=== PATIENT | female | born 1955 | race Caucasian/White ===

== ENCOUNTER 2020-11-18 15:53 | Observation (INO) | payer MEDICAID, SELFPAY ==
--- NOTE | ~2020-11-18 | NM_ITS ---
EXAMINATION: NM LUNG IMAGE PERFUSION CLINICAL INFORMATION: Chest pain. Rule out PE. History of lung cancer. D-dimer 227 COMPARISON: Chest x-ray 11/18/2020 TECHNIQUE: Following intravenous administration of 4 mCi of 90 9M technetium MAA, imaging of both lungs were obtained multiple projections. Ventilation study was not performed. FINDINGS: On perfusion exam there is normal flow seen to all segments of the lungs without any defect. NM/NM pul perfusion IMPRESSION: Normal perfusion exam. No defects seen.
--- NOTE | ~2020-11-18 | XR_ITS ---
EXAMINATION: XR CHEST CLINICAL INFORMATION: Chest heaviness COMPARISON: None TECHNIQUE: Frontal view of the chest was obtained. FINDINGS: No significant abnormality is noted involving the heart, lungs, mediastinum, bony thorax or soft tissues. XR/XR chest 1V IMPRESSION: Unremarkable chest examination.
[2020-11-18 16:17] VITALS: BP 136/64; PULSE 68; RESP 18; TEMP 36.9; O2SAT 99; BMI 34.7
[2020-11-18 17:05] LABS: MANUAL DIFF FLAG NO
[2020-11-18 17:16] LABS: Basophils Percent Auto 0.4 % (0-2); Eosinophils Absolute Auto 0.1 X10*3/uL (0.0-0.4); Eosinophils Percent Auto 1.2 % (0-4); Hematocrit 38.1 % (37-47); Hemoglobin 12.7 g/dl (12.0-16.0); Imm Gran Abs Auto 0.02 X10*3/uL (0.00-0.03); Imm Gran Pct Auto 0.3 % (0.0-0.4); Lymphocytes Absolute Auto 3.3 X10*3/uL (1.2-4.9); Lymphocytes Percent Auto 48.2 % (20-40); Mean Corpuscular HGB Conc 33.3 g/dl (31.0-35.0); Mean Corpuscular Hemoglobin 31.1 pg (27.0-33.0); Mean Corpuscular Volume 93.2 fL (80-98); Mean Platelet Volume 10.9 fL (9.4-12.3); Monocytes Absolute Auto 0.5 X10*3/uL (0.1-1.2); Monocytes Percent Auto 7.8 % (2-11); Neutrophils Absolute Auto 2.9 X10*3/uL (2.0-8.3); Neutrophils Percent Auto 42.1 % (45-73); Platelet Count 217 X10*3/uL (160-400); Red Blood Count 4.09 X10*6/uL (4.20-5.50); Red Cell Distribution Width 12.1 % (11.0-16.0); White Blood Count 6.9 X10*3/uL (4.8-10.8)
[2020-11-18 17:31] LABS: Anion Gap 14 (12-20); Blood Urea Nitrogen 14 mg/dL (9-16); Calcium 9.4 mg/dL (8.4-10.2); Carbon Dioxide 29 mmol/L (22-29); Chloride 105 mmol/L (96-108); Creatinine Clr Calc Pharmacy 55.6; Estimated Glomerular Filt Rate 53; Glucose Random 79 mg/dL (60-115); Potassium 4.6 mmol/L (3.3-5.1); Sodium 143 mmol/L (135-145)
[2020-11-18 17:40] LABS: Troponin-I High Sensitivity < 3.5 ng/L (<3.5-17.0)
--- NOTE | 2020-11-18 17:47 | ECG_ITS ---
Test Reason : CHEST TIGHTNESS Blood Pressure : / mmHG Vent. Rate : 089 BPM Atrial Rate : 089 BPM P-R Int : 146 ms QRS Dur : 070 ms QT Int : 380 ms P-R-T Axes : 053 -11 024 degrees QTc Int : 462 ms Normal sinus rhythm Low voltage QRS Cannot rule out Anterior infarct , age undetermined Abnormal ECG When compared with ECG of 25-FEB-2020 23:32, No significant change was found Referred By: Lico Gold Electronically Signed By:Beau Barajas
--- NOTE | 2020-11-18 17:49 | ED_ITS ---
HPI - Chest Pain General Chief Complaint: Chest Pain Stated Complaint: chest heaviness Time Seen by Provider: 11/18/20 17:46 Source: patient Mode of arrival: ambulatory Limitations: no limitations History of Present Illness HPI narrative: Patient presents to ED for atypical chest pain. Patient states burning acid sensation in chest for the past 3 days and now developing to pressure on her chest. Patient denies any shortness of breath swelling of lower extremities, calf pain, coughing up blood, fever, or chills. Patient denies any fever, chills, recent trauma to the chest, control use, recent surgery, any recent long travel. Patient admits to history of acid reflux MD complaint: chest pain Related Data Home Medications Medication Instructions Recorded Confirmed famotidine 1 tab PO BEDTIME 11/18/20 11/18/20 lorazepam 1 tab PO QID PRN 11/18/20 11/18/20 omeprazole 1 cap PO DAILY 11/18/20 11/18/20 polyethylene glycol 3350 17 g PO DAILY 11/18/20 11/18/20 Allergies Allergy/AdvReac Type Severity Reaction Status Date / Time Penicillins [PENICILLINS] Allergy Severe ANAPHYLAXIS Verified 11/18/20 16:16 Iodinated Contrast Media Allergy Intermediate HIVES Verified 11/18/20 16:16 [Iodinated Contrast Media - IV Dye] ciprofloxacin [From CIPRO] Allergy Unknown UNKNOWN Verified 11/18/20 16:16 Sulfa (Sulfonamide AdvReac Unknown NAUSEA & Verified 11/18/20 16:16 Antibiotics) VOMITING [SULFA (SULFONAMIDE ANTIBIOTICS)] cipro? Allergy Unknown hives Uncoded 12/27/18 00:00 PCN Allergy Unknown hives/SOB Uncoded 12/27/18 00:00 sulfa Allergy Unknown n/v Uncoded 12/27/18 00:00 Review of Systems Review of Systems: Yes all other systems are reviewed and are negative Constitutional: Constitutional: Reports as per HPI and Reports no additional constitutional complaints Eyes: Eyes: Reports as per HPI and Reports no additional eye complaints ENT: Reports system reviewed and no additional complaints, except as documented and Reports as per HPI Cardiovascular: Cardiovascular: Reports as per HPI, Reports no additional cardiovascular complaints, Reports chest pain and Denies dyspnea Respiratory: Respiratory: Reports as per HPI, Reports no additional respiratory complaints and Denies dyspnea Gastrointestinal: Gastrointestinal: Reports as per HPI, Reports no additional gastrointestinal complaints, Reports dyspepsia and Reports heartburn Genitourinary: Genitourinary: Reports no additional female genitourinary complaints and Reports as per HPI Musculoskeletal: Musculoskeletal: Reports no additional musculoskeletal complaints and Reports as per HPI Neurologic: Reports system reviewed and no additional complaints, except as documented and Reports as per HPI Psychiatric: Psychiatric: Reports no additional psychiatric complaints and Reports as per HPI [facility] Social History Social History Household Members: None Housing: Apartment Do you presently have visiting nurse or other home services: No Patient Tobacco Use Status: Never used Tobacco Use of substances other than those prescribed or required for medical reasons: No Have you been hit, kicked, punched, or otherwise hurt by someone within the past year? If so, by whom?: No Do you feel safe in your current relationship?: Yes Is there a partner from a previous relationship who is making you feel unsafe now?: No Are you made to feel afraid or neglected: No Advance Directives: No Advance Directives Information Provided: No Do you have thoughts of harming others: None Do you have a plan to hurt others: No Plan Recently lost weight without trying: No Eating poorly because of decreased appetite: No Nutrition Risks: No Nutritional Risk Patient : No : No Poor oral hygiene: No Physical Exam Vital Signs: Vital Signs: Last Vital Signs Temp 97.6 F 11/19/20 00:35 Pulse 68 11/19/20 00:35 Resp 16 11/19/20 00:35 BP 116/65 11/19/20 00:35 Pulse Ox 98 11/19/20 00:35 Body Mass Index 34.7 Const: General: cooperative, healthy appearing, comfortable, no acute distress, well developed, alert and awake Orientation/consciousness: patient oriented x3 HENMT: Head: Yes normal to inspection, Yes No palpable skull fracture present, Yes normocephalic and Yes atraumatic Eyes: General: appearance normal, both eyes and all related structures Neck: Neck: Yes normal visual inspection, Yes full ROM, Yes no lymphadenopathy, Yes no meningeal signs, Yes trachea midline, Yes supple and No tender Chest: Chest palpation & inspection: normal inspection of the chest and normal palpation of entire chest wall Resp: Effort & Inspection: normal respiratory effort and able to speak in complete sentences Auscultation: clear to auscultation bilaterally Cardio: Jugular venous distension: no JVD Heart sounds: S1 normal heart sound present and S2 normal heart sound present GI: Inspection: Yes normal to inspection and No abdominal wall ecchymosis Palpation (GI): Soft to palpation, not firm, nontender, no guarding and not rigid : General: No CVA tenderness and Yes no CVA tenderness Back/Spine/Pelvis: Back: no CVA tenderness, No CVA tenderness and No back tenderness Skin: General skin exam: no rashes or lesions noted and elasticity normal Neuro: General: patient oriented x3, gait normal, no meningeal signs and CN's II-XI intact bilaterally Cranial nerves: Yes CN's II-XII intact bilaterally Extrem: Other: Lower extremities negative for swelling, pitting edema, redness, calf tenderness General: Yes normal to inspection and Yes full ROM Psych: Appearance: grossly normal, well kempt and not disheveled Course Course Course Narrative: Patient will have labs and a cardiac evaluation. Patient given GI cocktail Reevaluation(s) Reevaluation #1: Chest x-ray came back negative for pneumonia. Patient's 1st troponin negative. Liver enzymes are normal. Negative elevated white blood cell count. States GI cocktail patient still stating chest burning/chest pressure sensation will order aspirin and nitrates. Will order D-dimer due to atypical chest pain presentation Reevaluation #2: Nurse informed me that patient refused nitro and aspirin because her chest burning sensation and chest pressure resolved. Patient's D- dimer elevated. Patient not able to get chest CTA due to anaphylactic reaction to IV contrast. Case presented to Dr. Davalos for admission for V/Q scan in the morning and she agreed to plan. Patient presently asymptomatic MDM - Chest Pain MDM Narrative Medical decision making narrative: Chest pain. Elevated D-dimer Lab Data Result diagrams: 11/18/20 16:54 11/18/20 16:54 Labs: Lab Results 11/18/20 11/18/20 11/18/20 Range/Units 16:54 16:54 16:54 WBC 6.9 (4.8-10.8) X10*3/uL RBC 4.09 L (4.20-5.50) X10*6/uL Hgb 12.7 (12.0-16.0) g/dl Hct 38.1 (37-47) % MCV 93.2 (80-98) fL MCH 31.1 (27.0-33.0) pg MCHC 33.3 (31.0-35.0) g/dl RDW 12.1 (11.0-16.0) % Plt Count 217 (160-400) X10*3/uL MPV 10.9 (9.4-12.3) fL Immature Gran % (Auto) 0.3 (0.0-0.4) % Neut % (Auto) 42.1 L (45-73) % Lymph % (Auto) 48.2 H (20-40) % [place] % (Auto) 7.8 (2-11) % Eos % (Auto) 1.2 (0-4) % Baso % (Auto) 0.4 (0-2) % Lymph # (Auto) 3.3 (1.2-4.9) X10*3/uL [place] # (Auto) 0.5 (0.1-1.2) X10*3/uL Eos # (Auto) 0.1 (0.0-0.4) X10*3/uL Baso # (Auto) 0.0 (0.0-0.2) X10*3/uL Abs Immat Gran (auto) 0.02 (0.00-0.03) X10*3/uL Absolute Neuts (auto) 2.9 (2.0-8.3) X10*3/uL Absolute Nucleated RBC 0.000 (0.0-0.012) X10*3/uL Nucleated RBC % (auto) 0.0 (0.0-0.2) /100WBC PT (10.8-13.0) SEC INR (0.9-1.1) APTT (24.1-38.0) SEC D-Dimer NG/ML Sodium 143 (135-145) mmol/L Potassium 4.6 (3.3-5.1) mmol/L Chloride 105 (96-108) mmol/L Carbon Dioxide 29 (22-29) mmol/L Anion Gap 14 (12-20) BUN 14 (9-16) mg/dL Creatinine 1.04 (0.5-1.4) mg/dL Estim Creat Clear Calc 55.6 Estimated GFR 53 Random Glucose 79 (60-115) mg/dL Calcium 9.4 (8.4-10.2) mg/dL Total Bilirubin 0.4 (0.0-1.0) mg/dL Direct Bilirubin 0.2 (0.0-0.5) mg/dL AST 20 (5-31) U/L ALT 24 (0-31) U/L Alkaline Phosphatase 53 (39-117) U/L Troponin I High Sens < 3.5 (<3.5-17.0) ng/L B-Natriuretic Peptide 26 (<100) pg/mL Total Protein 6.6 (6.5-8.0) g/dL Albumin 4.2 (3.5-5.0) g/dL Lipase 35 (8-78) U/L COVID-19 (LICO) (Negative) COVID-19 Clin Com 11/18/20 11/18/20 11/18/20 Range/Units 18:31 19:41 19:41 WBC (4.8-10.8) X10*3/uL RBC (4.20-5.50) X10*6/uL Hgb (12.0-16.0) g/dl Hct (37-47) % MCV (80-98) fL MCH (27.0-33.0) pg MCHC (31.0-35.0) g/dl RDW (11.0-16.0) % Plt Count (160-400) X10*3/uL MPV (9.4-12.3) fL Immature Gran % (Auto) (0.0-0.4) % Neut % (Auto) (45-73) % Lymph % (Auto) (20-40) % [place] % (Auto) (2-11) % Eos % (Auto) (0-4) % Baso % (Auto) (0-2) % Lymph # (Auto) (1.2-4.9) X10*3/uL [place] # (Auto) (0.1-1.2) X10*3/uL Eos # (Auto) (0.0-0.4) X10*3/uL Baso # (Auto) (0.0-0.2) X10*3/uL Abs Immat Gran (auto) (0.00-0.03) X10*3/uL Absolute Neuts (auto) (2.0-8.3) X10*3/uL Absolute Nucleated RBC (0.0-0.012) X10*3/uL Nucleated RBC % (auto) (0.0-0.2) /100WBC PT 12.0 (10.8-13.0) SEC INR 1.0 (0.9-1.1) APTT 35.1 (24.1-38.0) SEC D-Dimer 327 NG/ML Sodium (135-145) mmol/L Potassium (3.3-5.1) mmol/L Chloride (96-108) mmol/L Carbon Dioxide (22-29) mmol/L Anion Gap (12-20) BUN (9-16) mg/dL Creatinine (0.5-1.4) mg/dL Estim Creat Clear Calc Estimated GFR Random Glucose (60-115) mg/dL Calcium (8.4-10.2) mg/dL Total Bilirubin (0.0-1.0) mg/dL Direct Bilirubin (0.0-0.5) mg/dL AST (5-31) U/L ALT (0-31) U/L Alkaline Phosphatase (39-117) U/L Troponin I High Sens < 3.5 (<3.5-17.0) ng/L B-Natriuretic Peptide (<100) pg/mL Total Protein (6.5-8.0) g/dL Albumin (3.5-5.0) g/dL Lipase (8-78) U/L COVID-19 (LICO) Negative (Negative) COVID-19 Clin Com See Note ECG Data ECG #1: Interpretation: Normal sinus rhythm. Ventricular rate 89. KS interval 146. QRS 70. QTC 462. Negative STEMI Discharge Plan Discharge Clinical Impression: Atypical chest pain, D-dimer, elevated Patient Disposition: Admitted As Inpatient Interventions: Admission Worksheet (ED) Last Done: 11/19/20 01:22
[2020-11-18 18:06] LABS: Alanine Aminotransferase 24 U/L (0-31); Albumin Level 4.2 g/dL (3.5-5.0); Alkaline Phosphatase 53 U/L (39-117); Aspartate Amino Transferase 20 U/L (5-31); Bilirubin Direct 0.2 mg/dL (0.0-0.5); Bilirubin Total 0.4 mg/dL (0.0-1.0); Lipase 35 U/L (8-78); Total Protein 6.6 g/dL (6.5-8.0)
[2020-11-18] MEDS: Magnesium Hydrox/Alum Hydrox 30 ML ORAL.SUSP PO (18:14)
[2020-11-18] MEDS: Famotidine 20 MG TABLET PO (18:14)
[2020-11-18] MEDS: Lidocaine HCl Viscous 2 % 15 ML SOLUTION MUCOUS MEM (18:14)
[2020-11-18] MEDS: PHENobarb/Hyoscy/Atropine/Scop 10 ML ELIXIR PO (18:17)
[2020-11-18 18:26] VITALS: BP 146/79; PULSE 79; RESP 16; TEMP 36.6; O2SAT 98
[2020-11-18 18:56] LABS: COVID-19 Test Negative (Negative)
[2020-11-18 19:53] LABS: B Type Natriuretic Peptide 26 pg/mL (<100)
[2020-11-18 19:57] VITALS: BP 124/67; PULSE 57; RESP 13; O2SAT 99
[2020-11-18] MEDS: Aspirin 81 MG TAB.CHEW 324 MG PO (19:57)
[2020-11-18 19:58] LABS: D Dimer 327 NG/ML; Partial Thromboplastin Time 35.1 SEC (24.1-38.0)
[2020-11-18 20:00] VITALS: BP 115/63; PULSE 66; RESP 16; TEMP 36.6; O2SAT 98
[2020-11-18 20:01] VITALS: BP 124/67; PULSE 74
--- NOTE | 2020-11-18 20:02 | PC.NURSE ---
pt reports she is pain free. nitro no adminisered.
[2020-11-18 20:21] LABS: Troponin-I High Sensitivity < 3.5 ng/L (<3.5-17.0)
--- NOTE | 2020-11-18 21:54 | HE.PHANOTE ---
Pharmacy Consult ? Medication Reconciliation Pharmacy has completed the medication reconciliation and there were no significant medication issues requiring provider attention. Patient is not compliant with medication regiments. Zara Anderson, PharmD [phone]
[2020-11-19 00:35] VITALS: BP 116/65; PULSE 68; RESP 16; TEMP 36.4; O2SAT 98
[2020-11-19] MEDS: LORazepam 0.5 MG TABLET PO (01:56)
[2020-11-19] MEDS: 0.9 % Sodium Chloride Flush 3 ML SYRINGE IVFLUSH (01:56)
[2020-11-19 04:00] VITALS: BP 97/50; PULSE 76; RESP 16; TEMP 36.3; O2SAT 96
[2020-11-19 05:51] LABS: MANUAL DIFF FLAG NO
[2020-11-19 05:58] LABS: Basophils Percent Auto 0.4 % (0-2); Eosinophils Absolute Auto 0.1 X10*3/uL (0.0-0.4); Eosinophils Percent Auto 1.6 % (0-4); Hematocrit 35.5 % (37-47); Hemoglobin 11.7 g/dl (12.0-16.0); Imm Gran Abs Auto 0.02 X10*3/uL (0.00-0.03); Imm Gran Pct Auto 0.3 % (0.0-0.4); Lymphocytes Absolute Auto 3.6 X10*3/uL (1.2-4.9); Mean Corpuscular Hemoglobin 30.5 pg (27.0-33.0); Mean Corpuscular Volume 92.7 fL (80-98); Mean Platelet Volume 10.9 fL (9.4-12.3); Monocytes Absolute Auto 0.6 X10*3/uL (0.1-1.2); Monocytes Percent Auto 8.6 % (2-11); Neutrophils Absolute Auto 2.6 X10*3/uL (2.0-8.3); Neutrophils Percent Auto 37.1 % (45-73); Platelet Count 196 X10*3/uL (160-400); Red Blood Count 3.83 X10*6/uL (4.20-5.50); Red Cell Distribution Width 12.1 % (11.0-16.0)
--- NOTE | 2020-11-19 06:15 | PM.IMHP ---
History of Present Illness Date of Service: 11/19/20 Chief Complaint: chest pain 64-year-old female with past medical history of AFib not on anticoagulation, type 2 diabetes, history of lung cancer status post lobectomy currently in remission presents to the hospital with complaints chest pain. Patient reports pressure-like substernal chest pain that started about 2 days ago, nonradiating, does not change with any movement or inhalation, intermittent, lasting about few minutes, resolving spontaneously and reoccurring after 15 minutes. Occur spontaneously with no exacerbating or alleviating factors. Patient reports that her occurs at random times and wakes her up from sleep sometimes. She reports that when she has this chest pain she feels that her breath is heavy although not really short of breath. No similar previous episode. Patient reports that about 2 nights ago had severe heartburn that woke her up and felt very distressful although that resolved. She reports that due to her back pain she has been putting a lot of pressure on her arms whenever she gets up from a seated or sitting position and uses her upper body to help her with moving. She otherwise denies any fever chills, no palpitations, no headache or change in vision, no dizziness, no abdominal pain nausea or vomiting, no diarrhea constipation, no urinary symptoms and no lower extremity edema. Denies any recent surgery, denies any recent immobility and or long travels. No swelling in any of her extremities On arrival to the ED hemodynamically stable with no significant abnormal vitals Labs are significant for WBC count of 6.9, hemoglobin of 12.7, D-dimer of 327, labs otherwise unremarkable. Troponin negative x2, EKG negative for any acute changes Chest x-ray shows unremarkable exam Patient was given nitroprusside in the ED which helped her symptoms of chest pain Given her elevated D-dimer patient was recommended to get a CT angiogram of the chest but she is allergic to dye and therefore will be admitted for V/Q scan Review of Systems Review of Systems: Yes all other systems are reviewed and are negative [facility] Medical History Atrial fibrillation Diabetes History of lung cancer Surgical History History of lobectomy of lung Social History Household Members: None Housing: Apartment Do you presently have visiting nurse or other home services: No Patient Tobacco Use Status: Never used Tobacco Use of substances other than those prescribed or required for medical reasons: No Have you been hit, kicked, punched, or otherwise hurt by someone within the past year? If so, by whom?: No Do you feel safe in your current relationship?: Yes Is there a partner from a previous relationship who is making you feel unsafe now?: No Are you made to feel afraid or neglected: No Advance Directives: No Advance Directives Information Provided: No Do you have thoughts of harming others: None Do you have a plan to hurt others: No Plan Recently lost weight without trying: No Eating poorly because of decreased appetite: No Nutrition Risks: No Nutritional Risk Patient : No : No Poor oral hygiene: No Meds Allergies Allergy/AdvReac Type Severity Reaction Status Date / Time Penicillins [PENICILLINS] Allergy Severe ANAPHYLAXIS Verified 11/18/20 16:16 Iodinated Contrast Media Allergy Intermediate HIVES Verified 11/18/20 16:16 [Iodinated Contrast Media - IV Dye] ciprofloxacin [From CIPRO] Allergy Unknown UNKNOWN Verified 11/18/20 16:16 Sulfa (Sulfonamide AdvReac Unknown NAUSEA & Verified 11/18/20 16:16 Antibiotics) VOMITING [SULFA (SULFONAMIDE ANTIBIOTICS)] cipro? Allergy Unknown hives Uncoded 12/27/18 00:00 PCN Allergy Unknown hives/SOB Uncoded 12/27/18 00:00 sulfa Allergy Unknown n/v Uncoded 12/27/18 00:00 Active Medications: Current Medications Generic Name Dose Route Start Last Admin Trade Name Freq PRN Reason Stop Dose Admin Acetaminophen 650 mg 11/19/20 00:29 Acetaminophen 325 Mg Tablet PO Q6H PRN Pain, Mild (Pain Scale 1-3) Al Hydroxide/Mg Hydroxide 15 ml 11/19/20 00:29 Magnesium Hydrox/Alum Hydrox 30 Ml Oral.Susp PO Q6H PRN Heartburn Docusate Sodium 100 mg 11/19/20 00:29 Docusate Sodium 100 Mg Capsule PO DAILY PRN Constipation Famotidine 20 mg 11/19/20 21:00 Famotidine 20 Mg Tablet PO BEDTIME LEANDRO Heparin Sodium (Porcine) 5,000 unit 11/19/20 02:00 11/19/20 03:04 Heparin Sodium,Porcine 5,000 Unit/Ml Vial SUBCUT Not Given Q12H LEANDRO Lorazepam 0.5 mg 11/19/20 00:29 11/19/20 01:56 Lorazepam 0.5 Mg Tablet PO 0.5 mg QID PRN Administration Anxiety Omeprazole 20 mg 11/19/20 09:00 Omeprazole 20 Mg Capsule.Dr PO DAILY LEANDRO Ondansetron HCl 4 mg 11/19/20 00:29 Ondansetron Hcl 4 Mg/2 Ml Vial IVPUSH Q8H PRN Nausea and Vomiting Pharmacy Consult 1 each 11/18/20 21:42 Consult Rx Perform Med Rec MISCELLANE ONCE PRN Consult order Polyethylene Glycol 17 gm 11/19/20 09:00 Polyethylene Glycol 3350 17 Gm Powd.Pack PO DAILY [facility] Sodium Chloride 3 ml 11/19/20 00:29 11/19/20 01:56 0.9 % Sodium Chloride Flush 3 Ml Syringe IVFLUSH 3 ml QSHIFT [facility] Administration Home Medications Medication Instructions Recorded Confirmed Last Taken Type famotidine 1 tab PO BEDTIME 11/18/20 11/18/20 Unknown History lorazepam 1 tab PO QID PRN 11/18/20 11/18/20 Unknown History omeprazole 1 cap PO DAILY 11/18/20 11/18/20 Unknown History polyethylene glycol 3350 17 g PO DAILY 11/18/20 11/18/20 Unknown History Physical Exam Vital Signs and Narrative: Vital Signs: Last Vital Signs Temp 97.4 F 11/19/20 04:00 Pulse 76 11/19/20 04:00 Resp 16 11/19/20 04:00 BP 97/50 L 11/19/20 04:00 Pulse Ox 96 11/19/20 04:00 Body Mass Index 34.7 Const: General: cooperative and no acute distress Orientation/consciousness: patient oriented x3 Eyes: General: appearance normal, both eyes and all related structures Chest: Other: Reproducible substernal chest pain with palpation Resp: Effort & Inspection: normal respiratory effort and able to speak in complete sentences Auscultation: clear to auscultation bilaterally Cardio: Rate: regular rate Rhythm: regular rhythm GI: Palpation (GI): Soft to palpation Auscultation: normal bowel sounds Skin: General skin exam: no rashes or lesions noted Neuro: General: patient oriented x3 Cognition (Neuro): normal cognition Extrem: General: Yes normal to inspection and Yes no pedal edema Results Labs CBC and Chem 7: 11/19/20 05:38 11/18/20 16:54 Labs: Laboratory Results - last 24 hr 11/18/20 11/18/20 11/18/20 16:54 16:54 16:54 MCV 93.2 MCH 31.1 MCHC 33.3 RDW 12.1 Plt Count 217 MPV 10.9 Immature Gran % (Auto) 0.3 Neut % (Auto) 42.1 L Lymph % (Auto) 48.2 H [place] % (Auto) 7.8 Eos % (Auto) 1.2 Baso % (Auto) 0.4 Lymph # (Auto) 3.3 [place] # (Auto) 0.5 Eos # (Auto) 0.1 Baso # (Auto) 0.0 Abs Immat Gran (auto) 0.02 Absolute Neuts (auto) 2.9 Absolute Nucleated RBC 0.000 Nucleated RBC % (auto) 0.0 PT INR APTT D-Dimer Anion Gap 14 Estim Creat Clear Calc 55.6 Estimated GFR 53 Random Glucose 79 Calcium 9.4 Total Bilirubin 0.4 Direct Bilirubin 0.2 AST 20 ALT 24 Alkaline Phosphatase 53 Troponin I High Sens < 3.5 B-Natriuretic Peptide 26 Total Protein 6.6 Albumin 4.2 Lipase 35 COVID-19 (LICO) COVID-E-Generator 11/18/20 11/18/20 11/18/20 18:31 19:41 19:41 MCV MCH MCHC RDW Plt Count MPV Immature Gran % (Auto) Neut % (Auto) Lymph % (Auto) [place] % (Auto) Eos % (Auto) Baso % (Auto) Lymph # (Auto) [place] # (Auto) Eos # (Auto) Baso # (Auto) Abs Immat Gran (auto) Absolute Neuts (auto) Absolute Nucleated RBC Nucleated RBC % (auto) PT 12.0 INR 1.0 APTT 35.1 D-Dimer 327 Anion Gap Estim Creat Clear Calc Estimated GFR Random Glucose Calcium Total Bilirubin Direct Bilirubin AST ALT Alkaline Phosphatase Troponin I High Sens < 3.5 B-Natriuretic Peptide Total Protein Albumin Lipase COVID-19 (LICO) Negative COVID-19 Clin Com See Note 11/19/20 05:38 MCV 92.7 MCH 30.5 MCHC 33.0 RDW 12.1 Plt Count 196 MPV 10.9 Immature Gran % (Auto) 0.3 Neut % (Auto) 37.1 L Lymph % (Auto) 52.0 H [place] % (Auto) 8.6 Eos % (Auto) 1.6 Baso % (Auto) 0.4 Lymph # (Auto) 3.6 [place] # (Auto) 0.6 Eos # (Auto) 0.1 Baso # (Auto) 0.0 Abs Immat Gran (auto) 0.02 Absolute Neuts (auto) 2.6 Absolute Nucleated RBC 0.000 Nucleated RBC % (auto) 0.0 PT INR APTT D-Dimer Anion Gap Estim Creat Clear Calc Estimated GFR Random Glucose Calcium Total Bilirubin Direct Bilirubin AST ALT Alkaline Phosphatase Troponin I High Sens B-Natriuretic Peptide Total Protein Albumin Lipase COVID-19 (LICO) COVID-19 Clin Com Imaging Radiologist's Impressions: Impressions Chest X-Ray 11/18/20 16:45 IMPRESSION: Unremarkable chest examination. Assessment and Plan (1) Atypical chest pain: Status: Acute (2) D-dimer, elevated: Status: Acute This is a 64-year-old female with past medical history of AFib who presents to the hospital with complaints of substernal chest pain found to have an elevated D-dimer # chest pain - noncardiac, most likely secondary to musculoskeletal as it is reproducible, PE less likely - troponin negative x2, EKG shows no acute changes - given her atypical chest pain as well as elevated D-dimer will order V/Q to rule out PE as a result of her chest pain # elevated D-dimer - no risk factors for PE/DVT - patient allergic to CT angiogram - will order V/Q scan # AFib - CHADS-VASc of 1 - when I asked her about why she is not on anticoagulation 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 - pt reports hx of dm although currently not on any medications for dm - no documented Hemoglobin A1c - determining her Diabetes status is improtant as it impacts her CHADSvasc score, making it 2, placing at high risk for strokes - will obtain hemoglobin A1c dvt ppx: heparin subq
[2020-11-19 06:21] LABS: Anion Gap 10 (12-20); Blood Urea Nitrogen 15 mg/dL (9-16); Calcium 8.6 mg/dL (8.4-10.2); Carbon Dioxide 29 mmol/L (22-29); Chloride 106 mmol/L (96-108); Creatinine Clr Calc Pharmacy 53.6; Estimated Glomerular Filt Rate 51; Glucose Random 102 mg/dL (60-115); Potassium 4.2 mmol/L (3.3-5.1); Sodium 141 mmol/L (135-145)
[2020-11-19 07:45] VITALS: BP 126/67; PULSE 59; RESP 17; TEMP 36.4; O2SAT 99
[2020-11-19 08:17] LABS: Estimated Average Glucose 120 mg/dL; Hemoglobin A1c % 5.8 %
[2020-11-19 08:36] LABS: Glucose, Whole Blood 108 mg/dL (60-115)
[2020-11-19] MEDS: Omeprazole 20 MG CAPSULE.DR PO (08:38)
--- NOTE | 2020-11-19 10:05 | MHC.CM.PN ---
Addendum entered by Jeanie Ricks 11/19/20 11:39: D/C- HOME NO SERVICES (NO VNA ORDERED) NO NEW MEDICATIONS LISTED AT THIS TIME TRANSPORTATION FAMILY SELF RESUMPTION OF PATIENT OUTPATIENT PT FOR VERTIGO AND SELF RESUMPTION OF HER MENTAL HEALTH COUNSELING Original Note: NURSE APPLIANCE INSTALLER NOTE, ELECTRONIC MEDICAL RECORD REVIEWED CASE DISCUSSED WITH STAFF NURSE. MET WITH PATIENT , SHE REPORTED THAT SHE LIVES ALONE IN IN A APARTMENT. SHE HAS NO VNA/NO DME SERVICES . SHE GOES TO THE [facility] FOR VRRTIGO. SHE ALSO IS FOLLOWED BY A PSYCHIATRIST /THERAPIST FOR MENTAL HEALTH COUNSELING (ANXIETY/DEPRESSION, PANIC ATTACKS) SHE CONFIRMED PCP DR CIRO GOLDBERG. DISCHARGE PLAN HOME WITH ANTICIPATED NO SERVICES OBSERVATION NOTICE EXPLAINED AND GIVEN TO PATIENT TRANSPORTATION FAMILY SELF RESUMPTION OF HER OUTPATIENT PT FOR VERTIGO AND MENTAL HEALTH COUNSELING EDUCATED ABOUT THE IMPORTANCE OF HAVING A HEALTH CARE PROXY
--- NOTE | 2020-11-19 11:28 | P.DS_ITS ---
DS: Providers Provider Date of Service: 11/19/20 Date of admission: 11/18/20 22:22 Primary care physician: Samuel Love MD DS: Diagnosis Discharge Diagnosis (1) Atypical chest pain: Status: Acute (2) D-dimer, elevated: Status: Acute DS: Medications Discharge Medications Home Medications: Home Medications Medication Instructions Recorded Confirmed famotidine 1 tab PO BEDTIME 11/18/20 11/18/20 lorazepam 1 tab PO QID PRN 11/18/20 11/18/20 omeprazole 1 cap PO DAILY 11/18/20 11/18/20 polyethylene glycol 3350 17 g PO DAILY 11/18/20 11/18/20 DS: Summary Hospital Course Hospital Course: 64-year-old female with past medical history of AFib not on anticoagulation, type 2 diabetes, history of lung cancer status post lobectomy currently in remission presents to the hospital with complaints chest pain. Patient reports pressure-like substernal chest pain that started about 2 days ago, nonradiating, does not change with any movement or inhalation, intermittent, lasting about few minutes, resolving spontaneously and reoccurring after 15 minutes. Occur spontaneously with no exacerbating or alleviating factors. Patient reports that her occurs at random times and wakes her up from sleep sometimes. She reports that when she has this chest pain she feels that her breath is heavy although no t really short of breath. No similar previous episode. Patient reports that about 2 nights ago had severe heartburn that woke her up and felt very distressful although that resolved. She reports that due to her back pain she has been putting a lot of pressure on her arms whenever she gets up from a seated or sitting position and uses her upper body to help her with moving. She otherwise denies any fever chills, no palpitations, no headache or change in vision, no dizziness, no abdominal pain nausea or vomiting, no diarrhea constipation, no urinary symptoms and no lower extremity edema. Denies any recent surgery, denies any recent immobility and or long travels. No swelling in any of her extremities On arrival to the ED hemodynamically stable with no significant abnormal vitals Labs are significant for WBC count of 6.9, hemoglobin of 12.7, D-dimer of 327, labs otherwise unremarkable. Troponin negative x2, EKG negative for any acute changes Chest x-ray shows unremarkable exam Patient was given nitroprusside in the ED which helped her symptoms of chest pain Given her elevated D-dimer patient was recommended to get a CT angiogram of the chest but she is allergic to dye and therefore will be admitted for V/Q scan Hospital course: Chest pain is likely related to GI ie GERD, her cardiac enzymes were normal twice and there was no ECG changes from previous ECG and her pain is not of anginal pattern, she had VQ scan done for elevated DDimer and this was normal her pain has resolved and seem to respond to tums--I suggest she continue PPI and H2 yancy and to see GI and cardiology on outpatient basis, certainly to return to ED if chest pain return. Time Spent with Patient Time attestation: Total time spent providing and/or coordinating discharge services: Discharge coordination time: Greater than 30 minutes Quality: Stroke Does the patient have a stroke diagnosis?: No Physical Exam Vital Signs: Vital Signs: Last Vital Signs Temp 97.6 F 11/19/20 07:45 Pulse 59 11/19/20 07:45 Resp 17 11/19/20 07:45 BP 126/67 11/19/20 07:45 Pulse Ox 99 11/19/20 07:45 Body Mass Index 34.7 Constitutional Awake and Alert, No apparent distress Neck Supple, No lymphadenopathy Cardiovascular RRR, No M/R/G, S1 S2, No S3 S4, No pedal edema Respiratory Lungs clear, No respiratory distress Gastrointestinal Non tender, Non-distended Skin No rash Neurological Alert & oriented x3 Psychological Appropriate affect DS: Data Data Completed and Pending Labs on day of discharge: Laboratory Results - last 24 hr 11/18/20 11/18/20 11/18/20 16:54 16:54 16:54 WBC 6.9 RBC 4.09 L Hgb 12.7 Hct 38.1 MCV 93.2 MCH 31.1 MCHC 33.3 RDW 12.1 Plt Count 217 MPV 10.9 Immature Gran % (Auto) 0.3 Neut % (Auto) 42.1 L Lymph % (Auto) 48.2 H [place] % (Auto) 7.8 Eos % (Auto) 1.2 Baso % (Auto) 0.4 Lymph # (Auto) 3.3 [place] # (Auto) 0.5 Eos # (Auto) 0.1 Baso # (Auto) 0.0 Abs Immat Gran (auto) 0.02 Absolute Neuts (auto) 2.9 Absolute Nucleated RBC 0.000 Nucleated RBC % (auto) 0.0 PT INR APTT D-Dimer Sodium 143 Potassium 4.6 Chloride 105 Carbon Dioxide 29 Anion Gap 14 BUN 14 Creatinine 1.04 Estim Creat Clear Calc 55.6 Estimated GFR 53 POC Glucose Random Glucose 79 Estimat Average Glucose Hemoglobin A1c % Calcium 9.4 Total Bilirubin 0.4 Direct Bilirubin 0.2 AST 20 ALT 24 Alkaline Phosphatase 53 Troponin I High Sens < 3.5 B-Natriuretic Peptide 26 Total Protein 6.6 Albumin 4.2 Lipase 35 COVID-19 ([facility]) COVID-19 Clin Com 11/18/20 11/18/20 11/18/20 18:31 19:41 19:41 WBC RBC Hgb Hct MCV MCH MCHC RDW Plt Count MPV Immature Gran % (Auto) Neut % (Auto) Lymph % (Auto) [place] % (Auto) Eos % (Auto) Baso % (Auto) Lymph # (Auto) [place] # (Auto) Eos # (Auto) Baso # (Auto) Abs Immat Gran (auto) Absolute Neuts (auto) Absolute Nucleated RBC Nucleated RBC % (auto) PT 12.0 INR 1.0 APTT 35.1 D-Dimer 327 Sodium Potassium Chloride Carbon Dioxide Anion Gap BUN Creatinine Estim Creat Clear Calc Estimated GFR POC Glucose Random Glucose Estimat Average Glucose Hemoglobin A1c % Calcium Total Bilirubin Direct Bilirubin AST ALT Alkaline Phosphatase Troponin I High Sens < 3.5 B-Natriuretic Peptide Total Protein Albumin Lipase COVID-19 ([facility]) Negative COVID-19 Clin Com See Note 11/19/20 11/19/20 11/19/20 05:38 05:38 06:05 WBC 7.0 RBC 3.83 L Hgb 11.7 L Hct 35.5 L MCV 92.7 MCH 30.5 MCHC 33.0 RDW 12.1 Plt Count 196 MPV 10.9 Immature Gran % (Auto) 0.3 Neut % (Auto) 37.1 L Lymph % (Auto) 52.0 H [place] % (Auto) 8.6 Eos % (Auto) 1.6 Baso % (Auto) 0.4 Lymph # (Auto) 3.6 [place] # (Auto) 0.6 Eos # (Auto) 0.1 Baso # (Auto) 0.0 Abs Immat Gran (auto) 0.02 Absolute Neuts (auto) 2.6 Absolute Nucleated RBC 0.000 Nucleated RBC % (auto) 0.0 PT INR APTT D-Dimer Sodium 141 Potassium 4.2 Chloride 106 Carbon Dioxide 29 Anion Gap 10 L BUN 15 Creatinine 1.08 Estim Creat Clear Calc 53.6 Estimated GFR 51 POC Glucose Random Glucose 102 Estimat Average Glucose 120 Hemoglobin A1c % 5.8 Calcium 8.6 D Total Bilirubin Direct Bilirubin AST ALT Alkaline Phosphatase Troponin I High Sens B-Natriuretic Peptide Total Protein Albumin Lipase COVID-19 ([facility]) COVID-19 [facility] 11/19/20 07:43 WBC RBC Hgb Hct MCV MCH MCHC RDW Plt Count MPV Immature Gran % (Auto) Neut % (Auto) Lymph % (Auto) [place] % (Auto) Eos % (Auto) Baso % (Auto) Lymph # (Auto) [place] # (Auto) Eos # (Auto) Baso # (Auto) Abs Immat Gran (auto) Absolute Neuts (auto) Absolute Nucleated RBC Nucleated RBC % (auto) PT INR APTT D-Dimer Sodium Potassium Chloride Carbon Dioxide Anion Gap BUN Creatinine Estim Creat Clear Calc Estimated GFR POC Glucose 108 Random Glucose Estimat Average Glucose Hemoglobin A1c % Calcium Total Bilirubin Direct Bilirubin AST ALT Alkaline Phosphatase Troponin I High Sens B-Natriuretic Peptide Total Protein Albumin Lipase COVID-19 ([facility]) COVID-19 [facility] Com Discharge Plan Discharge Anticipated Discharge Date/Time: 11/19/20 11:23 Patient Disposition: Home, Self-Care Discharge Diagnosis: Chest pain Referrals: Sonia Carrizales MD [Physician] - 1 Week (GERD/chest pain) Samuel Love MD [Primary Care Provider] - 1 Week Beau Barajas MD [Physician] - 1 Week (chest pain) Discharge Medications: Continued famotidine 20 mg tablet 1 tab PO BEDTIME RF: 0 lorazepam 0.5 mg tablet 1 tab PO QID PRN (Reason: Anxiety) RF: 0 polyethylene glycol 3350 17 gram/dose powder 17 g PO DAILY RF: 0 omeprazole 20 mg capsule,delayed release(DR/EC) 1 cap PO DAILY RF: 0 Discharge Orders: Discharge Order (Routine); Ordered 11/19/20 Ordered By: Enoch Chambers Diet: advance to usual diet Activity on Discharge: As tolerated Stand Alone Forms: Patient Portal Discharge page Care Plan Goals: further work up for chest pain Health Concerns: chest pain Plan of Treatment: Outpatient and cardiology referal for further work up Assessment: See above
[2020-11-19 11:52] LABS: Glucose, Whole Blood 94 mg/dL (60-115)
[2020-11-19 12:00] VITALS: RESP 18
== END 2020-11-19 16:04 | disposition home or self-care (01) ==
LOC: HO.ED 17:32 → HO.S3 22:42
PROVIDERS: Physician Assistant; Admitting Provider Internal Medicine; Emergency Provider Emergency Medicine Emergency Medical Services; PCP Internal Medicine; Visit Provider Internal Medicine
DX: R07.89 Other chest pain (principal); R79.1 Abnormal coagulation profile; I48.91 Unspecified atrial fibrillation; E11.9 Type 2 diabetes mellitus without complications; R12 Heartburn; R94.31 Abnormal electrocardiogram [ECG] [EKG]; Z88.0 Allergy status to penicillin; Z88.2 Allergy status to sulfonamides; Z88.1 Allergy status to other antibiotic agents; Z91.041 Radiographic dye allergy status; Z20.822 Contact with and (suspected) exposure to COVID-19; Z85.118 Personal history of other malignant neoplasm of bronchus and lung; Z90.2 Acquired absence of lung [part of]; Z79.899 Other long term (current) drug therapy
CPT/HCPCS: 36415; 71045; 78580; 80048; 80076; 82947; 83036; 83690; 83880; 84484; 85025; 85379; 85610; 85730; 87635; 93005; 99218; 99285; A9540

== ENCOUNTER 2021-02-11 15:35 | Emergency (ER) | payer MEDICARE, MEDICAID, SELFPAY ==
--- NOTE | ~2021-02-11 | CT_ITS ---
Indication: Shortness of breath with right-sided pain, history of lung CVA, right upper lobectomy EXAMINATION: Noncontrast CT of the chest abdomen pelvis. Comparison previous chest CT dated 10/31/2018 Axial imaging with coronal and sagittal reformatted images. DLP is [address] chest; The thoracic inlet is felt to be comparable to previous. The axillary regions are unremarkable. There are some small mediastinal nodes. These are not pathologically enlarged but appears slightly more prominent than previous. Attention to follow-up. There is also mild increased fullness in the subcarinal region. This is a noncontrast study. Right hilar region appears altered by postsurgical change.. It would be difficult to rule out underlying right hilar adenopathy or mass Imaging the lung [place]. Right lung; Previously seen right upper lobe lesion is no longer present. Likely postsurgical changes No infiltrate or effusion. Left lung; Stable 3 mm nodule left upper lung. Image 14 There is no significant infiltrate or effusion. Upper abdomen; Liver is unremarkable. The spleen is unremarkable. Region the pancreas is unremarkable. Area the adrenal glands within normal limits. The kidneys appear nonhydronephrotic. The bladder is felt to be within normal limits. The bowel pattern is demonstrating evidence for diverticulosis. No evidence for diverticulitis. Scattered atherosclerotic change in the aorta. No aneurysmal change. There is no bulky adenopathy here. Some shotty nodes are noted. Diverticulosis but no evidence for diverticulitis. Review of the bone windows demonstrate some degenerative changes. No convincing evidence for a lesion. Impression; there is no acute finding here. There is no pneumothorax or effusion or significant infiltrate. The right upper lung lesion seen previously is no longer visualized and the patient is status post surgery on the right. Noncontrast study significantly limits this exam. In the mediastinum there are no pathologically enlarged nodes but the nodes present are felt to be mildly increased from previous and I cannot adequately evaluate the right hilum due to lack of intravenous contrast. Underlying mass or central metastatic focus cannot be excluded on this study. Recommendation is post contrast CT of the chest for full evaluation. This may be done on an outpatient basis. Small lung nodules. Attention to follow-up There is no acute finding in the abdomen pelvis. No evidence for metastatic disease although again this is a noncontrast study therefore evaluation is limited. The bowel pattern is nonobstructing. There is diverticulosis in the colon but no evidence for diverticulitis.
--- NOTE | 2021-02-11 15:37 | ECG_ITS ---
Test Reason : CHEST PAIN Blood Pressure : / mmHG Vent. Rate : 090 BPM Atrial Rate : 090 BPM P-R Int : 138 ms QRS Dur : 070 ms QT Int : 370 ms P-R-T Axes : 056 029 013 degrees QTc Int : 452 ms Normal sinus rhythm Low voltage QRS Borderline ECG When compared with ECG of 18-NOV-2020 16:05, No significant change was found Referred By: Generic ED Physician Electronically Signed By:MARK TORIBIO
[2021-02-11 16:08] VITALS: BP 127/71; PULSE 81; RESP 18; TEMP 36.8; O2SAT 99; BMI 34.7
[2021-02-11 16:36] VITALS: BP 135/79; PULSE 78; RESP 22; TEMP 36.9; O2SAT 98
--- NOTE | 2021-02-11 17:17 | ED.GENADULT ---
HPI - General Adult General Chief complaint: General Medical Stated complaint: headache, chest pain, blurred vision Time Seen by Provider: 02/11/21 16:52 Source: patient Mode of arrival: ambulatory Limitations: no limitations History of Present Illness HPI narrative: 65-year-old female past medical history of AFib not on anticoagulation, type 2 diabetes, history of lung ca s/p right upper lobe lobectomy complaining of 3 weeks of lightheaded dizziness and 4 days of worsening intermittent chest pain. Patient states the lightheaded and dizziness is just a feeling of being off balance and not feeling like the room is spinning. She states she has chronic intermittent blurry vision in her right eye but now her blurry vision is chronic. She has seen several eye doctors for this over the years and someone yesterday who ruled out any eye issues with told her she should have her carotids ultrasounded by her PCP. Patient states she called her PCP and they sent her here to the emergency department. Patient states she also has had chest pain for the last 4 days, she states the location of the pain is on the right anterior bra line and is worse when she pushes on it. She states her last mammogram was just few months ago and it was normal. She denies any changes in her breast or lumps that she has noticed or abnormal discharge. She also has associated shortness of breath which is worse with exertion denies any leg swelling. She states she does have asthma but that is not what this feels like. She also states she has had chronic burning in her chest which is central, substernal. She was hospitalized for this at this institution in November 2020. She is scheduled to have a upper endoscopy in March. She was placed on PPI, H2 yancy and scheduled to see GI and cardiology outpatient. Patient denies any fevers, nausea vomiting or diarrhea. Related Data Home Medications Medication Instructions Recorded Confirmed famotidine 20 mg tablet 1 tab PO BEDTIME 11/18/20 11/18/20 lorazepam 0.5 mg tablet 1 tab PO QID PRN 11/18/20 11/18/20 omeprazole 20 mg capsule,delayed 1 cap PO DAILY 11/18/20 11/18/20 release polyethylene glycol 3350 17 17 g PO DAILY 11/18/20 11/18/20 gram/dose oral powder Allergies Allergy/AdvReac Type Severity Reaction Status Date / Time Penicillins [PENICILLINS] Allergy Severe ANAPHYLAXIS Verified 02/11/21 16:08 Iodinated Contrast Media Allergy Intermediate HIVES Verified 02/11/21 16:08 [Iodinated Contrast Media - IV Dye] ciprofloxacin [From CIPRO] Allergy Unknown UNKNOWN Verified 02/11/21 16:08 Sulfa (Sulfonamide AdvReac Unknown NAUSEA & Verified 02/11/21 16:08 Antibiotics) VOMITING [SULFA (SULFONAMIDE ANTIBIOTICS)] cipro? Allergy Unknown hives Uncoded 12/27/18 00:00 PCN Allergy Unknown hives/SOB Uncoded 12/27/18 00:00 sulfa Allergy Unknown n/v Uncoded 12/27/18 00:00 Review of Systems Review of Systems: Yes all other systems are reviewed and are negative [facility] Past Medical History Medical History Atrial fibrillation Diabetes History of lung cancer Surgical History History of lobectomy of lung Social History Social History Household Members: None Housing: Apartment Do you presently have visiting nurse or other home services: No Alcohol intake: never Patient Tobacco Use Status: Former Tobacco user Smoked in Last 30 Days: No Use of substances other than those prescribed or required for medical reasons: No Advance Directives: No Advance Directives Information Provided: Yes service: No Current occupational status: disabled Physical Exam Vital Signs: Vital Signs: Last Vital Signs Temp 98.1 F 02/11/21 20:21 Pulse 73 02/11/21 20:21 Resp 14 02/11/21 20:21 BP 140/73 H 02/11/21 20:21 Pulse Ox 98 02/11/21 20:21 Body Mass Index 34.7 Chest: Chest palpation & inspection: normal inspection of the chest, normal palpation of entire chest wall, no masses and tenderness (Right anterior bra line) Breast/axilla inspection: normal inspection of the breasts and inspection of the breasts normal Breast/axilla palpation: normal palpation of the breasts and No abnormal palpation of the breast Course Course Course Narrative: 65-year-old female past medical history of AFib not on anticoagulation, type 2 diabetes, history of lung ca s/p right upper lobe lobectomy complaining of 3 weeks of lightheaded dizziness and 4 days of worsening intermittent chest pain. Chest pain is on the right anterior bra line. VSS pain is reproducible on the right anterior bra line, otherwise exam is unremarkable, neuro intact. Will get labs, EKG as well as CT scan of the thoracic cavity and abdominal cavity based on her history of cancer. Did recommend patient follow-up with her PCP to get her carotid ultrasound. Medical Decision Making Lab Data Lab results reviewed: Yes I reviewed the patient's lab results. Result diagrams: 02/11/21 17:28 02/11/21 17:28 Labs: Lab Results 02/11/21 02/11/21 02/11/21 Range/Units 17:28 17:28 17:28 WBC 8.0 (4.8-10.8) X10*3/uL RBC 4.19 L (4.20-5.50) X10*6/uL Hgb 13.0 (12.0-16.0) g/dl Hct 38.9 (37-47) % MCV 92.8 (80-98) fL MCH 31.0 (27.0-33.0) pg MCHC 33.4 (31.0-35.0) g/dl RDW 12.1 (11.0-16.0) % Plt Count 236 (160-400) X10*3/uL MPV 10.4 (9.4-12.3) fL Immature Gran % (Auto) 0.7 H (0.0-0.4) % Neut % (Auto) 49.7 (45-73) % Lymph % (Auto) 40.0 (20-40) % [place] % (Auto) 7.5 (2-11) % Eos % (Auto) 1.6 (0-4) % Baso % (Auto) 0.5 (0-2) % Lymph # (Auto) 3.2 (1.2-4.9) X10*3/uL [place] # (Auto) 0.6 (0.1-1.2) X10*3/uL Eos # (Auto) 0.1 (0.0-0.4) X10*3/uL Baso # (Auto) 0.0 (0.0-0.2) X10*3/uL Abs Immat Gran (auto) 0.06 H (0.00-0.03) X10*3/uL Absolute Neuts (auto) 4.0 (2.0-8.3) X10*3/uL Absolute Nucleated RBC 0.000 (0.0-0.012) X10*3/uL Nucleated RBC % (auto) 0.0 (0.0-0.2) /100WBC PT (9.9-13.0) SEC INR (0.9-1.1) APTT (24.1-38.0) SEC Sodium 144 (135-145) mmol/L Potassium 4.5 (3.3-5.1) mmol/L Chloride 107 (96-108) mmol/L Carbon Dioxide 29 (22-29) mmol/L Anion Gap 13 (12-20) BUN 14 (9-16) mg/dL Creatinine 0.99 (0.5-1.4) mg/dL Estim Creat Clear Calc 57.7 Estimated GFR 56 Random Glucose 91 (60-115) mg/dL Calcium 9.2 D (8.4-10.2) mg/dL Magnesium 2.3 (1.6-2.6) mg/dL Total Bilirubin (0.0-1.0) mg/dL Direct Bilirubin (0.0-0.5) mg/dL AST (5-31) U/L ALT (0-31) U/L Alkaline Phosphatase (39-117) U/L Troponin I High Sens (<3.5-17.0) ng/L B-Natriuretic Peptide 28 (<100) pg/mL Total Protein (6.5-8.0) g/dL Albumin (3.5-5.0) g/dL Urine Color Urine Appearance Urine pH (5.0-8.0) Ur Specific [place] (1.005-1.025) Urine Protein (NEG-TRACE) MG/DL Urine Glucose (UA) (NEG) MG/DL Urine Ketones (NEG) MG/DL Urine Blood (NEG) Urine Nitrite (NEG) Ur Leukocyte Esterase (NEG) 02/11/21 02/11/21 02/11/21 Range/Units 17:28 17:28 17:28 WBC (4.8-10.8) X10*3/uL RBC (4.20-5.50) X10*6/uL Hgb (12.0-16.0) g/dl Hct (37-47) % MCV (80-98) fL MCH (27.0-33.0) pg MCHC (31.0-35.0) g/dl RDW (11.0-16.0) % Plt Count (160-400) X10*3/uL MPV (9.4-12.3) fL Immature Gran % (Auto) (0.0-0.4) % Neut % (Auto) (45-73) % Lymph % (Auto) (20-40) % [place] % (Auto) (2-11) % Eos % (Auto) (0-4) % Baso % (Auto) (0-2) % Lymph # (Auto) (1.2-4.9) X10*3/uL [place] # (Auto) (0.1-1.2) X10*3/uL Eos # (Auto) (0.0-0.4) X10*3/uL Baso # (Auto) (0.0-0.2) X10*3/uL Abs Immat Gran (auto) (0.00-0.03) X10*3/uL Absolute Neuts (auto) (2.0-8.3) X10*3/uL Absolute Nucleated RBC (0.0-0.012) X10*3/uL Nucleated RBC % (auto) (0.0-0.2) /100WBC PT 10.9 (9.9-13.0) SEC INR 1.0 (0.9-1.1) APTT 36.3 (24.1-38.0) SEC Sodium (135-145) mmol/L Potassium (3.3-5.1) mmol/L Chloride (96-108) mmol/L Carbon Dioxide (22-29) mmol/L Anion Gap (12-20) BUN (9-16) mg/dL Creatinine (0.5-1.4) mg/dL Estim Creat Clear Calc Estimated GFR Random Glucose (60-115) mg/dL Calcium (8.4-10.2) mg/dL Magnesium (1.6-2.6) mg/dL Total Bilirubin 0.5 (0.0-1.0) mg/dL Direct Bilirubin < 0.2 (0.0-0.5) mg/dL AST 20 (5-31) U/L ALT 24 (0-31) U/L Alkaline Phosphatase 56 (39-117) U/L Troponin I High Sens < 3.5 (<3.5-17.0) ng/L B-Natriuretic Peptide (<100) pg/mL Total Protein 7.0 (6.5-8.0) g/dL Albumin 4.3 (3.5-5.0) g/dL Urine Color Urine Appearance Urine pH (5.0-8.0) Ur Specific [place] (1.005-1.025) Urine Protein (NEG-TRACE) MG/DL Urine Glucose (UA) (NEG) MG/DL Urine Ketones (NEG) MG/DL Urine Blood (NEG) Urine Nitrite (NEG) Ur Leukocyte Esterase (NEG) 02/11/21 Range/Units 18:05 WBC (4.8-10.8) X10*3/uL RBC (4.20-5.50) X10*6/uL Hgb (12.0-16.0) g/dl Hct (37-47) % MCV (80-98) fL MCH (27.0-33.0) pg MCHC (31.0-35.0) g/dl RDW (11.0-16.0) % Plt Count (160-400) X10*3/uL MPV (9.4-12.3) fL Immature Gran % (Auto) (0.0-0.4) % Neut % (Auto) (45-73) % Lymph % (Auto) (20-40) % [place] % (Auto) (2-11) % Eos % (Auto) (0-4) % Baso % (Auto) (0-2) % Lymph # (Auto) (1.2-4.9) X10*3/uL [place] # (Auto) (0.1-1.2) X10*3/uL Eos # (Auto) (0.0-0.4) X10*3/uL Baso # (Auto) (0.0-0.2) X10*3/uL Abs Immat Gran (auto) (0.00-0.03) X10*3/uL Absolute Neuts (auto) (2.0-8.3) X10*3/uL Absolute Nucleated RBC (0.0-0.012) X10*3/uL Nucleated RBC % (auto) (0.0-0.2) /100WBC PT (9.9-13.0) SEC INR (0.9-1.1) APTT (24.1-38.0) SEC Sodium (135-145) mmol/L Potassium (3.3-5.1) mmol/L Chloride (96-108) mmol/L Carbon Dioxide (22-29) mmol/L Anion Gap (12-20) BUN (9-16) mg/dL Creatinine (0.5-1.4) mg/dL Estim Creat Clear Calc Estimated GFR Random Glucose (60-115) mg/dL Calcium (8.4-10.2) mg/dL Magnesium (1.6-2.6) mg/dL Total Bilirubin (0.0-1.0) mg/dL Direct Bilirubin (0.0-0.5) mg/dL AST (5-31) U/L ALT (0-31) U/L Alkaline Phosphatase (39-117) U/L Troponin I High Sens (<3.5-17.0) ng/L B-Natriuretic Peptide (<100) pg/mL Total Protein (6.5-8.0) g/dL Albumin (3.5-5.0) g/dL Urine Color YELLOW Urine Appearance CLEAR Urine pH 6.5 (5.0-8.0) Ur Specific [place] 1.010 (1.005-1.025) Urine Protein NEG (NEG-TRACE) MG/DL Urine Glucose (UA) NEG (NEG) MG/DL Urine Ketones NEG (NEG) MG/DL Urine Blood NEG (NEG) Urine Nitrite NEG (NEG) Ur Leukocyte Esterase NEG (NEG) ECG Data Attestation: I personally reviewed and interpreted this ECG as follows: Interpretation: [address] [address] Electrocardiograph Report Draft Patient: Moriah Cloud MR#: [id number] : 1955 Acct:[id number] Age/Sex: 65 / F ADM Date: 02/11/21 Loc: HO.ED Attending Dr: Ordering Physician: Generic ED Physician Date of Service: 02/11/21 Procedure(s): ECG 12 lead EKG Accession Number(s): [id number] cc: ~ Test Reason : CHEST PAIN Blood Pressure : / mmHG Vent. Rate : 090 BPM ? ? Atrial Rate : 090 BPM ?? P-R Int : 138 ms? QRS Dur : 070 ms ? ? QT Int : 370 ms ? ? ? P-R-T Axes : 056 029 013 degrees ?? QTc Int : 452 ms ? Normal sinus rhythm Low voltage QRS Borderline ECG When compared with ECG of 18-NOV-2020 16:05, No significant change was found ? Referred By: Generic ED Physician ? 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 The noncontrast chest an abdominal CT scans showed nothing significant however a recommendation was made by the radiologist to have a contrast CT of the chest done on an outpatient basis by your primary care doctor. It did show some small nodules that you will need to make sure you in your PCP follow over the coming months and years, just to make sure there are no changes. As we discussed, I would be sure to get the carotid ultrasounds as well as an updated cholesterol level done on an outpatient basis as well with your PCP. Due to the location of the pain, I would also get an updated mammogram, I know you had one already earlier this year but I think it is calvin to be thorough. If you develop any worsening chest pain or shortness of breath, please call 911 or return to the emergency room. Prescriptions: No Action famotidine 20 mg tablet 1 tab PO BEDTIME RF: 0 lorazepam 0.5 mg tablet 1 tab PO QID PRN (Reason: Anxiety) RF: 0 polyethylene glycol 3350 17 gram/dose powder 17 g PO DAILY RF: 0 omeprazole 20 mg capsule,delayed release(DR/EC) 1 cap PO DAILY RF: 0 Interventions: ED Discharge Assessment Last Done: 02/11/21 21:48 Discharge Date/Time: 02/11/21 21:50
[2021-02-11 17:33] LABS: MANUAL DIFF FLAG NO
[2021-02-11 17:34] LABS: Basophils Percent Auto 0.5 % (0-2); Eosinophils Absolute Auto 0.1 X10*3/uL (0.0-0.4); Eosinophils Percent Auto 1.6 % (0-4); Hematocrit 38.9 % (37-47); Imm Gran Abs Auto 0.06 X10*3/uL (0.00-0.03); Imm Gran Pct Auto 0.7 % (0.0-0.4); Lymphocytes Absolute Auto 3.2 X10*3/uL (1.2-4.9); Mean Corpuscular HGB Conc 33.4 g/dl (31.0-35.0); Mean Corpuscular Volume 92.8 fL (80-98); Mean Platelet Volume 10.4 fL (9.4-12.3); Monocytes Absolute Auto 0.6 X10*3/uL (0.1-1.2); Monocytes Percent Auto 7.5 % (2-11); Neutrophils Percent Auto 49.7 % (45-73); Platelet Count 236 X10*3/uL (160-400); Red Blood Count 4.19 X10*6/uL (4.20-5.50); Red Cell Distribution Width 12.1 % (11.0-16.0)
[2021-02-11 17:46] LABS: Prothrombin Time 10.9 SEC (9.9-13.0)
[2021-02-11 17:48] LABS: Partial Thromboplastin Time 36.3 SEC (24.1-38.0)
[2021-02-11 18:06] VITALS: BP 121/68; PULSE 71; RESP 16; TEMP 36.9; O2SAT 99
[2021-02-11 18:06] LABS: Alanine Aminotransferase 24 U/L (0-31); Albumin Level 4.3 g/dL (3.5-5.0); Alkaline Phosphatase 56 U/L (39-117); Aspartate Amino Transferase 20 U/L (5-31); Bilirubin Direct < 0.2 mg/dL (0.0-0.5); Bilirubin Total 0.5 mg/dL (0.0-1.0)
[2021-02-11 18:07] LABS: Anion Gap 13 (12-20); Blood Urea Nitrogen 14 mg/dL (9-16); Calcium 9.2 mg/dL (8.4-10.2); Carbon Dioxide 29 mmol/L (22-29); Chloride 107 mmol/L (96-108); Creatinine Clr Calc Pharmacy 57.7; Estimated Glomerular Filt Rate 56; Glucose Random 91 mg/dL (60-115); Magnesium 2.3 mg/dL (1.6-2.6); Potassium 4.5 mmol/L (3.3-5.1); Sodium 144 mmol/L (135-145)
[2021-02-11 18:09] LABS: B Type Natriuretic Peptide 28 pg/mL (<100); Troponin-I High Sensitivity < 3.5 ng/L (<3.5-17.0)
[2021-02-11 18:18] LABS: Glucose Urine UA NEG (NEG); Leukocyte Esterase Urine NEG (NEG); Nitrite Urine NEG (NEG); PH 6.5 (5.0-8.0); Urine Blood NEG (NEG); Urine Ketones NEG (NEG); Urine Protein NEG (NEG-TRACE)
[2021-02-11 18:19] LABS: Appearance Urine CLEAR; Color Urine YELLOW
--- NOTE | 2021-02-11 19:02 | PC.NURSE ---
pt chest pain on touch. pain startes from under the right breast and rad to left upper abd. pt states its a achy feeling but increases with palpation.
[2021-02-11 20:21] VITALS: BP 140/73; PULSE 73; RESP 14; TEMP 36.7; O2SAT 98
== END 2021-02-11 21:50 | disposition home or self-care (01) ==
PROVIDERS: Physician Assistant; Emergency Provider Internal Medicine; PCP Internal Medicine
DX: R51.9 Headache, unspecified (principal); R07.9 Chest pain, unspecified; R06.02 Shortness of breath; I48.91 Unspecified atrial fibrillation; Z79.899 Other long term (current) drug therapy; Z79.01 Long term (current) use of anticoagulants; Z87.891 Personal history of nicotine dependence
CPT/HCPCS: 36415; 71250; 74176; 80048; 80076; 81003; 83735; 83880; 84484; 85025; 85610; 85730; 93005; 99284

== ENCOUNTER 2021-04-05 23:33 | Emergency (ER) | payer MEDICARE, MEDICAID, SELFPAY ==
--- NOTE | 2021-04-05 | ECG_ITS ---
Test Reason : CHEST PAIN Blood Pressure : / mmHG Vent. Rate : 081 BPM Atrial Rate : 081 BPM P-R Int : 154 ms QRS Dur : 074 ms QT Int : 392 ms P-R-T Axes : 050 012 031 degrees QTc Int : 455 ms RSR' or QR pattern in V1 suggests right ventricular conduction delay Sinus rhythm with Premature atrial complexes Low voltage QRS Abnormal ECG No significant changes seen Referred By: Margie Hogan Electronically Signed By:FLO KEN MD
--- NOTE | ~2021-04-05 | CT_ITS ---
EXAMINATION: CT ABDOMEN AND PELVIS WITHOUT CONTRAST CLINICAL INFORMATION: Right upper quadrant/epigastric pain COMPARISON: 02/11/2021 TECHNIQUE: Multidetector volumetric imaging was performed from the superior aspect of the liver through the pubic symphysis. Sagittal and coronal reformatted images were obtained on the technologist's workstation. This CT examination was performed using dose optimization techniques as appropriate, variously including the following: *Automated exposure control *Adjustment of mA and/or kV according to patient size (this includes techniques or standardized protocols for targeted exams where dose is matched to indication/reason for exam; i.e. extremities or head) *Use of iterative reconstruction technique DLP: 746 mGy-cm FINDINGS: LUNG BASES: The visualized lung bases are unremarkable. LIVER, GALLBLADDER, AND BILIARY TREE: The liver is normal in size, shape, and attenuation. No focal hepatic lesion or biliary ductal dilatation is present. Cholelithiasis. PANCREAS: Unremarkable. SPLEEN: Unremarkable. ADRENAL GLANDS: Unremarkable. KIDNEYS AND URETERS: The kidneys are normal in size, shape, and attenuation. No hydronephrosis, hydroureter, or calculi seen. No perinephric stranding. BLADDER: Unremarkable. GASTROINTESTINAL TRACT: Scattered colonic diverticula. No evidence of diverticulitis. Normal appendix. Stomach and small bowel unremarkable apart from a tiny sliding-type hiatal hernia. ABDOMINAL WALL: No significant hernia is appreciated. LYMPH NODES: Normal. VASCULAR: Aorta mildly atherosclerotic but normal caliber. PELVIC VISCERA: Hysterectomy. Ovaries unremarkable. OSSEOUS STRUCTURES: No acute or suspicious osseous abnormalities. CT/CT abdomen pelvis wo con IMPRESSION: * No etiology for the patient's symptomatology. * Cholelithiasis redemonstrated within the contracted gallbladder. No CT imaging evidence of cholecystitis. * Diverticulosis coli. No evidence of diverticulitis.
--- NOTE | ~2021-04-05 | XR_ITS ---
EXAMINATION: XR CHEST CLINICAL INFORMATION: Chest pain COMPARISON: Chest x-ray November 18, 2020 TECHNIQUE: Frontal view of the chest was obtained. 2357 hours FINDINGS: Lungs are clear. No pulmonary vascular congestion. There is no pleural effusion. The heart size is normal. The cardiac and mediastinal contours are normal. There are multilevel degenerative changes of dorsal spine. XR/XR chest 1V IMPRESSION: Unremarkable examination.
[2021-04-05 23:41] VITALS: BP 156/74; PULSE 85; RESP 18; TEMP 36.6; O2SAT 100; BMI 34.7
[2021-04-06 00:24] LABS: Basophils Percent Auto 0.4 % (0-2); Eosinophils Absolute Auto 0.1 X10*3/uL (0.0-0.4); Eosinophils Percent Auto 1.8 % (0-4); Hematocrit 37.3 % (37-47); Hemoglobin 12.6 g/dl (12.0-16.0); Imm Gran Abs Auto 0.03 X10*3/uL (0.00-0.03); Imm Gran Pct Auto 0.4 % (0.0-0.4); Lymphocytes Absolute Auto 3.9 X10*3/uL (1.2-4.9); Lymphocytes Percent Auto 48.8 % (20-40); MANUAL DIFF FLAG NO; Mean Corpuscular HGB Conc 33.8 g/dl (31.0-35.0); Mean Corpuscular Hemoglobin 31.3 pg (27.0-33.0); Mean Corpuscular Volume 92.6 fL (80-98); Mean Platelet Volume 10.5 fL (9.4-12.3); Monocytes Absolute Auto 0.7 X10*3/uL (0.1-1.2); Monocytes Percent Auto 8.7 % (2-11); Neutrophils Absolute Auto 3.2 X10*3/uL (2.0-8.3); Neutrophils Percent Auto 39.9 % (45-73); Platelet Count 219 X10*3/uL (160-400); Red Blood Count 4.03 X10*6/uL (4.20-5.50); Red Cell Distribution Width 12.1 % (11.0-16.0); White Blood Count 7.9 X10*3/uL (4.8-10.8)
[2021-04-06 00:42] LABS: Anion Gap 11 (12-20); Blood Urea Nitrogen 17 mg/dL (9-16); Calcium 9.3 mg/dL (8.4-10.2); Carbon Dioxide 31 mmol/L (22-29); Chloride 106 mmol/L (96-108); Creatinine Clr Calc Pharmacy 51.4; Estimated Glomerular Filt Rate 49; Glucose Random 103 mg/dL (60-115); Potassium 4.4 mmol/L (3.3-5.1); Sodium 144 mmol/L (135-145)
[2021-04-06 00:48] LABS: Troponin-I High Sensitivity < 3.5 ng/L (<3.5-17.0)
--- NOTE | 2021-04-06 02:08 | ED.CHESTPAIN ---
HPI - Chest Pain General Chief Complaint: Chest Pain Stated Complaint: Neck pain Time Seen by Provider: 04/06/21 02:08 Source: patient Mode of arrival: ambulatory History of Present Illness HPI narrative: 65-year-old female with presentation for persistent ?spasms?/?cramps? to right upper quadrant that radiates into her epigastric/mid chest and has not been associated with fever, chills, diarrhea, urinary pain/burning/frequency, shortness of breath but has been associated with nausea without vomiting. Patient states that she has had cholelithiasis identified before, but at that time was told that she did not need surgery. She states that the pain will come on suddenly and seems to be initiated by position changes which she states that she avoids. She denies any radiation of the pain into the back. Related Data Home Medications Medication Instructions Recorded Confirmed famotidine 20 mg tablet 1 tab PO BEDTIME 11/18/20 11/18/20 lorazepam 0.5 mg tablet 1 tab PO QID PRN 11/18/20 11/18/20 omeprazole 20 mg capsule,delayed 1 cap PO DAILY 11/18/20 11/18/20 release polyethylene glycol 3350 17 17 g PO DAILY 11/18/20 11/18/20 gram/dose oral powder Allergies Allergy/AdvReac Type Severity Reaction Status Date / Time Penicillins [PENICILLINS] Allergy Severe ANAPHYLAXIS Verified 04/05/21 23:41 Iodinated Contrast Media Allergy Intermediate HIVES Verified 04/05/21 23:41 [Iodinated Contrast Media - IV Dye] ciprofloxacin [From CIPRO] Allergy Unknown UNKNOWN Verified 04/05/21 23:41 Sulfa (Sulfonamide AdvReac Unknown NAUSEA & Verified 04/05/21 23:41 Antibiotics) VOMITING [SULFA (SULFONAMIDE ANTIBIOTICS)] cipro? Allergy Unknown hives Uncoded 12/27/18 00:00 PCN Allergy Unknown hives/SOB Uncoded 12/27/18 00:00 sulfa Allergy Unknown n/v Uncoded 12/27/18 00:00 Review of Systems Review of Systems: Pertinent positives and negatives as stated in HPI 10 point review of systems is otherwise negative. PMFSH Past Medical History Source: nursing notes reviewed Medical History Atrial fibrillation Diabetes History of lung cancer Surgical History History of lobectomy of lung Social History Social History Household Members: None Housing: Apartment Do you presently have visiting nurse or other home services: No Alcohol intake: never Patient Tobacco Use Status: Former Tobacco user Advance Directives: No service: No Current occupational status: disabled Physical Exam Vital Signs: Vital Signs: Last Vital Signs Temp 97.8 F 04/05/21 23:41 Pulse 64 04/06/21 02:14 Resp 12 04/06/21 02:14 BP 134/70 04/06/21 02:14 Pulse Ox 99 04/06/21 02:14 Body Mass Index 34.7 VITAL SIGNS: Reviewed. GENERAL: Well developed, well nourished, in no acute distress. HEAD: Normocephalic/atraumatic, EYES: PERRLA, EOMI OROPHARYNX: no oral lesions noted, posterior pharynx clear NECK: Supple, no adenopathy LUNGS: Normal breath sounds. No adventitious sounds or accessory muscle use. SpO2<100> CARDIOVASCULAR: Regular rate and rhythm without noted murmurs ABDOMEN: Soft, non-tender, non-distended with bowel sounds. SKIN: Inspection of the skin reveals no rashes NEUROLOGIC: Alert and oriented x 4. Course Course Course Narrative: 65-year-old female with history and clinical presentation suggestive of possible biliary colic, pancreatitis but doubt pneumonia. Review of all investigations otherwise negative for acute findings and patient was discharged home in stable condition with instructions to follow-up with her primary care provider as well as being provided with a referral to see Surgical Services. MDM - Chest Pain Lab Data Result diagrams: 04/06/21 00:17 04/06/21 00:17 Labs: Lab Results 04/06/21 04/06/21 04/06/21 Range/Units 00:17 00:17 00:17 WBC 7.9 (4.8-10.8) X10*3/uL RBC 4.03 L (4.20-5.50) X10*6/uL Hgb 12.6 (12.0-16.0) g/dl Hct 37.3 (37-47) % MCV 92.6 (80-98) fL MCH 31.3 (27.0-33.0) pg MCHC 33.8 (31.0-35.0) g/dl RDW 12.1 (11.0-16.0) % Plt Count 219 (160-400) X10*3/uL MPV 10.5 (9.4-12.3) fL Immature Gran % (Auto) 0.4 (0.0-0.4) % Neut % (Auto) 39.9 L (45-73) % Lymph % (Auto) 48.8 H (20-40) % Sheridan % (Auto) 8.7 (2-11) % Eos % (Auto) 1.8 (0-4) % Baso % (Auto) 0.4 (0-2) % Lymph # (Auto) 3.9 (1.2-4.9) X10*3/uL Sheridan # (Auto) 0.7 (0.1-1.2) X10*3/uL Eos # (Auto) 0.1 (0.0-0.4) X10*3/uL Baso # (Auto) 0.0 (0.0-0.2) X10*3/uL Abs Immat Gran (auto) 0.03 (0.00-0.03) X10*3/uL Absolute Neuts (auto) 3.2 (2.0-8.3) X10*3/uL Absolute Nucleated RBC 0.000 (0.0-0.012) X10*3/uL Nucleated RBC % (auto) 0.0 (0.0-0.2) /100WBC Sodium 144 (135-145) mmol/L Potassium 4.4 (3.3-5.1) mmol/L Chloride 106 (96-108) mmol/L Carbon Dioxide 31 H (22-29) mmol/L Anion Gap 11 L (12-20) BUN 17 H (9-16) mg/dL Creatinine 1.11 (0.5-1.4) mg/dL Estim Creat Clear Calc 51.4 Estimated GFR 49 Random Glucose 103 (60-115) mg/dL Calcium 9.3 (8.4-10.2) mg/dL Total Bilirubin 0.2 (0.0-1.0) mg/dL Direct Bilirubin < 0.2 (0.0-0.5) mg/dL AST 22 (5-31) U/L ALT 23 (0-31) U/L Alkaline Phosphatase 55 (39-117) U/L Troponin I High Sens < 3.5 (<3.5-17.0) ng/L Total Protein 6.9 (6.5-8.0) g/dL Albumin 4.3 (3.5-5.0) g/dL Lipase 41 (8-78) U/L ECG Data ECG #1: Attestation: I personally reviewed and interpreted this ECG as follows: Prior ECG tracings: available for review (02/11/2021 no acute changes on comparison) Interpretation: Sinus rhythm with PACs, HR-81, no STEMI, AK/QRS/QTC are within normal limits. Discharge Plan Discharge Clinical Impression: Atypical chest pain, Cholelithiasis Patient Disposition: Home, Self-Care Instructions: Biliary Colic (ED), Gallstones (ED) Additional Instructions: 1. Resume all home medications as prescribed. 2. Follow-up with your primary care provider in the next 1-2 days for re-evaluation and further outpatient management. 3. Your being provided with the Surgical Services referral for further evaluation of your gallbladder. 4. Recommend [id number] Tylenol/ibuprofen as needed for pain control. Return to the ER for acute worsening of symptoms. Prescriptions: No Action famotidine 20 mg tablet 1 tab PO BEDTIME RF: 0 lorazepam 0.5 mg tablet 1 tab PO QID PRN (Reason: Anxiety) RF: 0 polyethylene glycol 3350 17 gram/dose powder 17 g PO DAILY RF: 0 omeprazole 20 mg capsule,delayed release(DR/EC) 1 cap PO DAILY RF: 0 Referrals: Ivy Gutierrez MD [Physician] - 2 days (RUQ pain, cholelithiasis, recurrent episodes of pain with nausea.)
[2021-04-06 02:14] VITALS: BP 134/70; PULSE 64; RESP 12; O2SAT 99
--- NOTE | 2021-04-06 02:59 | PC.NURSE ---
Pt off to CT on hospital bed. Plan to medicate upon return.
[2021-04-06] MEDS: Lidocaine HCl Viscous 2 % 15 ML SOLUTION 10 ML MUCOUS MEM (03:15)
[2021-04-06] MEDS: Magnesium Hydrox/Alum Hydrox 30 ML ORAL.SUSP PO (03:16)
[2021-04-06 04:34] LABS: Alanine Aminotransferase 23 U/L (0-31); Albumin Level 4.3 g/dL (3.5-5.0); Alkaline Phosphatase 55 U/L (39-117); Aspartate Amino Transferase 22 U/L (5-31); Bilirubin Direct < 0.2 mg/dL (0.0-0.5); Bilirubin Total 0.2 mg/dL (0.0-1.0); Lipase 41 U/L (8-78); Total Protein 6.9 g/dL (6.5-8.0)
[2021-04-06 04:59] VITALS: BP 141/75; PULSE 76; RESP 16; O2SAT 98
== END 2021-04-06 05:05 | disposition home or self-care (01) ==
PROVIDERS: Emergency Provider Student in an Organized Health Care Education/Training Program
DX: R07.89 Other chest pain (principal); K80.20 Calculus of gallbladder without cholecystitis without obstruction; E11.9 Type 2 diabetes mellitus without complications
CPT/HCPCS: 36415; 71045; 74176; 80048; 80076; 83690; 84484; 85025; 93005; 99284

== ENCOUNTER 2021-11-04 13:26 | Emergency (ER) | payer MEDICARE, MEDICAID, SELFPAY ==
--- NOTE | 2021-11-04 | ECG_ITS ---
Test Reason : CHEST TIGHTNESS Blood Pressure : / mmHG Vent. Rate : 066 BPM Atrial Rate : 066 BPM P-R Int : 132 ms QRS Dur : 068 ms QT Int : 396 ms P-R-T Axes : 054 024 031 degrees QTc Int : 415 ms Normal sinus rhythm Low voltage QRS Cannot rule out Anterior infarct (cited on or before 04-NOV-2021) Abnormal ECG When compared with ECG of 06-APR-2021 00:12, Premature atrial complexes are no longer Present Referred By: Generic ED Physician Electronically Signed By:SUYAPA RAMIREZ
--- NOTE | ~2021-11-04 | XR_ITS ---
EXAMINATION: XR CHEST CLINICAL INFORMATION: Cough, chest pain COMPARISON: 04/06/2021 TECHNIQUE: Frontal view of the chest was obtained. FINDINGS: No acute finding. Exam is comparable to previous. No obvious failure or infiltrate. There is no effusion. Density obscuring the right cardiophrenic border once again seen. Not significantly changed. Small density in the lingula not significantly changed XR/XR chest 1V IMPRESSION: No acute finding
[2021-11-04 13:41] VITALS: BP 149/56; PULSE 73; RESP 18; TEMP 36.8; O2SAT 97; BMI 31.1
[2021-11-04 14:17] LABS: COVID-19 Test Positive (Negative)
[2021-11-04 14:21] LABS: IDNOW Serial# 16C4AD1C; Influenza A Negative (Negative); Influenza B2 Negative (Negative)
--- NOTE | 2021-11-04 21:25 | ED.CHESTPAIN ---
HPI - Chest Pain General Chief Complaint: Chest Pain <Ed Urbina MD - Last Filed: 11/04/21 21:36> Stated Complaint: chest tight, congested covid + <Ed Urbina MD - Last Filed: 11/04/21 21:36> Time Seen by Provider: 11/04/21 21:13 <MD Muna Us Last Filed: 11/04/21 21:36> Source: patient <Ed Urbina MD - Last Filed: 11/04/21 21:36> Mode of arrival: ambulatory <MD Muna Us Last Filed: 11/04/21 21:36> Limitations: no limitations <MD Muna Us Last Filed: 11/04/21 21:36> History of Present Illness HPI narrative: 65-year-old female came in for evaluation of cough, chest pain with coughing, nasal congestion. This is a 65-year-old female been having nasal congestion and sinus congestion that is causing difficulty breathing and dry coughing causing chest tightness, patient declined sick contacts, no recent travel, no lower extremity swelling or tenderness, no constant chest pain or shortness of breath at rest only when she coughs feels chest tightness. patient's symptoms started 5 days ago. Patient tested positive for 5 days. Patient stated that her oxygenation with her home pulse oximetry is above 98%. <Ed Urbina MD - Last Filed: 11/04/21 21:36> Related Data Home Medications: Home Medications Medication Instructions Recorded Confirmed famotidine 20 mg tablet 1 tab PO BEDTIME 11/18/20 11/18/20 lorazepam 0.5 mg tablet 1 tab PO QID PRN 11/18/20 11/18/20 omeprazole 20 mg capsule,delayed 1 cap PO DAILY 11/18/20 11/18/20 release polyethylene glycol 3350 17 17 g PO DAILY 11/18/20 11/18/20 gram/dose oral powder <MD Muna Us Last Filed: 11/04/21 21:36> Allergies/Adverse Reactions: Allergies Allergy/AdvReac Type Severity Reaction Status Date / Time Penicillins [PENICILLINS] Allergy Severe ANAPHYLAXIS Verified 04/05/21 23:41 Iodinated Contrast Media Allergy Intermediate HIVES Verified 04/05/21 23:41 [Iodinated Contrast Media - IV Dye] ciprofloxacin [From CIPRO] Allergy Unknown UNKNOWN Verified 04/05/21 23:41 Sulfa (Sulfonamide AdvReac Unknown NAUSEA & Verified 04/05/21 23:41 Antibiotics) VOMITING [SULFA (SULFONAMIDE ANTIBIOTICS)] cipro? Allergy Unknown hives Uncoded 12/27/18 00:00 PCN Allergy Unknown hives/SOB Uncoded 12/27/18 00:00 sulfa Allergy Unknown n/v Uncoded 12/27/18 00:00 <Ed Urbina MD - Last Filed: 11/04/21 21:36> Review of Systems Review of Systems: All other systems are reviewed and are negative Constitutional: Reports as per HPI and Reports no additional constitutional complaints Eyes: Reports as per HPI and Reports no additional eye complaints Reports system reviewed and no additional complaints, except as documented Cardiovascular: Reports as per HPI and Reports no additional cardiovascular complaints Respiratory: Reports as per HPI and Reports no additional respiratory complaints Gastrointestinal: Reports as per HPI and Reports no additional gastrointestinal complaints Genitourinary: Reports no additional female genitourinary complaints Musculoskeletal: Reports no additional musculoskeletal complaints Skin/Breast: Reports system reviewed and no additional complaints, except as docu Psychiatric: Reports no additional psychiatric complaints Endocrine: Reports no additional endocrine complaints Hematologic/Lymphatic: Reports no additional hematologic/lymphatic complaints Allergic/Immunologic: Reports no additional allergic/immunologic complaints Reports system reviewed and no additional complaints, except as documented and Reports Abnormal speech present <Ed Urbina MD - Last Filed: 11/04/21 21:36> [facility] Past Medical History Medical History: Medical History Atrial fibrillation Diabetes History of lung cancer <Ed Urbina MD - Last Filed: 11/04/21 21:36> Surgical History: Surgical History History of lobectomy of lung <Ed Urbina MD - Last Filed: 11/04/21 21:36> Social History Social History: Social History Household Members: None Housing: Apartment Do you presently have visiting nurse or other home services: No Alcohol intake: never Patient Tobacco Use Status: Former Tobacco user Advance Directives: No Advance Directives Information Provided: No service: No Current occupational status: disabled <Ed Urbina MD - Last Filed: 11/04/21 21:36> Physical Exam Vital Signs: Vital Signs: Last Vital Signs Temp 98.3 F 11/04/21 13:41 Pulse 73 11/04/21 13:41 Resp 18 11/04/21 13:41 BP 149/56 H 11/04/21 13:41 Pulse Ox 97 11/04/21 13:41 BMI result Body Mass Index 31.1 Vital signs have been reviewed as appeared to be correct. Blood pressure normal. Heart rate normal. Respiration rate normal. Temperature normal. Oxygen saturation normal. <Ed Urbina MD - Last Filed: 11/04/21 21:36> Appearance: Alert. Oriented X3. No acute distress. Head: Normal external exam. Normocephalic. Atraumatic. No Velazquez signs noted. No raccoon eyes noted Eyes: PERRLA. EOMI. Conjunctiva and sclera normal. Eyelids normal. ENT: TM's Normal. Pharynx normal. Uvula midline. Moist mucous membranes. No trismus noted. No drooling noted. No muffled voice noted. Neck: Normal inspection. Neck supple. FROM. No adenopathy. Thyroid Normal. No meningeal signs. No neck mass noted. CVS: Normal heart rate and rhythm. Heart sound normal. No murmurs noted. Pulses normal throughout. Respiratory: No respiratory distress. Painless inspiration. Breath sounds normal. No wheezes/rales/rhonchi noted. Chest nontender. No accessory muscle usage noted or decreased air movement noted. Abdomen: Soft and nontender. Bowel sounds normal in all 4 quadrants. No distention noted. No organomegaly noted. No visible injury noted. Back: No CVA tenderness. Full range of motion noted. Skin: Skin warm and dry. Normal skin color. Normal skin turgor. No rashes/lesions/lacerations noted. Extremities: No lower extremity edema. Extremities exhibit normal range of motion. Extremities nontender. Neuro: Oriented X 3. Cranial nerve exam: II-XII are grossly intact No motor deficit. No sensory deficit. Reflexes normal. <Ed Urbina MD - Last Filed: 11/04/21 21:36> Course Course Course Narrative: Assessment and plan. 65-year-old female with COVID-19 infection came in with upper respiratory symptoms including chest tightness, negative troponin, unremarkable EKG, patient at no risk for PE at this point. Will discharge the patient with recommendation of wearing face mask, frequent hand washing, social distancing, self-quarantine. <Ed Urbina MD - Last Filed: 11/04/21 21:36> MDM - Chest Pain Medical Records Data Attestation: I reviewed the patient's medical records. <Ed Urbina MD - Last Filed: 11/04/21 21:36> Lab Data Labs: Lab Results 11/04/21 11/04/21 Range/Units 13:48 13:48 COVID-19 ([facility]) Positive A (Negative) COVID-19 Clin Com See Note Influenza Type A ([facility]) Negative (Negative) Influenza Type B ([facility]EL) Negative (Negative) Influenza A & B Note See Note <Ed Urbina MD - Last Filed: 11/04/21 21:36> Imaging Data Chest x-ray: Attestation: I personally reviewed and interpreted this imaging study as follows: <Ed Urbina MD - Last Filed: 11/04/21 21:36> Radiologist's impression: No acute finding. <Ed Urbina MD - Last Filed: 11/04/21 21:36> ECG Data ECG #1: Attestation: I personally reviewed and interpreted this ECG as follows: <Ed Urbina MD - Last Filed: 11/04/21 21:36> Interpretation: Normal sinus rhythm at 66 beats per minute, normal axis deviation, normal intervals, nonspecific ST-T changes. <Ed Urbina MD - Last Filed: 11/04/21 21:36> Discharge Plan Discharge Clinical Impression: COVID-19 virus infection <Ed Urbina MD - Last Filed: 11/04/21 21:36> Patient Disposition: Home, Self-Care <Ed Urbina MD - Last Filed: 11/04/21 21:36> Instructions: Covid-19 Viral Syndrome and Novel Coronavirus (ED) Hey/Ath <Ed Urbina MD - Last Filed: 11/04/21 21:36> Prescriptions: No Action famotidine 20 mg tablet 1 tab PO BEDTIME 0RF lorazepam 0.5 mg tablet 1 tab PO QID PRN (Reason: Anxiety) 0RF polyethylene glycol 3350 17 gram/dose powder 17 g PO DAILY 0RF omeprazole 20 mg capsule,delayed release(DR/EC) 1 cap PO DAILY 0RF <Ed Urbina MD - Last Filed: 11/04/21 21:36> Referrals: Norbert Acosta MD [Primary Care Provider] - <Ed Urbina MD - Last Filed: 11/04/21 21:36>
--- NOTE | 2021-11-04 21:47 | ED_ITS ---
HPI - Chest Pain General Chief Complaint: Chest Pain Stated Complaint: chest tight, congested covid + Time Seen by Provider: 11/04/21 21:13 Source: patient Mode of arrival: ambulatory Limitations: no limitations History of Present Illness HPI narrative: 65 years old female came in for evaluation of coughing and chest tightness with cough. Patient's symptoms started 5 days ago patient tested positive for COVID i nfection, patient received 2 COVID vaccination with no booster doses. Patient been having nasal congestion and sinus congestion causing difficulty breathing and dry cough which is triggering patient anxiety, patient feels chest tightness intermittently with coughing, no wrist chest pain with radiation. Patient declined any recent travel, no recent prolonged immobilization, no lower extremity swelling, no lower extremity tenderness, no risk chest pain, no shortness of breath. Related Data Home Medications Medication Instructions Recorded Confirmed famotidine 20 mg tablet 1 tab PO BEDTIME 11/18/20 11/18/20 lorazepam 0.5 mg tablet 1 tab PO QID PRN 11/18/20 11/18/20 omeprazole 20 mg capsule,delayed 1 cap PO DAILY 11/18/20 11/18/20 release polyethylene glycol 3350 17 17 g PO DAILY 11/18/20 11/18/20 gram/dose oral powder Allergies Allergy/AdvReac Type Severity Reaction Status Date / Time Penicillins [PENICILLINS] Allergy Severe ANAPHYLAXIS Verified 04/05/21 23:41 Iodinated Contrast Media Allergy Intermediate HIVES Verified 04/05/21 23:41 [Iodinated Contrast Media - IV Dye] ciprofloxacin [From CIPRO] Allergy Unknown UNKNOWN Verified 04/05/21 23:41 Sulfa (Sulfonamide AdvReac Unknown NAUSEA & Verified 04/05/21 23:41 Antibiotics) VOMITING [SULFA (SULFONAMIDE ANTIBIOTICS)] cipro? Allergy Unknown hives Uncoded 12/27/18 00:00 PCN Allergy Unknown hives/SOB Uncoded 12/27/18 00:00 sulfa Allergy Unknown n/v Uncoded 12/27/18 00:00 Review of Systems Review of Systems: All other systems are reviewed and are negative Constitutional: Reports as per HPI and Reports no additional constitutional complaints Eyes: Reports as per HPI and Reports no additional eye complaints Reports system reviewed and no additional complaints, except as documented Cardiovascular: Reports as per HPI and Reports no additional cardiovascular complaints Respiratory: Reports as per HPI and Reports no additional respiratory complaints Gastrointestinal: Reports as per HPI and Reports no additional gastrointestinal complaints Genitourinary: Reports no additional female genitourinary complaints Musculoskeletal: Reports no additional musculoskeletal complaints Skin/Breast: Reports system reviewed and no additional complaints, except as docu Psychiatric: Reports no additional psychiatric complaints Endocrine: Reports no additional endocrine complaints Hematologic/Lymphatic: Reports no additional hematologic/lymphatic complaints Allergic/Immunologic: Reports no additional allergic/immunologic complaints Reports system reviewed and no additional complaints, except as documented and Reports Abnormal speech present [facility] Past Medical History Medical History Atrial fibrillation Diabetes History of lung cancer Surgical History History of lobectomy of lung Social History Social History Household Members: None Housing: Apartment Do you presently have visiting nurse or other home services: No Alcohol intake: never Patient Tobacco Use Status: Former Tobacco user Advance Directives: No Advance Directives Information Provided: No service: No Current occupational status: disabled Physical Exam Vital Signs: Vital Signs: Last Vital Signs Temp 97.9 F 11/04/21 22:20 Pulse 63 11/04/21 22:20 Resp 14 11/04/21 22:20 BP 126/71 11/04/21 22:20 Pulse Ox 98 11/04/21 22:20 BMI result Body Mass Index 31.1 Vital signs have been reviewed as appeared to be correct. Blood pressure normal. Heart rate normal. Respiration rate normal. Temperature normal. Oxygen saturation normal. Appearance: Alert. Oriented X3. No acute distress. Head: Normal external exam. Normocephalic. Atraumatic. No Velazquez signs noted. No raccoon eyes noted Eyes: PERRLA. EOMI. Conjunctiva and sclera normal. Eyelids normal. ENT: TM's Normal. Pharynx normal. Uvula midline. Moist mucous membranes. No trismus noted. No drooling noted. No muffled voice noted. Neck: Normal inspection. Neck supple. FROM. No adenopathy. Thyroid Normal. No meningeal signs. No neck mass noted. CVS: Normal heart rate and rhythm. Heart sound normal. No murmurs noted. Pulses normal throughout. Respiratory: No respiratory distress. Painless inspiration. Breath sounds normal. No wheezes/rales/rhonchi noted. Chest nontender. No accessory muscle usage noted or decreased air movement noted. Abdomen: Soft and nontender. Bowel sounds normal in all 4 quadrants. No d istention noted. No organomegaly noted. No visible injury noted. Back: No CVA tenderness. Full range of motion noted. Skin: Skin warm and dry. Normal skin color. Normal skin turgor. No rashes/l esions/lacerations noted. Extremities: No lower extremity edema. Extremities exhibit normal range of motion. Extremities nontender. Neuro: Oriented X 3. Cranial nerve exam: II-XII are grossly intact No motor deficit. No sensory deficit. Reflexes normal. Course Course Course Narrative: Assessment and plan. 65-year-old female test positive for COVID infection with nasal congestion and sinus pressure, patient has been having dry cough that is causing chest tightness for 5 days, physical exam/history/labs are consistent with noncardiac chest tightness likely due to COVID infection, patient had no risk for PE at this point. Will reassure, instructed patient to use face mask and frequent hand washing with self quarantine at home with using social distancing. MDM - Chest Pain Lab Data Attestation: I reviewed the patient's lab results. Result diagrams: 11/04/21 21:51 11/04/21 21:51 Labs: Lab Results 11/04/21 11/04/21 11/04/21 Range/Units 13:48 13:48 21:51 WBC 5.1 (4.8-10.8) X10*3/uL RBC 4.16 L (4.20-5.50) X10*6/uL Hgb 12.7 (12.0-16.0) g/dl Hct 38.3 (37.0-47.0) % MCV 92.1 (80.0-98.0) fL MCH 30.5 (27.0-33.0) pg MCHC 33.2 (31.0-35.0) g/dl RDW 12.1 (11.0-16.0) % Plt Count 193 (160-400) X10*3/uL MPV 10.5 (9.4-12.3) fL Immature Gran % (Auto) 0.4 (0.0-0.4) % Neut % (Auto) 31.4 L (45-73) % Lymph % (Auto) 58.5 H (20-40) % [place] % (Auto) 7.5 (2-11) % Eos % (Auto) 2.0 (0-4) % Baso % (Auto) 0.2 (0-2) % Lymph # (Auto) 3.0 (1.2-4.9) X10*3/uL [place] # (Auto) 0.4 (0.1-1.2) X10*3/uL Eos # (Auto) 0.1 (0.0-0.4) X10*3/uL Baso # (Auto) 0.0 (0.0-0.2) X10*3/uL Abs Immat Gran (auto) 0.02 (0.00-0.03) X10*3/uL Absolute Neuts (auto) 1.6 L (2.0-8.3) x10*3/uL Absolute Nucleated RBC 0.000 (0.0-0.012) X10*3/uL Nucleated RBC % (auto) 0.0 (0.0-0.2) /100WBC Sodium (135-145) mmol/L Potassium (3.3-5.1) mmol/L Chloride (96-108) mmol/L Carbon Dioxide (22-29) mmol/L Anion Gap (12-20) BUN (9-16) mg/dL Creatinine (0.5-1.4) mg/dL Estim Creat Clear Calc Estimated GFR Random Glucose (60-115) mg/dL Calcium (8.4-10.2) mg/dL Total Bilirubin (0.0-1.0) mg/dL Direct Bilirubin (0.0-0.5) mg/dL AST (5-31) U/L ALT (0-31) U/L Alkaline Phosphatase (39-117) U/L Troponin I High Sens (<3.5-17.0) ng/L Total Protein (6.5-8.0) g/dL Albumin (3.5-5.0) g/dL Lipase (8-78) U/L Urine Color Urine Appearance Urine pH (5.0-8.0) Ur Specific Dexter (1.005-1.025) Urine Protein (NEG-TRACE) MG/DL Urine Glucose (UA) (NEG) MG/DL Urine Ketones (NEG) MG/DL Urine Blood (NEG) Urine Nitrite (NEG) Ur Leukocyte Esterase (NEG) COVID-19 (LICO) Positive A (Negative) COVID-19 Clin Com See Note Influenza Type A (ANGEL) Negative (Negative) Influenza Type B (ANGEL) Negative (Negative) Influenza A & B Note See Note 11/04/21 11/04/21 11/04/21 Range/Units 21:51 21:51 22:04 WBC (4.8-10.8) X10*3/uL RBC (4.20-5.50) X10*6/uL Hgb (12.0-16.0) g/dl Hct (37.0-47.0) % MCV (80.0-98.0) fL MCH (27.0-33.0) pg MCHC (31.0-35.0) g/dl RDW (11.0-16.0) % Plt Count (160-400) X10*3/uL MPV (9.4-12.3) fL Immature Gran % (Auto) (0.0-0.4) % Neut % (Auto) (45-73) % Lymph % (Auto) (20-40) % [place] % (Auto) (2-11) % Eos % (Auto) (0-4) % Baso % (Auto) (0-2) % Lymph # (Auto) (1.2-4.9) X10*3/uL [place] # (Auto) (0.1-1.2) X10*3/uL Eos # (Auto) (0.0-0.4) X10*3/uL Baso # (Auto) (0.0-0.2) X10*3/uL Abs Immat Gran (auto) (0.00-0.03) X10*3/uL Absolute Neuts (auto) (2.0-8.3) x10*3/uL Absolute Nucleated RBC (0.0-0.012) X10*3/uL Nucleated RBC % (auto) (0.0-0.2) /100WBC Sodium 142 (135-145) mmol/L Potassium 4.0 (3.3-5.1) mmol/L Chloride 106 (96-108) mmol/L Carbon Dioxide 26 (22-29) mmol/L Anion Gap 14 (12-20) BUN 11 (9-16) mg/dL Creatinine 0.83 (0.5-1.4) mg/dL Estim Creat Clear Calc 67.6 Estimated GFR > 60 Random Glucose 85 (60-115) mg/dL Calcium 9.3 (8.4-10.2) mg/dL Total Bilirubin 0.4 (0.0-1.0) mg/dL Direct Bilirubin 0.2 (0.0-0.5) mg/dL AST 19 (5-31) U/L ALT 17 (0-31) U/L Alkaline Phosphatase 58 (39-117) U/L Troponin I High Sens < 3.5 (<3.5-17.0) ng/L Total Protein 7.3 (6.5-8.0) g/dL Albumin 4.3 (3.5-5.0) g/dL Lipase 73 (8-78) U/L Urine Color YELLOW Urine Appearance CLEAR Urine pH 6.0 (5.0-8.0) Ur Specific Dexter 1.015 (1.005-1.025) Urine Protein NEG (NEG-TRACE) MG/DL Urine Glucose (UA) NEG (NEG) MG/DL Urine Ketones NEG (NEG) MG/DL Urine Blood NEG (NEG) Urine Nitrite NEG (NEG) Ur Leukocyte Esterase NEG (NEG) COVID-19 (LICO) (Negative) COVID-19 Clin Com Influenza Type A (ANGEL) (Negative) Influenza Type B (ANGEL) (Negative) Influenza A & B Note Imaging Data Chest x-ray: Attestation: I personally reviewed and interpreted this imaging study as follows: Radiologist's impression: No acute finding ECG Data ECG #1: Attestation: I personally reviewed and interpreted this ECG as follows: Interpretation: Normal sinus rhythm at 66 beats per minute, normal axis deviation, normal intervals, no ST-T changes. Discharge Plan Discharge Clinical Impression: COVID-19 virus infection Patient Disposition: Home, Self-Care Instructions: Covid-19 Viral Syndrome and Novel Coronavirus (ED) Hey/Ath Prescriptions: No Action famotidine 20 mg tablet 1 tab PO BEDTIME 0RF lorazepam 0.5 mg tablet 1 tab PO QID PRN (Reason: Anxiety) 0RF polyethylene glycol 3350 17 gram/dose powder 17 g PO DAILY 0RF omeprazole 20 mg capsule,delayed release(DR/EC) 1 cap PO DAILY 0RF Referrals: Norbert Acosta MD [Primary Care Provider] -
[2021-11-04 21:58] LABS: MANUAL DIFF FLAG NO
[2021-11-04 22:18] LABS: Alanine Aminotransferase 17 U/L (0-31); Albumin Level 4.3 g/dL (3.5-5.0); Alkaline Phosphatase 58 U/L (39-117); Anion Gap 14 (12-20); Aspartate Amino Transferase 19 U/L (5-31); Bilirubin Direct 0.2 mg/dL (0.0-0.5); Bilirubin Total 0.4 mg/dL (0.0-1.0); Blood Urea Nitrogen 11 mg/dL (9-16); Calcium 9.3 mg/dL (8.4-10.2); Carbon Dioxide 26 mmol/L (22-29); Chloride 106 mmol/L (96-108); Creatinine Clr Calc Pharmacy 67.6; Estimated Glomerular Filt Rate > 60; Glucose Random 85 mg/dL (60-115); Lipase 73 U/L (8-78); Sodium 142 mmol/L (135-145); Total Protein 7.3 g/dL (6.5-8.0)
[2021-11-04 22:18] LABS: Appearance Urine CLEAR; Color Urine YELLOW; Glucose Urine UA NEG (NEG); Leukocyte Esterase Urine NEG (NEG); Nitrite Urine NEG (NEG); Specific Gravity - Urine 1.015 (1.005-1.025); Urine Blood NEG (NEG); Urine Ketones NEG (NEG); Urine Protein NEG (NEG-TRACE)
[2021-11-04 22:19] LABS: Basophils Percent Auto 0.2 % (0-2); Eosinophils Absolute Auto 0.1 X10*3/uL (0.0-0.4); Hematocrit 38.3 % (37.0-47.0); Hemoglobin 12.7 g/dl (12.0-16.0); Imm Gran Abs Auto 0.02 X10*3/uL (0.00-0.03); Imm Gran Pct Auto 0.4 % (0.0-0.4); Lymphocytes Percent Auto 58.5 % (20-40); Mean Corpuscular HGB Conc 33.2 g/dl (31.0-35.0); Mean Corpuscular Hemoglobin 30.5 pg (27.0-33.0); Mean Corpuscular Volume 92.1 fL (80.0-98.0); Mean Platelet Volume 10.5 fL (9.4-12.3); Monocytes Absolute Auto 0.4 X10*3/uL (0.1-1.2); Monocytes Percent Auto 7.5 % (2-11); Neutrophils Absolute Auto 1.6 x10*3/uL (2.0-8.3); Neutrophils Percent Auto 31.4 % (45-73); Platelet Count 193 X10*3/uL (160-400); Red Blood Count 4.16 X10*6/uL (4.20-5.50); Red Cell Distribution Width 12.1 % (11.0-16.0); White Blood Count 5.1 X10*3/uL (4.8-10.8)
[2021-11-04 22:20] VITALS: BP 126/71; PULSE 63; RESP 14; TEMP 36.6; O2SAT 98
[2021-11-04 22:24] LABS: Troponin-I High Sensitivity < 3.5 ng/L (<3.5-17.0)
== END 2021-11-04 23:23 | disposition home or self-care (01) ==
PROVIDERS: Internal Medicine; Emergency Provider Emergency Medicine; PCP Family Medicine
DX: U07.1 COVID-19 (principal); F41.9 Anxiety disorder, unspecified
CPT/HCPCS: 36415; 71045; 80048; 80076; 81003; 83690; 84484; 85025; 87502; 87635; 93005; 99283

== ENCOUNTER 2021-11-09 01:48 | Emergency (ER) | payer MEDICARE, MEDICAID, SELFPAY ==
[2021-11-09 02:01] VITALS: BP 164/84; PULSE 68; RESP 16; O2SAT 99; BMI 32.0
--- NOTE | 2021-11-09 02:25 | ED.GENADULT ---
HPI - General Adult General Chief complaint: Headache Stated complaint: head inj/fall, migraine, sinus pain? Time Seen by Provider: 11/09/21 02:14 Source: patient Mode of arrival: ambulatory Limitations: no limitations History of Present Illness HPI narrative: Patient comes emergency room complaining head pressure, no headache, a lump on her scalp, and anxiety. Patient states that she is recovering from COVID-19. Patient denies chest pain, no shortness of breath, no nausea vomiting diarrhea, no URI or UTI symptoms. Patient states that a few days ago she bumped her head, not on blood thinners and a loose consciousness. Related Data Home Medications Medication Instructions Recorded Confirmed famotidine 20 mg tablet 1 tab PO BEDTIME 11/18/20 11/18/20 lorazepam 0.5 mg tablet 1 tab PO QID PRN 11/18/20 11/18/20 omeprazole 20 mg capsule,delayed 1 cap PO DAILY 11/18/20 11/18/20 release polyethylene glycol 3350 17 17 g PO DAILY 11/18/20 11/18/20 gram/dose oral powder Allergies Allergy/AdvReac Type Severity Reaction Status Date / Time Penicillins [PENICILLINS] Allergy Severe ANAPHYLAXIS Verified 04/05/21 23:41 Iodinated Contrast Media Allergy Intermediate HIVES Verified 04/05/21 23:41 [Iodinated Contrast Media - IV Dye] ciprofloxacin [From CIPRO] Allergy Unknown UNKNOWN Verified 04/05/21 23:41 Sulfa (Sulfonamide AdvReac Unknown NAUSEA & Verified 04/05/21 23:41 Antibiotics) VOMITING [SULFA (SULFONAMIDE ANTIBIOTICS)] cipro? Allergy Unknown hives Uncoded 12/27/18 00:00 PCN Allergy Unknown hives/SOB Uncoded 12/27/18 00:00 sulfa Allergy Unknown n/v Uncoded 12/27/18 00:00 Review of Systems Review of Systems: Constitutional : No Weight loss, No Fever, No Chills, No Night Sweats, No Fatigue, No Malaise ENT/Mouth : No Hearing loss, No Ear Pain, No Nasal Congestion, No Sinus Pain, No Hoarseness, No sore throat, No Rhinorrhea, No Swallowing Difficulty Eyes: No Eye Pain, No Swelling, No Redness, No Foreign Body, No Discharge, No Vision Changes Cardiovascular : No Chest Pain, No SOB, No Dyspnea on Exertion, No Orthopnea, No Edema, No Palpitations Respiratory : No Cough, No Sputum, No Wheezing, No Smoke Exposure, No Dyspnea Gastrointestinal : No Nausea, No Vomiting, No Diarrhea, No Constipation, No abdominal Pain, No Hematochezia, No Melena Genitourinary : no irregular bleeding, No Dysuria, No Urinary Frequency, No Hematuria, No Urinary Incontinence, No Urgency, No Flank Pain, No Urinary Flow Changes, No Hesitancy Musculoskeletal : No joint pain, No Myalgias, No Joint Swelling Skin : No Skin Lesions, No rash, complaining of a lump her scalp Neuro : No Weakness, No Numbness, No Paresthesias, No Loss of Consciousness, No Dizziness, No Headache, complaining of head pressure Psych : No Anxiety/Panic, No Depression, No SI/HI/AH/VH, No Social Issues, Heme/Lymph: No Bruising, No Bleeding,No Lymphadenopathy Endocrine : No Polyuria, No Polydipsia, No Temperature Intolerance PMFSH Past Medical History Medical History Atrial fibrillation Diabetes History of lung cancer Surgical History History of lobectomy of lung Social History Social History Household Members: None Housing: Apartment Do you presently have visiting nurse or other home services: No Alcohol intake: never Patient Tobacco Use Status: Former Tobacco user Advance Directives: No Advance Directives Information Provided: Yes service: No Current occupational status: disabled Physical Exam ED Vital Signs: Vital Signs - 24 hr 11/09/21 02:01 Pulse Rate 68 Respiratory Rate 16 Blood Pressure 164/84 H Pulse Oximetry 99 BMI result Body Mass Index 32.0 Const Other: Appearance: Alert. Oriented X3. No acute distress. Eyes: Pupils equal, round and reactive to light. ENT: Pharynx normal. No ethmoid/sinus pressure Neck: Normal inspection. Neck supple. No lymph nodes noted. No crepitus CVS: Normal heart rate and rhythm. Pulses normal. Normal S1 and S2 Respiratory: No respiratory distress. Breath sounds normal. No Wheezing. No rales Abdomen: Soft and nontender. No rigidity. No distention. Skin: Skin warm and dry. Normal skin color. Normal skin turgor. 0.5 cm 0.5 cm induration in the scalp. Extremities: No lower extremity edema. No Lacerations. No Rash Neuro: Oriented X 3. No motor deficit. No sensory deficit. Moving all extremities. No slurred speech. CN 2 through 12 grossly intact Psych: calm, cooperative, normal affect Course Course Course Narrative: Patient does not have any signs of sinusitis. Only complaining of head pressure anxiety. Patient given acetaminophen and lorazepam. Patient's physical exam is relatively normal other than the small bump her scalp, nonspecific, unrelated to the side where she bumped her head a few days ago. No lacerations, no abrasions Discharge Plan Discharge Clinical Impression: Pressure in head, Anxiety Patient Disposition: Home, Self-Care Instructions: Anxiety (ED) Additional Instructions: Please follow-up with your primary care physician tomorrow. If you have any worsening or new symptoms, please return to the emergency room or call 911 Prescriptions: No Action famotidine 20 mg tablet 1 tab PO BEDTIME 0RF lorazepam 0.5 mg tablet 1 tab PO QID PRN (Reason: Anxiety) 0RF polyethylene glycol 3350 17 gram/dose powder 17 g PO DAILY 0RF omeprazole 20 mg capsule,delayed release(DR/EC) 1 cap PO DAILY 0RF
[2021-11-09] MEDS: Acetaminophen 325 MG TABLET 975 MG PO (02:39)
[2021-11-09] MEDS: LORazepam 0.5 MG TABLET PO (02:39)
[2021-11-09 02:41] VITALS: BP 128/64; PULSE 56; RESP 16; TEMP 37; O2SAT 97
== END 2021-11-09 02:47 | disposition home or self-care (01) ==
PROVIDERS: Emergency Provider Emergency Medicine
DX: R51.9 Headache, unspecified (principal); F41.9 Anxiety disorder, unspecified; E11.9 Type 2 diabetes mellitus without complications; I48.91 Unspecified atrial fibrillation
CPT/HCPCS: 99283; 99284

== ENCOUNTER 2021-11-30 01:50 | Emergency (ER) | payer MEDICARE, MEDICAID, SELFPAY ==
--- NOTE | ~2021-11-30 | XR_ITS ---
EXAMINATION: XR CHEST CLINICAL INFORMATION: Epigastric/chest pain COMPARISON: 11/04/2021 TECHNIQUE: Frontal view of the chest was obtained. FINDINGS: No significant abnormality is noted involving the heart, lungs, mediastinum, bony thorax or soft tissues. XR/XR chest 1V IMPRESSION: Unremarkable examination.
--- NOTE | ~2021-11-30 | CT_ITS ---
EXAMINATION: CT ABDOMEN AND PELVIS WITHOUT CONTRAST CLINICAL INFORMATION: Left upper quadrant pain COMPARISON: 04/06/2021 TECHNIQUE: Multidetector volumetric imaging was performed from the superior aspect of the liver through the pubic symphysis. Sagittal and coronal reformatted images were obtained on the technologist's workstation. This CT examination was performed using dose optimization techniques as appropriate, variously including the following: *Automated exposure control *Adjustment of mA and/or kV according to patient size (this includes techniques or standardized protocols for targeted exams where dose is matched to indication/reason for exam; i.e. extremities or head) *Use of iterative reconstruction technique DLP: 681 mGy-cm FINDINGS: LUNG BASES: The visualized lung bases are unremarkable. LIVER, GALLBLADDER, AND BILIARY TREE: The liver is normal in size, shape, and attenuation. No focal hepatic lesion or biliary ductal dilatation is present. Cholelithiasis. PANCREAS: Unremarkable. SPLEEN: Unremarkable. ADRENAL GLANDS: Unremarkable. KIDNEYS AND URETERS: The kidneys are normal in size, shape, and attenuation. No hydronephrosis, hydroureter, or calculi seen. No perinephric stranding. BLADDER: Unremarkable. GASTROINTESTINAL TRACT: Scattered colonic diverticula. No evidence of diverticulitis. Normal appendix. Stomach and small bowel unremarkable apart from a small sliding-type hiatal hernia. ABDOMINAL WALL: No significant hernia is appreciated. LYMPH NODES: Normal. VASCULAR: Aorta atherosclerotic. No aneurysm. PELVIC VISCERA: Hysterectomy. Ovaries unremarkable. OSSEOUS STRUCTURES: No acute or suspicious osseous abnormalities. CT/CT abdomen pelvis wo con IMPRESSION: * No etiology for the patient's symptomatology. * Cholelithiasis. No CT imaging evidence of cholecystitis. * Diverticulosis coli. No evidence of diverticulitis. * Hysterectomy.
--- NOTE | 2021-11-30 02:00 | ECG_ITS ---
Test Reason : EPIGASTRIC PAIN Blood Pressure : / mmHG Vent. Rate : 081 BPM Atrial Rate : 081 BPM P-R Int : 142 ms QRS Dur : 072 ms QT Int : 392 ms P-R-T Axes : 055 011 034 degrees QTc Int : 455 ms Normal sinus rhythm Low voltage QRS Cannot rule out Anterior infarct (cited on or before 04-NOV-2021) Abnormal ECG When compared with ECG of 04-NOV-2021 13:39, No significant change was found Referred By: Generic ED Physician Electronically Signed By:Beau Barajas
[2021-11-30 02:01] VITALS: BP 155/76; PULSE 77; RESP 20; TEMP 36.6; O2SAT 97; BMI 31.8
[2021-11-30 02:09] LABS: Basophils Percent Auto 0.4 % (0-2); Eosinophils Absolute Auto 0.2 X10*3/uL (0.0-0.4); Eosinophils Percent Auto 2.1 % (0-4); Hematocrit 37.5 % (37.0-47.0); Hemoglobin 12.7 g/dl (12.0-16.0); Imm Gran Abs Auto 0.05 X10*3/uL (0.00-0.03); Imm Gran Pct Auto 0.5 % (0.0-0.4); Lymphocytes Absolute Auto 4.5 X10*3/uL (1.2-4.9); Lymphocytes Percent Auto 48.8 % (20-40); MANUAL DIFF FLAG NO; Mean Corpuscular HGB Conc 33.9 g/dl (31.0-35.0); Mean Corpuscular Hemoglobin 31.4 pg (27.0-33.0); Mean Corpuscular Volume 92.6 fL (80.0-98.0); Mean Platelet Volume 10.4 fL (9.4-12.3); Monocytes Absolute Auto 0.8 X10*3/uL (0.1-1.2); Monocytes Percent Auto 8.9 % (2-11); Neutrophils Absolute Auto 3.6 x10*3/uL (2.0-8.3); Neutrophils Percent Auto 39.3 % (45-73); Platelet Count 211 X10*3/uL (160-400); Red Blood Count 4.05 X10*6/uL (4.20-5.50); Red Cell Distribution Width 12.3 % (11.0-16.0); White Blood Count 9.2 X10*3/uL (4.8-10.8)
[2021-11-30 02:28] LABS: Anion Gap 13 (12-20); Blood Urea Nitrogen 15 mg/dL (9-16); Calcium 9.2 mg/dL (8.4-10.2); Carbon Dioxide 28 mmol/L (22-29); Chloride 104 mmol/L (96-108); Creatinine Clr Calc Pharmacy 56.8; Estimated Glomerular Filt Rate 58; Glucose Random 110 mg/dL (60-115); Potassium 3.9 mmol/L (3.3-5.1); Sodium 141 mmol/L (135-145); Troponin-I High Sensitivity < 3.5 ng/L (<3.5-17.0)
--- NOTE | 2021-11-30 02:40 | ED.ABDPAIN ---
HPI - Abdominal Pain General Chief Complaint: Abdominal Pain Stated Complaint: severe pain Time Seen by Provider: 11/30/21 02:34 Source: patient Limitations: no limitations History of Present Illness HPI narrative: This is a 65-year-old female who for about a day and a half has had intermittent pain behind her left Breast patient denies any shortness of breath. She denies any nausea vomiting. She states the pain does go through to her back somewhat. The pain has been waxing and waning but became more severe this morning. Patient denies any constipation or diarrhea. Denies any urinary symptoms. She denies any fever cough. She denies any alcohol use. She does note a history of atrial fibrillation. Related Data Home Medications Medication Instructions Recorded Confirmed famotidine 20 mg tablet 1 tab PO BEDTIME 11/18/20 11/18/20 lorazepam 0.5 mg tablet 1 tab PO QID PRN Anxiety 11/18/20 11/18/20 omeprazole 20 mg capsule,delayed 1 cap PO DAILY 11/18/20 11/18/20 release polyethylene glycol 3350 17 17 g PO DAILY 11/18/20 11/18/20 gram/dose oral powder Previous Rx's Medication Instructions Recorded diazepam 5 mg tablet (Valium) 5 mg PO BID PRN muscle spasm #10 11/30/21 tabs tramadol 50 mg tablet 50 - 100 mg PO Q6H PRN pain #20 11/30/21 tabs Allergies Allergy/AdvReac Type Severity Reaction Status Date / Time Penicillins [PENICILLINS] Allergy Severe ANAPHYLAXIS Verified 11/30/21 02:01 Iodinated Contrast Media Allergy Intermediate HIVES Verified 11/30/21 02:01 [Iodinated Contrast Media - IV Dye] ciprofloxacin [From CIPRO] Allergy Unknown UNKNOWN Verified 11/30/21 02:01 Sulfa (Sulfonamide AdvReac Unknown NAUSEA & Verified 11/30/21 02:01 Antibiotics) VOMITING [SULFA (SULFONAMIDE ANTIBIOTICS)] cipro? Allergy Unknown hives Uncoded 11/30/21 02:01 PCN Allergy Unknown hives/SOB Uncoded 11/30/21 02:01 sulfa Allergy Unknown n/v Uncoded 11/30/21 02:01 Review of Systems Review of Systems Yes all other systems are reviewed and are negative Constitutional: Reports as per HPI and Denies fever(s) Eyes: Reports as per HPI and Reports no additional eye complaints Reports system reviewed and no additional complaints, except as documented, Reports as per HPI, Denies nasal congestion, Denies nasal discharge and Denies sore throat Cardiovascular: Reports as per HPI, Denies chest pain and Denies dyspnea Respiratory: Reports as per HPI, Denies cough and Denies dyspnea Gastrointestinal: Reports as per HPI, Reports abdominal pain (Left upper quadrant/left lower chest under left breast), Denies diarrhea and Denies vomiting Genitourinary: Reports as per HPI, Denies hematuria, Denies urinary frequency and Denies dysuria Musculoskeletal: Reports no additional musculoskeletal complaints and Denies numbness Skin/Breast: Reports as per HPI and Denies rash Reports as per HPI, Denies focal weakness and Denies numbness Psychiatric: Reports no additional psychiatric complaints and Reports as per HPI Endocrine: Reports no additional endocrine complaints and Reports as per HPI Hematologic/Lymphatic: Reports no additional hematologic/lymphatic complaints, Reports as per HPI and Reports other (No peripheral edema) [facility] Past Medical History Medical History Atrial fibrillation Diabetes History of lung cancer Surgical History History of lobectomy of lung Social History Social History Household Members: None Housing: Apartment Do you presently have visiting nurse or other home services: No Alcohol intake: never Patient Tobacco Use Status: Former Tobacco user Advance Directives: No service: No Current occupational status: disabled Physical Exam ED Vital Signs: Vital Signs - 24 hr 11/30/21 02:01 Temperature 97.8 F Pulse Rate 77 Respiratory Rate 20 Blood Pressure 155/76 H Pulse Oximetry 97 Oxygen Delivery Method Room Air BMI result Body Mass Index 31.8 Const Other: Despite the complaint is severe comfort, the patient appears comfortable General: no acute distress Orientation/consciousness: patient oriented x3 HENMT Head: Yes normal to inspection General nose exam: Normal external nose present Mouth: moist mucous membranes Throat: Yes posterior oropharynx normal, Yes tonsils normal and Yes uvula midline Eyes Eyelids: Yes eyelids normal Conjunctivae: conjunctivae normal Pupils: Equal, round and reactive pupils present Neck Neck: Yes supple Resp Effort & Inspection: normal respiratory effort Auscultation: clear to auscultation bilaterally Cardio Rate: regular rate Rhythm: regular rhythm Heart sounds: S1 normal heart sound present, S2 normal heart sound present, no gallops, no murmurs and no rubs GI Inspection: No distended Palpation (GI): Soft to palpation and nontender Auscultation: normal bowel sounds Skin General skin exam: other (Warm and dry) Neuro General: patient oriented x3 and CN's II-XI intact bilaterally Cranial nerves: Yes Equal, round and reactive pupils present Extrem General: Yes no pedal edema Psych Affect: normal affect Attitude: cooperative MDM - Abdominal Pain MDM Narrative Medical decision making narrative: Patient states she has severe pain in her left upper quadrant slashed left inferior chest rare below her left breast. No tenderness on exam. Patient denies shortness of breath. Patient notes pain is worse going over the bumps in the car. Patient has had similar pain in the past but it seemed worse tonight. CT of the abdomen pelvis done without IV contrast due to the patient's contrast allergy was without any concerning findings, although vasculature could not be properly examine due to the lack of contrast. Patient did not appear uncomfortable, seemed to have pain out of proportion to her appearance and physical examination. Labs including troponin were negative. Chest x-ray unremarkable. EKG without changes. Medical Records Attestation: I reviewed the patient's medical records. Lab Data Attestation: I reviewed the patient's lab results. Result diagrams: 11/30/21 02:04 11/30/21 02:04 Labs: Lab Results 11/30/21 11/30/21 11/30/21 Range/Units 02:04 02:04 02:04 WBC 9.2 (4.8-10.8) X10*3/uL RBC 4.05 L (4.20-5.50) X10*6/uL Hgb 12.7 (12.0-16.0) g/dl Hct 37.5 (37.0-47.0) % MCV 92.6 (80.0-98.0) fL MCH 31.4 (27.0-33.0) pg MCHC 33.9 (31.0-35.0) g/dl RDW 12.3 (11.0-16.0) % Plt Count 211 (160-400) X10*3/uL MPV 10.4 (9.4-12.3) fL Immature Gran % (Auto) 0.5 H (0.0-0.4) % Neut % (Auto) 39.3 L (45-73) % Lymph % (Auto) 48.8 H (20-40) % [place] % (Auto) 8.9 (2-11) % Eos % (Auto) 2.1 (0-4) % Baso % (Auto) 0.4 (0-2) % Lymph # (Auto) 4.5 (1.2-4.9) X10*3/uL [place] # (Auto) 0.8 (0.1-1.2) X10*3/uL Eos # (Auto) 0.2 (0.0-0.4) X10*3/uL Baso # (Auto) 0.0 (0.0-0.2) X10*3/uL Abs Immat Gran (auto) 0.05 H (0.00-0.03) X10*3/uL Absolute Neuts (auto) 3.6 (2.0-8.3) x10*3/uL Absolute Nucleated RBC 0.000 (0.0-0.012) X10*3/uL Nucleated RBC % (auto) 0.0 (0.0-0.2) /100WBC Sodium 141 (135-145) mmol/L Potassium 3.9 (3.3-5.1) mmol/L Chloride 104 (96-108) mmol/L Carbon Dioxide 28 (22-29) mmol/L Anion Gap 13 (12-20) BUN 15 (9-16) mg/dL Creatinine 0.96 (0.5-1.4) mg/dL Estim Creat Clear Calc 56.8 Estimated GFR 58 Random Glucose 110 (60-115) mg/dL Calcium 9.2 (8.4-10.2) mg/dL Troponin I High Sens < 3.5 (<3.5-17.0) ng/L Lipase 41 (8-78) U/L Imaging Data CT abdomen pelvis without IV contrast: Radiologist's impression: IMPRESSION: *? No etiology for the patient's symptomatology. *? Cholelithiasis. No CT imaging evidence of cholecystitis. *? Diverticulosis coli. No evidence of diverticulitis. *? Hysterectomy. Chest x-ray: Radiologist's impression: IMPRESSION: Unremarkable examination. ECG Data ECG interpretation date: 11/30/21 ECG interpretation time: 02:02 Prior ECG tracings: available for review Interpretation: Sinus rhythm with a rate of 81. Low voltage QRS. Somewhat flattened T-waves in leads V2 and V3. EKG appears similar to 1 dated 11/04/2021 Discharge Plan Discharge Clinical Impression: Atypical chest pain Patient Disposition: Home, Self-Care Instructions: Chest Pain (ED), Abdominal Pain (ED) Additional Instructions: Take the tramadol and diazepam as prescribed to see if that helps with the pain. Return for any new or worsened symptoms. Follow up with your primary care physician for further evaluation. Prescriptions: New tramadol 50 mg tablet 50 - 100 mg PO Q6H PRN (Reason: pain) Qty: 20 0RF diazepam [Valium] 5 mg tablet 5 mg PO BID PRN (Reason: muscle spasm) Qty: 10 0RF No Action famotidine 20 mg tablet 1 tab PO BEDTIME lorazepam 0.5 mg tablet 1 tab PO QID PRN (Reason: Anxiety) polyethylene glycol 3350 17 gram/dose powder 17 g PO DAILY omeprazole 20 mg capsule,delayed release(DR/EC) 1 cap PO DAILY
[2021-11-30 02:59] LABS: Lipase 41 U/L (8-78)
[2021-11-30] MEDS: LORazepam 2 MG/ML VIAL 0.25 MG IVPUSH (04:10)
[2021-11-30] MEDS: Ketorolac Tromethamine 15 MG/ML VIAL IVPUSH (04:10)
== END 2021-11-30 05:10 | disposition home or self-care (01) ==
PROVIDERS: Emergency Provider Emergency Medicine; PCP Family Medicine
DX: R07.89 Other chest pain (principal); R10.32 Left lower quadrant pain; E11.9 Type 2 diabetes mellitus without complications; I48.91 Unspecified atrial fibrillation
CPT/HCPCS: 36415; 71045; 74176; 80048; 83690; 84484; 85025; 93005; 96374; 96375; 99284; J1885; J2060

== ENCOUNTER 2022-01-22 11:55 | Emergency (ER) | payer MEDICARE, MEDICAID, SELFPAY ==
--- NOTE | ~2022-01-22 | XR_ITS ---
EXAMINATION: CHEST ONE VIEW. ABDOMEN ONE VIEW. CLINICAL INFORMATION: Chest pain. Abdominal pain. COMPARISON: 11/30/2021 TECHNIQUE: Single view of the chest. Single view of the abdomen. FINDINGS: Chest: Lungs clear. Heart and pulmonary vessels are normal. ABDOMEN: Bowel gas pattern normal. No obstruction. XR/XR KUB IMPRESSION: Unremarkable studies.
--- NOTE | ~2022-01-22 | XR_ITS ---
EXAMINATION: CHEST ONE VIEW. ABDOMEN ONE VIEW. CLINICAL INFORMATION: Chest pain. Abdominal pain. COMPARISON: 11/30/2021 TECHNIQUE: Single view of the chest. Single view of the abdomen. FINDINGS: Chest: Lungs clear. Heart and pulmonary vessels are normal. ABDOMEN: Bowel gas pattern normal. No obstruction. XR/XR chest 1V IMPRESSION: Unremarkable studies.
[2022-01-22 12:01] VITALS: BP 138/70; PULSE 86; O2SAT 96
[2022-01-22 12:03] VITALS: BP 124/67; PULSE 63; RESP 18; TEMP 36.7; O2SAT 97; BMI 32.1
--- NOTE | 2022-01-22 12:04 | ED.CHESTPAIN ---
HPI - Chest Pain General Chief Complaint: Chest Pain Stated Complaint: CHEST PRESSURE Time Seen by Provider: 01/22/22 12:04 Source: patient and old records reviewed Mode of arrival: EMS Limitations: no limitations History of Present Illness HPI narrative: 66 yo female with hx of afib not on anticoagulation, DM, lung cancer s/p lobectomy in remission, prior visits for chest pain back in November admitted with negative enzymes and negative VQ scan, presents today with c/o constipation x 2 days and now associated chest pressure x 1 day. Taking miralax without relief has been on it for 1 year - hx of IBS. complaint: chest pain Onset (ago): day(s) (1) Timing of current episode: constant Prior episodes: Yes Onset: during rest Pain location: substernal Pain radiation: none Severity: moderate Quality: other (pressure) Relieving factors: nothing Exacerbating factors: nothing Context: other (unsure if it is related to her being constipated) Treatment prior to arrival: none Related Data Home Medications Medication Instructions Recorded Confirmed famotidine 20 mg tablet 1 tab PO BEDTIME 11/18/20 11/18/20 lorazepam 0.5 mg tablet 1 tab PO QID PRN Anxiety 11/18/20 11/18/20 omeprazole 20 mg capsule,delayed 1 cap PO DAILY 11/18/20 11/18/20 release polyethylene glycol 3350 17 17 g PO DAILY 11/18/20 11/18/20 gram/dose oral powder Previous Rx's Medication Instructions Recorded diazepam 5 mg tablet (Valium) 5 mg PO BID PRN muscle spasm #10 11/30/21 tabs tramadol 50 mg tablet 50 - 100 mg PO Q6H PRN pain #20 11/30/21 tabs Allergies Allergy/AdvReac Type Severity Reaction Status Date / Time Penicillins [PENICILLINS] Allergy Severe ANAPHYLAXIS Verified 11/30/21 02:01 Iodinated Contrast Media Allergy Intermediate HIVES Verified 11/30/21 02:01 [Iodinated Contrast Media - IV Dye] ciprofloxacin [From CIPRO] Allergy Unknown UNKNOWN Verified 11/30/21 02:01 Sulfa (Sulfonamide AdvReac Unknown NAUSEA & Verified 11/30/21 02:01 Antibiotics) VOMITING [SULFA (SULFONAMIDE ANTIBIOTICS)] cipro? Allergy Unknown hives Uncoded 11/30/21 02:01 PCN Allergy Unknown hives/SOB Uncoded 11/30/21 02:01 sulfa Allergy Unknown n/v Uncoded 11/30/21 02:01 Review of Systems Review of Systems: Constitutional : No Weight loss, No Fever, No Chills ENT/Mouth : No sore throat, No Rhinorrhea Eyes: No Eye Pain, No Swelling Cardiovascular : pos Chest Pain, no SOB, no Dyspnea on Exertion, No Orthopnea, No Edema, No Palpitations Respiratory : No Cough, No Sputum Gastrointestinal : no Nausea, No Vomiting, No Diarrhea, pos abdominal Pain, No Hematochezia, No Melena, pos constipation Genitourinary : No Dysuria, No Urinary Frequency Musculoskeletal : No joint pain, No Myalgias, No Joint Swelling Skin : No Skin Lesions, No rash Neuro : No Weakness, No Numbness, No Dizziness, No Headache Psych : No Anxiety/Panic, No Depression Heme/Lymph: No Bruising, No Lymphadenopathy Endocrine : No Polyuria, No Polydipsia All other systems reviewed and are negative [facility] Past Medical History Attestation statement: The following information was validated with the patient. Medical History Atrial fibrillation Diabetes History of lung cancer Surgical History History of lobectomy of lung Social History Social History Household Members: None Housing: Apartment Do you presently have visiting nurse or other home services: No Alcohol intake: never Patient Tobacco Use Status: Former Tobacco user Use of substances other than those prescribed or required for medical reasons: No Advance Directives: Yes Advance Directives Information Provided: Yes Advance Directives on File: No service: No Current occupational status: disabled Physical Exam Vital Signs: Vital Signs: Last Vital Signs Temp 98.1 F 01/22/22 12:03 Pulse 63 01/22/22 12:03 Resp 18 01/22/22 12:03 BP 124/67 01/22/22 12:03 Pulse Ox 97 01/22/22 12:03 BMI result Body Mass Index 32.1 Appearance: Alert. Oriented X3. No acute distress. Eyes: Pupils equal, round and reactive to light. ENT: Pharynx normal. Neck: Normal inspection. Neck supple. CVS: Normal heart rate and rhythm. Pulses normal. Respiratory: No respiratory distress. Breath sounds normal. Abdomen: Soft and nontender. Rectal: no fecal impaction felt Skin: Skin warm and dry. Normal skin color. Normal skin turgor. Extremities: No lower extremity edema. No calf ttp Neuro: Oriented X 3. No motor deficit. No sensory deficit. Course Course Course Narrative: patient with marked improvement and successful BM post enema and lactulose she notes she feels much better plan is for DC with colace and senna MDM - Chest Pain MDM Narrative Medical decision making narrative: 66 yo female with hx of afib not on anticoagulation, DM, lung cancer s/p lobectomy in remission, prior visits for chest pain today presents with constipation and unable to have BM despite taking miralax (has been on it for a year) thinks she has IBS. The patient also notes that she has a feeling of fullness and that it makes her feel like she has chest pressure since yesterday. At this time labs, EKG, troponin x 1. KUB. Will provide enema and lactulose in ED to see if this helps with constipation - her abdomen is soft and nontender on exam no n/v so SBO seems unlikely as well as given benign exam I doubt mesenteric ischemia. She has no hypoxia/tachycardia or signs of DVT to suggest PE. Lab Data Result diagrams: 01/22/22 12:20 01/22/22 12:20 Labs: Lab Results 01/22/22 01/22/22 01/22/22 Range/Units 12:20 12:20 12:20 WBC 6.3 (4.8-10.8) X10*3/uL RBC 4.27 (4.20-5.50) X10*6/uL Hgb 13.3 (12.0-16.0) g/dl Hct 39.6 (37.0-47.0) % MCV 92.7 (80.0-98.0) fL MCH 31.1 (27.0-33.0) pg MCHC 33.6 (31.0-35.0) g/dl RDW 12.4 (11.0-16.0) % Plt Count 228 (160-400) X10*3/uL MPV 10.4 (9.4-12.3) fL Immature Gran % (Auto) 0.8 H (0.0-0.4) % Neut % (Auto) 55.4 (45-73) % Lymph % (Auto) 33.6 (20-40) % [place] % (Auto) 8.0 (2-11) % Eos % (Auto) 1.6 (0-4) % Baso % (Auto) 0.6 (0-2) % Lymph # (Auto) 2.1 (1.2-4.9) X10*3/uL [place] # (Auto) 0.5 (0.1-1.2) X10*3/uL Eos # (Auto) 0.1 (0.0-0.4) X10*3/uL Baso # (Auto) 0.0 (0.0-0.2) X10*3/uL Abs Immat Gran (auto) 0.05 H (0.00-0.03) X10*3/uL Absolute Neuts (auto) 3.5 (2.0-8.3) x10*3/uL Absolute Nucleated RBC 0.000 (0.0-0.012) X10*3/uL Nucleated RBC % (auto) 0.0 (0.0-0.2) /100WBC Sodium 142 (135-145) mmol/L Potassium 4.2 (3.3-5.1) mmol/L Chloride 106 (96-108) mmol/L Carbon Dioxide 26 (22-29) mmol/L Anion Gap 14 (12-20) BUN 11 (9-16) mg/dL Creatinine 0.84 (0.5-1.4) mg/dL Estim Creat Clear Calc 64.4 Estimated GFR > 60 Random Glucose 107 (60-115) mg/dL Calcium 8.9 (8.4-10.2) mg/dL Magnesium 2.0 (1.6-2.6) mg/dL Total Bilirubin 0.6 (0.0-1.0) mg/dL Direct Bilirubin 0.2 (0.0-0.5) mg/dL AST 17 (5-31) U/L ALT 19 (0-31) U/L Alkaline Phosphatase 57 (39-117) U/L Troponin I High Sens < 3.5 (<3.5-17.0) ng/L Total Protein 7.0 (6.5-8.0) g/dL Albumin 4.2 (3.5-5.0) g/dL Lipase 34 (8-78) U/L ECG Data ECG #1: Attestation: I personally reviewed and interpreted this ECG as follows: ECG interpretation date: 01/22/22 ECG interpretation time: 12:09 Interpretation: Rate: 62 Rhythm: NSR [place]: left Normal P waves. Normal YOSELYN. decreased QRS complex. poor R wave progression ST T wave : no SPENCER, normal qTC: normal prior studies: no changed November 2021 The study has been interpreted contemporaneously by me. . Discharge Plan Discharge Clinical Impression: Atypical chest pain Constipation Qualifiers: Constipation type: unspecified constipation type Qualified Code(s): K59.00 - Constipation, unspecified Patient Disposition: Home, Self-Care Instructions: Chest Pain (ED), Constipation (ED) Additional Instructions: return to ED for any worsening symptoms or concerns you can take stool softeners - colace 100mg BID senna is a stimulant 8.6mg every night these are both over the counter remember to drink plenty of water follow up with your primary care doctor Prescriptions: No Action famotidine 20 mg tablet 1 tab PO BEDTIME lorazepam 0.5 mg tablet 1 tab PO QID PRN (Reason: Anxiety) polyethylene glycol 3350 17 gram/dose powder 17 g PO DAILY omeprazole 20 mg capsule,delayed release(DR/EC) 1 cap PO DAILY tramadol 50 mg tablet 50 - 100 mg PO Q6H PRN (Reason: pain) Qty: 20 0RF diazepam [Valium] 5 mg tablet 5 mg PO BID PRN (Reason: muscle spasm) Qty: 10 0RF
--- NOTE | 2022-01-22 12:06 | ECG_ITS ---
Test Reason : CHEST PAIN Blood Pressure : / mmHG Vent. Rate : 062 BPM Atrial Rate : 062 BPM P-R Int : 130 ms QRS Dur : 070 ms QT Int : 402 ms P-R-T Axes : 044 010 027 degrees QTc Int : 408 ms Normal sinus rhythm Low voltage QRS Cannot rule out Anterior infarct (cited on or before 04-NOV-2021) Abnormal ECG When compared with ECG of 30-NOV-2021 01:51, No significant change was found Referred By: Liudmila Washington Electronically Signed By:SIMRAN CRUZ MD
[2022-01-22 12:27] LABS: MANUAL DIFF FLAG NO
[2022-01-22 12:28] LABS: Basophils Percent Auto 0.6 % (0-2); Eosinophils Absolute Auto 0.1 X10*3/uL (0.0-0.4); Eosinophils Percent Auto 1.6 % (0-4); Hematocrit 39.6 % (37.0-47.0); Hemoglobin 13.3 g/dl (12.0-16.0); Imm Gran Abs Auto 0.05 X10*3/uL (0.00-0.03); Imm Gran Pct Auto 0.8 % (0.0-0.4); Lymphocytes Absolute Auto 2.1 X10*3/uL (1.2-4.9); Lymphocytes Percent Auto 33.6 % (20-40); Mean Corpuscular HGB Conc 33.6 g/dl (31.0-35.0); Mean Corpuscular Hemoglobin 31.1 pg (27.0-33.0); Mean Corpuscular Volume 92.7 fL (80.0-98.0); Mean Platelet Volume 10.4 fL (9.4-12.3); Monocytes Absolute Auto 0.5 X10*3/uL (0.1-1.2); Neutrophils Absolute Auto 3.5 x10*3/uL (2.0-8.3); Neutrophils Percent Auto 55.4 % (45-73); Platelet Count 228 X10*3/uL (160-400); Red Blood Count 4.27 X10*6/uL (4.20-5.50); Red Cell Distribution Width 12.4 % (11.0-16.0); White Blood Count 6.3 X10*3/uL (4.8-10.8)
[2022-01-22] MEDS: Sodium Phosphate,Mono-Dibasic 133 ML ENEMA PR (12:38)
--- NOTE | 2022-01-22 12:40 | PC.NURSE ---
pt alert and oriented, skin pwd, respirations even and unlabored, pt denies chest pressure at this time, states that is comes and goes since yesterday, also states feeling constipated for the last two days, denies nausea
[2022-01-22] MEDS: Lactulose 20 GM/30 ML SOLUTION PO (12:45)
[2022-01-22 12:55] LABS: Alanine Aminotransferase 19 U/L (0-31); Albumin Level 4.2 g/dL (3.5-5.0); Alkaline Phosphatase 57 U/L (39-117); Anion Gap 14 (12-20); Aspartate Amino Transferase 17 U/L (5-31); Bilirubin Direct 0.2 mg/dL (0.0-0.5); Bilirubin Total 0.6 mg/dL (0.0-1.0); Blood Urea Nitrogen 11 mg/dL (9-16); Calcium 8.9 mg/dL (8.4-10.2); Carbon Dioxide 26 mmol/L (22-29); Chloride 106 mmol/L (96-108); Creatinine Clr Calc Pharmacy 64.4; Estimated Glomerular Filt Rate > 60; Glucose Random 107 mg/dL (60-115); Lipase 34 U/L (8-78); Potassium 4.2 mmol/L (3.3-5.1); Sodium 142 mmol/L (135-145)
[2022-01-22 13:01] LABS: Troponin-I High Sensitivity < 3.5 ng/L (<3.5-17.0)
--- NOTE | 2022-01-22 14:30 | PC.NURSE ---
pt reports having a large bowel movement
== END 2022-01-22 14:53 | disposition home or self-care (01) ==
PROVIDERS: Emergency Provider Emergency Medicine; PCP Family Medicine
DX: R07.89 Other chest pain (principal); K59.00 Constipation, unspecified; Z79.899 Other long term (current) drug therapy
CPT/HCPCS: 36415; 71045; 74018; 80048; 80076; 83690; 83735; 84484; 85025; 93005; 99284

== ENCOUNTER 2022-11-20 15:07 | Emergency (ER) | payer MEDICARE, MEDICAID, SELFPAY ==
--- NOTE | ~2022-11-20 | CT_ITS ---
EXAMINATION: CT ABDOMEN AND PELVIS WITHOUT CONTRAST CLINICAL INFORMATION: Epigastric and right upper quadrant abdominal pain COMPARISON: CT from 11/30/2021 TECHNIQUE: Multidetector volumetric imaging was performed from the superior aspect of the liver through the pubic symphysis. Sagittal and coronal reformatted images were obtained on the technologist's workstation. This CT examination was performed using dose optimization techniques as appropriate, variously including the following: *Automated exposure control *Adjustment of mA and/or kV according to patient size (this includes techniques or standardized protocols for targeted exams where dose is matched to indication/reason for exam; i.e. extremities or head) *Use of iterative reconstruction technique DLP: 648 mGy-cm FINDINGS: LUNG BASES: The visualized lung bases are unremarkable. LIVER, GALLBLADDER, AND BILIARY TREE: The liver is normal in size, shape, and attenuation. No focal hepatic lesion or biliary ductal dilatation is present. The gallbladder is decompressed with no evidence of radiopaque gallstones, gallbladder wall thickening, or obvious pericholecystic inflammatory changes. PANCREAS: Unremarkable. SPLEEN: Unremarkable. ADRENAL GLANDS: Unremarkable. KIDNEYS AND URETERS: The kidneys are normal in size, shape, and attenuation. No hydronephrosis, hydroureter, or calculi seen. No perinephric stranding. BLADDER: Unremarkable. GASTROINTESTINAL TRACT: Small hiatal hernia. The small bowel are unremarkable. Diverticula seen within the sigmoid colon without evidence of acute diverticulitis The appendix is not visualized. ABDOMINAL WALL: No significant hernia is appreciated. LYMPH NODES: Normal. VASCULAR: Mild atherosclerotic wall calcifications PELVIC VISCERA: Status post hysterectomy. No adnexal mass lesions OSSEOUS STRUCTURES: Unremarkable. CT/CT abdomen pelvis wo IV con IMPRESSION: No acute process Small hiatal hernia Diverticulosis
[2022-11-20 15:10] VITALS: BP 149/73; PULSE 80; RESP 18; TEMP 36.7; O2SAT 98; BMI 33.6
--- NOTE | 2022-11-20 15:10 | ED.GENADULT ---
HPI - General Adult General Chief complaint: Abdominal Pain Stated complaint: personal does not want to discuss Time Seen by Provider: 11/20/22 16:36 Source: patient Mode of arrival: ambulatory Limitations: no limitations History of Present Illness HPI narrative: Patient comes to the emergency room complaining of epigastric pain and right upper quadrant pain that has been present for about 3 weeks. Patient states that she feels like she has spasms that radiate towards the middle of the abdomen. Patient denies nausea vomiting diarrhea, patient complaining of constipation. Patient denies fever chills, no URI or UTI symptoms Related Data Home Medications Medication Instructions Recorded Confirmed famotidine 20 mg tablet 1 tab PO BEDTIME 11/18/20 11/18/20 lorazepam 0.5 mg tablet 1 tab PO QID PRN Anxiety 11/18/20 11/18/20 omeprazole 20 mg capsule,delayed 1 cap PO DAILY 11/18/20 11/18/20 release polyethylene glycol 3350 17 17 g PO DAILY 11/18/20 11/18/20 gram/dose oral powder Previous Rx's Medication Instructions Recorded diazepam 5 mg tablet (Valium) 5 mg PO BID PRN muscle spasm #10 11/30/21 tabs tramadol 50 mg tablet 50 - 100 mg PO Q6H PRN pain #20 11/30/21 tabs hyoscyamine sulfate 0.125 mg tablet 0.125 mg PO QID #10 tabs 11/20/22 polyethylene glycol 3350 17 gram 17 g PO BID #30 ea 11/20/22 oral powder packet (Miralax) Allergies Allergy/AdvReac Type Severity Reaction Status Date / Time Penicillins [PENICILLINS] Allergy Severe ANAPHYLAXIS Verified 11/20/22 15:09 Iodinated Contrast Media Allergy Intermediate HIVES Verified 11/20/22 15:09 [Iodinated Contrast Media - IV Dye] ciprofloxacin [From CIPRO] Allergy Unknown UNKNOWN Verified 11/20/22 15:09 Sulfa (Sulfonamide AdvReac Unknown NAUSEA & Verified 11/20/22 15:09 Antibiotics) VOMITING [SULFA (SULFONAMIDE ANTIBIOTICS)] Review of Systems Review of Systems: Constitutional : No Weight loss, No Fever, No Chills, No Night Sweats, No Fatigue, No Malaise ENT/Mouth : No Hearing loss, No Ear Pain, No Nasal Congestion, No Sinus Pain, No Hoarseness, No sore throat, No Rhinorrhea, No Swallowing Difficulty Eyes: No Eye Pain, No Swelling, No Redness, No Foreign Body, No Discharge, No Vision Changes Cardiovascular : No Chest Pain, No SOB, No Dyspnea on Exertion, No Orthopnea, No Edema, No Palpitations Respiratory : No Cough, No Sputum, No Wheezing, No Smoke Exposure, No Dyspnea Gastrointestinal : Patient complaining of epigastric intermittent spasming, no nausea vomiting diarrhea, no blood in the stool Genitourinary : no irregular bleeding, No Dysuria, No Urinary Frequency, No Hematuria, No Urinary Incontinence, No Urgency, No Flank Pain, No Urinary Flow Changes, No Hesitancy Musculoskeletal : No joint pain, No Myalgias, No Joint Swelling Skin : No Skin Lesions, No rash Neuro : No Weakness, No Numbness, No Paresthesias, No Loss of Consciousness, No Dizziness, No Headache Psych : No Anxiety/Panic, No Depression, No SI/HI/AH/VH, No Social Issues, Heme/Lymph: No Bruising, No Bleeding,No Lymphadenopathy Endocrine : No Polyuria, No Polydipsia, No Temperature Intolerance [facility] Past Medical History Medical History Atrial fibrillation Diabetes History of lung cancer Surgical History History of lobectomy of lung Social History Social History Household Members: None Housing: Apartment Do you presently have visiting nurse or other home services: No Alcohol intake: never Patient Tobacco Use Status: Former Tobacco user Advance Directives: No Advance Directives Information Provided: No service: No Current occupational status: disabled Physical Exam ED Vital Signs: Vital Signs - 24 hr 11/20/22 15:10 11/20/22 16:32 Temperature 98.0 F 98.7 F Pulse Rate 80 58 Respiratory Rate 18 18 Blood Pressure 149/73 H 125/68 Pulse Oximetry 98 99 Oxygen Delivery Method Room Air Room Air BMI result Body Mass Index 33.6 Const Other: Appearance: Alert. Oriented X3. No acute distress. Eyes: Pupils equal, round and reactive to light. ENT: Pharynx normal. Neck: Normal inspection. Neck supple. No lymph nodes noted. No crepitus CVS: Normal heart rate and rhythm. Pulses normal. Normal S1 and S2 Respiratory: No respiratory distress. Breath sounds normal. No Wheezing. No rales Abdomen: Soft and nontender. Complaining of abdominal distension Skin: Skin warm and dry. Normal skin color. Normal skin turgor. Extremities: No lower extremity edema. No Lacerations. No Rash Neuro: Oriented X 3. No motor deficit. No sensory deficit. Moving all extremities. No slurred speech. CN 2 through 12 grossly intact Psych: calm, cooperative, submitted anxious. Course Course Course Narrative: RME performed by Soraida Hernandez PA-C. Patient is a 66 year old assigned female at presenting to the emergency department with multiple complaints. Increased anxiety / depression and intestinal pain? Labs ordered. Patient placed back in the waiting room pending room availability and results. Medical Decision Making Medical Decision Making [facility] Narrative: White blood cell count within normal limits, chemistry within normal limits -my interpretation of EKG: Sinus rhythm, heart rate 60, no ST segment depression the patient, no T-wave inversion, QTC 428 -lipase negative -my interpretation of CT scan, no acute findings, no free air, no overwhelming amount of stool in the colon -I discussed the labs and CT scan report with the patient, patient ready for discharge. Patient likely having musculoskeletal pain Lab Data [facility] Lab Attestation statement: I reviewed the patient's lab results. 11/20/22 15:26 11/20/22 15:26 Labs: Lab Results 11/20/22 11/20/22 11/20/22 Range/Units 15:26 15:26 15:26 WBC 6.7 (4.8-10.8) X10*3/uL RBC 4.27 (4.20-5.50) X10*6/uL Hgb 13.2 (12.0-16.0) g/dl Hct 39.8 (37.0-47.0) % MCV 93.2 (80.0-98.0) fL MCH 30.9 (27.0-33.0) pg MCHC 33.2 (31.0-35.0) g/dl RDW 12.1 (11.0-16.0) % Plt Count 252 (160-400) X10*3/uL MPV 10.5 (9.4-12.3) fL Immature Gran % (Auto) 0.4 (0.0-0.4) % Neut % (Auto) 53.8 (45-73) % Lymph % (Auto) 35.8 (20-40) % [place] % (Auto) 8.5 (2-11) % Eos % (Auto) 0.9 (0-4) % Baso % (Auto) 0.6 (0-2) % Lymph # (Auto) 2.4 (1.2-4.9) X10*3/uL [place] # (Auto) 0.6 (0.1-1.2) X10*3/uL Eos # (Auto) 0.1 (0.0-0.4) X10*3/uL Baso # (Auto) 0.0 (0.0-0.2) X10*3/uL Abs Immat Gran (auto) 0.03 (0.00-0.03) X10*3/uL Absolute Neuts (auto) 3.6 (2.0-8.3) x10*3/uL Absolute Nucleated RBC 0.000 (0.0-0.012) X10*3/uL Nucleated RBC % (auto) 0.0 (0.0-0.2) /100WBC Sodium 144 (135-145) mmol/L Potassium 4.5 (3.3-5.1) mmol/L Chloride 109 H (96-108) mmol/L Carbon Dioxide 26 (22-29) mmol/L Anion Gap 14 (12-20) BUN 14 (9-16) mg/dL Creatinine 0.92 (0.5-1.4) mg/dL Estim Creat Clear Calc 60.2 Estimated GFR > 60 Random Glucose 113 (60-115) mg/dL Calcium 9.6 D (8.4-10.2) mg/dL Magnesium 2.0 (1.6-2.6) mg/dL Total Bilirubin 0.8 (0.0-1.0) mg/dL AST 20 (5-31) U/L ALT 19 (0-31) U/L Alkaline Phosphatase 56 (39-117) U/L Total Protein 7.0 (6.5-8.0) g/dL Albumin 4.2 (3.5-5.0) g/dL Lipase 32 (8-78) U/L Urine Color Urine Appearance Urine pH (5.0-9.0) Ur Specific [place] (1.005-1.025) Urine Protein (Neg-Trace) mg/dL Urine Glucose (UA) (Negative) mg/dL Urine Ketones (Negative) mg/dL Urine Blood (Negative) Urine Nitrite (Negative) Ur Leukocyte Esterase (Negative) Urine RBC (0-2) /HPF Urine WBC (0-5) /HPF Ur Squamous Epith Cells (0-2) /HPF Urine Bacteria (None Seen) Hyaline Casts (0-2) /LPF COVID-19 (LICO) Negative (Negative) COVID-19 Clin Com See Note 11/20/22 Range/Units 17:36 WBC (4.8-10.8) X10*3/uL RBC (4.20-5.50) X10*6/uL Hgb (12.0-16.0) g/dl Hct (37.0-47.0) % MCV (80.0-98.0) fL MCH (27.0-33.0) pg MCHC (31.0-35.0) g/dl RDW (11.0-16.0) % Plt Count (160-400) X10*3/uL MPV (9.4-12.3) fL Immature Gran % (Auto) (0.0-0.4) % Neut % (Auto) (45-73) % Lymph % (Auto) (20-40) % [place] % (Auto) (2-11) % Eos % (Auto) (0-4) % Baso % (Auto) (0-2) % Lymph # (Auto) (1.2-4.9) X10*3/uL [place] # (Auto) (0.1-1.2) X10*3/uL Eos # (Auto) (0.0-0.4) X10*3/uL Baso # (Auto) (0.0-0.2) X10*3/uL Abs Immat Gran (auto) (0.00-0.03) X10*3/uL Absolute Neuts (auto) (2.0-8.3) x10*3/uL Absolute Nucleated RBC (0.0-0.012) X10*3/uL Nucleated RBC % (auto) (0.0-0.2) /100WBC Sodium (135-145) mmol/L Potassium (3.3-5.1) mmol/L Chloride (96-108) mmol/L Carbon Dioxide (22-29) mmol/L Anion Gap (12-20) BUN (9-16) mg/dL Creatinine (0.5-1.4) mg/dL Estim Creat Clear Calc Estimated GFR Random Glucose (60-115) mg/dL Calcium (8.4-10.2) mg/dL Magnesium (1.6-2.6) mg/dL Total Bilirubin (0.0-1.0) mg/dL AST (5-31) U/L ALT (0-31) U/L Alkaline Phosphatase (39-117) U/L Total Protein (6.5-8.0) g/dL Albumin (3.5-5.0) g/dL Lipase (8-78) U/L Urine Color Yellow Urine Appearance Clear Urine pH 7.0 (5.0-9.0) Ur Specific [place] 1.010 (1.005-1.025) Urine Protein Negative (Neg-Trace) mg/dL Urine Glucose (UA) Negative (Negative) mg/dL Urine Ketones Negative (Negative) mg/dL Urine Blood Negative (Negative) Urine Nitrite Negative (Negative) Ur Leukocyte Esterase Trace H (Negative) Urine RBC 0-2 (0-2) /HPF Urine WBC 0-5 (0-5) /HPF Ur Squamous Epith Cells 0-2 (0-2) /HPF Urine Bacteria None Seen (None Seen) Hyaline Casts 0-2 (0-2) /LPF COVID-19 (LICO) (Negative) COVID-19 Clin Com Discharge Plan Discharge Clinical Impression: Abdominal pain Patient Disposition: Home, Self-Care Instructions: Abdominal Pain (ED) Additional Instructions: Please follow-up with your primary care physician tomorrow. If you have any worsening or new symptoms, please return to the emergency room or call 911 Prescriptions: New polyethylene glycol 3350 [Miralax] 17 gram powder in packet 17 g PO BID Qty: 30 0RF hyoscyamine sulfate 0.125 mg tablet 0.125 mg PO QID Qty: 10 0RF No Action famotidine 20 mg tablet 1 tab PO BEDTIME lorazepam 0.5 mg tablet 1 tab PO QID PRN (Reason: Anxiety) polyethylene glycol 3350 17 gram/dose powder 17 g PO DAILY omeprazole 20 mg capsule,delayed release(DR/EC) 1 cap PO DAILY tramadol 50 mg tablet 50 - 100 mg PO Q6H PRN (Reason: pain) Qty: 20 0RF diazepam [Valium] 5 mg tablet 5 mg PO BID PRN (Reason: muscle spasm) Qty: 10 0RF
[2022-11-20 15:30] LABS: MANUAL DIFF FLAG NO
[2022-11-20 15:37] LABS: Basophils Percent Auto 0.6 % (0-2); Eosinophils Absolute Auto 0.1 X10*3/uL (0.0-0.4); Eosinophils Percent Auto 0.9 % (0-4); Hematocrit 39.8 % (37.0-47.0); Hemoglobin 13.2 g/dl (12.0-16.0); Imm Gran Abs Auto 0.03 X10*3/uL (0.00-0.03); Imm Gran Pct Auto 0.4 % (0.0-0.4); Lymphocytes Absolute Auto 2.4 X10*3/uL (1.2-4.9); Lymphocytes Percent Auto 35.8 % (20-40); Mean Corpuscular HGB Conc 33.2 g/dl (31.0-35.0); Mean Corpuscular Hemoglobin 30.9 pg (27.0-33.0); Mean Corpuscular Volume 93.2 fL (80.0-98.0); Mean Platelet Volume 10.5 fL (9.4-12.3); Monocytes Absolute Auto 0.6 X10*3/uL (0.1-1.2); Monocytes Percent Auto 8.5 % (2-11); Neutrophils Absolute Auto 3.6 x10*3/uL (2.0-8.3); Neutrophils Percent Auto 53.8 % (45-73); Platelet Count 252 X10*3/uL (160-400); Red Blood Count 4.27 X10*6/uL (4.20-5.50); Red Cell Distribution Width 12.1 % (11.0-16.0); White Blood Count 6.7 X10*3/uL (4.8-10.8)
[2022-11-20 15:59] LABS: IDNOW Serial# 08D9AD1C
[2022-11-20 16:00] LABS: COVID-19 Test Negative (Negative)
[2022-11-20 16:11] LABS: Alanine Aminotransferase 19 U/L (0-31); Albumin Level 4.2 g/dL (3.5-5.0); Alkaline Phosphatase 56 U/L (39-117); Anion Gap 14 (12-20); Aspartate Amino Transferase 20 U/L (5-31); Bilirubin Total 0.8 mg/dL (0.0-1.0); Blood Urea Nitrogen 14 mg/dL (9-16); Calcium 9.6 mg/dL (8.4-10.2); Carbon Dioxide 26 mmol/L (22-29); Chloride 109 mmol/L (96-108); Creatinine Clr Calc Pharmacy 60.2; Estimated Glomerular Filt Rate > 60; Glucose Random 113 mg/dL (60-115); Potassium 4.5 mmol/L (3.3-5.1); Sodium 144 mmol/L (135-145)
[2022-11-20 16:32] VITALS: BP 125/68; PULSE 58; RESP 18; TEMP 37.1; O2SAT 99
--- NOTE | 2022-11-20 16:39 | ECG_ITS ---
Test Reason : epigastric pain Blood Pressure : / mmHG Vent. Rate : 060 BPM Atrial Rate : 060 BPM P-R Int : 136 ms QRS Dur : 072 ms QT Int : 428 ms P-R-T Axes : 053 026 029 degrees QTc Int : 428 ms Normal sinus rhythm Normal ECG When compared with ECG of 22-JAN-2022 11:56, No significant change was found Referred By: Ena Polanco Electronically Signed By:SIMRAN CRUZ MD
[2022-11-20 17:00] LABS: Lipase 32 U/L (8-78)
[2022-11-20 17:47] LABS: Appearance Urine Clear; Color Urine Yellow; Glucose Urine UA Negative (Negative); Leukocyte Esterase Urine Trace (Negative); Nitrite Urine Negative (Negative); UMIC TRIGGER UACC YES; Urine Blood Negative (Negative); Urine Ketones Negative (Negative); Urine Protein Negative (Neg-Trace)
[2022-11-20 17:53] LABS: Bacteria Urine None Seen (None Seen); Hyaline Casts Urine 0-2 /LPF (0-2); RBC Urine 0-2 /HPF (0-2); Squamous Epithelial Cell Urine 0-2 /HPF (0-2); WBC Urine 0-5 /HPF (0-5)
== END 2022-11-20 18:38 | disposition home or self-care (01) ==
PROVIDERS: Physician Assistant Medical; Emergency Provider Emergency Medicine; PCP Family Medicine
DX: R10.9 Unspecified abdominal pain (principal); Z20.822 Contact with and (suspected) exposure to COVID-19; E11.9 Type 2 diabetes mellitus without complications; I48.91 Unspecified atrial fibrillation; Z87.891 Personal history of nicotine dependence; Z79.899 Other long term (current) drug therapy
CPT/HCPCS: 36415; 74176; 80053; 81001; 83690; 83735; 85025; 87635; 93005; 99284

== ENCOUNTER → 2022-12-17 11:06 | Outpatient (BNVA) | payer MEDICARE, MEDICAID, SELFPAY | PROVIDERS: PCP Family Medicine; Visit Provider Nurse Practitioner Family | DX: M47.816 Spondylosis without myelopathy or radiculopathy, lumbar region (principal); M47.817 Spondylosis without myelopathy or radiculopathy, lumbosacral region; M54.16 Radiculopathy, lumbar region | CPT/HCPCS: 99202 ==

== ENCOUNTER 2023-06-03 12:39 | Emergency (ER) | payer MEDICARE, MEDICAID, SELFPAY ==
--- NOTE | ~2023-06-03 | MR_ITS ---
MRI OF THE BRAIN WITHOUT IV CONTRAST INDICATION: Dizziness COMPARISON: CT head on 05/20/2018. TECHNIQUE: Multiplanar multisequence MR imaging of the brain was obtained without IV contrast. FINDINGS: No acute intracranial hemorrhage or infarct. Few scattered and confluent periventricular white matter T2/FLAIR hyperintensities, nonspecific however commonly seen with small vessel ischemic disease. No midline shift or hydrocephalus. No acute extra-axial fluid collections. The osseous structures are unremarkable. The cerebellar tonsils extend into the foramen magnum, measuring approximately 4 mm compatible with low-lying cerebellar tonsils. Partially empty sella. The pineal gland and remaining midline structures are unremarkable. No orbital pathology. Mild mucosal thickening of the paranasal sinuses. The mastoid air cells are clear. MR/MR head/brain wo con IMPRESSION: No acute intracranial abnormality.
--- NOTE | ~2023-06-03 | XR_ITS ---
EXAMINATION: XR CHEST CLINICAL INFORMATION: Lightheadedness COMPARISON: 01/22/2022 TECHNIQUE: Frontal view of the chest was obtained. FINDINGS: EKG leads overlie the chest. Lungs are well-inflated and clear. Trachea is midline in position. No interstitial disease, consolidation or mass. No pleural effusion or pneumothorax. Cardiac silhouette and pulmonary vessels are normal in size. The mediastinum and carolyn have normal contour. Incidentally noted are acromioclavicular joint osteophytes and multilevel osteophyte formation of the thoracic spine. No suspicious bone lesions. XR/XR chest 1V IMPRESSION: No acute cardiopulmonary abnormality.
--- NOTE | 2023-06-03 12:44 | ECG_ITS ---
Test Reason : WEAKNESS Blood Pressure : / mmHG Vent. Rate : 066 BPM Atrial Rate : 066 BPM P-R Int : 144 ms QRS Dur : 068 ms QT Int : 398 ms P-R-T Axes : 050 002 023 degrees QTc Int : 417 ms Normal sinus rhythm Low voltage QRS Cannot rule out Anterior infarct , age undetermined Abnormal ECG When compared with ECG of 20-NOV-2022 16:42, No significant change was found Referred By: Soraida Hernandez Electronically Signed By:Beau Barajas
[2023-06-03 12:45] VITALS: BP 156/84; PULSE 83; O2SAT 100; BMI 32.2
[2023-06-03 12:51] VITALS: BP 142/62; PULSE 66; RESP 14; TEMP 36.6; O2SAT 98
[2023-06-03 13:04] LABS: MANUAL DIFF FLAG NO
--- NOTE | 2023-06-03 13:06 | ED_ITS ---
HPI - Dizziness General Chief Complaint: Weakness Stated Complaint: LIGHTHEADED DIZZINESS Time Seen by Provider: 06/03/23 13:01 Source: patient and old records reviewed Mode of arrival: EMS Limitations: no limitations History of Present Illness HPI Narrative: 67 yo female with PMH of chronic back pain, COVID-19, atypical chest pain, afib but not on anticoagulation, lung cancer s/p RUL lobectomy here with 2 months of on and off dizziness worse with movements bending forward - no CP/SOB, no GI bleed symptoms. She does have a resting head chava and fam hx of Parkinsons but no dx or workup by her doctor over the last two months. No change in medications, no weight loss. No other neurological issues or complaints. MD elicited complaint: lightheadedness Onset (ago): month(s) (2) Timing: gradual onset and intermittent Severity: moderate Description: lightheadedness Context: change in body position History of similar symptoms: Yes Exacerbating factors: movement/ambulation and change in body position Relieving factors: nothing Associated symptoms: denies other symptoms Related Data Home Medications Medication Instructions Recorded Confirmed famotidine 20 mg tablet 1 tab PO BEDTIME 11/18/20 11/18/20 lorazepam 0.5 mg tablet 1 tab PO QID PRN Anxiety 11/18/20 11/18/20 omeprazole 20 mg capsule,delayed 1 cap PO DAILY 11/18/20 11/18/20 release polyethylene glycol 3350 17 17 g PO DAILY 11/18/20 11/18/20 gram/dose oral powder Previous Rx's Medication Instructions Recorded diazepam 5 mg tablet (Valium) 5 mg PO BID PRN muscle spasm #10 11/30/21 tabs tramadol 50 mg tablet 50 - 100 mg (1 - 2 x 50 mg) PO Q6H 11/30/21 PRN pain #20 tabs hyoscyamine sulfate 0.125 mg tablet 0.125 mg PO QID #10 tabs 11/20/22 polyethylene glycol 3350 17 gram 17 g PO BID #30 ea 11/20/22 oral powder packet (Miralax) Allergies Allergy/AdvReac Type Severity Reaction Status Date / Time Penicillins [PENICILLINS] Allergy Severe ANAPHYLAXIS Verified 06/03/23 12:45 Iodinated Contrast Media Allergy Intermediate HIVES Verified 06/03/23 12:45 [Iodinated Contrast Media - IV Dye] ciprofloxacin [From CIPRO] Allergy Unknown UNKNOWN Verified 06/03/23 12:45 Sulfa (Sulfonamide AdvReac Unknown NAUSEA & Verified 06/03/23 12:45 Antibiotics) VOMITING [SULFA (SULFONAMIDE ANTIBIOTICS)] Review of Systems 2 Review of Systems: Constitutional : No Fever, No Chills, No Fatigue ENT/Mouth : No sore throat, No Rhinorrhea Eyes: No Eye Pain, No Swelling, No Redness Cardiovascular : No Chest Pain, No SOB, No Dyspnea on Exertion Respiratory : No Cough, No Sputum Gastrointestinal : No Nausea, No Vomiting, No Diarrhea, No abdominal Pain Genitourinary : No Dysuria, No Urinary Frequency, No Hematuria, Musculoskeletal : No joint pain, No Myalgias, No Joint Swelling Skin : No Skin Lesions, No rash Neuro : No Weakness, No Numbness, pos Dizziness, no Headache Psych : No Anxiety/Panic, No Depression Heme/Lymph: No Bruising, No Bleeding,No Lymphadenopathy Endocrine : No Polyuria, No Polydipsia All other systems reviewed and are negative [facility] Past Medical History Attestation statement: The following information was validated with the patient. Source: old records reviewed Medical History Diabetes History of lung cancer Atrial fibrillation Surgical History History of lobectomy of lung Social History Social History Household Members: None Housing: Apartment Do you presently have visiting nurse or other home services: No Alcohol intake: never Patient Tobacco Use Status: Former Tobacco user Smoked in Last 30 Days: No Use of substances other than those prescribed or required for medical reasons: No Advance Directives: No Advance Directives Information Provided: No service: No Current occupational status: disabled Physical Exam 2 Vital Signs: Vital Signs: Last Vital Signs Temp 97.8 F 06/03/23 12:51 Pulse 64 06/03/23 15:57 Resp 16 06/03/23 15:57 BP 113/58 L 06/03/23 15:57 Pulse Ox 97 06/03/23 15:57 O2 Del Method Room Air 06/03/23 15:57 BMI result Body Mass Index 32.2 Appearance: Alert. Oriented X3. No acute distress. Eyes: Pupils equal, round and reactive to light. ENT: Pharynx normal. has resting tremor of the head - head bobs . TMs normal bilaterally Neck: Normal inspection. Neck supple. CVS: Normal heart rate and rhythm. Pulses normal. Respiratory: No respiratory distress. Breath sounds normal. Abdomen: Soft and nontender. Skin: Skin warm and dry. Normal skin color. Normal skin turgor. Extremities: No lower extremity edema. No calf ttp Neuro: Oriented X 3. No motor deficit. No sensory deficit. Course Course Course Narrative: negative orthostatic VS Medications Administered Discontinued Medications Generic Name Dose Route Start Last Admin Trade Name Ivan PRN Reason Stop Dose Admin Lorazepam 1 mg 06/03/23 13:12 06/03/23 14:56 Lorazepam 2 Mg/Ml Vial IVPUSH 06/03/23 13:13 1 mg ONCE ONE Administration Medical Decision Making Medical Decision Making [facility] Narrative: 67 yo female with PMH of chronic back pain, COVID-19, atypical chest pain, afib but not on anticoagulation, lung cancer s/p RUL lobectomy here with c/o 2 months of on and off dizziness. She is going to see Neurology next week but notes she cannot even wash her feet in the shower. I do not an intermittent head chava but no other tremors - her aunt has parkinsons. At this time will obtain EKG, ortho VS, MRI of brain to rule out mass/stroke. If negative will continue outpatient workup. She has not fallen or syncopized not on thinners. Differential Diagnosis Differential Diagnoses: The differential diagnosis associated with the presentation includes parkinsons, orthostatic hypotension, dehydration, dizziness, posterior stroke Admission/Observation Consideration of admission/observation: Escalation of care including admission/observation considered no acute findings that she needs to stay and 2+ months of symptoms Lab Data [facility] Lab Attestation statement: I reviewed the patient's lab results. 06/03/23 12:58 06/03/23 12:58 Labs: Lab Results 06/03/23 06/03/23 Range/Units 12:58 13:04 WBC 6.9 (4.8-10.8) X10*3/uL RBC 4.31 (4.20-5.50) X10*6/uL Hgb 13.6 (12.0-16.0) g/dl Hct 40.5 (37.0-47.0) % MCV 94.0 (80.0-98.0) fL MCH 31.6 (27.0-33.0) pg MCHC 33.6 (31.0-35.0) g/dl RDW 11.8 (11.0-16.0) % Plt Count 238 (160-400) X10*3/uL MPV 10.7 (9.4-12.3) fL Immature Gran % (Auto) 0.4 (0.0-0.4) % Neut % (Auto) 49.4 (45-73) % Lymph % (Auto) 40.1 H (20-40) % [place] % (Auto) 8.4 (2-11) % Eos % (Auto) 1.3 (0-4) % Baso % (Auto) 0.4 (0-2) % Lymph # (Auto) 2.8 (1.2-4.9) X10*3/uL [place] # (Auto) 0.6 (0.1-1.2) X10*3/uL Eos # (Auto) 0.1 (0.0-0.4) X10*3/uL Baso # (Auto) 0.0 (0.0-0.2) X10*3/uL Abs Immat Gran (auto) 0.03 (0.00-0.03) X10*3/uL Absolute Neuts (auto) 3.4 (2.0-8.3) x10*3/uL Absolute Nucleated RBC 0.000 (0.0-0.012) X10*3/uL Nucleated RBC % (auto) 0.0 (0.0-0.2) /100WBC PT 11.0 L (11.1-13.3) SEC INR 0.9 (0.9-1.1) APTT 33.3 (26.0-36.4) SEC Sodium 144 (135-145) mmol/L Potassium 3.9 (3.3-5.1) mmol/L Chloride 106 (96-108) mmol/L Carbon Dioxide 27 (22-29) mmol/L Anion Gap 15 (12-20) BUN 16 (9-16) mg/dL Creatinine 0.84 (0.5-1.4) mg/dL Estim Creat Clear Calc 63.6 Estimated GFR > 60 POC Glucose 93 (60-115) mg/dL Random Glucose 93 (60-115) mg/dL Calcium 9.3 (8.4-10.2) mg/dL Magnesium 2.0 (1.6-2.6) mg/dL Total Bilirubin 0.5 (0.0-1.0) mg/dL AST 19 (5-31) U/L ALT 16 (0-31) U/L Alkaline Phosphatase 62 (39-117) U/L Troponin I High Sens < 2.7 (<3.5-17.0) ng/L B-Natriuretic Peptide 32 (<100) pg/mL Total Protein 7.4 (6.5-8.0) g/dL Albumin 4.3 (3.5-5.0) g/dL Urine Color Yellow Urine Appearance Clear Urine pH 6.5 (5.0-9.0) Ur Specific [place] <= 1.005 (1.005-1.025) Urine Protein Negative (Neg-Trace) mg/dL Urine Glucose (UA) Negative (Negative) mg/dL Urine Ketones Negative (Negative) mg/dL Urine Blood Negative (Negative) Urine Nitrite Negative (Negative) Ur Leukocyte Esterase Trace H (Negative) Urine RBC 0-2 (0-2) /HPF Urine WBC 0-5 (0-5) /HPF Ur Squamous Epith Cells 3-5 (0-2) /HPF Urine Bacteria None Seen (None Seen) Hyaline Casts 0-2 (0-2) /LPF Influenza Type A (PCR) NEGATIVE (Negative) Influenza Type B (PCR) NEGATIVE (Negative) RSV RNA Qual (PCR) NEGATIVE (Negative) SARS-CoV-2 RNA (RT-PCR) NEGATIVE (Negative) Independent Interpretation I performed an independent interpretation of an: EKG, Plain X-Ray (normal ) and CT Scan (MRI no acute stroke) Interpretation: Rate: 66 Rhythm: NSR [place]: normal Normal P waves. Normal YOSELYN. Normal QRS complex. Poor R wave progression ST T wave : normal no SPENCER qTC: normal prior studies: no acute ischemia The study has been interpreted contemporaneously by me. . Radiology Impression Discussion of test interpretation with radiology: I have reviewed the radiologist's reading. External Record Review External record reviewed: Office record Discharge Plan Discharge Clinical Impression: Dizziness Patient Disposition: Home, Self-Care Instructions: Dizziness (ED) Additional Instructions: negative orthostatic vital signs, MRI no acute stroke, nonspecific findings that the neurologist can follow up with but no emergent findings on work up today. Please get up slowly and wait 30 seconds before standing. Follow up with the neurologist as planned next week. Prescriptions: No Action famotidine 20 mg tablet 1 tab PO BEDTIME lorazepam 0.5 mg tablet 1 tab PO QID PRN (Reason: Anxiety) polyethylene glycol 3350 17 gram/dose powder 17 g PO DAILY omeprazole 20 mg capsule,delayed release(DR/EC) 1 cap PO DAILY tramadol 50 mg tablet 50 - 100 mg PO Q6H PRN (Reason: pain) Qty: 20 0RF diazepam [Valium] 5 mg tablet 5 mg PO BID PRN (Reason: muscle spasm) Qty: 10 0RF polyethylene glycol 3350 [Miralax] 17 gram powder in packet 17 g PO BID Qty: 30 0RF hyoscyamine sulfate 0.125 mg tablet 0.125 mg PO QID Qty: 10 0RF
[2023-06-03 13:07] LABS: Appearance Urine Clear; Color Urine Yellow; Glucose Urine UA Negative (Negative); Leukocyte Esterase Urine Trace (Negative); Nitrite Urine Negative (Negative); PH 6.5 (5.0-9.0); Specific Gravity - Urine <= 1.005 (1.005-1.025); UMIC TRIGGER UACC YES; Urine Blood Negative (Negative); Urine Ketones Negative (Negative); Urine Protein Negative (Neg-Trace)
[2023-06-03 13:09] LABS: Glucose, Whole Blood 93 mg/dL (60-115)
[2023-06-03 13:09] LABS: Bacteria Urine None Seen (None Seen); Hyaline Casts Urine 0-2 /LPF (0-2); RBC Urine 0-2 /HPF (0-2); WBC Urine 0-5 /HPF (0-5)
[2023-06-03 13:10] LABS: Basophils Percent Auto 0.4 % (0-2); Eosinophils Absolute Auto 0.1 X10*3/uL (0.0-0.4); Eosinophils Percent Auto 1.3 % (0-4); Hematocrit 40.5 % (37.0-47.0); Hemoglobin 13.6 g/dl (12.0-16.0); Imm Gran Abs Auto 0.03 X10*3/uL (0.00-0.03); Imm Gran Pct Auto 0.4 % (0.0-0.4); Lymphocytes Absolute Auto 2.8 X10*3/uL (1.2-4.9); Lymphocytes Percent Auto 40.1 % (20-40); Mean Corpuscular HGB Conc 33.6 g/dl (31.0-35.0); Mean Corpuscular Hemoglobin 31.6 pg (27.0-33.0); Mean Platelet Volume 10.7 fL (9.4-12.3); Monocytes Absolute Auto 0.6 X10*3/uL (0.1-1.2); Monocytes Percent Auto 8.4 % (2-11); Neutrophils Absolute Auto 3.4 x10*3/uL (2.0-8.3); Neutrophils Percent Auto 49.4 % (45-73); Platelet Count 238 X10*3/uL (160-400); Red Blood Count 4.31 X10*6/uL (4.20-5.50); Red Cell Distribution Width 11.8 % (11.0-16.0); White Blood Count 6.9 X10*3/uL (4.8-10.8)
[2023-06-03 13:14] LABS: INTERNATIONAL NORM RATIO 0.9 (0.9-1.1)
[2023-06-03 13:16] LABS: Partial Thromboplastin Time 33.3 SEC (26.0-36.4)
[2023-06-03 13:28] LABS: Alanine Aminotransferase 16 U/L (0-31); Albumin Level 4.3 g/dL (3.5-5.0); Alkaline Phosphatase 62 U/L (39-117); Anion Gap 15 (12-20); Aspartate Amino Transferase 19 U/L (5-31); Bilirubin Total 0.5 mg/dL (0.0-1.0); Blood Urea Nitrogen 16 mg/dL (9-16); Calcium 9.3 mg/dL (8.4-10.2); Carbon Dioxide 27 mmol/L (22-29); Chloride 106 mmol/L (96-108); Creatinine Clr Calc Pharmacy 63.6; Estimated Glomerular Filt Rate > 60; Glucose Random 93 mg/dL (60-115); Potassium 3.9 mmol/L (3.3-5.1); Sodium 144 mmol/L (135-145); Total Protein 7.4 g/dL (6.5-8.0)
[2023-06-03 13:32] LABS: B Type Natriuretic Peptide 32 pg/mL (<100)
[2023-06-03 13:35] LABS: Troponin-I High Sensitivity < 2.7 ng/L (<3.5-17.0)
[2023-06-03 13:46] LABS: Influenza A PCR NEGATIVE (Negative); Influenza B PCR NEGATIVE (Negative); Resp Syncy Virus RNA Qual PCR NEGATIVE (Negative); SARS COV2 PCR INHOUSE NEGATIVE (Negative)
--- NOTE | 2023-06-03 14:07 | PC.NURSE ---
MRI screening form complete. advised by Dr. Washington to hold on giving Ativan until 30 min prior to scan.
[2023-06-03 14:42] VITALS: BP 135/69; BP 147/80; BP 159/81; PULSE 66; PULSE 80; PULSE 83
[2023-06-03] MEDS: LORazepam 2 MG/ML VIAL 1 MG IVPUSH (14:56)
--- NOTE | 2023-06-03 15:02 | PC.NURSE ---
pt medicated per aug and transported to MRI.
--- NOTE | 2023-06-03 15:55 | PC.NURSE ---
pt back from MRI
[2023-06-03 15:57] VITALS: BP 113/58; PULSE 64; RESP 16; O2SAT 97
== END 2023-06-03 17:50 | disposition home or self-care (01) ==
PROVIDERS: Physician Assistant Medical; Emergency Provider Emergency Medicine; PCP Family Medicine
DX: R42 Dizziness and giddiness (principal); R94.31 Abnormal electrocardiogram [ECG] [EKG]; I48.91 Unspecified atrial fibrillation; Z20.822 Contact with and (suspected) exposure to COVID-19; Z20.828 Contact with and (suspected) exposure to other viral communicable diseases; Z87.891 Personal history of nicotine dependence; Z79.899 Other long term (current) drug therapy
CPT/HCPCS: 0241U; 70551; 71045; 80053; 81001; 82947; 83735; 83880; 84484; 85025; 85610; 85730; 93005; 96374; 99285; J2060

== ENCOUNTER → 2023-06-03 12:44 | Outpatient (BNV) | payer MEDICARE, MEDICAID, SELFPAY | PROVIDERS: Emergency Provider Emergency Medicine; PCP Family Medicine; Visit Provider Internal Medicine Cardiovascular Disease | DX: R94.31 Abnormal electrocardiogram [ECG] [EKG] (principal) | CPT/HCPCS: 93010 ==

== ENCOUNTER 2024-03-24 21:56 | Emergency (ER) | payer MEDICARE, MEDICAID, SELFPAY ==
--- NOTE | 2024-03-24 | ECG_ITS ---
Test Reason : epigastric/chest discomfort Blood Pressure : / mmHG Vent. Rate : 078 BPM Atrial Rate : 078 BPM P-R Int : 146 ms QRS Dur : 070 ms QT Int : 384 ms P-R-T Axes : 046 -09 029 degrees QTc Int : 437 ms Sinus rhythm with Premature supraventricular complexes Low voltage QRS Cannot rule out Anterior infarct (cited on or before 03-JUN-2023) Abnormal ECG When compared with ECG of 03-JUN-2023 13:21, Premature supraventricular complexes are now Present Referred By: Generic ED Physician Electronically Signed By:MARK TORIBIO
--- NOTE | ~2024-03-24 | CT_ITS ---
EXAMINATION: CT ABDOMEN AND PELVIS WITHOUT CONTRAST CLINICAL INFORMATION: Pain. Question small bowel obstruction. COMPARISON: CT abdomen and pelvis 11/20/2022. TECHNIQUE: Multidetector volumetric imaging was performed from the superior aspect of the liver through the pubic symphysis. Sagittal and coronal reformatted images were obtained on the technologist's workstation. This CT examination was performed using dose optimization techniques as appropriate, variously including the following: *Automated exposure control *Adjustment of mA and/or kV according to patient size (this includes techniques or standardized protocols for targeted exams where dose is matched to indication/reason for exam; i.e. extremities or head) *Use of iterative reconstruction technique DLP: 623 mGy-cm FINDINGS: LUNG BASES: The visualized lung bases are unremarkable. LIVER, GALLBLADDER, AND BILIARY TREE: The liver is normal in size, shape, and attenuation. No focal hepatic lesion or biliary ductal dilatation is present. Gallbladder is contracted. No biliary duct dilatation. PANCREAS: Unremarkable. SPLEEN: Unremarkable. ADRENAL GLANDS: Unremarkable. KIDNEYS AND URETERS: The kidneys are normal in size, shape, and attenuation. No hydronephrosis, hydroureter, or calculi seen. No perinephric stranding. BLADDER: Unremarkable. GASTROINTESTINAL TRACT: Moderate sigmoid diverticulosis. No intestinal dilatation or mural thickening. The appendix is not visualized. No pericecal inflammatory changes noted. Small hiatal hernia. Normal appearance of the duodenum. ABDOMINAL WALL: No significant hernia is appreciated. LYMPH NODES: Normal. VASCULAR: Moderate scattered calcific atherosclerosis PELVIC VISCERA: Uterus is not visualized. No adnexal lesions noted. OSSEOUS STRUCTURES: No suspicious skeletal lesions noted. Multilevel chronic spondylosis of the visualized thoracic and lumbar spine. CT/CT abdomen pelvis wo IV con IMPRESSION: 1. No acute abnormalities identified. 2. Moderate sigmoid diverticulosis. No evidence of acute diverticulitis. 3. Small hiatal hernia. Electronically signed by: Partha Oneal MD 03/25/2024 01:53 AM EDT
--- NOTE | ~2024-03-24 | XR_ITS ---
EXAMINATION: XR ABDOMEN KUB CLINICAL INDICATION: Constipation COMPARISON: None available. TECHNIQUE: AP view of the abdomen. FINDINGS: Visualized lung bases are clear. Scattered bowel gas noted in nondistended intestinal segments. Moderate quantity stool is noted in the descending colon which remains normal in caliber. Scattered pelvic phleboliths. Partial visualization of multilevel facet hypertrophic changes within the lumbar spine. XR/XR KUB IMPRESSION: *No intestinal dilatation to suggest obstruction. *Moderate quantity of stool within the descending colon. Electronically signed by: Partha Oneal MD 03/25/2024 12:23 AM EDT
[2024-03-24 22:00] VITALS: BP 158/65; PULSE 78; RESP 19; TEMP 37.1; O2SAT 99; BMI 29.8
[2024-03-24 22:22] LABS: MANUAL DIFF FLAG NO
[2024-03-24 22:23] LABS: Basophils Percent Auto 0.4 % (0-2); Eosinophils Absolute Auto 0.1 X10*3/uL (0.0-0.4); Eosinophils Percent Auto 1.4 % (0-4); Hematocrit 36.2 % (37.0-47.0); Hemoglobin 12.5 g/dl (12.0-16.0); Imm Gran Abs Auto 0.02 X10*3/uL (0.00-0.03); Imm Gran Pct Auto 0.3 % (0.0-0.4); Lymphocytes Absolute Auto 3.8 X10*3/uL (1.2-4.9); Lymphocytes Percent Auto 50.1 % (20-40); Mean Corpuscular HGB Conc 34.5 g/dl (31.0-35.0); Mean Corpuscular Hemoglobin 32.1 pg (27.0-33.0); Mean Corpuscular Volume 92.8 fL (80.0-98.0); Mean Platelet Volume 10.6 fL (9.4-12.3); Monocytes Absolute Auto 0.7 X10*3/uL (0.1-1.2); Monocytes Percent Auto 8.5 % (2-11); Neutrophils Percent Auto 39.3 % (45-73); Platelet Count 206 X10*3/uL (160-400); White Blood Count 7.6 X10*3/uL (4.8-10.8)
[2024-03-24 22:41] LABS: Alanine Aminotransferase 14 U/L (0-31); Albumin Level 4.3 g/dL (3.5-5.0); Alkaline Phosphatase 55 U/L (39-117); Anion Gap 12 (12-20); Aspartate Amino Transferase 19 U/L (5-31); Bilirubin Total 0.4 mg/dL (0.0-1.0); Blood Urea Nitrogen 17 mg/dL (9-16); Carbon Dioxide 28 mmol/L (22-29); Chloride 106 mmol/L (96-108); Creatinine Clr Calc Pharmacy 51.7; Estimated Glomerular Filt Rate 56; Glucose Random 88 mg/dL (60-115); Potassium 4.1 mmol/L (3.3-5.1); Sodium 142 mmol/L (135-145); Total Protein 7.1 g/dL (6.5-8.0)
[2024-03-24 22:48] LABS: Troponin-I High Sensitivity < 2.7 ng/L (<3.5-17.0)
[2024-03-25] MEDS: 0.9 % Sodium Chloride 1,000 ML 999 ML IV (01:09)
[2024-03-25] MEDS: Morphine Sulfate 4 MG/ML CARTRIDGE IVPUSH (01:21)
--- NOTE | 2024-03-25 01:41 | ED_ITS ---
HPI - General Adult General Chief complaint: General Medical Stated complaint: upper abdomen pressure Time Seen by Provider: 03/25/24 00:34 Source: patient Limitations: no limitations History of Present Illness ED Provider: Ilsa Jasso PA-C HPI narrative: 68-year-old female with a history of chronic constipation, GERD presents with abdominal pain. Patient states since January, she has been having considerable issues with her chronic constipation. Associated abdominal distention after meals, with nausea and vomiting at times. Patient states she recently followed up with her product scientist, she was given a bowel prep. Patient states her constipation was alleviated, however it returned. Over the past week, her distribution of discomfort has changed. Patient is having epigastric and right upper quadrant discomfort after eating. Last normal bowel movement was following the bowel prep. Denies fever. Related Data Home Medications ?Medication ?Instructions ?Recorded ?Confirmed famotidine 20 mg tablet 1 tab PO BEDTIME 11/18/20 11/18/20 lorazepam 0.5 mg tablet 1 tab PO QID PRN Anxiety 11/18/20 11/18/20 omeprazole 20 mg capsule,delayed 1 cap PO DAILY 11/18/20 11/18/20 release polyethylene glycol 3350 17 17 g PO DAILY 11/18/20 11/18/20 gram/dose oral powder Previous Rx's ?Medication ?Instructions ?Recorded diazepam 5 mg tablet (Valium) 5 mg PO BID PRN muscle spasm #10 11/30/21 tabs tramadol 50 mg tablet 50 - 100 mg (1 - 2 x 50 mg) PO Q6H 11/30/21 PRN pain #20 tabs hyoscyamine sulfate 0.125 mg tablet 0.125 mg PO QID #10 tabs 11/20/22 polyethylene glycol 3350 17 gram 17 g PO BID #30 ea 11/20/22 oral powder packet (Miralax) [id number]-jzvvutgii-cdmjgsdpf 3.5 4 drp otic (ears) TID 5 days #10 mL 06/03/23 mg/mL-10,000 unit/mL-1 % ear solution Allergies Allergy/AdvReac Type Severity Reaction Status Date / Time Penicillins [PENICILLINS] Allergy Severe ANAPHYLAXIS Verified 03/24/24 22:02 Iodinated Contrast Media Allergy Intermediate HIVES Verified 03/24/24 22:02 [Iodinated Contrast Media - IV Dye] ciprofloxacin [From CIPRO] Allergy Unknown UNKNOWN Verified 03/24/24 22:02 Sulfa (Sulfonamide AdvReac Unknown NAUSEA & Verified 03/24/24 22:02 Antibiotics) VOMITING [SULFA (SULFONAMIDE ANTIBIOTICS)] Review of Systems 2 Review of Systems: Yes all other systems are reviewed and are negative Constitutional: Constitutional: Denies fever(s) Cardiovascular: Cardiovascular: Denies chest pain and Denies dyspnea Respiratory: Respiratory: Denies dyspnea Gastrointestinal: Gastrointestinal: Reports abdominal pain, Reports constipation, Denies diarrhea, Reports nausea and Reports vomiting PMFSH Past Medical History Attestation statement: The following information was validated with the patient. Medical History Diabetes History of lung cancer Atrial fibrillation Surgical History History of lobectomy of lung Social History Social History Household Members: None Housing: Apartment Do you presently have visiting nurse or other home services: No Alcohol intake: never Patient Tobacco Use Status: Former Tobacco user Advance Directives: No Advance Directives Information Provided: No Do you have a plan to hurt others: No Plan service: No Current occupational status: disabled Physical Exam ED Vital Signs: Vital Signs - 24 hr 03/24/24 22:00 Temperature 98.8 F Pulse Rate 78 Respiratory Rate 19 Blood Pressure 158/65 H Pulse Oximetry 99 Oxygen Delivery Method Room Air BMI result Body Mass Index 29.8 Const Other: Alert, well in appearance Orientation/consciousness: patient oriented x3 Resp Effort & Inspection: normal respiratory effort Cardio Other: Normal peripheral perfusion GI Other: Abdomen is soft, nondistended, mild tenderness epigastric and right upper quadrant with deep palpation, without guarding, Skin Other: Warm dry no rash Neuro General: patient oriented x3, no focal motor deficits and CN's II-XI intact bilaterally Psych Other: Cooperative Medications Administered Discontinued Medications Generic Name Dose Route Start Last Admin Trade Name Freq PRN Reason Stop Dose Admin Sodium Chloride 1,000 mls @ 999 mls/hr 03/25/24 01:00 03/25/24 01:09 Ns IV 03/25/24 02:00 999 mls/hr .Q1H1M LEANDRO Administration Morphine Sulfate 4 mg 03/25/24 00:47 03/25/24 01:21 Morphine Sulfate 4 Mg/Ml Cartridge IVPUSH 03/25/24 00:48 4 mg ONCE ONE Administration Protocol Medical Decision Making Medical Decision Making MDM Narrative: 68-year-old female with a history of chronic constipation, GERD presents with abdominal pain. Patient states since January, she has been having considerable issues with her chronic constipation. Associated abdominal distention after meals, with nausea and vomiting at times. Patient states she recently followed up with her product scientist, she was given a bowel prep. Patient states her constipation was alleviated, however it returned. Over the past week, her distribution of discomfort has changed. Patient is having epigastric and right upper quadrant discomfort after eating. Last normal bowel movement was following the bowel prep. Denies fever. Problem: Constipation and GERD History: Per patient I have considered the following differential diagnoses: Constipation, bowel obstruction, biliary colic, cholecystitis, gastritis/GERD, Plan: Screening labs were obtained from triage. The patient is having some degree of obstructive symptoms, and her chronic constipation has been worse since January, perhaps she has a mass that is causing intermittent obstructive symptoms. We will obtain a CT scan. Giving IV fluid and morphine. Given new onset upper abdominal discomfort, I am considering gastric versus biliary etiology as cause for symptoms. I would like to obtain an ultrasound, however we do not have that capability at this time. This could be poorly controlled GERD in the setting of poorly controlled constipation. Doubtful to be cholecystitis, LFTs are normal, and there was no focal right upper quadrant pain with deep palpation. Again, this could be biliary colic. I have independently reviewed the following tests: Labs: No leukocytosis, not anemic, no electrolyte abnormality, LFTs are normal CT abdomen and pelvis: CT ABDOMEN AND PELVIS WITHOUT CONTRAST CLINICAL INFORMATION: Pain. Question small bowel obstruction. COMPARISON: CT abdomen and pelvis 11/20/2022. TECHNIQUE: Multidetector volumetric imaging was performed from the superior aspect of the liver through the pubic symphysis. Sagittal and coronal reformatted images were obtained on the technologist's workstation. This CT examination was performed using dose optimization techniques as appropriate, variously including the following: *Automated exposure control *Adjustment of mA and/or kV according to patient size (this includes techniques or standardized protocols for targeted exams where dose is matched to indication/reason for exam; i.e. extremities or head) *Use of iterative reconstruction technique DLP: 623 mGy-cm FINDINGS: LUNG BASES: The visualized lung bases are unremarkable. LIVER, GALLBLADDER, AND BILIARY TREE: The liver is normal in size, shape, and attenuation. No focal hepatic lesion or biliary ductal dilatation is present. Gallbladder is contracted. No biliary duct dilatation. PANCREAS: Unremarkable. SPLEEN: Unremarkable. ADRENAL GLANDS: Unremarkable. KIDNEYS AND URETERS: The kidneys are normal in size, shape, and attenuation. No hydronephrosis, hydroureter, or calculi seen. No perinephric stranding. BLADDER: Unremarkable. GASTROINTESTINAL TRACT: Moderate sigmoid diverticulosis. No intestinal dilatation or mural thickening. The appendix is not visualized. No pericecal inflammatory changes noted. Small hiatal hernia. Normal appearance of the duodenum. ABDOMINAL WALL: No significant hernia is appreciated. LYMPH NODES: Normal. VASCULAR: Moderate scattered calcific atherosclerosis PELVIC VISCERA: Uterus is not visualized. No adnexal lesions noted. OSSEOUS STRUCTURES: No suspicious skeletal lesions noted. Multilevel chronic spondylosis of the visualized thoracic and lumbar spine. CT/CT abdomen pelvis wo IV con IMPRESSION: 1. No acute abnormalities identified. 2. Moderate sigmoid diverticulosis. No evidence of acute diverticulitis. 3. Small hiatal hernia. Electronically signed by: Partha Oneal MD 03/25/2024 01:53 AM EDT Dictated By: Partha Oneal MD Signed By: <Electronically signed by Partha Oneal MD in OV> Lab Data 03/24/24 22:17 03/24/24 22:17 Labs: Lab Results 03/24/24 Range/Units 22:17 WBC 7.6 (4.8-10.8) X10*3/uL RBC 3.90 L (4.20-5.50) X10*6/uL Hgb 12.5 (12.0-16.0) g/dl Hct 36.2 L (37.0-47.0) % MCV 92.8 (80.0-98.0) fL MCH 32.1 (27.0-33.0) pg MCHC 34.5 (31.0-35.0) g/dl RDW 12.0 (11.0-16.0) % Plt Count 206 (160-400) X10*3/uL MPV 10.6 (9.4-12.3) fL Immature Gran % (Auto) 0.3 (0.0-0.4) % Neut % (Auto) 39.3 L (45-73) % Lymph % (Auto) 50.1 H (20-40) % [place] % (Auto) 8.5 (2-11) % Eos % (Auto) 1.4 (0-4) % Baso % (Auto) 0.4 (0-2) % Lymph # (Auto) 3.8 (1.2-4.9) X10*3/uL [place] # (Auto) 0.7 (0.1-1.2) X10*3/uL Eos # (Auto) 0.1 (0.0-0.4) X10*3/uL Baso # (Auto) 0.0 (0.0-0.2) X10*3/uL Abs Immat Gran (auto) 0.02 (0.00-0.03) X10*3/uL Absolute Neuts (auto) 3.0 (2.0-8.3) x10*3/uL Absolute Nucleated RBC 0.000 (0.0-0.012) X10*3/uL Nucleated RBC % (auto) 0.0 (0.0-0.2) /100WBC Sodium 142 (135-145) mmol/L Potassium 4.1 (3.3-5.1) mmol/L Chloride 106 (96-108) mmol/L Carbon Dioxide 28 (22-29) mmol/L Anion Gap 12 (12-20) BUN 17 H (9-16) mg/dL Creatinine 0.98 (0.5-1.4) mg/dL Estim Creat Clear Calc 51.7 Estimated GFR 56 Random Glucose 88 (60-115) mg/dL Calcium 9.0 (8.4-10.2) mg/dL Total Bilirubin 0.4 (0.0-1.0) mg/dL AST 19 (5-31) U/L ALT 14 (0-31) U/L Alkaline Phosphatase 55 (39-117) U/L Troponin I High Sens < 2.7 (<3.5-17.0) ng/L Total Protein 7.1 (6.5-8.0) g/dL Albumin 4.3 (3.5-5.0) g/dL Discharge Plan Discharge Clinical Impression: Abdominal pain, Constipation Patient Disposition: Home, Self-Care Instructions: Constipation (ED) Additional Instructions: All of your labs were normal, the CT scan was negative, there was no acute intra-abdominal process going on at this time. I would follow up with your product scientist for your ongoing GI related issues. I would also stay on your current bowel regimen to help prevent the onset of new constipation. Prescriptions: No Action famotidine 20 mg tablet 1 tab PO BEDTIME lorazepam 0.5 mg tablet 1 tab PO QID PRN (Reason: Anxiety) polyethylene glycol 3350 17 gram/dose powder 17 g PO DAILY omeprazole 20 mg capsule,delayed release(DR/EC) 1 cap PO DAILY tramadol 50 mg tablet 50 - 100 mg PO Q6H PRN (Reason: pain) Qty: 20 0RF diazepam [Valium] 5 mg tablet 5 mg PO BID PRN (Reason: muscle spasm) Qty: 10 0RF polyethylene glycol 3350 [Miralax] 17 gram powder in packet 17 g PO BID Qty: 30 0RF hyoscyamine sulfate 0.125 mg tablet 0.125 mg PO QID Qty: 10 0RF yehmednf-fmfeawctf-BW 3.5-10,000-1 mg/mL-unit/mL-% solution 4 drp otic (ears) TID 5 Days Qty: 10 0RF Print Language: Japanese
[2024-03-25 03:32] VITALS: BP 125/59; PULSE 68; RESP 12; TEMP 36.5; O2SAT 96
[2024-03-25 03:45] VITALS: BP 125/59; PULSE 68; RESP 12; TEMP 36.5; O2SAT 96
== END 2024-03-25 03:53 | disposition home or self-care (01) ==
PROVIDERS: Emergency Provider Emergency Medicine Emergency Medical Services; PCP Family Medicine
DX: K59.00 Constipation, unspecified (principal); R10.9 Unspecified abdominal pain; K21.9 Gastro-esophageal reflux disease without esophagitis; E11.9 Type 2 diabetes mellitus without complications; I48.91 Unspecified atrial fibrillation; Z87.891 Personal history of nicotine dependence; Z79.899 Other long term (current) drug therapy
CPT/HCPCS: 36415; 74018; 74176; 80053; 84484; 85025; 93005; 96374; 99284; J2270

== ENCOUNTER 2024-04-21 02:59 | Emergency (ER) | payer MEDICARE, MEDICAID, SELFPAY ==
[2024-04-21 03:09] VITALS: BP 128/61; PULSE 75; RESP 17; TEMP 36.6; O2SAT 96
[2024-04-21 03:10] VITALS: BP 154/75; PULSE 81; O2SAT 99
[2024-04-21 03:17] VITALS: BMI 30.4
[2024-04-21 03:43] LABS: MANUAL DIFF FLAG NO
[2024-04-21 03:44] LABS: Basophils Percent Auto 0.4 % (0-2); Eosinophils Absolute Auto 0.1 X10*3/uL (0.0-0.4); Eosinophils Percent Auto 1.2 % (0-4); Hematocrit 34.5 % (37.0-47.0); Hemoglobin 12.1 g/dl (12.0-16.0); Imm Gran Abs Auto 0.02 X10*3/uL (0.00-0.03); Imm Gran Pct Auto 0.3 % (0.0-0.4); Lymphocytes Absolute Auto 3.5 X10*3/uL (1.2-4.9); Lymphocytes Percent Auto 48.2 % (20-40); Mean Corpuscular HGB Conc 35.1 g/dl (31.0-35.0); Mean Corpuscular Hemoglobin 32.2 pg (27.0-33.0); Mean Corpuscular Volume 91.8 fL (80.0-98.0); Mean Platelet Volume 10.4 fL (9.4-12.3); Monocytes Absolute Auto 0.6 X10*3/uL (0.1-1.2); Monocytes Percent Auto 7.6 % (2-11); Neutrophils Absolute Auto 3.1 x10*3/uL (2.0-8.3); Neutrophils Percent Auto 42.3 % (45-73); Platelet Count 192 X10*3/uL (160-400); Red Blood Count 3.76 X10*6/uL (4.20-5.50); Red Cell Distribution Width 11.7 % (11.0-16.0); White Blood Count 7.3 X10*3/uL (4.8-10.8)
[2024-04-21 03:45] LABS: Appearance Urine Clear; Color Urine Yellow; Glucose Urine UA Negative (Negative); Leukocyte Esterase Urine Trace (Negative); Nitrite Urine Negative (Negative); Specific Gravity - Urine <= 1.005 (1.005-1.025); UMIC TRIGGER UACC YES; Urine Blood Negative (Negative); Urine Ketones Negative (Negative); Urine Protein Negative (Neg-Trace)
[2024-04-21 03:47] LABS: Bacteria Urine None Seen (None Seen); Hyaline Casts Urine 0-2 /LPF (0-2); RBC Urine 0-2 /HPF (0-2); Squamous Epithelial Cell Urine 0-2 /HPF (0-2); WBC Urine 0-5 /HPF (0-5)
--- NOTE | 2024-04-21 03:48 | ED.ABDPAIN ---
HPI - Abdominal Pain General Chief Complaint: Abdominal Pain Stated Complaint: RLQ pain 10/10 spasm radiating to back Time Seen by Provider: 04/21/24 03:47 Source: patient Mode of arrival: ambulatory Limitations: no limitations History of Present Illness ED Provider: nelly GORDILLO narrative: Patient's history of chronic constipation GERD was seen here on 03/25 for upper abdominal pain CT scan was negative no gallstones seen comes here for pain in epigastric area radiating to the back started since earlier today associated with nausea no vomiting no fever no chills no history of alcohol use no history of pancreatitis no history of gallstones patient also complaining of pain in the right upper back Related Data Home Medications ?Medication ?Instructions ?Recorded ?Confirmed famotidine 20 mg tablet 1 tab PO BEDTIME 11/18/20 11/18/20 lorazepam 0.5 mg tablet 1 tab PO QID PRN Anxiety 11/18/20 11/18/20 omeprazole 20 mg capsule,delayed 1 cap PO DAILY 11/18/20 11/18/20 release polyethylene glycol 3350 17 17 g PO DAILY 11/18/20 11/18/20 gram/dose oral powder Previous Rx's ?Medication ?Instructions ?Recorded diazepam 5 mg tablet (Valium) 5 mg PO BID PRN muscle spasm #10 11/30/21 tabs tramadol 50 mg tablet 50 - 100 mg (1 - 2 x 50 mg) PO Q6H 11/30/21 PRN pain #20 tabs hyoscyamine sulfate 0.125 mg tablet 0.125 mg PO QID #10 tabs 11/20/22 polyethylene glycol 3350 17 gram 17 g PO BID #30 ea 11/20/22 oral powder packet (Miralax) dlulnekf-gbexookig-pdgnoxuev 3.5 4 drp otic (ears) TID 5 days #10 mL 06/03/23 mg/mL-10,000 unit/mL-1 % ear solution tramadol 50 mg tablet 50 mg PO Q8-10H PRN pain #20 tabs 04/21/24 Allergies Allergy/AdvReac Type Severity Reaction Status Date / Time Penicillins [PENICILLINS] Allergy Severe ANAPHYLAXIS Verified 04/21/24 03:20 Iodinated Contrast Media Allergy Intermediate HIVES Verified 04/21/24 03:20 [Iodinated Contrast Media - IV Dye] ciprofloxacin [From CIPRO] Allergy Unknown UNKNOWN Verified 04/21/24 03:20 Sulfa (Sulfonamide AdvReac Unknown NAUSEA & Verified 04/21/24 03:20 Antibiotics) VOMITING [SULFA (SULFONAMIDE ANTIBIOTICS)] Review of Systems Review of Systems Yes all other systems are reviewed and are negative [facility] Past Medical History Medical History Diabetes History of lung cancer Atrial fibrillation Surgical History History of lobectomy of lung Social History Social History Household Members: None Housing: Apartment Do you presently have visiting nurse or other home services: No Alcohol intake: never Patient Tobacco Use Status: Former Tobacco user Smoked in Last 30 Days: No Use of substances other than those prescribed or required for medical reasons: No Advance Directives: No Advance Directives Information Provided: No Do you have a plan to hurt others: No Plan service: No Current occupational status: disabled Physical Exam ED Vital Signs: Vital Signs - 24 hr 04/21/24 03:09 04/21/24 05:17 Temperature 97.8 F 97.9 F Pulse Rate 75 63 Respiratory Rate 17 18 Blood Pressure 128/61 129/59 L Pulse Oximetry 96 98 Oxygen Delivery Method Room Air Room Air BMI result Body Mass Index 30.4 Appearance: Alert. Oriented X3. No acute distress. Eyes: No pallor or icterus ENT: Pharynx normal. Oral Mucosa moist Neck: Normal inspection. Neck supple. CVS: Normal heart rate and rhythm. Pulses normal. Respiratory: No respiratory distress. Equal air entry bilateral, no wheezing/rales/rhonchi Abdomen: Soft and tenderness in epigastric area Bowel sounds are present, no mass palpable, no CVA tenderness Skin: Skin warm and dry. Normal skin color. Normal skin turgor. Extremities: No lower extremity edema. No calf tenderness Neuro: Oriented X 3. No motor deficit. Medical Decision Making Medical Decision Making [facility] Narrative: Patient with chronic gastritis comes with epigastric lab workup negative for acute no signs of pancreatitis will discharge patient home advised to continue use her omeprazole Lab Data [facility] Lab Attestation statement: I reviewed the patient's lab results. 04/21/24 03:39 04/21/24 03:39 Labs: Lab Results 04/21/24 Range/Units 03:39 WBC 7.3 (4.8-10.8) X10*3/uL RBC 3.76 L (4.20-5.50) X10*6/uL Hgb 12.1 (12.0-16.0) g/dl Hct 34.5 L (37.0-47.0) % MCV 91.8 (80.0-98.0) fL MCH 32.2 (27.0-33.0) pg MCHC 35.1 H (31.0-35.0) g/dl RDW 11.7 (11.0-16.0) % Plt Count 192 (160-400) X10*3/uL MPV 10.4 (9.4-12.3) fL Immature Gran % (Auto) 0.3 (0.0-0.4) % Neut % (Auto) 42.3 L (45-73) % Lymph % (Auto) 48.2 H (20-40) % [place] % (Auto) 7.6 (2-11) % Eos % (Auto) 1.2 (0-4) % Baso % (Auto) 0.4 (0-2) % Lymph # (Auto) 3.5 (1.2-4.9) X10*3/uL [place] # (Auto) 0.6 (0.1-1.2) X10*3/uL Eos # (Auto) 0.1 (0.0-0.4) X10*3/uL Baso # (Auto) 0.0 (0.0-0.2) X10*3/uL Abs Immat Gran (auto) 0.02 (0.00-0.03) X10*3/uL Absolute Neuts (auto) 3.1 (2.0-8.3) x10*3/uL Absolute Nucleated RBC 0.000 (0.0-0.012) X10*3/uL Nucleated RBC % (auto) 0.0 (0.0-0.2) /100WBC Sodium 143 (135-145) mmol/L Potassium 4.0 (3.3-5.1) mmol/L Chloride 108 (96-108) mmol/L Carbon Dioxide 24 (22-29) mmol/L Anion Gap 15 (12-20) BUN 15 (9-16) mg/dL Creatinine 0.85 (0.5-1.4) mg/dL Estim Creat Clear Calc 60.2 Estimated GFR > 60 Random Glucose 111 (60-115) mg/dL Calcium 8.9 (8.4-10.2) mg/dL Total Bilirubin 0.3 (0.0-1.0) mg/dL AST 23 (5-31) U/L ALT 15 (0-31) U/L Alkaline Phosphatase 55 (39-117) U/L Total Protein 6.7 (6.5-8.0) g/dL Albumin 4.0 (3.5-5.0) g/dL Lipase 38 (8-78) U/L Urine Color Yellow Urine Appearance Clear Urine pH 7.0 (5.0-9.0) Ur Specific [place] <= 1.005 (1.005-1.025) Urine Protein Negative (Neg-Trace) mg/dL Urine Glucose (UA) Negative (Negative) mg/dL Urine Ketones Negative (Negative) mg/dL Urine Blood Negative (Negative) Urine Nitrite Negative (Negative) Ur Leukocyte Esterase Trace H (Negative) Urine RBC 0-2 (0-2) /HPF Urine WBC 0-5 (0-5) /HPF Ur Squamous Epith Cells 0-2 (0-2) /HPF Urine Bacteria None Seen (None Seen) Hyaline Casts 0-2 (0-2) /LPF Medications Administered Discontinued Medications Generic Name Dose Route Start Last Admin Trade Name Freq PRN Reason Stop Dose Admin Tramadol HCl 50 mg 04/21/24 05:03 04/21/24 05:10 Tramadol Hcl 50 Mg Tablet PO 04/21/24 05:04 Not Given ONCE ONE Discharge Plan Discharge Clinical Impression: Back pain, Abdominal pain Patient Disposition: Home, Self-Care Instructions: Abdominal Pain (ED), Back Pain (ED) Additional Instructions: Take pain medication as prescribed Continue other medications as 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 by aggregate conveyor operator and follow with PCP/GI Prescriptions: New tramadol 50 mg tablet 50 mg PO Q8-10H PRN (Reason: pain) Qty: 20 0RF No Action famotidine 20 mg tablet 1 tab PO BEDTIME lorazepam 0.5 mg tablet 1 tab PO QID PRN (Reason: Anxiety) polyethylene glycol 3350 17 gram/dose powder 17 g PO DAILY omeprazole 20 mg capsule,delayed release(DR/EC) 1 cap PO DAILY tramadol 50 mg tablet 50 - 100 mg PO Q6H PRN (Reason: pain) Qty: 20 0RF diazepam [Valium] 5 mg tablet 5 mg PO BID PRN (Reason: muscle spasm) Qty: 10 0RF polyethylene glycol 3350 [Miralax] 17 gram powder in packet 17 g PO BID Qty: 30 0RF hyoscyamine sulfate 0.125 mg tablet 0.125 mg PO QID Qty: 10 0RF pqcargxo-phrunjepy-XB 3.5-10,000-1 mg/mL-unit/mL-% solution 4 drp otic (ears) TID 5 Days Qty: 10 0RF Interventions: ED Discharge Assessment Last Done: 04/21/24 05:17 Discharge Date/Time: 04/21/24 05:19 Print Language: Romanian
[2024-04-21 03:56] LABS: Alanine Aminotransferase 15 U/L (0-31); Alkaline Phosphatase 55 U/L (39-117); Anion Gap 15 (12-20); Aspartate Amino Transferase 23 U/L (5-31); Bilirubin Total 0.3 mg/dL (0.0-1.0); Blood Urea Nitrogen 15 mg/dL (9-16); Calcium 8.9 mg/dL (8.4-10.2); Carbon Dioxide 24 mmol/L (22-29); Chloride 108 mmol/L (96-108); Creatinine Clr Calc Pharmacy 60.2; Estimated Glomerular Filt Rate > 60; Glucose Random 111 mg/dL (60-115); Sodium 143 mmol/L (135-145); Total Protein 6.7 g/dL (6.5-8.0)
[2024-04-21 04:08] LABS: Lipase 38 U/L (8-78)
[2024-04-21 05:17] VITALS: BP 129/59; PULSE 63; RESP 18; TEMP 36.6; O2SAT 98
== END 2024-04-21 05:19 | disposition home or self-care (01) ==
PROVIDERS: Emergency Provider Internal Medicine
DX: R10.31 Right lower quadrant pain (principal); M54.6 Pain in thoracic spine; E11.9 Type 2 diabetes mellitus without complications; I48.91 Unspecified atrial fibrillation
CPT/HCPCS: 36415; 80053; 81001; 83690; 85025; 99284

== ENCOUNTER 2025-01-27 13:56 | Emergency (ER) | payer MEDICARE, MEDICAID, SELFPAY ==
--- NOTE | ~2025-01-27 | XR_ITS ---
CLINICAL HISTORY: chest pain 2 view chest x-ray Comparison: CR/SR - XR CHEST 2 VIEWS - 06/03/23 13:06 EST Findings: The lungs are clear. Normal size heart. No acute fracture. IMPRESSION: 1. No acute findings. This document has been electronically signed by: Flavio Avalos MD on 01/27/2025 14:37:22
--- NOTE | ~2025-01-27 | US_ITS ---
CLINICAL HISTORY: RUQ Pain Tenderness; Bloating US abdomen limited, with color and pulsed Doppler of the portal vein: Comparison: CT 03/24/2024 Findings: Liver normal size, 13.7 cm in length. A posterior right lobe of the liver mass is present with cystic or necrotic center and echogenic wall measuring 14 mm in thickness. Main portal vein Doppler shows antegrade flow. The gallbladder is normal in size, with a small amount of sludge. A gallbladder wall 5 mm cyst suggested on ultrasound worksheet may be due to bile encrustation. The common bile duct diameter is 5 mm. The right kidney is normal, 8 cm in length. No ascites in the right upper quadrant. Impression: 1. The gallbladder is normal in size containing calculi and sludge. 2. Posterior right lobe liver indeterminate cystic/solid mass measuring axial 3.1 x oblique 2.2 x oblique 1.5 cm on the current exam measured 3 cm in coronal and axial plane CT from 03/25/2024. This lesion is indeterminate but not markedly changed from prior study, considering differences in modality. Recommend nonurgent multiphase CT or MRI for definitive diagnostic information if not already done.. This document has been electronically signed by: Abelardo Singh MD on 01/27/2025 20:38:51
[2025-01-27 14:04] VITALS: BP 148/70; PULSE 70; RESP 16; TEMP 36.7; O2SAT 98; BMI 30.5
--- NOTE | 2025-01-27 14:07 | ED_ITS ---
HPI - General Adult General Chief complaint: Abdominal Pain Stated complaint: abd pain Time Seen by Provider: 01/27/25 18:28 Source: patient Mode of arrival: ambulatory Limitations: no limitations History of Present Illness ED Provider: Tim DELVALLE HPI narrative: The patient is a 69-year-old female presenting to the ED for evaluation of epigastric and right upper quadrant abdominal pain. Patient reports over the past 4 days she has been experiencing postprandial bloating without associated nausea, vomiting, or pain, however today while eating cereal for breakfast she develop recurrent bloating but this time with severe epigastric and right upper quadrant pain, patient reports pain has persisted rather than relieved and she presents to the ED for evaluation. Patient denies associated fever/chills, vomiting, hematemesis, hematochezia, melena, diarrhea, constipation, hematuria, dysuria, chest pain, pleurisy, or shortness of breath. The patient reports remote history of appendectomy and hysterectomy, also reports right-sided lobectomy due to lung cancer in 2019, no associated chemotherapy or radiation. The patient denies any recent sick contacts or trauma. Patient denies history of cholelithiasis. Related Data Home Medications ?Medication ?Instructions ?Recorded ?Confirmed famotidine 20 mg tablet 1 tab PO BEDTIME 11/18/20 lorazepam 0.5 mg tablet 1 tab PO QID PRN Anxiety 07/1011/18/20 omeprazole 20 mg capsule,delayed 1 cap PO DAILY 11/18/20 release polyethylene glycol 3350 17 17 g PO DAILY 11/18/2007/10 gram/dose oral powder Previous Rx's ?Medication ?Instructions ?Recorded diazepam 5 mg tablet (Valium) 5 mg PO BID PRN muscle s pasm #10 11/30/21 tabs tramadol 50 mg tablet 50 - 100 mg (1 - 2 x 50 mg) PO Q6H 11/30/21 PRN pain #20 tabs hyoscyamine sulfate 0.125 mg tablet 0.125 mg PO QID #1 0 tabs 11/20/22 polyethylene glycol 3350 17 gram 17 g PO BID #30 ea oral powder packet (Miralax) [id number]-eqcstzend-dbmvwbtaz 3.5 4 drp otic (ears) TID 5 days #10 mL 12/15/23 mg/mL-10,000 unit/mL-1 % ear solution tramadol 50 mg tablet 50 mg PO Q8-10H PRN pain #20 tabs 04/21/24 acetaminophen 500 mg capsule 1,000 mg (2 x 500 mg) PO .q8 PRN 01/27/25 fever or pain #30 caps ibuprofen 600 mg tablet 600 mg PO Q8H PRN fever or p ain 01/27/25 #30 tabs ondansetron 4 mg disintegrating 4 mg PO Q8H PRN nausea and 01/27/25 tablet vomiting #14 tabs Allergies Allergy/AdvReac Type Severity Reaction Status Date / Time Penicillins (PENICILLINS) Allergy Severe ANAPHYLAXIS Verified 01/27/25 14:07 Iodinated Contrast Media Allergy Intermediate HIVES Verified 01/27/25 14:07 (Iodinated Contrast Media - IV Dye) ciprofloxacin (From CIPRO) Allergy Unknown UNKNOWN Verified 01/27/25 14:07 Sulfa (Sulfonamide AdvReac Unknown NAUSEA & Verified 01/27/25 14:07 Antibiotics) (SULFA VOMITING (SULFONAMIDE ANTIBIOTICS)) Review of Systems 2 Review of Systems: Yes all other systems are reviewed and are negative [facility] Past Medical History Medical History Diabetes History of lung cancer Atrial fibrillation Surgical History History of lobectomy of lung Social History Social History Household Members: None Housing: Apartment Do you presently have visiting nurse or other home services: No Alcohol intake: former Patient Tobacco Use Status: Former Tobacco user Smoked in Last 30 Days: No Use of substances other than those prescribed or required for medical reasons: No Advance Directives: No Advance Directives Information Provided: No Do you have a plan to hurt others: No Plan service: No Current occupational status: disabled Physical Exam ED Vital Signs: Vital Signs - 24 hr 01/27/25 14:04 01/27/25 19:50 Temperature 98.0 F 97.9 F Pulse Rate 70 60 Respiratory Rate 16 16 Blood Pressure 148/70 H 103/67 Pulse Oximetry 98 100 Oxygen Delivery Method Room Air Room Air BMI result Body Mass Index 30.5 CONSTITUTIONAL: The patient appears non-toxic, well nourished and in no acute distress. Vital signs as documented. HEAD: Atraumatic, normocephalic. EYES: EOMs grossly intact, pupils equal, conjunctiva clear, no exudate. ENT: Nares patent, no discharge. Airway patent, no audible stridor, visible mucosa is pink and moist without noted lesions. NECK: Trachea is midline, no obvious masses or gross abnormalities. CHEST: Symmetric movement, normal appearance. No tenderness to palpation or crepitus. LUNGS: LS present and CTAB, no w/r/r. Non-labored work of breathing. CARDIAC: Regular Rhythm, S1/S2 appreciated, no murmurs, rubs or gallops. ABDOMEN: Abdomen soft x4 quadrants, positive tenderness to palpation of the right upper quadrant, negative rebound, negative Mendez's, no palpable masses or organomegaly. : Deferred. EXTREMITIES: Normal tone, moves all extremities spontaneously without reported pain. No obvious acute injury or deformity noted. NEURO: Alert and oriented x3, CN II-XII appear grossly intact. Cerebellar Functioning grossly intact. No obvious sensory or motor deficits. Speech clear and appropriate. PSYCH: normal affect, appropriate eye contact, fluid speech, with appropriate response to questioning. No reported suicidality or homicidality. SKIN: Warm, dry, color appropriate, normal turgor. No rashes noted. Course Course Course Narrative: Rapid medical examination performed in triage by Soriada Hernandez PA-C. Patient is a 69 year old assigned female at presenting to the emergency department with chest and abdominal pain. Detailed physical exam and review of systems are deferred to the system support technician. EKG, labs, imaging, and swabs ordered. Patient placed back in the waiting room pending room availability and results. Medications Administered Discontinued Medications Generic Name Dose Route Start Last Admin Trade Name Freq PRN Reason Stop Dose Admin Sodium Chloride 1,000 mls @ 999 mls/hr 01/27/25 19:00 01/27/25 20:00 Ns IV 01/27/25 20:00 999 mls/hr .Q1H1M LEANDRO Administration Ketorolac Tromethamine 15 mg 01/27/25 18:51 01/27/25 20:01 Ketorolac Tromethamine 15 Mg/Ml Vial IVPUSH 01/27/25 18:52 15 mg ONCE ONE Administration Medical Decision Making Medical Decision Making [facility] Narrative: 6:54 PM 01/27/2025 (Estevan DELVALLE): The patient is a 69-year-old female presenting to the ED for evaluation of right upper quadrant epigastric abdominal bloating for the past 4 days now with associated pain without associated nausea, vomiting, or fever. The patient in the ED is comfortable appearing, however does have tenderness of the epigastrium and right upper quadrant on exam. Negative Mendez's. Laboratory evaluation reveals no evidence of leukocytosis or anemia, there is no electrolyte abnormality or EARLINE. Patient's LFTs are unremarkable. Viral swab negative, chest x-ray unremarkable, troponin negative, EKG is nonischemic. The patient will be sent for right upper quadrant ultrasound to evaluate for cholelithiasis versus less likely choledocholithiasis given no LFT abnormalities. Patient will be treated with Toradol for pain. The patient is unable to be ruled out for PE by PERC criteria due to age, due to history of previous lung cancer patient more appropriate for evaluation by CTA then D-dimer. Pending unremarkable right upper quadrant ultrasound we will consider CTA chest with CT abdomen and pelvis to further evaluate the patient's symptoms. 9:15 PM 01/27/2025 (Estevan DELVALLE): The patient's ultrasound shows gallbladder sludge and stones, patient likely suffering from symptomatic gallstones. At this time there is no pericholecystic fluid or other evidence of acute cholecystitis. Patient's ultrasound also shows a cystic/solid mass of the posterior right liver lobe which appears similar in size compared to CT on 03/25/2024. We will re-evaluate patient's pain following Toradol and consider surgical consultation versus discharge with outpatient surgical follow up. 10:16 PM 01/27/2025 (Estevan DELVALLE): The patient reports pain improved with IV fluids and Toradol. Patient will be discharged with anti-inflammatories, Zofran if needed, and outpatient surgical follow up for symptomatic gallstones. Of note, while reviewing workup for discharge, it was noted that a lipase was not included in the patient's initial labs, we will add on a lipase, however given the patient's otherwise reassuring LFTs we will not delay the patient's discharge. Admission/Observation Consideration of admission/observation: Escalation of care including admission/observation considered Lab Data [facility] Lab Attestation statement: I reviewed the patient's lab results. 01/27/25 14:29 01/27/25 14:29 Labs: Lab Results 01/27/25 Range/Units 14:29 WBC 6.4 (4.8-10.8) X10*3/uL RBC 4.08 L (4.20-5.50) X10*6/uL Hgb 12.9 (12.0-16.0) g/dl Hct 37.9 (37.0-47.0) % MCV 92.9 (80.0-98.0) fL MCH 31.6 (27.0-33.0) pg MCHC 34.0 (31.0-35.0) g/dl RDW 11.9 (11.0-16.0) % Plt Count 223 (160-400) X10*3/uL MPV 10.6 (9.4-12.3) fL Immature Gran % (Auto) 0.5 H (0.0-0.4) % Neut % (Auto) 48.0 (45-73) % Lymph % (Auto) 41.2 H (20-40) % [place] % (Auto) 8.9 (2-11) % Eos % (Auto) 1.1 (0-4) % Baso % (Auto) 0.3 (0-2) % Lymph # (Auto) 2.6 (1.2-4.9) X10*3/uL [place] # (Auto) 0.6 (0.1-1.2) X10*3/uL Eos # (Auto) 0.1 (0.0-0.4) X10*3/uL Baso # (Auto) 0.0 (0.0-0.2) X10*3/uL Abs Immat Gran (auto) 0.03 (0.00-0.03) X10*3/uL Absolute Neuts (auto) 3.1 (2.0-8.3) x10*3/uL Absolute Nucleated RBC 0.000 (0.0-0.012) X10*3/uL Nucleated RBC % (auto) 0.0 (0.0-0.2) /100WBC PT 10.6 L (10.9-12.4) SEC INR 0.9 (0.9-1.1) Sodium 142 (135-145) mmol/L Potassium 4.6 (3.3-5.1) mmol/L Chloride 107 (96-108) mmol/L Carbon Dioxide 25 (22-29) mmol/L Anion Gap 15 (12-20) BUN 15 (9-16) mg/dL Creatinine 0.94 (0.5-1.4) mg/dL Estim Creat Clear Calc 53.7 Estimated GFR 59 Random Glucose 83 (60-115) mg/dL Calcium 9.3 (8.4-10.2) mg/dL Magnesium 2.2 (1.6-2.6) mg/dL Total Bilirubin 0.5 (0.0-1.0) mg/dL AST 27 (5-31) U/L ALT 19 (0-31) U/L Alkaline Phosphatase 57 (39-117) U/L Troponin I High Sens < 2.7 (<3.5-17.0) ng/L Total Protein 7.3 (6.5-8.0) g/dL Albumin 4.6 (3.5-5.0) g/dL Influenza Type A (PCR) NEGATIVE (Negative) Influenza Type B (PCR) NEGATIVE (Negative) RSV RNA Qual (PCR) NEGATIVE (Negative) SARS-CoV-2 RNA (RT-PCR) NEGATIVE (Negative) Independent Interpretation I performed an independent interpretation of an: EKG (EKG shows sinus rhythm with a rate of 69, no evidence of acute ischemia, no ST elevation, no ectopy. QTC 407. Compared to previous on 03/24/2024 there is resolution of previously seen PACs. ) Radiology Impression Discussion of test interpretation with radiology: I have reviewed the radiologist's reading. Radiologist Impression: CLINICAL HISTORY: chest pain 2 view chest x-ray Comparison: CR/SR - XR CHEST 2 VIEWS - 06/03/23 13:06 EST Findings: The lungs are clear. Normal size heart. No acute fracture. IMPRESSION: 1. No acute findings. This document has been electronically signed by: Flavio Avalos MD on 01/27/2025 14:37:22 US abdomen limited, with color and pulsed Doppler of the portal vein: Comparison: CT 03/24/2024 Findings: Liver normal size, 13.7 cm in length. A posterior right lobe of the liver mass is present with cystic or necrotic center and echogenic wall measuring 14 mm in thickness. Main portal vein Doppler shows antegrade flow. The gallbladder is normal in size, with a small amount of sludge. A gallbladder wall 5 mm cyst suggested on ultrasound worksheet may be due to bile encrustation. The common bile duct diameter is 5 mm. The right kidney is normal, 8 cm in length. No ascites in the right upper quadrant. Impression: 1. The gallbladder is normal in size containing calculi and sludge. 2. Posterior right lobe liver indeterminate cystic/solid mass measuring axial 3.1 x oblique 2.2 x oblique 1.5 cm on the current exam measured 3 cm in coronal and axial plane CT from 03/25/2024. This lesion is indeterminate but not markedly changed from prior study, considering differences in modality. Recommend nonurgent multiphase CT or MRI for definitive diagnostic information if not already done.. This document has been electronically signed by: Abelardo Singh MD on 01/27/2025 20:38:51 External Record Review External record reviewed: Outpatient record Prescription Management I considered prescription management with: Pain Medication Discharge Plan Discharge Clinical Impression: Gall bladder stones Patient Disposition: Home, Self-Care Instructions: Gallstones (ED) Additional Instructions: Thank you for choosing [facility]'s Emergency Department for your care today. Thankfully your laboratory evaluation and ultrasound today shows no evidence of acute infection of your gallbladder. Your ultrasound did show some sludge and gallbladder stones which is likely the source of your pain. Thankfully your laboratory evaluation shows no evidence of obstruction, given the lack of evidence of obstruction or infection, there is currently no indication for admission to the hospital or continued ED observation, and it is safe to discharge you home. Please follow up with our surgical office by calling the number provided to discuss treatment options for your symptomatic gallstones. Please monitor your symptoms for any developing fever, uncontrollable vomiting, or intolerable pain. Please return to the emergency department if these develop. You should take alternating (staggered) doses of ibuprofen 600mg and Tylenol 1000mg every 4 hours as needed for any additional pain. Please take Zofran as needed as prescribed for any nausea or vomiting. Please stay well hydrated and get plenty of rest. Please continue taking your regularly prescribed medications. Please read the attached discharge instructions regarding diet changes which may help avoid recurrent symptoms. Please follow up with your primary care physician for re-evaluation, additional management of your symptoms, and continued preventative care. If you do not have a primary care physician, please call the [facility] at [phone] to establish a new primary care physician. While waiting to establish your new primary care physician, you can call our Walk[facility]in [facility] at [phone] for non-emergency needs. Please return to the emergency department if you develop a severe or sudden change in your symptoms, a fever over 100.4 that does not improve with Tylenol or Ibuprofen, recurrent vomiting, or any other new or worsening symptoms or concerns. Prescriptions: New ibuprofen 600 mg tablet 600 mg PO Q8H PRN (Reason: fever or pain) Qty: 30 0RF acetaminophen 500 mg capsule 1,000 mg PO .q8 PRN (Reason: fever or pain) Qty: 30 0RF ondansetron 4 mg tablet,disintegrating 4 mg PO Q8H PRN (Reason: nausea and vomiting) Qty: 14 0RF No Action famotidine 20 mg tablet 1 tab PO BEDTIME lorazepam 0.5 mg tablet 1 tab PO QID PRN (Reason: Anxiety) polyethylene glycol 3350 17 gram/dose powder 17 g PO DAILY omeprazole 20 mg capsule,delayed release(DR/EC) 1 cap PO DAILY tramadol 50 mg tablet 50 - 100 mg PO Q6H PRN (Reason: pain) Qty: 20 0RF diazepam [Valium] 5 mg tablet 5 mg PO BID PRN (Reason: muscle spasm) Qty: 10 0RF polyethylene glycol 3350 [Miralax] 17 gram powder in packet 17 g PO BID Qty: 30 0RF hyoscyamine sulfate 0.125 mg tablet 0.125 mg PO QID Qty: 10 0RF cvirnpae-xcadekqhb-WW 3.5-10,000-1 mg/mL-unit/mL-% solution 4 drp otic (ears) TID 5 Days Qty: 10 0RF tramadol 50 mg tablet 50 mg PO Q8-10H PRN (Reason: pain) Qty: 20 0RF Referrals: Norbert Acosta MD [Primary Care Provider, Family Practice] Clinical Impression: Gall bladder stones Vic Gil MD [Physician, General Surgery] Clinical Impression: Gall bladder stones Print Language: Hungarian
--- NOTE | 2025-01-27 14:07 | ECG_ITS ---
Test Reason : EPIGASTRIC PAIN Blood Pressure : */* mmHG Vent. Rate : 69 BPM Atrial Rate : 69 BPM P-R Int : 140 ms QRS Dur : 68 ms QT Int : 380 ms P-R-T Axes : 59 4 29 degrees QTcB Int : 407 ms Normal sinus rhythm Low voltage QRS Cannot rule out Anterior infarct (cited on or before 03-Jun-2023) Abnormal ECG When compared with ECG of 24-Mar-2024 22:05, Premature supraventricular complexes are no longer Present Referred By: Soraiad Hernandez Electronically Signed By: Beau Barajas
[2025-01-27 14:34] LABS: MANUAL DIFF FLAG NO
[2025-01-27 14:39] LABS: Hematocrit 37.9 % (37.0-47.0); Hemoglobin 12.9 g/dl (12.0-16.0); Imm Gran Abs Auto 0.03 X10*3/uL (0.00-0.03); Imm Gran Pct Auto 0.5 % (0.0-0.4); Lymphocytes Absolute Auto 2.6 X10*3/uL (1.2-4.9); Mean Corpuscular HGB Conc 34.0 g/dl (31.0-35.0); Mean Corpuscular Hemoglobin 31.6 pg (27.0-33.0); Mean Corpuscular Volume 92.9 fL (80.0-98.0); NRBC Abs Auto 0.000 X10*3/uL (0.0-0.012); NRBC Pct Auto 0.0 /100WBC (0.0-0.2); Platelet Count 223 X10*3/uL (160-400); Red Blood Count 4.08 X10*6/uL (4.20-5.50); White Blood Count 6.4 X10*3/uL (4.8-10.8)
[2025-01-27 14:47] LABS: INTERNATIONAL NORM RATIO 0.9 (0.9-1.1); Prothrombin Time 10.6 SEC (10.9-12.4)
[2025-01-27 14:59] LABS: Alanine Aminotransferase 19 U/L (0-31); Albumin Level 4.6 g/dL (3.5-5.0); Alkaline Phosphatase 57 U/L (39-117); Anion Gap 15 (12-20); Aspartate Amino Transferase 27 U/L (5-31); Blood Urea Nitrogen 15 mg/dL (9-16); Calcium 9.3 mg/dL (8.4-10.2); Carbon Dioxide 25 mmol/L (22-29); Chloride 107 mmol/L (96-108); Creatinine Clr Calc Pharmacy 53.7; Estimated Glomerular Filt Rate 59; Magnesium 2.2 mg/dL (1.6-2.6); Potassium 4.6 mmol/L (3.3-5.1); Sodium 142 mmol/L (135-145); Total Protein 7.3 g/dL (6.5-8.0)
[2025-01-27 15:14] LABS: Troponin-I High Sensitivity < 2.7 ng/L (<3.5-17.0)
[2025-01-27 15:17] LABS: Resp Syncy Virus RNA Qual PCR NEGATIVE (Negative); SARS COV2 PCR INHOUSE NEGATIVE (Negative)
[2025-01-27 19:50] VITALS: BP 103/67; PULSE 60; RESP 16; TEMP 36.6; O2SAT 100
[2025-01-27 22:46] VITALS: BP 132/69; PULSE 62; RESP 16; TEMP 36.6; O2SAT 99
[2025-01-27 22:47] VITALS: BP 132/69; PULSE 62; RESP 16; TEMP 36.6; O2SAT 99
[2025-01-27 22:52] LABS: Lipase 66 U/L (8-78)
== END 2025-01-27 22:48 | disposition home or self-care (01) ==
PROVIDERS: Physician Assistant; Physician Assistant Medical; Emergency Provider Emergency Medicine Emergency Medical Services; PCP Family Medicine
DX: N21.0 Calculus in bladder (principal); R10.13 Epigastric pain; R10.11 Right upper quadrant pain; R11.2 Nausea with vomiting, unspecified; R94.31 Abnormal electrocardiogram [ECG] [EKG]; Z03.818 Encounter for observation for suspected exposure to other biological agents ruled out; Z87.891 Personal history of nicotine dependence; Z79.899 Other long term (current) drug therapy
CPT/HCPCS: 36415; 71046; 76705; 80053; 83690; 83735; 84484; 85025; 85610; 87637; 93005; 96361; 96374; 99285; J1885

== ENCOUNTER → 2025-01-27 14:07 | Outpatient (BNV) | payer MEDICARE, MEDICAID, SELFPAY | PROVIDERS: Emergency Provider Emergency Medicine Emergency Medical Services; PCP Family Medicine; Visit Provider Internal Medicine Cardiovascular Disease | DX: R94.31 Abnormal electrocardiogram [ECG] [EKG] (principal); R10.13 Epigastric pain | CPT/HCPCS: 93010 ==

== ENCOUNTER → 2025-01-27 14:07 | Outpatient (BNV) | payer MEDICARE, MEDICAID, SELFPAY | PROVIDERS: PCP Family Medicine; Visit Provider Radiology Diagnostic Radiology | DX: R10.11 Right upper quadrant pain (principal); R07.9 Chest pain, unspecified | CPT/HCPCS: 76705 ==

== ENCOUNTER 2025-03-16 13:37 | Outpatient (REF) | payer MEDICARE, MEDICAID, SELFPAY ==
[2025-03-16 20:20] LABS: Resp Syncy Virus RNA Qual PCR NEGATIVE (Negative); SARS COV2 PCR INHOUSE NEGATIVE (Negative)
== END 2025-03-16 13:38 | disposition home or self-care (01) ==
LOC: HO.LAB 13:37
PROVIDERS: Physician Assistant; PCP Family Medicine
DX: J98.8 Other specified respiratory disorders (principal); B97.89 Other viral agents as the cause of diseases classified elsewhere
CPT/HCPCS: 87637; 99212

== ENCOUNTER 2025-03-16 13:37 | Outpatient (AMB) | payer MEDICARE, MEDICAID, SELFPAY ==
--- OUTSIDE RECORDS SUMMARY | 2025-03-11 14:30 | XMS_ITS | Encounter Summary ---
Author Organization [facility] Address [address] [place] [address] Care Team Providers Care Criminal Justice Program Director Name Role Phone Norbert Acosta MD Primary Care Provider [phone] Reason for Visit * Reason Comments 24 Hour Holter Monitor * Cardiac Stress Testing (Routine) - Closed Specialty Diagnoses / Procedures Referred By Contac t Referred To Contact Cardiology Diagnoses Bradycardia Procedures Cardiac holter monitor (<= 48 hours) OR ECG EXTERNAL UP TO 48 HOURS RECORDING OR ECG EXTERNAL < 48 HOURS CONTINUOUS RECORDING/STORAGE R&I BY A PHYS/QHP OR EXTERNAL ECG UP TO 48 HRS INCL RECORDING SCANNING ANLYS W REPORT Margie Vasquez, FLIGHT/TRANSPORT NURSE [address] [place] [address] Phone: tel: fax: [facility] Referral ID Status Reason Start Date Expiration Date Visits Re quested Visits Authorized [id number] Closed 03/06/2025 03/06/2026 1 1 Encounter Details Date Type Department Care Team (Late st Contact Info) Description 03/11/2025 2:30 PM EDT Ancillary Procedure [facility] - [address] [place] [address] Bradycardia Social History Tobacco Use Types Packs/Day Years Used Date Smoking Tobacco: Former Cigarettes Smokeless Tobacco: Former Alcohol Use Standard Drinks/Week Comments Never 0 (1 standard drink = 0.6 oz pur e alcohol) Comments Unknown Sex and Gender Information Value Date Recorded Sex Assigned at Female 06/18/2024 12:39 PM EST Legal Sex Female 2:15 PM EST Gender Identity Female 06/18/2024 12:39 PM EST Sexual Orientation Straight 06/18/2024 12 :39 PM EST documented as of this encounter Plan of Treatment Upcoming Encounters Date Type Department Care Team (Late st Contact Info) Description 03/26/2025 9:00 AM EDT Appointment [facility] Nuclear Medicine [address] [place] [id number] 04/02/2025 1:30 PM EDT Office Visit Orthopedic Surgery - [place] [address] [facility] [address] [place] [phone] Cb Lopez, DPM [address] [address] documented as of this encounter Procedures Procedure Name Priority Date/Time Associated Diagnosis Comments CARDIAC HOLTER MONITOR (REPORT GENERATED IN HOUSE) Routine 03/11/2025 2:13 PM EDT Bradycardia documented in this encounter Results * CARDIAC HOLTER MONITOR (REPORT GENERATED IN HOUSE) (03/11/2025 2:13 PM EDT) Anatomical Region Laterality Modality Cardiac Diagnost ic Narrative 03/14/2025 12:41 PM EDT [facility] DI[facility] DEPARTMENT [address] [place] [address], [place] [address] TEL: FAX: Type of Test: 24 Hour Holter Monitor Date of Test: 03/11/2025 Ordering Provider: Margie Vasquez NP Reason for Test: Bradycardia [employer] Findings: 1: Normal Sinus Rhythm. 2: Frequent PACs and rare atrial pairs. Rare PVCs. 3: No significant pauses noted, longest R-R was 1.5 seconds at 5:47 PM. 4: Diary returned with no symptoms noted. Impression: Normal sinus rhythm with frequent premature atrial complexes. Otherwise normal monitor. Margie Vasquez FLIGHT/TRANSPORT NURSE CV CARDIAC SERVICES PROCEDUR ES Final Result documented in this encounter Visit Diagnoses Diagnosis Bradycardia Other specified cardiac dysrhythmias documented in this encounter Care Teams Criminal Justice Program Director Relationship Specialty Start Date End Date Norbert Acosta MD [address] [address] PCP - General 12/29/21 documented as of this encounter
--- OUTSIDE RECORDS SUMMARY | 2025-03-16 13:40 | XMS_ITS | Encounter Summary ---
Author Organization [facility] Address [address] [place] [address] Care Team Providers Care Windows Server Architect Name Role Phone Praveen Mclean MD Unavailable [phone] Margie Vasquez NP Unavailable [phone] Norbert Acosta MD Primary Care Provider Unavail able Encounter Details Date Type Department Care Team Description 07/14/2022 SCAN Medical Records [address] [place] [id number] Norbert Acosta MD Social History Tobacco Use Types Packs/Day Years Used Date Smoking Tobacco: Never Smokeless Tobacco: Never Alcohol Use Standard Drinks/Week Comments Never 0 (1 standard drink = 0.6 oz pur e alcohol) Sex Assigned at Date Recorded Not on file Job Start Date Occupation Industry Not on file Not on file Not on file COVID-19 Exposure Response Date Recorded In the last 10 days, have yo u been in contact with someone who was confirmed or suspected to have Coronavirus/COVID-19? No / Unsure 06/22/2022 2:43 PM EST documented as of this encounter Plan of Treatment Not on file documented as of this encounter Procedures Procedure Name Priority Date/Time Associated Diagnosis Comments OUTSIDE EKG Routine 07/14/2022 documented in this encounter Results * OUTSIDE EKG (07/14/2022) Provider Abstract CARDIOLOGY documented in this encounter Visit Diagnoses Not on filedocumented in this encounter Care Teams Windows Server Architect Relationship Specialty Start Date End Date Norbert Acosta MD [address] [address] PCP - General Family Practice 12/29/21 Praveen Mclean MD Specialist Cardiology 02/28/21 Margie Vasquez NP [address] [address] Cardiology 06/10/21 documented as of this encounter
--- OUTSIDE RECORDS SUMMARY | 2025-03-16 13:40 | XMS_ITS | Encounter Summary ---
Author Organization [facility] Address [address] [place] [address] Care Team Providers Care Loss Prevention Associate Name Role Phone Praveen Mclean MD Unavailable [phone] Margie Vasquez NP Unavailable [phone] Norbert Acosta MD Primary Care Provider Unavail able Encounter Details Date Type Department Care Team Description 07/28/2022 SCAN Medical Records [address] [place] [id number] Abstract, Provider Social History Tobacco Use Types Packs/Day Years [...] suspected to have Coronavirus/COVID-19? No / Unsure 07/19/2022 2:10 PM EST documented as of this encounter Plan of Treatment Not on file documented as of this encounter Procedures Procedure Name Priority Date/Time Associated Diagnosis Comments OUTSIDE EKG Routine 07/28/2022 documented in this encounter Results * OUTSIDE EKG (07/28/2022) Provider Default CARDIOLOGY documented in this encounter Visit Diagnoses Not on filedocumented in this encounter Care Teams Loss Prevention Associate Relationship Specialty Start Date End Date Norbert Acosta MD [address] [address] PCP - General Family Practice 12/29/21 Praveen Mclean MD Specialist Cardiology 02/28/21 Margie Vasquez NP [address] [address] Cardiology 06/10/21 documented as of this encounter
--- OUTSIDE RECORDS SUMMARY | 2025-03-16 13:40 | XMS_ITS | Encounter Summary ---
Author Organization [facility] Address [address] [place] [address] Care Team Providers Care Geothermal Electrical Engineer Name Role Phone Praveen Mclean MD Unavailable [phone] Margie Vasquez NP Unavailable [phone] Norbert Acosta MD Primary Care Provider Unavail able Encounter Details Date Type Department Care Team Description 05/25/2022 Hvac Controls Technician Report Medical Records [address] [place] [address] Dustin Curry Social History Tobacco Use Types Packs/Day Years [...] suspected to have Coronavirus/COVID-19? No / Unsure 05/20/2022 1:21 PM EST documented as of this encounter Plan of Treatment Not on file documented as of this encounter Visit Diagnoses Not on filedocumented in this encounter Care Teams Geothermal Electrical Engineer Relationship Specialty Start Date End Date Norbert Acosta MD [address] [address] PCP - General Family Practice 12/29/21 Praveen Mclean MD Specialist Cardiology 02/28/21 Margie Vasquez NP [address] [address] Cardiology 06/10/21 documented as of this encounter
--- NOTE | 2025-03-16 13:41 | AM.OFFWIN_ITS ---
Intake Vital Signs 03/16/25 13:42 Height 5 ft 2 in BP 140/76 H Blood Pressure Location Lt brachial Position Sitting Pulse 86 Pulse Source Pulse Oximeter Temp 98.3 F Temp Source Oral Pulse Oximetry (%) 96 Intake Visit Reasons: EP Body aches, cough, headaches Patient Tobacco Use Status: Former Tobacco user Allergies Penicillins (PENICILLINS) Allergy (Severe, Verified 03/16/25 13:42) ANAPHYLAXIS Iodinated Contrast Media (Iodinated Contrast Media - IV Dye) Allergy (Intermediate, Verified 03/16/25 13:42) HIVES ciprofloxacin (From CIPRO) Allergy (Unknown, Verified 03/16/25 13:42) UNKNOWN Sulfa (Sulfonamide Antibiotics) (SULFA (SULFONAMIDE ANTIBIOTICS)) Adverse Reaction (Unknown, Verified 03/16/25 13:42) NAUSEA & VOMITING Do you need a note to return to daycare/school/sports/work: No HPI HPI Comments History of Present Illness Details 69-year-old female past medical history significant for GERD, lumbar radiculopathy presenting with fatigue, malaise, myalgias, dry cough ongoing since . No known sick contacts. She also reports intermittent diffuse headaches without vision changes, dizziness, weakness or head trauma. Denies fevers, chills, chest pain, shortness of breath, vomiting, abdominal pain. Physical exam benign History and physical exam concerning for bronchitis versus viral illness. Unlikely PE, acute respiratory distress, pneumonia. No signs of acute threat to airway. Unlikely ACS Plan viral testing. Will send her home on prednisone, albuterol, benzonatate. Educated patient on diagnosis and treatment plan, answered all question, patient verbalizes understanding. At this time patient will be discharged home, advised to return with new or worsening symptoms. Educated on worrisome signs and symptoms and when to return. At this time I feel comfortable discharge home. [facility] Medical History Diabetes History of lung cancer Atrial fibrillation Surgical History History of lobectomy of lung Social History Household Members: None Housing: Apartment Do you presently have visiting nurse or other home services: No Alcohol intake: former Patient Tobacco Use Status: Former Tobacco user service: No Current occupational status: disabled Review of Systems Const Details: Constitutional : No Weight loss, No Fever, No Chills, + Fatigue, + Malaise ENT/Mouth : No sore throat, No Rhinorrhea Eyes: No Eye Pain, No Swelling, No Redness Cardiovascular : No Chest Pain, No SOB, No Dyspnea on Exertion, No Orthopnea, No Edema, No Palpitations Respiratory : + Cough, No Sputum, No Wheezing Gastrointestinal : No Nausea, No Vomiting, No Diarrhea, No Constipation, No abdominal Pain, No Hematochezia, No Melena Genitourinary : No Dysuria, No Urinary Frequency, No Hematuria, Musculoskeletal : No joint pain, No Myalgias, No Joint Swelling Skin : No Skin Lesions, No rash Neuro : No Weakness, No Numbness, No Dizziness, No Headache Psych : No Anxiety/Panic, No Depression Heme/Lymph: No Bruising, No Bleeding,No Lymphadenopathy Endocrine : No Polyuria, No Polydipsia All other systems reviewed and are negative All systems reviewed & are unremarkable except as noted in HPI and below Physical Exam Exam Exam: Appearance: Alert.? Oriented X3.? No acute distress.? Head: Normocephalic, atraumatic, no step-offs or deformities Eyes: Pupils equal, round and reactive to light.? ENT: Pharynx normal.? Neck: Normal inspection.? Neck supple.? CVS: Normal heart rate and rhythm.? Pulses normal.? Respiratory: No respiratory distress.? Breath sounds normal.? Abdomen: Soft and nontender.? Skin: Skin warm and dry.? Normal skin color.? Normal skin turgor.? Extremities: No lower extremity edema.? No calf ttp. 5/5 strength to bilateral upper and lower extremities Back: No midline tenderness, no C-spine tenderness, full range of motion, no CVA tenderness bilaterally Neuro: Oriented X 3.? No motor deficit.? No sensory deficit. CN 2-12 intact Vital Signs: Last Vital Signs Temp 98.3 F 03/16/25 13:42 Pulse 86 03/16/25 13:42 BP 140/76 H 03/16/25 13:42 Pulse Ox 96 03/16/25 13:42 Vital signs stable Assessment & Plan Assessment & Plan (1) Viral respiratory illness: Code(s): J98.8 - Other specified respiratory disorders; B97.89 - Other viral agents as the cause of diseases classified elsewhere Plan Take your medications as prescribed. If you were prescribed antibiotics today, it is important that you take your medication to their entirety, do not skip any doses, do not finish them early. Follow-up with your primary care provider this week. Return to the emergency department with new or worsening symptoms. Such as fevers, chills, chest pain, shortness of breath, nausea, vomiting, dizziness, headache, vision changes, lethargy In case of emergency call 911 Orders: Orders SARS-CoV2/FLU/RSV Today B97.89 - Other viral agents as the cause of diseases classified elsewhere, J98.8 - Other specified respiratory disorders Medications: New benzonatate 100 mg PO BID PRN 14 caps 0RF cough prednisone 40 mg (2 x 20 mg) PO DAILY 10 tabs 0RF 5 days albuterol sulfate 90 mcg/actuation 2 puffs inhalation Q6H PRN 6.7 grams 0RF shortness of breath or wheezing Coding Level of Care Code Est Pt Level 3 (55058) Diagnoses Viral respiratory illness J98.8; B97.89
--- OUTSIDE RECORDS SUMMARY | 2025-03-16 13:41 | XMS_ITS | Encounter Summary ---
Author Organization [facility] Address [address] [place] [address] Care Team Providers Care Sales Representative Adding Machines Name Role Phone Samuel Love MD Primary Care Provider Praveen Casey MD Unavailable [phone] Margie Vasquez NP Unavailable [phone] Norbert Acosta MD Primary Care Provider Unavail able Encounter Details Date Type Department Care Team Description 06/17/2021 SCAN Medical Records [address] [place] [id number] Abstract, Provider Social History Tobacco Use Types Packs/Day Years Used Date Smoking Tobacco: Never Smokeless Tobacco: Never Alcohol Use Standard Drinks/Week Comments Never 0 (1 standard drink = 0.6 oz pur e alcohol) Sex Assigned at Date Recorded Not on file Job Start Date Occupation Industry Not on file Not on file Not on file COVID-19 Exposure Response Date Recorded In the last month, have you been in contact with someone who was confirmed or suspected to have Coronavirus / COVID-19? No / Unsure 05/19/2021 9:14 AM EST documented as of this encounter Plan of Treatment Not on file documented as of this encounter Procedures Procedure Name Priority Date/Time Associated Diagnosis Comments OUTSIDE LAB Routine 06/17/2021 documented in this encounter Results * OUTSIDE LAB (06/17/2021) Provider Abstract LAB documented in this encounter Visit Diagnoses Not on filedocumented in this encounter Care Teams Sales Representative Adding Machines Relationship Specialty Start Date End Date Samuel Love MD PCP - General 10/12/1997 12/28/21 Norbert Acosta MD [facility] [address] [place] [address] PCP - General Family Practice 12/29/21 Praveen Mclean MD Specialist Cardiology 02/28/21 Margie Vasquez NP [address] [address] Cardiology 06/10/21 documented as of this encounter
--- OUTSIDE RECORDS SUMMARY | 2025-03-16 13:41 | XMS_ITS | Encounter Summary ---
Author Organization [facility] Address [address] [place] [address] Care Team Providers Care Recreation Facilities Supervisor Name Role Phone Samuel Love MD Primary Care Provider Praveen Casey MD Unavailable [phone] Margie Vasquez NP Unavailable [phone] Norbert Acosta MD Primary Care Provider Unavail able Encounter Details Date Type Department Care Team Description 11/10/2021 SCAN Medical Records [address] [place] [address] Abstract, Provider Social History Tobacco Use Types Packs/Day Years Used Date Smoking Tobacco: Never Smokeless Tobacco: Never Alcohol Use Standard Drinks/Week Comments Never 0 (1 standard drink = 0.6 oz pur e alcohol) Sex Assigned at Date Recorded Not on file Job Start Date Occupation Industry Not on file Not on file Not on file documented as of this encounter Plan of Treatment Not on file documented as of this encounter Procedures Procedure Name Priority Date/Time Associated Diagnosis Comments OUTSIDE CT Routine 11/10/2021 documented in this encounter Results * OUTSIDE CT (11/10/2021) Provider Abstract RADIOLOGY documented in this encounter Visit Diagnoses Not on filedocumented in this encounter Care Teams Recreation Facilities Supervisor Relationship Specialty Start Date End Date Samuel Love MD PCP - General 10/12/1997 12/28/21 Norbert Acosta MD [address] [address] PCP - General Family Practice 12/29/21 Praveen Mclean MD Specialist Cardiology 02/28/21 Margie Vasquez NP [facility] [address] [place] [id number] Cardiology 06/10/21 documented as of this encounter
--- OUTSIDE RECORDS SUMMARY | 2025-03-16 13:41 | XMS_ITS | Encounter Summary ---
Author Organization [facility] Address [address] [place] [address] Care Team Providers Care Property Claims Adjuster Name Role Phone Samuel Love MD Primary Care Provider Praveen Casey MD Unavailable [phone] Margie Vasquez NP Unavailable [phone] Norbert Acosta MD Primary Care Provider Unavail able Reason for Visit * Reason Onset Date Comments Medication 04/10/2020 Encounter Details Date Type Department Care Team Description 04/10/2020 Telephone General Surgery - [place] [address] [facility] [address] [place] [address] Cb Lopez DPM 175 [facility] [address] [place] [address] Medication Social History Tobacco Use Types Packs/Day Years Used Date Smoking Tobacco: Never Smokeless Tobacco: Never Sex Assigned at Date Recorded Not on file Job Start Date Occupation Industry Not on file Not on file Not on file COVID-19 Exposure Response Date Recorded In the last month, have you been in contact with someone who was confirmed or suspected to have Coronavirus / COVID-19? No / Unsure 04/03/2020 12:50 PM EDT documented as of this encounter Miscellaneous Notes * Telephone Encounter - Cb Lopez DPM - 04/15/2020 2:43 PM EDT At next appointment we can review topical options. Unforntunately, She should follow up with her pcp for oral treatment modalities * Telephone Encounter - Cande Hu - 04/10/2020 3:17 PM EDT Pt called said she was RX some cream from [place] and its not covered -- can you RX something else for her?? thanks documented in this encounter Plan of Treatment Not on file documented as of this encounter Visit Diagnoses Not on filedocumented in this encounter Care Teams Property Claims Adjuster Relationship Specialty Start Date End Date Samuel Love MD PCP - General 10/12/1997 12/28/21 Norbert Acosta MD [address] [address] PCP - General Family Practice 12/29/21 Praveen Mclean MD Specialist Cardiology 02/28/21 Margie Vasquez NP [address] [facility] [address] [place] [address] Cardiology 06/10/21 documented as of this encounter
--- OUTSIDE RECORDS SUMMARY | 2025-03-16 13:41 | XMS_ITS | Encounter Summary ---
Author Organization [facility] Address [address] [place] [address] Care Team Providers Care Shoe Folder Name Role Phone Samuel Love MD Primary Care Provider Praveen Casey MD Unavailable [phone] Margie Vasquez NP Unavailable [phone] Norbert Acosta MD Primary Care Provider Unavail able Encounter Details Date Type Department Care Team Description 04/09/2020 Healthcare Sales Representative Report Medical Records [address] [place] [address] Abstract, Provider Social History Tobacco Use Types [...] PM EDT documented as of this encounter Plan of Treatment Not on file documented as of this encounter Visit Diagnoses Not on filedocumented in this encounter Care Teams Shoe Folder Relationship Specialty Start Date End Date Samuel Love MD PCP - General 10/12/1997 12/28/21 Norbert Acosta MD [address] [address] PCP - General Family Practice 12/29/21 Praveen Mclean MD Specialist Cardiology 02/28/21 Margie Vasquez NP [address] [address] Cardiology 06/10/21 documented as of this encounter
--- OUTSIDE RECORDS SUMMARY | 2025-03-16 13:41 | XMS_ITS | Encounter Summary ---
Author Organization [facility] Address [address] [place] [address] Care Team Providers Care Data Processing Supervisor Name Role Phone Samuel Love MD Primary Care Provider Praveen Casey MD Unavailable [phone] Margie Vasquez NP Unavailable [phone] Norbert cAosta MD Primary Care Provider Unavail able Encounter Details Date Type Department Care Team Description 10/05/2021 SCAN Medical Records [address] [place] [address] Abstract, Provider Social History Tobacco Use Types [...] suspected to have Coronavirus/COVID-19? No / Unsure 09/23/2021 1:41 PM EDT documented as of this encounter Plan of Treatment Not on file documented as of this encounter Procedures Procedure Name Priority Date/Time Associated Diagnosis Comments OUTSIDE CT Routine 10/05/2021 documented in this encounter Results * OUTSIDE CT (10/05/2021) Provider Abstract RADIOLOGY documented in this encounter Visit Diagnoses Not on filedocumented in this encounter Care Teams Data Processing Supervisor Relationship Specialty Start Date End Date Samuel Love MD PCP - General 10/12/1997 12/28/21 Norbert Acosta MD [address] [facility] [address] [place] [address] PCP - General Family Practice 12/29/21 Praveen Mclean MD Specialist Cardiology 02/28/21 Margie Vasquez NP [address] [facility] [address] [place] [address] Cardiology 06/10/21 documented as of this encounter
--- OUTSIDE RECORDS SUMMARY | 2025-03-16 13:41 | XMS_ITS ---
Routine labs today Immunizati on status reviewed. Will screen based on risk factors. Regular dental and ophtho care advised as well as seat belt and sunscreen use. Distracted driving discussed. Medication reconciled . Advance directives discussed. Hyperlipidemia 08096618 E78.5 Agreed to start statin, side affect discussed aware to repeat lipids and LFT in 3mo. Advance di rective discussed with patient [id number] Z71.89 MOLST and HCP discussed and stands Atrial fibrillation 4943 6004 I48.0 Denies palpitatio n, HR regular on auscultati on.She might likely need to start anticoag now as her JANET D S - VASc is now > 1. Advised to follow up with cards. Screening for malignant neoplasm of breast [id number] Z12.39 Administra tion of pneumococcal vaccine 58805910 Z23 Obesity 946985635 E66.9 Body mass index 30+ - obesity 912271263 Z68.30 E66.9 - Diet and exercise discussed- Patient made aware of risks of obesity- Encouraged to loose weight.- Avoid starchy and fatty food- Encouraged use of green vegetables and fruits Asthma 593058428 J45.90 9 Ex-smoker 0720581 Z87.89 1 Administra tion of viral vaccine 80001737 Z23 Varicella vaccination 68 382517 Z23 Type 2 vince betes mellitus without complication 872953158 E11.9 Squamous c ell carcinoma of right lung [id number] 2609826 C34.91 Fatigue 27228790 R53.83 Z00.00 Vitamin D deficiency 347 97859 E55.9 Cobalamin deficiency 190 393978 E53.8 [id number] Anca Acosta MD Main Office [address] [facility] [address] [facility] DARRYL CAPUTO [phone] 11/28/2024 14:30:06 11/28/2024 15:14:30 Chronic back pain 660801271 G89.29 Sacroiliac disorder 2027 52703 M53.3 [id number] Health Concerns Section Related Observation LastModified by Organization Detai ls LastModified Time None Recorded Concern Status LastModified by Organization Details LastModified Time None Recorded Advance Directives Directive N: HCP declined Payers Insurance Date Sequence Insurance Name Policy Number Policy Jorgensen Covered Member ID Jorgensen Member ID Guarantor Name 12/05/2024 1 [place] (MEDICARE [place]PLACEMENT PPO) [id number] Adan Lagunas Pedro Luis [id number] Adan Pedro Luis 07/07/2024 1 [place] Adan Lagunas Pedro Luis [id number] Adan Pedro Luis 11/28/2024 2 [place] [facility] Adan Lagunas Pedro Luis [id number] Adan Pedro Luis Notes Date Note Type Note Provider Name and Address Organization Details Recorded Time 024 text/ht ml The patient reports waking up this morning with intermittent shortness of breath (SOB). Home oxygen saturation was 91%, and the pulse was noted to be 50. The patient denies any cough or cold symptoms. She has no history of COPD or recent pneumonia but has a history of asthma and atrial fibrillation (AFib), for which she follows with a facilities maintenance worker. An echocardiogram is scheduled for this Tuesday. She denies recent use of a steroid inhaler or albuterol. The dyspnea began this morning upon waking and is currently rated at 5.5/10 in severity. At its worst, the patient describes the dyspnea as 9/10 in severity. The symptoms worsen when lying flat but are not exacerbated by exertion or coughing. She denies cough productive of sputum, wheezing, chest pain, fever, or diaphoresis but does report experiencing palpitations. Pertinent PMH:History of asthmaHistory of atrial fibrillation (follows with facilities maintenance worker)No history of COPD, CHF, coronary artery disease, prior intubations, pneumothorax, or pneumonia Pertinent Social History:Ex-smoker Pertinent Review of Systems:No unilateral leg swelling, recent prolonged travel, trauma, hypercoagulable state, or hormonal therapyReports anxiety-related symptoms such as panic, dizziness, or finger paresthesiasFurther evaluation and management are ongoing, with an echocardiogram planned for Tuesday. Anca Acosta MD [address] [address], [place], [address], [facility] 05/29/2024 17:44:19 025 text/ht ml Recurrent UTIReported by PatientHPIFor associated symptoms, patient reportsurgencyanddysuriabut reportsno flank painandno back pain. For severity, patient reportsmoderate. For duration, patient reportsintermittentandlast uti date: (06/15/2024). For onset/timing, patient reportsgradual.Treated last week empirically for UTI with nitrofurantoin based on home testing. Completed course despite having some dizziness and still with cramping/frequency. No recent abx, constipation or vaginitis symptoms. Has allergies to levaquin, sulfa and PCN listed in chart but states that she was on cipro in the past without difficulties. Zelalem Richey MD [address] [address], [place], [address], [facility] 06/22/2024 14:22:19 025 text/ht ml Hypertension F/UReported by PatientHPIFor associated symptoms, patient reportsno dizziness,no lightheadedness,no chest pain, andno edema. For lifestyle, patient reportsregular exercise,limiting/avoiding salt,exercises 4 times/week, andexercises for 30 minutes/day. For medications, patient reportschecks blood pressure at home, range: (under 130/90). Follow up for bp after being high on last visit, home bp has been under 130/90.Had reassuring echo.Bp well controlled today. Anca Acosta MD [address] [facility] [address], [place], [address], [facility] 06/26/2024 14:00:11 025 text/ht ml Anxiety/DepressionReported by Patientfollowed by psych Medicare Annual Wellness VisitReported by PatientSocial/Behavioral HistoryFor diet and nutrition, patient reportshealthy diet. For fracture risk, patient reportsno sudden unexplained fractures. For physical activity, patient reportsexercises on a regular basisanddiscussed weightbearing activities.Mental Status:For concentration and memory, patient reportsdoes not forget words. For speech/motor difficulties, patient reportsno speech difficulties. For depression risk, (see phq).Functional AbilityFor activities of daily living, patient reportsunable to bathe without assistanceandunable to toilet without assistancebut reportsable to contol urination and bowels,able to dress with limited or no assistance,able to feed self with limited or no assistance,able to get out of chair or bed with limited or no assistance,able to groom with limited or no assistance, andable to toilet with limited or no assistance(gets help with company.). For instrumental activities of daily living, patient reportsunable to do house work without assistanceandunable to to prepare meals without assistancebut reportsable to grocery shop with limited or no assistance,able to manage medications with limited or no assistance,able to manage money with limited or no assistance, andable to use the phone with limited or no assistance. For hearing, patient reportsno loss of hearing. 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 For falls risk assessment, patient reportsno fall in the past year. For home safety, patient reportsno unsafe jolanta hazzards,no unsafe stairs,working smoke/co detectors,use of seatbelts,good lighting in the home, andreviewed sun protection. Here for PE visit. Reviewed chronic medications and medical problems. Discussed screening guidelines as well as goals for fitness and weight management. 2019 right upper lobectomy for NSCLC found on LCDT cancer screening. Following thoracic surgeon yearly. Complains of ongoing diffuse pain, consistent with fibromyalgia. Has prior diagnosis of cervical disc disease, but musculoskeletal symptoms seem more diffuse and non-specific at this time. Reviewed DM2 management, HbA1C today, and plans for improving diet and exercise plan. Still seeing counselor for managing anxiety and depression. Asthma control has been good. Using rescue inhaler approx 1 time per month. Is no longer smoking. Anca Acosta MD [address] [address], [place], [address], [facility] 11/23/2024 15:40:53 025 text/ht ml Back PainReported by PatientHPIFor location, patient reportspain radiating to the buttocks,pain radiating to the legs,pain radiating to the foot, andpain radiating to the ankle. For severity, patient reportsworseningandinterference with sleep. For duration, patient reportsintermittent. For onset/timing, patient reportsfirst episode (going down leg.). For context, patient reportsprior back problemsandused medications for back pain. For associated symptoms, patient reportsno fever,no numbness of the legs/feet,no tingling,no incontinence, andno shortness of breath(urge incontinence). For quality, (achy). For aggravating factors, (sitting). Anca Acosta MD [address] [facility] [address], [place], [address], [facility] 11/28/2024 16:29:49 OBGyn Episode No OBEpisode recorded. Data Portability Created on: March 16, 2025 Adan Spence .[id number] : 1955 Sex: Female Author Organization [facility], Main Office Address [address] [facility] [address] [place] [address] Care Team Providers Care Crop Or Grain Farmworker Name Role Phone [facility] Orthopedic Surgeon [phone] [facility] O F [facility] Manager Application FARAZ VARNER Records Officer [phone] URVASHI BLANCAS Supervisor Nuclear Medicine [facility]) Ph ys. Med. & Rehab DREW ROSADO Orthopedic Surgeon [phone] KULWINDER GAMBOA Records Officer MELANIA BERGER Supervisor Nuclear Medicine DL BYRNE Stockroom Selector [phone] LUIS GARSIA Piece Worker KERI ROBLES Thoracic Surgeon GREGORIO SANCHEZ Commercial Lending Assistant [phone] KULWINDER MALLORY Maxillofacial Surgery [phone] [facility] Phys. Med. & Rehab [facility] Computer Programming Supervisor [phone] ANCA ACOSTA Primary Care Provider [phone] WILLIMA DIAS Car Changer [facility] ([facility] NICOLE) Orthopedic Surgeon [facility] Dentist WANDER FLEMING Office Assistant [facility] Ophthalmologis t GUILLE MOORE Referring Provider VAMSI BAEZA Neurologist [facility] Sleep Medicine [facility] Neurologist [phone] CORNELL BUNN Rock Crushing Machine Operator [phone] [facility] Hematology/Oncol ogy Assessment Encounter Date Assessment Date Assessment LastModified by Organization Details LastModified Time 05/29/2024 05/29/2024 At this time, there is no clear explanation for the patient s shortness of breath. Her oxygen saturation in the office today was normal, and her EKG, while showing sinus arrhythmia, did not reveal any concerning findings such as ST elevations or signs of ischemia. She is not in atrial fibrillation at this time. Additionally, her Wells score for DVT and PE is 0, making these conditions less likely. She already has an echocardiogram scheduled with her facilities maintenance worker this Tuesday, and I advised her to keep that appointment and ensure the echocardiogram is performed as planned. To further investigate, I ordered laboratory tests to assess for potential contributing factors, including a complete blood count (CBC) to check for anemia, electrolytes and thyroid function tests to assess for thyroid derangements, and a proBNP to evaluate for possible heart strain. A chest X-ray was also ordered to evaluate for any pulmonary abnormalities. On examination, her lungs were clear, no edema or jugular venous distension (JVD) was noted, and her heart sounds were regular. Another consideration for her symptoms includes a panic attack, which may have been exacerbated by waking up with shortness of breath, triggering her anxiety. Her blood pressure was elevated today, which is atypical for her. She has metoprolol prescribed for atrial fibrillation but had not taken it today. I advised her to take her metoprolol as prescribed, given her normal heart rate in the office, and to monitor her symptoms closely. She was also instructed to contact her facilities maintenance worker as advised. While her current evaluation does not strongly suggest acute coronary syndrome (ACS), I emphasized the importance of maintaining a low threshold for seeking emergency care. If she experiences worsening symptoms or develops concerning signs, she should go to the nearest emergency room immediately. We also discussed the symptoms warranting a return visit to the office or an ER evaluation, and she verbalized understanding of these instructions. If she is unable to meet with her facilities maintenance worker as scheduled, I will follow up with her in approximately two weeks to reassess her blood pressure and symptoms. If her blood pressure normalizes and she remains asymptomatic, she may cancel the follow-up visit. The patient agreed with this plan. kem Not available 05/29/2024 17:40:57 06/22/2024 06/22/2024 This service was provided using telemedicine. Patient consented to video & audio visit Patient was located in the [facility]. Provider was located in the office. No other persons participated in the telemedicine visit except for the patient unless otherwise indicated here. Total time of visit was 16 minutes. [email or web address] Not available 06/22/2024 14:10:31 11/28/2024 11/28/2024 Assessment & Kalli n 1. Gluteal Tendinopathy / Greater Trochanteric Pain Syndrome (GTPS) -Posterior gluteal tenderness -Positive Trendelenburg test -Pain-limited hip movement, antalgic gait Common in combination with hip biomechanics dysfunction Plan: -Referral to physical therapy for gluteal tendon and hip stabilization rehab -Continue monitoring for persistent or focal lateral hip pain 2. Sacroiliac Joint Dysfunction / Sacroiliitis Suggested by: -Positive ANA test -Pain with twisting and long-stride walking -Limited hip and trunk ROM Plan: -Imaging: X-ray of pelvis, hips, lumbar, and sacral spine ordered to evaluate SI joints and surrounding structures -Conservative treatment: PT to include SI joint mobilization and core stabilization -Orthopedic referral placed in case further management (e.g., injections) becomes necessary 3. Femoroacetabular Impingement (VANDANA) Possible Considered due to: -Positive FADIR test -Mechanical pain with hip motion and flexion limitation -No mechanical catching/locking reported, but underlying morphology is possible Plan: -Conservative management initially with PT 4. Lumbar Facet Arthropathy / Mechanical Low Back Pain -Limited flexion, extension, and twisting suggest lumbar involvement -Chronic back symptoms and established orthopedic care support inclusion Plan: -X-ray will assess for degenerative changes -PT to address lumbar mobility/stabiliza tion -Referral to ortho re: facet-related treatment if needed 5. Sciatica / Lumbar Radiculopathy Less Likely -History of leg radiation keeps this on differential -However, negative straight leg raise, no neurologic deficit, no red flag signs Plan: -No MRI at this time -Monitor for progression or development of focal neurologic symptoms Red Flag Symptoms Reviewed -Patient advised to seek immediate evaluation if experiencing: Fever Loss of bowel/bladder control New or worsening leg weakness Saddle anesthesia or numbness Management Medications: Acetaminophen 1g PO q6h PRN pain (max 3g/day) Celecoxib (Celebrex) 5-day supply PRN for severe flare-ups Lifestyle/Diet: Activity pacing, avoid high-impact movements initially Encourage low-impact aerobic activity as tolerated (e.g., walking) Follow-Up Referral to orthopedics already placed in case injections or advanced imaging needed kem Not available 11/28/2024 16:29:26 Plan of Treatment Reminders Order Date Submit Date Provider Last Modified By Organization Details Last Modified Time Details Appointments Follow Up DM 30 2024 02:00P Joseph Acosta MD Not available Not available Not available Lab CBC w/ auto diff 2024 025 DEST[facility]Y [facility], [address] [place], [address], 11/30/2024 14:06:15 TSH, ultra-sen sitive, serum 2024 025 DESTINY [facility], [address], [place], [address], 11/30/2024 14:06:20 magnesium , serum or plasma 2024 025 DESTINY [facility] (Centralized Electronic Ordering - All Locations), Patient Can Go To The Location Of Their Choice, [id number] 11/30/2024 14:06:21 lipid panel, serum 2024 025 DESTINY [facility], [address], [place], [address], 11/30/2024 14:06:16 vitamin D, 25-hydrox y, total, serum 2024 025 DESTINY [facility], [address], [place], [address], 11/30/2024 14:06:20 HbA1c (hemoglob in A1c), blood 2024 025 DESTINY [facility] (Centralized Electronic Ordering - All Locations), Patient Can Go To The Location Of Their Choice, 11/30/2024 14:06:19 microalbu min/creat inine, mass ratio, urine 2024 025 DESTINY [facility] (Centralized Electronic Ordering - All Locations), Patient Can Go To The Location Of Their Choice, 11/30/2024 14:06:17 cobalamin and folate panel, serum 2024 025 DESTINY [facility] (Centralized Electronic Ordering - All Locations), Patient Can Go To The Location Of Their Choice, 11/30/2024 14:06:18 urinalysi s complete, reflex culture 2024 025 DESTINY [facility] (Centralized Electronic Ordering - All Locations), Patient Can Go To The Location Of Their Choice, 06/25/2024 12:05:35 CBC w/ auto diff 2023 024 DESTINY [facility] (Centralized Electronic Ordering - All Locations), Patient Can Go To The Location Of Their Choice, 05/30/2024 10:06:15 BMP, serum or plasma 2023 024 DESTINY [facility] (Centralized Electronic Ordering - All Locations), Patient Can Go To The Location Of Their Choice, 05/30/2024 10:06:16 TSH, ultra-sen sitive, serum 2023 024 DESTINY [facility] (Centralized Electronic Ordering - All Locations), Patient Can Go To The Location Of Their Choice, 05/30/2024 10:06:18 pro BNP (pro B-type natriuret ic peptide), serum or plasma 2023 024 DESTINY [facility] (Centralized Electronic Ordering - All Locations), Patient Can Go To The Location Of Their Choice, [id number] 05/30/2024 10:06:17 Referral orthopedi c surgeon referral 2024 025 DESTINY [facility], [address], [place], [address], 12/07/2024 10:34:45 physical therapist referral 2024 025 [email or web address] Not available 11/28/2024 15:14:31 Procedures None recorded. Surgeries None recorded. Imaging XR, lumbosacr al spine, 2 or 3 view 2024 025 DESTINY Not available 11/29/2024 16:21:06 XR, hip + pelvis, unilatera l, 2 or 3 view 2024 025 DESTINY Not available 11/29/2024 16:30:44 MAMMO, screening , bilateral - Perform Diagnosti c Mammogram and Breast Ultrasoun d if needed / Perform Ultrasoun d Guided Aspiratio n and/or Breast Biopsy if warranted Due for 12/2023 025 DESTINY Not available 02/05/2025 13:34:02 electroca rdiogram 2023 024 kem In-Office Order, Internal Use Only DO Not Attach Compendium DO Not Attach Compendium, Do Not Delete/merge, [id number] 05/29/2024 17:41:00 XR, chest, 2 view 2023 024 kem Not available 05/29/2024 17:40:58 Medication Orders celecoxib 200 mg capsule 2024 025 [id number], [address] [facility], [place], [place], [phone], 12/10/2024 05:01:31 albuterol sulfate HFA 90 mcg/actua tion aerosol inhaler 2024 025 kem [facility] #[id number], [address] [place], [place], [phone], 11/23/2024 15:30:57 Patient TargetsNo targets recorded. Patient Instructions Encounter Date Encounter Id Patient Instructions Last Modified By Organization Details Last Modified Time 05/29/2024 [id number] shortness of breath: care instructions kem Not available 05/29/2024 17:40:58 06/22/2024 [id number] painful urination (dysuria): care instructions [email or web address] Not available 06/22/2024 14:20:10 11/23/2024 [id number] advance care planning: care instructions kem Not available 11/23/2024 15:30:31 preventing falls: care instructions kem Not available 11/23/2024 15:30:31 medicare preventive services guide (female 74yrs and under) kem Not available 11/23/2024 15:30:31 well visit, over 65: care instructions kem Not available 11/23/2024 15:30:31 type 2 diabetes: care instructions kem Not available 11/23/2024 15:30:31 starting a weight loss plan: care instructions kem Not available 11/23/2024 15:30:31 11/28/2024 [id number] sacroiliac joint pain: care instructions kem Not available 11/28/2024 15:09:52 Reason for Referral Orthopedic Surgeon Referral for Sacroiliac disorder Referring Physician: Anca Acosta [facility], Encounter Date: 11/28/2024 Physical Therapist Referral for Sacroiliac disorder Referring Physician: Anca [facility]osta [facility], Encounter Date: 11/28/2024 Results Created Date Observation Date Name Description Value Unit Range Abnormal Flag Note LastModifiedBy Organization Detail LastModifiedTime 05/08/20 24 05/08/2024 hemog lobin A1C, finge rstic k A1C 5.6 % 4-6 normal Not Available In-Office Order Internal Use Only DO Not Attach Compendium DO Not Attach Compendium, Do Not Delete/merge, [id number] 05/08/2024 11:02:39 05/29/20 24 05/30/2024 CBC WITH DIFFE RENTI AL/PL ATELE T WBC 8.1 x10e3 /uL 3.4-10 .8 normal Not Available [facility] ([facility]) [address] [facility], [place], [address], 05/30/2024 10:06:15 05/29/20 24 05/30/2024 CBC WITH DIFFE RENTI AL/PL ATELE T RBC 4.27 x10e6 /uL 3.77-5 .28 normal Not Available [facility] ([facility]) [address] [place], [address], 05/30/2024 10:06:15 05/29/20 24 05/30/2024 CBC WITH DIFFE RENTI AL/PL ATELE T hemoglobin 14.0 g/dL 11.1-1 5.9 normal Not Available [facility] ([facility]) [address] [facility], [place], [address], 05/30/2024 10:06:15 05/29/20 24 05/30/2024 CBC WITH DIFFE RENTI AL/PL ATELE T hematocrit 41.6 % 34.0-4 6.6 normal Not Available [facility] ([facility]) [address] [facility], [place], [address], 05/30/2024 10:06:15 05/29/20 24 05/30/2024 CBC WITH DIFFE RENTI AL/PL ATELE T MCV 97 fL 79-97 normal Not Available [facility] ([facility]) [address] [place], [address], 05/30/2024 10:06:15 05/29/20 24 05/30/2024 CBC WITH DIFFE RENTI AL/PL ATELE T MCH 32.8 pg 26.6-3 3.0 normal Not Available [facility] ([facility]) [address] [place], [address], 05/30/2024 10:06:15 05/29/20 24 05/30/2024 CBC WITH DIFFE RENTI AL/PL ATELE T MCHC 33.7 g/dL 31.5-3 5.7 normal Not Available [facility] ([facility]) [address] [facility], [place], [address], 05/30/2024 10:06:15 05/29/20 24 05/30/2024 CBC WITH DIFFE RENTI AL/PL ATELE T RDW 12.0 % 11.7-1 5.4 Not Available [facility] ([facility]) [address] [facility], [place], [address], 05/30/2024 10:06:15 05/29/20 24 05/30/2024 CBC WITH DIFFE RENTI AL/PL ATELE T platelets 232 x10e3 /uL 150-45 0 normal Not Available [facility] ([facility]) [address] [facility], [place], [address], 05/30/2024 10:06:15 05/29/20 24 05/30/2024 CBC WITH DIFFE RENTI AL/PL ATELE T neutrophils 50 % not estab. normal Not Available [facility] ([facility]) [address] [facility], [place], [address], 05/30/2024 10:06:15 05/29/20 24 05/30/2024 CBC WITH DIFFE RENTI AL/PL ATELE T lymphs 39 % not estab. normal Not Available [facility] ([facility]) [address] [facility], [place], [address], 05/30/2024 10:06:15 05/29/20 24 05/30/2024 CBC WITH DIFFE RENTI AL/PL ATELE T monocytes 8 % not estab. normal Not Available [facility] ([facility]) [address] [facility], [place], [address], 05/30/2024 10:06:15 05/29/20 24 05/30/2024 CBC WITH DIFFE RENTI AL/PL ATELE T eos 1 % not estab. normal Not Available [facility] ([facility]) [address] [facility], [place], [address], 05/30/2024 10:06:15 05/29/20 24 05/30/2024 CBC WITH DIFFE RENTI AL/PL ATELE T basos 1 % not estab. normal Not Available [facility] ([facility]) [address] [facility], [place], [address], 05/30/2024 10:06:15 05/29/20 24 05/30/2024 CBC WITH DIFFE RENTI AL/PL ATELE T immature cells EMU FARMER Not Available [facility] ([facility]) [address] [place], [address], 05/30/2024 10:06:15 05/29/20 24 05/30/2024 CBC WITH DIFFE RENTI AL/PL ATELE T neutrophils (absolute) 4.2 x10e3 /uL 1.4-7. 0 normal Not Available [facility] ([facility]) [address] [place], [address], 05/30/2024 10:06:15 05/29/20 24 05/30/2024 CBC WITH DIFFE RENTI AL/PL ATELE T lymphs (absolute) 3.1 x10e3 /uL 0.7-3. 1 normal Not Available [facility] ([facility]) [address] [place], [address], 05/30/2024 10:06:15 05/29/20 24 05/30/2024 CBC WITH DIFFE RENTI AL/PL ATELE T monocytes(ab solute) 0.6 x10e3 /uL 0.1-0. 9 normal Not Available [facility] ([facility]) [address] [place], [address], 05/30/2024 10:06:15 05/29/20 24 05/30/2024 CBC WITH DIFFE RENTI AL/PL ATELE T eos (absolute) 0.1 x10e3 /uL 0.0-0. 4 normal Not Available [facility] ([facility]) [address] [facility], [place], [address], 05/30/2024 10:06:15 05/29/20 24 05/30/2024 CBC WITH DIFFE RENTI AL/PL ATELE T baso (absolute) 0.0 x10e3 /uL 0.0-0. 2 normal Not Available [facility] ([facility]) [address] [facility], [place], [address], 05/30/2024 10:06:15 05/29/20 24 05/30/2024 CBC WITH DIFFE RENTI AL/PL ATELE T immature granulocytes 1 % not estab. Not Available [facility] ([facility]) [address] [facility], [place], [address], 05/30/2024 10:06:15 05/29/20 24 05/30/2024 CBC WITH DIFFE RENTI AL/PL ATELE T immature grans (abs) 0.0 x10e3 /uL 0.0-0. 1 Not Available [facility] ([facility]) [address] [facility], [place], [address], 05/30/2024 10:06:15 05/29/20 24 05/30/2024 CBC WITH DIFFE RENTI AL/PL ATELE T NRBC EMU FARMER Not Available [facility] ([facility]) [address] [facility], [place], [address], 05/30/2024 10:06:15 05/29/20 24 05/30/2024 CBC WITH DIFFE RENTI AL/PL ATELE T hematology comments: EMU FARMER Not Available [facility] ([facility]) [address] [facility], [place], [address], 05/30/2024 10:06:15 05/29/20 24 05/30/2024 BASIC METAB OLIC PANEL (8) glucose 89 mg/dL 70-99 normal Not Available [facility] ([facility]) [address] [facility] [place], [address], 05/30/2024 10:06:16 05/29/20 24 05/30/2024 BASIC METAB OLIC PANEL (8) BUN 13 mg/dL 8-27 normal Not Available [facility] ([facility]) [address] [facility] [place], [address], 05/30/2024 10:06:16 05/29/20 24 05/30/2024 BASIC METAB OLIC PANEL (8) creatinine 0.91 mg/dL 0.57-1 .00 normal Not Available [facility] ([facility]) [address] [facility] [place], [address], 05/30/2024 10:06:16 05/29/20 24 05/30/2024 BASIC METAB OLIC PANEL (8) eGFR 69 mL/mi n/1.7 3 >59 normal Not Available [facility] ([facility]) [address] [facility] [place], [address], 05/30/2024 10:06:16 05/29/20 24 05/30/2024 BASIC METAB OLIC PANEL (8) BUN/creatini ne ratio 14 12-28 normal Not Available [facility] ([facility]) [address] [facility] [place], [address], 05/30/2024 10:06:16 05/29/20 24 05/30/2024 BASIC METAB OLIC PANEL (8) sodium 143 mmol/ L 134-14 4 normal Not Available [facility] ([facility]) [address] [place], [address], 05/30/2024 10:06:16 05/29/20 24 05/30/2024 BASIC METAB OLIC PANEL (8) potassium 4.4 mmol/ L 3.5-5. 2 normal Not Available [facility] ([facility]) [address] [place], [address], 05/30/2024 10:06:16 05/29/20 24 05/30/2024 BASIC METAB OLIC PANEL (8) chloride 104 mmol/ L 96-106 normal Not Available [facility] ([facility]) [address] [facility] [place], [address], 05/30/2024 10:06:16 05/29/20 24 05/30/2024 BASIC METAB OLIC PANEL (8) carbon dioxide, total 23 mmol/ L 20-29 normal Not Available [facility] ([facility]) [address] [facility] [place], [address], 05/30/2024 10:06:16 05/29/20 24 05/30/2024 BASIC METAB OLIC PANEL (8) calcium 9.4 mg/dL 8.7-10 .3 normal Not Available [facility] ([facility]) [address] [facility], [place], [address], 05/30/2024 10:06:16 05/29/20 24 05/30/2024 NT-HI OBNP nt-probnp 119 pg/mL 0-301 The follo wing cut-p oints have been sugge sted for the use of proBN P for the diagn ostic evalu ation of heart failu re (HF) in patie nts with acute dyspn ea: Modal ity Age Optim al Cut (year s) Point ----- ----- ----- ----- ----- ----- ----- ----- ----- ----- ---- Diagn osis (rule in HF) <50 450 pg/mL 50 - 75 900 pg/mL >75 1800 pg/mL Exclu tona (rule out HF) Age indep enden t 300 pg/mL Not Available [facility] ([facility]) [address] [facility] [place], [address], 05/30/2024 10:06:17 05/29/20 24 05/30/2024 TSH RFX ON ABNOR MAL TO FREE T4 TSH 2.470 uIU/m L 0.450- 4.500 normal Not Available [facility] ([facility]) [address] [facility], [place], [address], 05/30/2024 10:06:18 06/22/19 25 06/23/2024 UA/M W/RFL X CULTU RESERGEY NE specific gravity 1.005 1.005- 1.030 normal Not Available [facility] ([facility]) [address] [facility], [place], [address], 06/25/2024 12:05:35 06/22/19 25 06/23/2024 UA/M W/RFL X CULTDena RESERGEY NE pH 6.5 5.0-7. 5 normal Not Available [facility] ([facility]) [address] [facility], [place], [address], 06/25/2024 12:05:35 06/22/19 25 06/23/2024 UA/M W/RFL X CULTU RESERGEY NE urine-color Yellow yellow Not Available [facility] ([facility]) [address] [place], [address], 06/25/2024 12:05:35 06/22/19 25 06/23/2024 UA/M W/RFL X CULTSERGEY PANDA NE appearance Clear clear Not Available [facility] ([facility]) [address] [place], [address], 06/25/2024 12:05:35 06/22/19 25 06/23/2024 UA/M W/RFL X CULTDena RESERGEY NE WBC esterase Trace negati ve abnormal Not Available [facility] ([facility]) [address] [place], [address], 06/25/2024 12:05:35 06/22/19 25 06/23/2024 UA/M W/RFL X CULTU RE, ROUTI NE protein Negati ve negati ve/tra ce Not Available [facility] ([facility]) [address] [place], [address], 06/25/2024 12:05:35 06/22/19 25 06/23/2024 UA/M W/RFL X CULTU RE, ROUTI NE glucose Negati ve negati ve Not Available [facility] ([facility]) [address] [place], [address], 06/25/2024 12:05:35 06/22/19 25 06/23/2024 UA/M W/RFL X CULTU RE, ROUTI NE ketones Negati ve negati ve Not Available [facility] ([facility]) [address] [place], [address], 06/25/2024 12:05:35 06/22/19 25 06/23/2024 UA/M W/RFL X CULTU RE, ROUTI NE occult blood Negati ve negati ve Not Available [facility] ([facility]) [address] [place], [address], 06/25/2024 12:05:35 06/22/19 25 06/23/2024 UA/M W/RFL X CULTU RE, ROUTI NE bilirubin Negati ve negati ve Not Available [facility] ([facility]) [address] [place], [address], 06/25/2024 12:05:35 06/22/19 25 06/23/2024 UA/M W/RFL X CULTU RE, ROUTI NE urobilinogen ,semi-qn 0.2 mg/dL 0.2-1. 0 normal Not Available [facility] ([facility]) [address] [place], [address], 06/25/2024 12:05:35 06/22/19 25 06/23/2024 UA/M W/RFL X CULTU RE, ROUTI NE nitrite, urine Negati ve negati ve Not Available [facility] ([facility]) [address] [facility], [place], [address], 06/25/2024 12:05:35 06/22/19 25 06/23/2024 UA/M W/RFL X CULTU RE, ROUTI NE microscopic examination See below: Micro scopi c was indic ated and was perfo rmed. Not Available [facility] ([facility]) [address] [facility], [place], [address], 06/25/2024 12:05:35 06/22/19 25 06/23/2024 UA/M W/RFL X CULTU RE, ROUTI NE WBC None seen /hpf 0 - 5 Not Available [facility] ([facility]) [address] [facility], [place], [address], 06/25/2024 12:05:35 06/22/19 25 06/23/2024 UA/M W/RFL X CULTU RE, ROUTI NE RBC None seen /hpf 0 - 2 Not Available [facility] ([facility]) [address] [facility], [place], [address], 06/25/2024 12:05:35 06/22/19 25 06/23/2024 UA/M W/RFL X CULTU RE, ROUTI NE epithelial cells (non renal) 0-10 /hpf 0 - 10 Not Available [facility] ([facility]) [address] [place], [address], 06/25/2024 12:05:35 06/22/19 25 06/23/2024 UA/M W/RFL X CULTU RE, ROUTI NE epithelial cells (renal) EMU FARMER Not Available [facility] ([facility]) [address] [place], [address], 06/25/2024 12:05:35 06/22/19 25 06/23/2024 UA/M W/RFL X CULTU RE, ROUTI NE casts None seen /lpf none seen Not Available [facility] ([facility]) [address] [facility], [place], [address], 06/25/2024 12:05:35 06/22/19 25 06/23/2024 UA/M W/RFL X CULTU RE, ROUTI NE cast type EMU FARMER Not Available [facility] ([facility]) [address] [facility], [place], [address], 06/25/2024 12:05:35 06/22/19 25 06/23/2024 UA/M W/RFL X CULTU RE, ROUTI NE crystals EMU FARMER Not Available [facility] ([facility]) [address] [facility], [place], [address], 06/25/2024 12:05:35 06/22/19 25 06/23/2024 UA/M W/RFL X CULTU RE, ROUTI NE crystal type EMU FARMER Not Available [facility] ([facility]) [address] [facility], [place], [address], 06/25/2024 12:05:35 06/22/19 25 06/23/2024 UA/M W/RFL X CULTU RE, ROUTI NE mucus threads EMU FARMER Not Available [facility] ([facility]) [address] [facility], [place], [address], 06/25/2024 12:05:35 06/22/19 25 06/23/2024 UA/M W/RFL X CULTU RE, ROUTI NE bacteria None seen none seen/f ew Not Available [facility] ([facility]) [address] [facility], [place], [address], 06/25/2024 12:05:35 06/22/19 25 06/23/2024 UA/M W/RFL X CULTU RE, ROUTI NE yeast EMU FARMER Not Available [facility] ([facility]) [address] [facility], [place], [address], 06/25/2024 12:05:35 06/22/19 25 06/23/2024 UA/M W/RFL X CULTU RE, ROUTI NE trichomonas EMU FARMER Not Available [facility] ([facility]) [address] [facility], [place], [address], 06/25/2024 12:05:35 06/22/19 25 06/23/2024 UA/M W/RFL X CULTU RE, ROUTI NE comment EMU FARMER Not Available [facility] ([facility]) [address] [facility], [place], [address], 06/25/2024 12:05:35 06/22/19 25 06/23/2024 UA/M W/RFL X CULTU RE, ROUTI NE microscopic examination EMU FARMER Not Available [facility] ([facility]) [address] [facility], [place], [address], 06/25/2024 12:05:35 06/22/19 25 06/23/2024 UA/M W/RFL X CULTU RE, ROUTI NE urinalysis reflex Commen t This speci men has refle xed to a Urine Cultu re. Not Available [facility] ([facility]) [address] [facility], [place], [address], 06/25/2024 12:05:35 06/22/19 25 06/25/2024 UA/M W/RFL X CULTU RE, ROUTI NE urine culture, routine Final report abnormal Not Available [facility] ([facility]) [address] [facility], [place], [address], 06/25/2024 12:05:35 06/22/19 25 06/25/2024 UA/M W/RFL X CULTU RE, ROUTI NE result 1 COMMEN T abnormal Beta hemol ytic Strep tococ cus, group B Great er than 100,0 00 colon y formi ng units per mL Penic illin and ampic illin are drugs of [facility] e for treat ment of beta- hemol ytic strep tococ fabiola infec tions . Susce ptibi lity testi ng of penic illin s and other beta- lacta m agent s appro edgar by the FDA for treat ment of beta- hemol ytic strep tococ fabiola infec tions need not be perfo rmed routi anibal becau se nonsu scept ible isola maikel are extre narda rare in any beta- hemol ytic strep tococ cus and have not been repor arlen for Strep tococ cus pyoge deedee (grou p A). (CLSI ) Not Available [facility] ([facility]) [address] [facility], [place], [address], 06/25/2024 12:05:35 10/20/1910/20/2024 RUBEL LA ANTIB ODIES , IGG rubella antibodies, IgG <0.90 index immune >0.99 below low normal Non-i mmune <0.90 Equiv ocal 0.90 - 0.99 Immun e >0.99 Not Available [facility] ([facility]) [address] [facility], [place], [address], 10/20/2024 14:07:35 10/20/1910/20/2024 MUMPS ANTIB ODIES , IGG mumps abs, IgG 124.0 AU/mL immune >10.9 Negat luz marina <9.0 Equiv ocal 9.0 - 10.9 Posit luz marina >10.9 A posit luz marina resul t gener ally indic ates past expos ure to Mumps virus or previ ous vacci natio n. Not Available [facility] ([facility]) [address] [facility], [place], [address], 10/20/2024 14:07:36 10/20/1910/20/2024 MEASL ES ANTIB ODIES , IGG measles antibodies, IgG >300.0 AU/mL immune >16.4 Negat luz marina <13.5 Equiv ocal 13.5 - 16.4 Posit luz marina >16.4 Prese nce of antib odies to Rubeo la is presu mptiv e evide nce of immun ity excep t when acute infec tion is suspe cted. Not Available [facility] ([facility]) [address] [facility], [place], [address], 10/20/2024 14:07:37 11/30/19 25 11/30/2024 CBC WITH DIFFE RENTI AL/PL ATELE T WBC 6.3 x10e3 /uL 3.4-10 .8 normal Not Available [facility] ([facility]) [address] [facility], [place], [address], 11/30/2024 14:06:15 11/30/1911/30/2024 CBC WITH DIFFE RENTI AL/PL ATELE T RBC 4.19 x10e6 /uL 3.77-5 .28 normal Not Available [facility] ([facility]) [address] [place], [address], 11/30/2024 14:06:15 11/30/19 25 11/30/2024 CBC WITH DIFFE RENTI AL/PL ATELE T hemoglobin 13.3 g/dL 11.1-1 5.9 normal Not Available [facility] ([facility]) [address] [facility], [place], [address], 11/30/2024 14:06:15 11/30/19 25 11/30/2024 CBC WITH DIFFE RENTI AL/PL ATELE T hematocrit 41.1 % 34.0-4 6.6 normal Not Available [facility] ([facility]) [address] [place], [address], 11/30/2024 14:06:15 11/30/1911/30/2024 CBC WITH DIFFE RENTI AL/PL ATELE T MCV 98 fL 79-97 above high normal Not Available [facility] ([facility]) [address] [place], [address], 11/30/2024 14:06:15 11/30/19 25 11/30/2024 CBC WITH DIFFE RENTI AL/PL ATELE T MCH 31.7 pg 26.6-3 3.0 normal Not Available [facility] ([facility]) [address] [facility], [place], [address], 11/30/2024 14:06:15 11/30/19 25 11/30/2024 CBC WITH DIFFE RENTI AL/PL ATELE T MCHC 32.4 g/dL 31.5-3 5.7 normal Not Available [facility] ([facility]) [address] [facility], [place], [address], 11/30/2024 14:06:15 11/30/1911/30/2024 CBC WITH DIFFE RENTI AL/PL ATELE T RDW 12.5 % 11.7-1 5.4 Not Available [facility] ([facility]) [address] [facility], [place], [address], 11/30/2024 14:06:15 11/30/19 25 11/30/2024 CBC WITH DIFFE RENTI AL/PL ATELE T platelets 221 x10e3 /uL 150-45 0 normal Not Available [facility] ([facility]) [address] [facility], [place], [address], 11/30/2024 14:06:15 11/30/19 25 11/30/2024 CBC WITH DIFFE RENTI AL/PL ATELE T neutrophils 44 % not estab. normal Not Available [facility] ([facility]) [address] [facility], [place], [address], 11/30/2024 14:06:15 11/30/19 25 11/30/2024 CBC WITH DIFFE RENTI AL/PL ATELE T lymphs 44 % not estab. normal Not Available [facility] ([facility]) [address] [facility], [place], [address], 11/30/2024 14:06:15 11/30/19 25 11/30/2024 CBC WITH DIFFE RENTI AL/PL ATELE T monocytes 9 % not estab. normal Not Available [facility] ([facility]) [address] [place], [address], 11/30/2024 14:06:15 11/30/19 25 11/30/2024 CBC WITH DIFFE RENTI AL/PL ATELE T eos 2 % not estab. normal Not Available [facility] ([facility]) [address] [place], [address], 11/30/2024 14:06:15 11/30/19 25 11/30/2024 CBC WITH DIFFE RENTI AL/PL ATELE T basos 1 % not estab. normal Not Available [facility] ([facility]) [address] [facility], [place], [address], 11/30/2024 14:06:15 11/30/19 25 11/30/2024 CBC WITH DIFFE RENTI AL/PL ATELE T immature cells EMU FARMER Not Available [facility] ([facility]) [address] [place], [address], 11/30/2024 14:06:15 11/30/19 25 11/30/2024 CBC WITH DIFFE RENTI AL/PL ATELE T neutrophils (absolute) 2.8 x10e3 /uL 1.4-7. 0 normal Not Available [facility] ([facility]) [address] [place], [address], 11/30/2024 14:06:15 11/30/19 25 11/30/2024 CBC WITH DIFFE RENTI AL/PL ATELE T lymphs (absolute) 2.8 x10e3 /uL 0.7-3. 1 normal Not Available [facility] ([facility]) [address] [place], [address], 11/30/2024 14:06:15 11/30/19 25 11/30/2024 CBC WITH DIFFE RENTI AL/PL ATELE T monocytes(ab solute) 0.6 x10e3 /uL 0.1-0. 9 normal Not Available [facility] ([facility]) [address] [facility], [place], [address], 11/30/2024 14:06:15 11/30/19 25 11/30/2024 CBC WITH DIFFE RENTI AL/PL ATELE T eos (absolute) 0.1 x10e3 /uL 0.0-0. 4 normal Not Available [facility] ([facility]) [address] [facility], [place], [address], 11/30/2024 14:06:15 11/30/19 25 11/30/2024 CBC WITH DIFFE RENTI AL/PL ATELE T baso (absolute) 0.0 x10e3 /uL 0.0-0. 2 normal Not Available [facility] ([facility]) [address] [facility], [place], [address], 11/30/2024 14:06:15 11/30/19 25 11/30/2024 CBC WITH DIFFE RENTI AL/PL ATELE T immature granulocytes 0 % not estab. Not Available [facility] ([facility]) [address] [facility], [place], [address], 11/30/2024 14:06:15 11/30/19 25 11/30/2024 CBC WITH DIFFE RENTI AL/PL ATELE T immature grans (abs) 0.0 x10e3 /uL 0.0-0. 1 Not Available [facility] ([facility]) [address] [facility], [place], [address], 11/30/2024 14:06:15 11/30/19 25 11/30/2024 CBC WITH DIFFE RENTI AL/PL ATELE T NRBC EMU FARMER Not Available [facility] ([facility]) [address] [facility], [place], [address], 11/30/2024 14:06:15 11/30/19 25 11/30/2024 CBC WITH DIFFE RENTI AL/PL ATELE T hematology comments: EMU FARMER Not Available [facility] ([facility]) [address] [facility], [place], [address], 11/30/2024 14:06:15 11/30/19 25 11/29/2024 LIPID PANEL cholesterol, total 135 mg/dL 100-19 9 normal Not Available [facility] ([facility]) [address] [place], [address], 11/30/2024 14:06:16 11/30/19 25 11/29/2024 LIPID PANEL triglyceride s 131 mg/dL 0-149 normal Not Available [facility] ([facility]) [address] [place], [address], 11/30/2024 14:06:16 11/30/19 25 11/29/2024 LIPID PANEL HDL cholesterol 49 mg/dL >39 normal Not Available [facility] ([facility]) [address] [place], [address], 11/30/2024 14:06:16 11/30/19 25 11/29/2024 LIPID PANEL VLDL cholesterol fabiola 23 mg/dL 5-40 Not Available [facility] ([facility]) [address] [place], [address], 11/30/2024 14:06:16 11/30/19 25 11/29/2024 LIPID PANEL LDL chol calc ([facility]) 63 mg/dL 0-99 Not Available [facility] ([facility]) [address] [place], [address], 11/30/2024 14:06:16 11/30/19 25 11/29/2024 LIPID PANEL LDL calc comment: EMU FARMER Not Available [facility] ([facility]) [address] [place], [address], 11/30/2024 14:06:16 11/30/19 25 11/30/2024 ALBUM IN/CR EAT RATIO , RANDO M UR creatinine, urine 113.4 mg/dL not estab. normal Not Available [facility] ([facility]) [address] [facility], [place], [address], 11/30/2024 14:06:17 20 25 11/30/2024 ALBUM IN/CR EAT RATIO , RANDO M UR albumin, urine <3.0 ug/mL not estab. Not Available [facility] ([facility]) [address] [facility], [place], [address], 11/30/2024 14:06:17 11/30/19 25 11/30/2024 ALBUM IN/CR EAT RATIO , RANDO M UR alb/creat ratio <3 mg/g_ creat 0-29 Elaine l: 0 - 29 Moder ately incre ased: 30 - 300 Sever cirsta incre ased: >300 Not Available [facility] ([facility]) [address] [facility], [place], [address], 11/30/2024 14:06:17 11/30/19 25 11/29/2024 VITAM IN B12 AND FOLAT E vitamin B12 308 pg/mL 232-12 45 normal Not Available [facility] ([facility]) [address] [facility], [place], [address], 11/30/2024 14:06:18 11/30/19 25 11/30/2024 VITAM IN B12 AND FOLAT E folate (folic acid), serum 15.7 NG/mL >3.0 normal A serum folat e kaitlynn ntrat ion of less than 3.1 ng/mL is consi dered to repre sent clini fabiola defic iency . Not Available [facility] ([facility]) [address] [facility], [place], [address], 11/30/2024 14:06:18 11/30/19 25 11/30/2024 HEMOG LOBIN A1C hemoglobin A1C 5.7 % 4.8-5. 6 above high normal Predi abete s: 5.7 - 6.4 Diabe maikel: >6.4 Glyce keyona contr ol for adult s with diabe maikel: <7.0 Not Available [facility] ([facility]) [address] [facility], [place], [address], 11/30/2024 14:06:19 11/30/19 25 11/30/2024 VITAM IN D, 25-HY DROXY vitamin D, 25-hydroxy 46.9 NG/mL 30.0-1 00.0 Vitam in D defic iency has been defin ed by the Insti tute of Medic ine and an Endoc rine Socie ty pract ice guide line as a level of serum 25-OH vitam in D less than 20 ng/mL (1,2) . The Endoc rine Socie ty went on to furth er defin e vitam in D insuf ficie ncy as a level betwe en 21 and 29 ng/mL (2). 1. IOM (Inst itute of Medic ine). 2009. Jean Claudea ry refer ence brittney es for calci um and D. Cynthia gimenez [place]: The Natio nal [facility] Press . 2. Haile fernández [place], Cristobal chaidez [place], Jovanny off-F errar i ALFARO, et al. Evalu ation , treat ment, and preve ntion of vitam in D defic iency : an Endoc rine Socie ty clini fabiola pract ice guide line. JCEM. 2010; 96(7) :1911 -30. Not Available [facility] ([facility]) [address] [facility], [place], [address], 11/30/2024 14:06:20 11/30/19 25 11/30/2024 TSH RFX ON ABNOR MAL TO FREE T4 TSH 2.940 uIU/m L 0.450- 4.500 normal Not Available [facility] ([facility]) [address] [facility], [place], [address], 11/30/2024 14:06:20 11/30/19 25 11/30/2024 MAGNE SIUM magnesium 2.1 mg/dL 1.6-2. 3 normal Not Available [facility] ([facility]) [address], [place], [address], 11/30/2024 14:06:21 05/10/20 24 05/09/2024 MRI, liver , w/wo contr ast No observ ation record ed. [facility] [address], [place], [address], 05/11/2024 10:36:53 05/29/20 24 05/29/2024 elect rocar diogr am No observ ation record ed. [email or web address] In-Office Order Internal Use Only DO Not Attach Compendium DO Not Attach Compendium, Do Not Delete/merge, [id number] 05/30/2024 10:24:15 05/29/20 elect rocar diogr am No observ ation record ed. [email or web address] In-Office Order Internal Use Only DO Not Attach Compendium DO Not Attach Compendium, Do Not Delete/merge, [id number] 05/29/2024 15:20:21 05/29/20 24 05/29/2024 XR, chest , 2 view No observ ation record ed. [email or web address] Not Available 05/30 09:01:45 05/29/20 24 05/29/2024 XR, chest , 2 view Chest 2 Views Fronta l and Lat Reason : dyspne a COMPAR KEKE: Multip le prior chest radiog raphs with the most recent dated 022. FINDIN GS: LINES AND TUBES: None. LUNGS AND PLEURA : Clear lungs. Normal pulmon macey vascul arity. No pleura l effusi on. No pneumo thorax . HEART, MEDIAS TINUM AND ZACHARY: Heart is normal in size. Normal medias tinal and hilar contou r. The aorta is calcif ied BONES AND SOFT TISSUE S: No acute abnorm ality. Mild multil evel degene rative change mid and lower thorac ic spine IMPRES TONA: No acute abnorm ality. WSN: [id number] Orderi ng Physic mya: Bushra Acosta Dictat ed By: Cris lockhart MD, Mook Echeverria Dictat ed Date/T ric: 4:21 pm Review ed By: Cris lockhart MD, Mook Echeverria Signed By: Cris lockhart MD, Mook Echeverria Signed /T ric: 4:21 pm Transc ribed By: KARINA Transc ribed Date/T ric: 4:20 pm Patien t Class: Outpat ient DESTINY [facility] (Outpt Imaging) [address] [facility], [place], [address], 05/30/2024 10:52:53 06/04/20 24 06/01/2024 trans thora cic echoc ardio gram (TTE) compl ete (cont rast/ bubbl e/3D PRN) No observ ation record ed. [email or web address] [facility] [address] [facility], [place], [address], 06/04/2024 16:01:44 06/05/20 24 06/04/2024 trans -thor acic echoc ardio gram (TTE) (PROC ) No observ ation record ed. [facility] [address] [facility] [address], [place], [address], 06/05/2024 16:57:58 07/13/19 25 07/12/2024 XR, abdom en, 1 view See Note [facility] , a member of [employer] Patien t Name: ADAN ARRIAZA Date of : 1955 Reason for Exam: assess jeanette pation Exam Date: 2024 [id number] EST Report Status : Final Orderi ng Provid er: EVER Booth PCP: BUSHRA ACOSTA HISTOR Y: The patien t is a 68-yea r-old female with provid ed histor y of both consti pation and diarrh ea. FINDIN GS: Supine radiog raphs of the abdome n demons trate mild dextro scolio sis of the lumbar spine as also seen on the prior study perfor med 024. The bowel gas patter n is nonobs tructi ve. A modera te amount of fecal materi al is presen t in the colon from the cecum to the rectum consis tent with modera te consti pation , simila r in appear ance to the prior study perfor med . No mass or radiop aque calcul us is seen. IMPRES TONA: Nonobs tructi ve bowel gas patter n. There is eviden ce of modera te consti pation , unchan ged since . Code 12865 ------ -- FINAL REPORT ------ -- Dictat ed By: Guille Dumont Dictat ed Date: 2024 11:56 ET Assign ed Physic mya: Guille Dumont Review ed and Electr onical ly Signed By: Guille Dumont Signed Date: 2024 11:57 ET Workst ation ID: [id number] Transc ribed By: Self Edit Transc ribed Date: 2024 11:[address], [address], 07/13/2024 12:22:24 07/19/19 25 07/17/2024 elect romyo gram + nerve condu ction study No observ ation record ed. [facility] [address] [facility], [place], [address], 07/20/2024 08:28:50 08/30/19 25 08/29/2024 ECG 12-le ad No observ ation record ed. [address], [address], 08/29/2024 16:56:12 09/06/19 25 ECG 12-le ad No observ ation record ed. [address], [address], 09/05/2024 17:53:17 11/30/19 25 11/29/2024 XR, lumba r spine Lumbar Spine 2 or 3 Views Reason : SI joint dysfun ction COMPAR KEKE: 021 FINDIN GS: No bone lesion s or fractu res. Mesent ann space narrow ing L1-L2 throug h L3-L4 with margin al osteop hyte format ion. The L4-L5 and L5-S1 disc spaces are fairly well preser edgar. Degene rative change s also presen t in the visual ized lower thorac ic spine. There are minor retrol isthes es at L1-L2 and L2-L3, alignm ent elsewh ere satisf actory . There is pronou nced facet arthro eugenio L5-S1. No eviden ce for spondy lolysi s. Normal soft tissue s. IMPRES TONA: Multil evel degene rative change s as detail ed above. No acute findin gs. WSN: [id number] Orderi ng Physic mya: Bushra Acosta ai Dictat ed By: Lissett Carpenter MD Dictat ed Date/T ric: 4:16 pm Review ed By: Austin rodriguez MD, Lissett bustillo H Signed By: Lissett Carpenter MD Signed Date/T ric: 4:16 pm Transc ribed By: KARINA Transc ribed Date/T ric: 4:13 pm Patien t Class: Outpat ient [facility] (Outpt Imaging) [address] , [place], [address], 11/29/2024 22:15:38 11/30/19 25 11/29/2024 XR, lumbo sacra l spine , 2 or 3 view No observ ation record ed. [facility] [address] [facility], [place], [address], 11/29/2024 16:29:59 11/30/19 25 11/29/2024 XR, hip + pelvi s, unila teral , 2 or 3 view No observ ation record ed. [facility] [address] [facility], [place], [address], 11/29/2024 16:35:12 11/30/19 25 11/29/2024 XR, hip + pelvi s, unila teral , 2 or 3 view XR Hip w/Pelv is 2-3 View Left Reason : SI joint dysfun ction COMPAR KEKE: None. FINDIN GS: The pelvic ring intact with grossl y normal -appea ring sacroi liac joints . No fractu res or focal bone lesion s. The left hip joint is well mainta ined withou t any degene rative change s or eviden ce for avascu lar necros is of the femora l head. There are bony hypert rophic change s about the greate r trocha nter. Normal soft tissue s. IMPRES TONA: No acute findin gs. Normal -appea ring left hip joint. Enthes opathi c change s about the left greate r trocha nter. WSN: [id number] Orderi ng Physic mya: Bushra Acosta Dictat ed By: Austin rodriguez MD, Lsisett Martínez Dictat ed Date/T ric: 4:25 pm Review ed By: Austin rodriguez MD, Lissett bustillo H Signed By: Lissett Carpenter MD H Signed Date/T ric: 4:25 pm Transc ribed By: KARINA Transc ribed Date/T ric: 4:23 pm Patien t Class: Outpat ient [facility] (Outpt Imaging) [address] [place], [address], 11/29/2024 22:15:38 12/19/19 25 12/18/2024 XR, abdom en, 1 view See Note [facility] , a member of [employer] Patien t Name: ADAN ARRIAZA Date of : 1955 Reason for Exam: consti pation Exam Date: 2024 [id number] EST Report Status : Final Orderi ng Provid er: PATRICK HUNG PCP: BUSHRA ACOSTA Histor y: Chroni c consti pation . Findin gs: AP supine views of the abdome n and pelvis . Compar keke is made to 5. No bowel dilata tion is identi fied. There is formed fecal materi al within the colon which does not appear to be excess luz marina, overal l improv ed since the previo us study. Solid viscer al outlin es are unrema rkable . There are degene rative change s in the lumbar spine. IMPRES TONA: Impres tona: Nonobs tructi ve bowel gas jeison DELVALLE ( ) ------ -- FINAL REPORT ------ -- Dictat ed By: Crispin Luna Dictat ed Date: 2024 16:14 ET Assign ed Physic mya: Crispin Luna Review ed and Electr onical ly Signed By: Crispin Luna Signed Date: 2024 16:16 ET Workst ation ID: [id number] Transc ribed By: Self Edit Transc ribed Date: 2024 16:14 ET [facility] U/S Dept [address] [place] [address], [address], 12/18/2024 16:45:22 01/28/20 25 01/27/2025 XR, chest , 2 view No observ ation record ed. [facility] (Medical Records) [address] [place], [address], 01/28/2025 07:57:32 01/28/20 25 01/27/2025 US, abdom en, compl ete No observ ation record ed. [facility] (Medical Records) [address] [place], [address], 01/28/2025 07:57:47 02/06/20 25 02/04/2025 MAMMO , scree lindsey, digit al, bilat eral PROCED URE: MM Digita l Mammo Screen ing INDICA TION: Screen ing. No known palpab le abnorm alitie s. COMPAR KEKE: Dating back to 022 TECHNI QUE: Full-f ield digita l CC and MLO 3D tomosy nthesi s images of both breast s were acquir ed. Comput er-aid ed detect ion (CAD) was utiliz ed in the interp retati on of this study. DENSIT Y: The breast s are almost entire ly fatty. FINDIN GS: No suspic ious masses , suspic ious microc alcifi cation s, or areas of ethel ectura l distor tion are seen in either breast to sugges t malign mehrdad. IMPRES TONA: No mammog raphic eviden ce of malign mehrdad. RECOMM ENDATI ON: Annual mammog raphic screen ing BI-RAD S: 1 (Negat luz marina) Lay letter mailed to patinneka t WSN: [id number] Orderi ng Physic mya: Bushra Acosta Dictat ed By: Erik Song MD Dictat ed Date/T ric: 1:28 pm Review ed By: Erik Song MD Signed By: Erik Song MD Signed Date/T ric: 1:28 pm Transc ribed By: CSB Transc riptio n Date/T ric: 1:28 pm Birads : Hu t Class: Outpat ient [email or web address] [facility] (Outpt Imaging) [address], [place], [address], 02/05/2025 14:08:29 02/06/20 25 02/04/2025 MAMMO , scree lindsey, bilat eral No observ ation record ed. [email or web address] [facility] Imaging [address] [facility], [place], [address], 02/05/2025 14:09:02 03/06/20 ECG 12-le ad No observ ation record ed. [facility] U/S Dept [address] [place], [address], 03/07/2025 11:21:38 03/14/2003/11/2025 cardi ac mino r monit or No observ ation record ed. [facility] U/S Dept [address] [facility] [place], [address], 03/15/2025 14:40:05 Result Notes Documentation Provider Name and Address Organization Details Recorded Time Xr, Chest, 2 View : Chest 2 Views Frontal and Lat Reason: dyspnea COMPARISON: Multiple prior chest radiographs with the most recent dated 02/17/2022. FINDINGS: LINES AND TUBES: None. LUNGS AND PLEURA: Clear lungs. Normal pulmonary vascularity. No pleural effusion. No pneumothorax. HEART, MEDIASTINUM AND ZACHARY: Heart is normal in size. Normal mediastinal and hilar contour. The aorta is calcified BONES AND SOFT TISSUES: No acute abnormality. Mild multilevel degenerative change mid and lower thoracic spine IMPRESSION: No acute abnormality. WSN: [id number] Ordering Physician: Anca Acosta Dictated By: Mook Escobar MD, V Dictated Date/Time: 05/29/24 4:21 pm Reviewed By: Mook Escobar MD, V Signed By: Mook Escobar MD, V Signed Date/Time: 05/29/24 4:21 pm Transcribed By: KARINA Transcribed Date/Time: 05/29/24 4:20 pm Patient Class: Outpatient Anca Acosta MD [address], [address], [facility] 05/29/2024 17:13:54 Xr, Abdomen, 1 View : See Note [facility], a member of [employer] Patient Name: ADAN SPENCE Date of : 1955 Reason for Exam: assess constipation Exam Date: 07/12/2024 [id number] EST Report Status: Final Ordering Provider: EVER WEBB PCP: ANCA ACOSTA HISTORY: The patient is a 68-year-old female with provided history of both constipation and diarrhea. FINDINGS: Supine radiographs of the abdomen demonstrate mild dextroscoliosis of the lumbar spine as also seen on the prior study performed 03/15/2024. The bowel gas pattern is nonobstructive. A moderate amount of fecal material is present in the colon from the cecum to the rectum consistent with moderate constipation, similar in appearance to the prior study performed 03/15/2024. No mass or radiopaque calculus is seen. IMPRESSION: Nonobstructive bowel gas pattern. There is evidence of moderate constipation, unchanged since 03/15/2024. Code 71506 -------- FINAL REPORT -------- Dictated By: Guille Chiang Dictated Date: 07/13/2024 11:56 ET Assigned Physician: Guille Chiang Reviewed and Electronically Signed By: Guille Chiang Signed Date: 07/13/2024 11:57 ET Workstation ID: [id number] Transcribed By: Self Edit Transcribed Date: 07/13/2024 11:56 ET Anca Acosta MD [address] [address], [place], [address], [facility] [place]/13/2024 12:22:24 Xr, Lumbar Spine : Lumbar Spine 2 or 3 Views Reason: SI joint dysfunction COMPARISON: 10/14/2020 FINDINGS: No bone lesions or fractures. Mesentery space narrowing L1-L2 through L3-L4 with marginal osteophyte formation. The L4-L5 and L5-S1 disc spaces are fairly well preserved. Degenerative changes also present in the visualized lower thoracic spine. There are minor retrolistheses at L1-L2 and L2-L3, alignment elsewhere satisfactory. There is pronounced facet arthropathy L5-S1. No evidence for spondylolysis. Normal soft tissues. IMPRESSION: Multilevel degenerative changes as detailed above. No acute findings. WSN: [id number] Ordering Physician: Anca Acosta Dictated By: Terry Diaz MD Dictated Date/Time: 11/29/24 4:16 pm Reviewed By: Terry Diaz MD Signed By: Terry Diaz MD Signed Date/Time: 11/29/24 4:16 pm Transcribed By: CSB Transcribed Date/Time: 11/29/24 4:13 pm Patient Class: Outpatient Anca Acosta MD [address] [address], [place], [address], [facility] 11/29/2024 16:29:50 Xr, Hip + Pelvis, Unilateral, 2 Or 3 View : XR Hip w/Pelvis 2-3 View Left Reason: SI joint dysfunction COMPARISON: None. FINDINGS: The pelvic ring intact with grossly normal-appearing sacroiliac joints. No fractures or focal bone lesions. The left hip joint is well maintained without any degenerative changes or evidence for avascular necrosis of the femoral head. There are bony hypertrophic changes about the greater trochanter. Normal soft tissues. IMPRESSION: No acute findings. Normal-appearing left hip joint. Enthesopathic changes about the left greater trochanter. WSN: [id number] Ordering Physician: Anca Acosta Dictated By: Terry Diaz MD Dictated Date/Time: 11/29/24 4:25 pm Reviewed By: Terry Diaz MD Signed By: Terry Diaz MD Signed Date/Time: 11/29/24 4:25 pm Transcribed By: CSB Transcribed Date/Time: 11/29/24 4:23 pm Patient Class: Outpatient Anca Acosta MD [address] [address], [place], [address], [facility] 11/29/2024 16:35:02 Xr, Abdomen, 1 View : See Note [facility], a member of [employer] Patient Name: ADAN SPENCE Date of : 1955 Reason for Exam: constipation Exam Date: 12/18/2024 [id number] EST Report Status: Final Ordering Provider: CHADWICK HUNG PCP: ANCA ACOSTA History: Chronic constipation. Findings: AP supine views of the abdomen and pelvis. Comparison is made to 07/12/24. No bowel dilatation is identified. There is formed fecal material within the colon which does not appear to be excessive, overall improved since the previous study. Solid visceral outlines are unremarkable. There are degenerative changes in the lumbar spine. IMPRESSION: Impression: Nonobstructive bowel gas [place] ([id number]) -------- FINAL REPORT -------- Dictated By: Alida Hanna Dictated Date: 12/18/2024 16:14 ET Assigned Physician: Alida Hanna Reviewed and Electronically Signed By: Alida Hanna Signed Date: 12/18/2024 16:16 ET Workstation ID: [id number] Transcribed By: Self Edit Transcribed Date: 12/18/2024 16:14 ET Anca Acosta MD [address] [facility] [address], [place], [address], [facility] 12/18/2024 16:45:22 Mammo, Screening, Digital, Bilateral : PROCEDURE: MM Digital Mammo Screening INDICATION: Screening. No known palpable abnormalities. COMPARISON: Dating back to 12/16/2021 TECHNIQUE: Full-field digital CC and MLO 3D tomosynthesis images of both breasts were acquired. Computer-aided detection (CAD) was utilized in the interpretation of this study. DENSITY: The breasts are almost entirely fatty. FINDINGS: No suspicious masses, suspicious microcalcifications, or areas of architectural distortion are seen in either breast to suggest malignancy. IMPRESSION: No mammographic evidence of malignancy. RECOMMENDATION: Annual mammographic screening BI-RADS: 1 (Negative) Lay letter mailed to patient WSN: [id number] Ordering Physician: Anca Acosta Dictated By: Erik Song MD Dictated Date/Time: 02/05/25 1:28 pm Reviewed By: Erik Song MD Signed By: Erik Snog MD Signed Date/Time: 02/05/25 1:28 pm Transcribed By: KARINA [employer] Location Manager Date/Time: 02/05/25 1:28 pm Birads: Patient Class: Outpatient Lina Gandhi charles [facility] 02/05/2025 14:08:29 Problems Name Problem SNOMED Code Status Onset Date Resolution Date Notes Provider Name and Address Organization Details Recorded Time Epigastr ic pain 62418781 Completed 08/25/2016 Samuel Love MD [address] [facility] [address], [place], [address] , [facility] 1 19:20:40 Generali zed anxiety disorder 60870364 Active Not Available [facility] 0 12:03:48 Intrinsi c asthma 671096967 Completed 09/07/2017 Nidia Nguyen charles [facility] [place] 1 06:28:29 Neck pain 50415871 Completed 07/25/2022 Anca Acosta MD [address] [facility] [address], [place], [address] , [facility] 3 22:54:13 Chronic pain syndrome 417443329 Completed 10/20/2018 Samuel Love MD [address] [facility] [address], [address] , [facility] 9 15:20:32 Fibromyo sitis 57849580 Completed 04/30/2019 Araceli Andrews PA-C [address] [facility] [address], [place], [address] , [facility] 4 11:02:04 Gastroes ophageal reflux disease 102978272 Active Not Available [facility] 0 12:03:49 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 969697266 Active Not Available [facility] 0 12:03:49 Hyperlip idemia 66811215 [facility] 5 13:37:33 Insomnia 753494962 Completed 10/08/2023 Anca Acosta MD [address] [address], [place], [address] , [facility] 4 13:17:17 Paronych ia of toe 303670174 Completed 10/20/2018 Anca Acosta MD [address] [address], [place], [address] , [facility] 3 22:54:24 Prematur e beats 65943540 Active Not Available [facility] 0 12:03:48 Benign neoplasm of skin 79484456 Completed 04/30/2019 Anca Acosta MD [address] [address], [place], [address] , [facility] 4 13:17:10 Vitamin D deficien cy 35455411 Active Not Available [facility] 0 12:03:48 Benign paroxysm al position al vertigo 237627483 Active Not Available [facility] 0 12:03:49 Heel pain 5784774 Completed 04/30/2019 Anca Acosta MD [address] [address], [place], [address] , [facility] 3 22:54:05 Breast lump 69081012 Completed 04/30/2019 Anca Acosta MD [address], [place], [address] , [place] [facility] 3 13:34:23 Brachial radiculi tis 51414526 Completed 10/10/2023 Anca Acosta MD [address], [place], [address] , [place] [facility] 4 15:05:35 Ventricu lar prematur e complex 796567246 Active Not Available [facility] 0 12:03:49 Headache 89638559 Completed 10/08/2023 Anca Acosta MD [address], [place], [address] , [facility] 4 13:16:48 Chiari malforma tion type I 745612828 Completed 06/22/2021 Removal Reason: repeat MRI does not show Chiari Malforma tion Nidia Nguyen us null, [facility] 2 13:38:10 Anxiety 39590038 Completed 06/03/2021 Nidia Nguyen us null, [facility] 1 06:30:04 Chronic tremor 233379783 Active Not Available [facility] 0 12:03:49 Acute pharyngi tis 715210387 Completed 09/09/2016 Dustin eden [place] null, [facility] 0 16:32:37 Cough 67425211 Completed 12/09/2016 Dustin eden [place] null, [facility] 0 16:32:44 Acute sinusiti s 64995485 Completed 08/25/2016 DARRYL Enriquez, [facility] 0 16:32:11 Acute asthma Completed 06/09/2020 Araceli Andrews PA-C [address], [place], [address] , [facility] 0 13:57:24 Chronic sinusiti s 01429025 Completed 08/25/2016 Samuel Love MD [address] [facility] [address], [place], [address] , [facility] 9 13:51:14 Left lower quadrant pain 658349612 Completed 09/09/2016 Dustin eden [place] null, [facility] 0 16:32:35 Constipa tion 90542448 Completed 04/30/2019 Anca Acosta MD [address] [address], [place], [address] , [facility] 3 22:53:23 Moderate persiste nt asthma 142886066 Active Not Available [facility] 0 12:03:49 Somatofo rm autonomi c dysfunct ion 776576812 Completed 04/30/2019 Araceli Andrews PA-C [address] [address], [place], [address] , [facility] 4 11:02:24 Paronych ia of toe 296610269 Completed 04/30/2019 Anca Acosta MD [address] [address], [place], [address] , [facility] 3 22:54:24 Chronic sinusiti s 23103340 Completed 04/30/2019 Samuel Love MD [address] [facility] [address], [place], [address] , [facility] 9 13:51:14 Thoracic back pain 088243433 Completed 10/08/2023 Anca Acosta MD [address] [address], [place], [address] , [facility] 4 13:18:17 Anxiety disorder 956517732 Completed 10/08/2023 Anca Acosta MD [address] [facility] [address], [place], [address] , [facility] 4 13:17:51 Intrinsi c asthma 720590044 Completed 06/03/2021 Nidia Barriosaxel null, [facility] 1 06:28:29 Left lower quadrant pain 464407803 Completed 04/02/2020 Dustin eden [place] null, [facility] 0 16:32:35 Chronic pain syndrome 533085085 Active Not Available [facility] 0 12:03:49 Epigastr ic pain 67886231 Completed 04/30/2019 Samuel Love MD [address], [place], [address] , [facility] 1 19:20:40 Breast lump 20865799 Completed 07/26/2022 Anca Acosta MD [address], [place], [address] , [facility] 3 13:34:23 Benign neoplasm of skin 48264107 Completed 10/08/2023 Anca Acosta MD [address], [place], [address] , [facility] 4 13:17:10 Major depressi ve disorder 679800144 Active Not Available [facility] 0 12:03:48 Heel pain 7444824 Completed 07/25/2022 Anca Acosta MD [address], [place], [address] , [facility] 3 22:54:05 Paronych ia of toe 372039800 Completed 07/25/2022 Anca Acosta MD [address] [facility] [address], [place], [address] , [facility] 3 22:54:24 Chronic sinusiti s 22927609 Active Not Available [facility] 0 12:03:49 Constipa tion 74925842 Completed 07/25/2022 Anca Acosta MD [address], [place], [address] , [facility] 3 22:53:22 Epigastr ic pain 23677752 Completed 07/20/2020 Samuel Love MD [address], [place], [address] , [facility] 1 19:20:40 History of vaginal hysterec dora 706107794 Active 1976 Not Available [facility] 0 12:03:49 Acute bronchit is 79210590 Completed 200701/01/2014 IMPRESSI ON: ILL FOR 5 DAYS, PRODUCTI VE COUGH NOW SOB FOR 24HRS, TIGHT ON EXAM, STILL SMOKING; RECORDED 03/04/20 08 8:07AM BY DUSTIN SOTO MA, ANNOTATI ON/ADDEN DUM DARRYL Enriquez, [facility] 0 16:32:07 Acute pharyngi tis 305246034 Completed 200701/01/2014 RECORDED 03/04/20 08 8:07AM BY DUSTIN SOTO MA, ANNOTATI ON/ADDEN DUM DARRYL Enriquez, [facility] 0 16:32:37 Acute bronchit is 73926136 Completed 200701/24/2014 IMPRESSI ON: ILL FOR 5 DAYS, PRODUCTI VE COUGH NOW SOB FOR 24HRS, TIGHT ON EXAM, STILL SMOKING; RECORDED 03/04/20 08 8:07AM BY DUSTIN SOTO MA, ANNOTATI ON/ADDEN DUM DARRYL Enriquez, [facility] 0 16:32:07 Acute pharyngi tis 867114781 Completed 200701/24/2014 RECORDED 03/04/20 08 8:07AM BY DUSTIN SOTO MA, ANNOTATI ON/ADDEN DUM DARRYL Enriquez, [facility] 0 16:32:37 Acute bronchit is 46124082 Completed 200701/25/2014 IMPRESSI ON: ILL FOR 5 DAYS, PRODUCTI VE COUGH NOW SOB FOR 24HRS, TIGHT ON EXAM, STILL SMOKING; RECORDED 03/04/20 08 8:07AM BY DUSTIN SOTO MA, ANNOTATI ON/ADDEN DUM DARRYL Enriquez, [facility] 0 16:32:07 Acute pharyngi tis 257605141 Completed 200701/25/2014 RECORDED 03/04/20 08 8:07AM BY DUSTIN SOTO MA, ANNOTATI ON/ADDEN DUM DARRYL Enriquez, [facility] [facility] 0 16:32:37 Acute pharyngi tis [id number] Completed 200704/30/2019 DARRYL Enriquez, [facility] 0 16:32:37 Acute bronchit is [id number] Completed 200704/30/2019 DARRYL Enriquez, [facility] 0 16:32:07 Acute pharyngi tis 734283953 Completed 200704/02/2020 DARRYL Enriquez, [facility] 0 16:32:37 Acute bronchit is [id number] Completed 200704/02/2020 DARRYL Enriquez, [facility] 0 16:32:07 Allergic rhinitis [id number] Active 2007 Not Available [facility] 0 12:03:49 Allergic rhinitis 81545506 Completed 200701/01/2014 RECORDED 03/25/20 08 1:45PM BY LUIS E CRONIN ON/ADDEN DUM Not Available [facility] 4 13:33:38 Urinary tract infectio us disease 56690614 Completed 200701/01/2014 RECORDED 03/25/20 08 1:45PM BY ONUR CRONINATI ON/ADDEN DUM DARRYL Enriquez, [facility] 0 16:32:50 Urinary tract infectio us disease 62291177 Completed 200701/24/2014 RECORDED 03/25/20 08 1:45PM BY LUIS E CRONIN ON/ADDEN DUM DARRYL Enriquez, [facility] 0 16:32:50 Urinary tract infectio us disease [id number] Completed 200701/25/2014 RECORDED 03/25/20 08 1:45PM BY LUIS E CRONIN ON/ADDEN DUM DARRYL Enriquez, [facility] 0 16:32:50 Urinary tract infectio us disease [id number] Completed 200704/02/2020 DARRYL Enriquez, [facility] 0 16:32:50 Edema [id number] Completed 200801/01/2014 RECORDED 12/19/19 09 12:51PM BY DUSTIN SOTO MA, LUIS E ON/ADDEN DUM Anca Acosta MD [address] [facility] [address], [place], [address] , [facility] 4 13:16:52 Edema [id number] Completed 200801/24/2014 RECORDED 12/19/19 09 12:51PM BY DUSTIN SOTO MA, LUIS E ON/ADDEN DUM Anca Acosta MD [address] [facility] [address], [place], [address] , [facility] 4 13:16:52 Edema [id number] Completed 200801/25/2014 RECORDED 12/19/19 09 12:51PM BY DUSTIN SOTO MA, ANNOTATI ON/ADDEN DUM Anca Acosta MD [address] [facility] [address], [place], [address] , [facility] 4 13:16:52 Edema [id number] Completed 200804/30/2019 Anca Acosta MD [address], [place], [address] , [facility] 4 13:16:52 Edema [id number] Completed 200810/08/2023 Anca Acosta MD [address] [facility] [address], [place], [address] , [facility] 4 13:16:52 Cough [id number] Completed 200801/01/2014 RECORDED 03/12/20 09 3:08PM BY DUSTIN SOTO MA, ANNOTJOSELINE ON/ADDEN DUM DARRYL Enriquez, [facility] 0 16:32:44 Malaise and fatigue 520420622 Completed 200801/01/2014 RECORDED 03/12/20 09 3:08PM BY DUSTIN SOTO MA, ANNOTATI ON/ADDEN DUM Anca Acosta MD [address] [facility] [address], [place], [address] , [facility] 3 22:54:10 Cough [id number] Completed 200801/24/2014 RECORDED 03/12/20 09 3:08PM BY DUSTIN SOTO MA, ANNOTATI ON/ADDEN DUM DARRYL Enriquez, [facility] 0 16:32:44 Malaise and fatigue [id number] Completed 200801/24/2014 RECORDED 03/12/20 09 3:08PM BY DUSTIN SOTO MA, ANNOTATI ON/ADDEN DUM Anca Acosta MD [address] [facility] [address], [place], [address] , [facility] 3 22:54:10 Cough [id number] Completed 200801/25/2014 RECORDED 03/12/20 09 3:08PM BY DUSTIN SOTO MA, ANNOTATI ON/ADDEN DUM DARRYL Enriquez, [facility] 0 16:32:44 Malaise and fatigue [id number] Completed 200801/25/2014 RECORDED 03/12/20 09 3:08PM BY DUSTIN SOTO MA, ANNOTATI ON/ADDEN DUM Anca Acosta MD [address] [facility] [address], [place], [address] , [facility] 3 22:54:10 Malaise and fatigue 908329850 Completed 200804/30/2019 Anca Acosta MD [address] [address], [place], [address] , [facility] 3 22:54:10 Cough [id number] Completed 200804/30/2019 DARRYL Enriquez, [facility] 0 16:32:44 Malaise and fatigue 250203978 Completed 200807/25/2022 Anca Acosta MD [address] [facility] [address], [place], [address] , [facility] 3 22:54:10 Cough [id number] Completed 200804/02/2020 DARRYL Enriquez, [facility] 0 16:32:44 Asthma 700401614 Completed 200906/09/2020 Aracelijann Andrews MN-C [address], [place], [address] , [facility] 0 13:56:54 Asthma [id number] Completed 200901/01/2014 RECORDED 04/21/20 10 5:04PM BY DUSTIN SOTO MA, ONURATI ON/ADDEN DUM Araceli DELVALLE-C [address], [place], [address] , [facility] 0 13:56:54 Blood chemistr y outside referenc e range 136053798 Completed 201101/01/2014 RECORDED 03/21/20 12 8:18AM BY LUIS E PERALES ON/ADDEN DUM [facility] 16:32:15 Acute upper respirat ory infectio n 98855535 Completed 201101/01/2014 IMPRESSI ON: START ABX AND INHALER; CXR TO R/O INFILTRA TE GIVEN PE FINDINGS . RECC SMOKING CESSATIO N. WILL PHONE PT TOMORROW WITH PLAIN FILM RESULTS. IN THE INTERIM, START ON MEDS AND REST, PUSH FLUIDS.; RECORDED 03/21/20 12 8:18AM BY LUIS E PERALES ON/ADDEN DUM DARRYL Enriquez, [facility] 0 16:32:47 Screenin g for malignan t neoplasm of breast Completed 201101/01/2014 RECORDED 03/21/20 12 8:18AM BY LUIS E PERALES ON/ADDEN DUM DARRYL Enriquez, [facility] 0 16:32:26 Chest pain 74188688 Completed 201101/01/2014 RECORDED 03/21/20 12 8:18AM BY ONUR PERALESATI ON/ADDEN DUM [facility] 16:32:32 Divertic ular disease of colon 647138834 Completed 201101/01/2014 RECORDED 03/21/20 12 8:18AM BY STANLEY WOODWARD I ANNOTATI ON/ADDEN DUM Not Available [facility] 4 13:33:40 Divertic ulitis of colon 204208892 Completed 201101/01/2014 RECORDED 03/21/20 12 8:18AM BY LUIS E PERALES ON/ADDEN DUM Anca Acosta MD [address] [facility] [address], [place], [address] , [facility] 3 22:53:43 Symptom of skin and integume ntary tissue 768220746 Completed 201101/01/2014 RECORDED 03/21/20 12 8:18AM BY LUIS E PERALES ON/ADDEN DUM Nidia Krustapent [facility], [facility] 1 06:28:59 Contact dermatit is 90523723 Completed 201101/01/2014 RECORDED 03/21/20 12 8:18AM BY ONUR PERALESATI ON/ADDEN DUM Araceli Darryl PA-C [address] [facility] [address], [place], [address] , [facility] 4 11:01:26 Menopaus al symptom 17906917 Completed 201101/01/2014 RECORDED 03/21/20 12 8:18AM BY LUIS E PERALES ON/ADDEN DUM Anca Acosta MD [address] [facility] [address], [place], [address] , [facility] 3 22:49:25 Adult health examinat ion Completed 201101/01/2014 RECORDED 03/21/20 12 8:18AM BY LUIS E PERALES ON/ADDEN DUM Samuel Love MD [address], [place], [address] , [facility] 9 13:50:30 Disorder of bursa of shoulder region 55028823 Completed 201101/01/2014 RECORDED 03/21/20 12 8:18AM BY LUIS E PERALES ON/ADDEN DUM Anca Acosta MD [address], [place], [address] , [facility] 4 13:16:58 Screenin g for malignan t neoplasm of colon Completed 201101/01/2014 RECORDED 03/21/20 12 8:18AM BY LUIS E PERALES ON/ADDEN DUM [facility] 9 14:55:54 Pain in thoracic spine 665394428 Completed 201110/10/2023 Anca Acosta MD [address] [facility] [address], [place], [address] , [facility] 4 15:06:24 Pain in thoracic spine 948028024 Completed 201101/01/2014 RECORDED 03/21/20 12 8:18AM BY LUIS E PERALES ON/ADDEN DUM Anca Acosta MD [address] [facility] [address], [place], [address] , [facility] 4 15:06:24 Dizzines s and giddines s 384575656 Completed 201101/01/2014 RECORDED 03/21/20 12 8:18AM BY LUIS E PERALES ON/ADDEN DUM DARRYL Enriquez, [facility] 0 16:32:24 Candidal vulvovag initis 96318646 Completed 201101/01/2014 RECORDED 03/21/20 12 8:18AM BY ONUR PERALESATI ON/ADDEN DUM Anca Acosta MD [address] [facility] [address], [facility] [place], [address] , [facility] 3 22:49:34 Blood chemistr y outside referenc e range 333295391 Completed 201101/24/2014 RECORDED 03/21/20 12 8:18AM BY LUIS E PERALES ON/ADDEN DUM DustinDARRYL Beth, [facility] 0 16:32:15 Acute upper respirat ory infectio n 71711442 Completed 201101/24/2014 IMPRESSI ON: START ABX AND INHALER; CXR TO R/O INFILTRA TE GIVEN PE FINDINGS . RECC SMOKING CESSATIO N. WILL PHONE PT TOMORROW WITH PLAIN FILM RESULTS. IN THE INTERIM, START ON MEDS AND REST, PUSH FLUIDS.; RECORDED 03/21/20 12 8:18AM BY LUIS E PERALES ON/ADDEN DUM DARRYL Enriquez, [facility] 0 16:32:47 Screenin g for malignan t neoplasm of breast Completed 201101/24/2014 RECORDED 03/21/20 12 8:18AM BY LUIS E PERALES ON/ADDEN DUM DARRYL Enriquez, [facility] 0 16:32:26 Chest pain [id number] Completed 201101/24/2014 RECORDED 03/21/20 12 8:18AM BY LUIS E PERALES ON/ADDEN DUM DustinDARRYL Boudreaux, [facility] 0 16:32:32 Divertic ular disease of colon 924585409 Completed 201101/24/2014 RECORDED 03/21/20 12 8:18AM BY LUIS E PERALES ON/ADDEN DUM Not Available [facility] 4 12:05:15 Divertic ulitis of colon 528792159 Completed 201101/24/2014 RECORDED 03/21/20 12 8:18AM BY LUIS E PERALES ON/ADDEN DUM Anca Acosta MD [address] [address], [place], [address] , [facility] 3 22:53:43 Symptom of skin and integume ntary tissue 253430876 Completed 201101/24/2014 RECORDED 03/21/20 12 8:18AM BY LUIS E PERALES ON/ADDEN DUM Nidia Krustapent [facility] 1 06:28:59 Contact dermatit is [id number] Completed 201101/24/2014 RECORDED 03/21/20 12 8:18AM BY LUIS E PERALES ON/ADDEN DUM Aracelifercho Andrews PA-C [address] [address], [place], [address] , [facility] 4 11:01:26 Menopaus al symptom 63614761 Completed 201101/24/2014 RECORDED 03/21/20 12 8:18AM BY LUIS E PERALES ON/ADDEN DUM Anca Acosta MD [address] [address], [place], [address] , [facility] 3 22:49:25 Adult health examinat ion Completed 201101/24/2014 RECORDED 03/21/20 12 8:18AM BY LUIS E PERALES ON/ADDEN DUM Samuel Love MD [address] [address], [place], [address] , [facility] 9 13:50:30 Disorder of bursa of shoulder region 97958337 Completed 201101/24/2014 RECORDED 03/21/20 12 8:18AM BY LUIS E PERALES ON/ILIR Acosta MD [address], [place], [address] , [facility] 4 13:16:58 Screenin g for malignan t neoplasm of colon Completed 201101/24/2014 RECORDED 03/21/20 12 8:18AM BY LUIS E PERALES ON/ADDEN DUM DARRYL Enriquez, [facility] 9 14:55:54 Dizzines s and giddines s 782629303 Completed 201101/24/2014 RECORDED 03/21/20 12 8:18AM BY LUIS E PERALES ON/ADDEN DUM Dustin Anay-DARRYL Matthew, [facility] 0 16:32:24 Candidal vulvovag initis 84233737 Completed 201101/24/2014 RECORDED 03/21/20 12 8:18AM BY LUIS E PERALES ON/ADDEN DUM Anca Acosta MD [address] [facility] [address], [place], [address] , [facility] 3 22:49:34 Blood chemistr y outside referenc e range 612473252 Completed 201101/25/2014 RECORDED 03/21/20 12 8:18AM BY LUIS E PERALES ON/ADDEN DUM DARRYL Enriquez, [facility] 0 16:32:15 Acute upper respirat ory infectio n 80704753 Completed 201101/25/2014 IMPRESSI ON: START ABX AND INHALER; CXR TO R/O INFILTRA TE GIVEN PE FINDINGS . RECC SMOKING CESSATIO N. WILL PHONE PT TOMORROW WITH PLAIN FILM RESULTS. IN THE INTERIM, START ON MEDS AND REST, PUSH FLUIDS.; RECORDED 03/21/20 12 8:18AM BY LUIS E PERALES ON/ADDEN DUM DARRYL Enriquez, [facility] 0 16:32:47 Screenin g for malignan t neoplasm of breast Completed 201101/25/2014 RECORDED 03/21/20 12 8:18AM BY ONUR PERALESATI ON/ADDEN DUM Dustin DARRYL Palumbo, [facility] 0 16:32:26 Chest pain [id number] Completed 201101/25/2014 RECORDED 03/21/20 12 8:18AM BY ONUR PERALESATI ON/ADDEN DUM Dustin Rommel eden MA null, [facility] 0 16:32:32 Divertic ular disease of colon 917973376 Completed 201101/25/2014 RECORDED 03/21/20 12 8:18AM BY ONUR PERALESATI ON/ADDEN DUM Not Available [facility] 4 03:30:09 Divertic ulitis of colon 899733144 Completed 201101/25/2014 RECORDED 03/21/20 12 8:18AM BY LUIS E PERALES ON/ADDEN DUM Anca Acosta MD [address] [facility] [address], [place], [address] , [facility] 3 22:53:43 Symptom of skin and integume ntary tissue 573399144 Completed 201101/25/2014 RECORDED 03/21/20 12 8:18AM BY LUIS E PERALES ON/ADDEN DUM Nidia Krustapent null, [facility] 1 06:28:59 Contact dermatit is 70333779 Completed 201101/25/2014 RECORDED 03/21/20 12 8:18AM BY ONUR PERALESATI ON/ADDEN DUM Araceli Andrews PA-C [address] [facility] [address], [place], [address] , [facility] 4 11:01:26 Menopaus al symptom 52981965 Completed 201101/25/2014 RECORDED 03/21/20 12 8:18AM BY LUIS E PERALES ON/ADDEN DUM Anca Acosta MD [address] [facility] [address], [place], [address] , [facility] 3 22:49:25 Adult health examinat ion Completed 201101/25/2014 RECORDED 03/21/20 12 8:18AM BY LUIS E PERALES ON/ADDEN DUM Samuel Love MD [address] [facility] [address], [place], [address] , [facility] 9 13:50:30 Disorder of bursa of shoulder region 15203508 Completed 201101/25/2014 RECORDED 03/21/20 12 8:18AM BY LUIS E PERALES ON/ADDEN DUM Anca Acosta MD [address] [facility] [address], [place], [address] , [facility] 4 13:16:58 Screenin g for malignan t neoplasm of colon Completed 201101/25/2014 RECORDED 03/21/20 12 8:18AM BY LUIS E PERALES ON/ADDEN DUM [facility] 9 14:55:54 Dizzines s and giddines s 453792709 Completed 201101/25/2014 RECORDED 03/21/20 12 8:18AM BY LUIS E PERALES ON/ADDEN DUM DARRYL Enriquez, [facility] 0 16:32:24 Candidal vulvovag initis 87792539 Completed 201101/25/2014 RECORDED 03/21/20 12 8:18AM BY LUIS E PERALES ON/ADDEN DUM Anca Acosta MD [address], [place], [address] , [facility] 3 22:49:34 Adult health examinat ion Completed 201104/30/2019 Samuel Love MD [address] [facility] [address], [place], [address] , [facility] 9 13:50:30 Disorder of bursa of shoulder region 81216589 Completed 201110/08/2023 Anca Acosta MD [address] [facility] [address], [place], [address] , [facility] 4 13:16:58 Divertic ular disease of colon 529347316 Active 2011 Not Available [facility] 0 12:03:48 Acute upper respirat ory infectio n 66047384 Completed 201104/30/2019 DARRYL Enriquez, [facility] 0 16:32:47 Screenin g for malignan t neoplasm of breast Completed 201104/30/2019 DARRYL Enriquez, [facility] 0 16:32:26 Symptom of skin and integume ntary tissue 789818343 Completed 201104/30/2019 Nidia Nguyen null, [facility] 1 06:28:59 Dizzines s and giddines s 134510661 Completed 201104/30/2019 DARRYL Enriquez, [facility] 0 16:32:24 Divertic ulitis of colon 860581849 Completed 201107/25/2022 Anca Acosta MD [address] [facility] [address], [place], [address] , [facility] 3 22:53:43 Blood chemistr y outside referenc e range 784976324 Completed 201104/30/2019 DARRYL Enriquez, [facility] 0 16:32:15 Candidal vulvovag initis 22415096 Completed 201104/30/2019 Anca Acosta MD [address], [place], [address] , [facility] 3 22:49:34 Contact dermatit is 66937654 Completed 201104/30/2019 Araceli Andrews PA-C [address], [place], [address] , [facility] 4 11:01:26 Chest pain 47544303 Completed 201104/30/2019 DARRYL Enriquez, [facility] 0 16:32:32 Screenin g for malignan t neoplasm of colon Completed 201104/30/2019 DARRYL Enriquez, [facility] 9 14:55:54 Menopaus al symptom 39807445 Completed 201107/25/2022 Anca Acosta MD [address], [place], [address] , [facility] 3 22:49:25 Acute upper respirat ory infectio n 86954386 Completed 201104/02/2020 DARRYL Enriquez, [facility] 0 16:32:47 Screenin g for malignan t neoplasm of breast Completed 201104/02/2020 DARRYL Enriquez, [facility] 0 16:32:26 Dizzines s and giddines s 521788245 Completed 201104/02/2020 DARRYL Enriquez, [facility] 0 16:32:24 Symptom of skin and integume ntary tissue 784901320 Completed 201106/03/2021 Nidia Patrick null, [facility] 1 06:28:59 Blood chemistr y outside referenc e range 796396005 Completed 201104/02/2020 Dustin eden MA null, [facility] 0 16:32:15 Candidal vulvovag initis 84060583 Completed 201107/25/2022 Anca Acosta MD [address] [facility] [address], [facility] [place], [address] , [facility] 3 22:49:34 Chest pain 09821575 Completed 201104/02/2020 Dustin eden MA null, [facility] 0 16:32:32 Inflamma tory disorder of extremit y Completed 201101/01/2014 RECORDED 05/17/20 12 3:38PM BY SHANDA VALDEZ MA, ANNOTATI ON/ADDEN DUM Not Available [facility] 4 13:33:38 Inflamma tory disorder of extremit y Completed 201101/24/2014 RECORDED 05/17/20 12 3:38PM BY SHANDA VALDEZ MA, ANNOTATI ON/ADDEN DUM Not Available [facility] 4 12:05:14 Inflamma tory disorder of extremit y Completed 201101/25/2014 RECORDED 05/17/20 12 3:38PM BY SHANDA VALDEZ MA, ANNOTATI ON/ADDEN DUM Not Available [facility] 4 03:30:08 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 EARLIER THIS YEAR HAD STRESS ECHO THAT WAS NORMAL.; RECORDED 06/15/20 12 3:58PM BY DUSTIN SOTO MA, ANNOTATI ON/ADDEN DUM Not Available [facility] 4 13:33:39 Urgent desire to urinate 15963346 Completed 201101/01/2014 IMPRESSI ON: UA NORMAL. LIKELY ANXIETY. WILL SEND FOR CULTURE. OFFICE WILL DO F/U CALL IN 1 WEEK TO SEE HOW HER SXS ARE. MAY CONSIDER UROLOGY REFERRAL IF NOT IMPROVIN G.; RECORDED 06/15/20 12 3:58PM BY DUSTIN SOTO MA, ONURATI ON/ADDEN DUM Samuel Love MD [address] [facility] [address], [place], [address] , [facility] 0 13:26:02 Tietze's disease 36873695 Completed 201101/24/2014 IMPRESSI ON: HAD A BOUT OF THIS A FEW MONTHS AGO ALSO. EARLIER THIS YEAR HAD STRESS ECHO THAT WAS NORMAL.; RECORDED 06/15/20 12 3:58PM BY DUSTIN SOTO MA, LUIS E ON/ADDEN DUM Not Available [facility] 4 12:05:15 Urgent desire to urinate 19340146 Completed 201101/24/2014 IMPRESSI ON: UA NORMAL. LIKELY ANXIETY. WILL SEND FOR CULTURE. OFFICE WILL DO F/U CALL IN 1 WEEK TO SEE HOW HER SXS ARE. MAY CONSIDER UROLOGY REFERRAL IF NOT IMPROVIN G.; RECORDED 06/15/20 12 3:58PM BY DUSTIN SOTO MA, LUIS E ON/ADDEN DUM Samuel Love MD [address] [facility] [address], [place], [address] , [facility] 0 13:26:02 Tietze's disease [id number] Completed 201101/25/2014 IMPRESSI ON: HAD A BOUT OF THIS A FEW MONTHS AGO ALSO. EARLIER THIS YEAR HAD STRESS ECHO THAT WAS NORMAL.; RECORDED 06/15/20 12 3:58PM BY DUSTIN SOTO MA, ONURATI ON/ADDEN DUM Not Available [facility] 4 03:30:08 Urgent desire to urinate 42985396 Completed 201101/25/2014 IMPRESSI ON: UA NORMAL. LIKELY ANXIETY. WILL SEND FOR CULTURE. OFFICE WILL DO F/U CALL IN 1 WEEK TO SEE HOW HER SXS ARE. MAY CONSIDER UROLOGY REFERRAL IF NOT SAIRA Mcconnlel; RECORDED 06/15/20 12 3:58PM BY DUSTIN SOTO MA, ANNOTATI ON/ADDEN DUM Samuel Love MD [address], [place], [address] , [facility] 0 13:26:02 Tietze's disease 87052716 Active 2011 Not Available [facility] 0 12:03:49 Urgent desire to urinate 18087030 Completed 201104/30/2019 Samuel Love MD [address], [place], [address] , [facility] 0 13:26:02 Urgent desire to urinate 64581358 Completed 201101/18/2020 Samuel Love MD [address] [facility] [address], [place], [address] , [facility] 0 13:26:02 Anxiety state 189869977 Completed 201201/01/2014 RECORDED 07/06/19 13 1:30PM BY DUSTIN SOTO MA, ANNOTJOSELINE ON/ADDEN DUM Nidia Krustapent [facility] 1 06:30:17 Anxiety state 180945031 Completed 201201/24/2014 RECORDED 07/06/19 13 1:30PM BY DUSTIN SOTO MA, ANNOTATI ON/ADDEN DUM Nidia Krustapent [facility] 1 06:30:17 Anxiety state 730384303 Completed 201201/25/2014 RECORDED 07/06/19 13 1:30PM BY DUSTIN SOTO MA, ANNOTATI ON/ADDEN DUM Nidia Krustapent us null, [facility] 1 06:30:17 Anxiety state 929090741 Completed 201204/30/2019 Nidia Krustapent us null, [facility] 1 06:30:17 Anxiety state 702337200 Completed 201206/03/2021 Nidia Krustapent us null, [facility] 1 06:30:17 Onychia of toe 931856484 Completed 201201/01/2014 RECORDED 07/21/19 13 3:13PM BY DUSTIN SOTO MA, ANNOTATI ON/ADDEN DUM Nidia Krustapent us null, [facility] 1 06:28:40 Onychia of toe 100831719 Completed 201201/24/2014 RECORDED 07/21/19 13 3:13PM BY DUSTIN SOTO MA, ANNOTATI ON/ADDEN DUM Nidia Krustapent us null, [facility] 1 06:28:40 Onychia of toe 642156479 Completed 201201/25/2014 RECORDED 07/21/19 13 3:13PM BY DUSTIN SOTO MA, ANNOTATI ON/ADDEN DUM Nidia Krustapent us null, [facility] 1 06:28:40 Onychia of toe 357407292 Completed 201204/30/2019 Nidia Krustapent us null, [facility] 1 06:28:40 Onychia of toe 948444608 Completed 201206/03/2021 Nidia Krustapent us null, [facility] 1 06:28:40 Pain in limb 20309785 Completed 201201/01/2014 RECORDED 08/19/19 13 2:19PM BY DUSTIN SOTO MA, ANNOTATI ON/ADDEN DUM Dustin eden MA null, [facility] 0 16:32:55 Acute sinusiti s 60778977 Completed 201201/01/2014 IMPRESSI ON: RESTART FLONASE. ADAN WOULD REALLY LIKE TO DO BIAXIN BASED ON PAST SUCCESS WITH THIS. I RECOMMEN DED A DIFFEREN T ABX CLASS BUT SHE WOULD REALLY LIKE THE BIAXIN; RECORDED 08/19/19 13 2:19PM BY DUSTIN SOTO MA, ANNOTATI ON/ADDEN DUM Dustin eden MA null, [facility] 0 16:32:11 Pain in limb 85952947 Completed 201201/24/2014 RECORDED 08/19/19 13 2:19PM BY DUSTIN SOTO MA, LUIS E ON/ADDEN DUM Dustin eden MA null, [facility] 0 16:32:55 Acute sinusiti s 85507522 Completed 201201/24/2014 IMPRESSI ON: RESTART FLONASE. ADAN WOULD REALLY LIKE TO DO BIAXIN BASED ON PAST SUCCESS WITH THIS. I RECOMMEN DED A DIFFEREN T ABX CLASS BUT SHE WOULD REALLY LIKE THE BIAXIN; RECORDED 08/19/19 13 2:19PM BY DUSTIN SOTO MA, LUIS E ON/ADDEN DUM Dustin eden MA null, [facility] 0 16:32:11 Pain in limb 42538218 Completed 201201/25/2014 RECORDED 08/19/19 13 2:19PM BY DUSTIN SOTO MA, ANNOTJOSELINE ON/ADDEN DUM Dustin eden MA null, [facility] 0 16:32:55 Acute sinusiti s 43727812 Completed 201201/25/2014 IMPRESSI ON: RESTART FLONASE. ADAN WOULD REALLY LIKE TO DO BIAXIN BASED ON PAST SUCCESS WITH THIS. I RECOMMEN DED A DIFFEREN T ABX CLASS BUT SHE WOULD REALLY LIKE THE BIAXIN; RECORDED 08/19/19 13 2:19PM BY DUSTIN SOTO MA, LUIS E ON/ADDEN DUM Dustin daleos, DARRYL null, [facility] 0 16:32:11 Pain in limb 43030918 Completed 201204/30/2019 Dustinkevin Carney ttos, MA null, [facility] 0 16:32:55 Acute sinusiti s 83463169 Completed 201204/30/2019 Dustinkevin Carney ttos, DARRYL null, [facility] 0 16:32:11 Pain in limb 13140571 Completed 201204/02/2020 Dustin Carney ttos, DARRYL null, [facility] 0 16:32:55 Acute sinusiti s 17285561 Completed 201204/02/2020 Dustinkevin Carney ttos, DARRYL null, [facility] 0 16:32:11 Dissocia tive disorder 28050258 Completed 201201/01/2014 IMPRESSI ON: ANXIETY RELATED. SHE SEES ENT IN 2 WEEKS SO WILL GET RECHECKE D THEN. THE FEELING OF WARMTH AND HEAD PRESSURE IS ALSO ANXIETY RELATED; RECORDED 09/09/19 13 3:19PM BY LUIS E PERALES ON/ILIR DUM Not Available [facility] 4 13:33:40 Candidia sis of mouth 48719120 Completed 201201/01/2014 RECORDED 09/09/19 13 3:19PM BY LUIS E PERALES ON/ADDEN DUM Anca Acosta MD [address] [facility] [address], [facility] [place], [address] , [facility] 3 22:49:42 Dissocia tive disorder 76291479 Completed 201201/24/2014 IMPRESSI ON: ANXIETY RELATED. SHE SEES ENT IN 2 WEEKS SO WILL GET RECHECKE D THEN. THE FEELING OF WARMTH AND HEAD PRESSURE IS ALSO ANXIETY RELATED; RECORDED 09/09/19 13 3:19PM BY LUIS E PERALES ON/ADDEN DUM Not Available [facility] 4 12:05:16 Candidia sis of mouth 70522135 Completed 201201/24/2014 RECORDED 09/09/19 13 3:19PM BY LUIS E PERALES ON/ADDEN DUM Anca Acosta MD [address], [place], [address] , [facility] 3 22:49:42 Dissocia tive disorder 89854624 Completed 201201/25/2014 IMPRESSI ON: ANXIETY RELATED. SHE SEES ENT IN 2 WEEKS SO WILL GET RECHECKE D THEN. THE FEELING OF WARMTH AND HEAD PRESSURE IS ALSO ANXIETY RELATED; RECORDED 09/09/19 13 3:19PM BY LUIS E PERALES ON/ADDEN DUM Not Available [facility] 4 03:30:09 Candidia sis of mouth 44222585 Completed 201201/25/2014 RECORDED 09/09/19 13 3:19PM BY LUIS E PERALES ON/ADDEN DUM Anca Acosta MD [address], [place], [address] , [facility] 3 22:49:42 Dissocia tive disorder 05014208 Active 2012 Not Available [facility] 0 12:03:48 Candidia sis of mouth 05735288 Completed 201204/30/2019 Anca Acosta MD [address], [place], [address] , [facility] 3 22:49:42 Candidia sis of mouth 53073319 Completed 201207/25/2022 Anca Acosta MD [address], [place], [address] , [facility] 3 22:49:42 Tobacco dependen ce syndrome 27740509 Completed 201207/26/2022 Anca Acosta MD [address] [facility] [address], [place], [address] , [facility] 3 13:29:21 Tobacco dependen ce syndrome 81616460 Completed 201201/01/2014 RECORDED 12/15/19 13 10:20AM BY DUSTIN SOTO MA, ONURATI ON/ADDEN DUM Anca Acosta MD [address] [facility] [address], [place], [address] , [facility] 3 13:29:21 Cellulit is 360477209 Completed 201201/01/2014 RECORDED 03/13/20 13 1:04PM BY BRANDON SILVERIO MA, ANNOTJOSELINE ON/ADDEN DUM DARRYL Enriquez, [facility] 0 16:32:09 Influenz a vaccine needed 69084013529 06 Completed 201201/01/2014 RECORDED 03/13/20 13 3:54PM BY BRANDON SILVERIO MA, OFFICE VISIT Samuel Love MD [address] [facility] [address], [place], [address] , [facility] 9 13:49:52 Cellulit is 073113843 Completed 201201/24/2014 RECORDED 03/13/20 13 1:04PM BY BRANDON SILVERIO MA, ANNOTATI ON/ADDNNEKA DUM Dustin eden MA null, [facility] 0 16:32:09 Influenz a vaccine needed 54563652632 06 Completed 201201/24/2014 RECORDED 03/13/20 13 3:54PM BY BRANDON SILVERIO MA, OFFICE VISIT Samuel Love MD [address] [facility] [address], [place], [address] , [facility] 9 13:49:52 Cellulit is 699278202 Completed 201201/25/2014 RECORDED 03/13/20 13 1:04PM BY BRANDON SILVERIO MA, ANNOTATI ON/ADDEN DUM DARRYL Enriquez, [facility] 0 16:32:09 Influenz a vaccine needed 96037823863 06 Completed 201201/25/2014 RECORDED 03/13/20 13 3:54PM BY BRANDON SILVERIO MA, OFFICE VISIT Samuel Love MD [address] [facility] [address], [place], [address] , [facility] 9 13:49:52 Influenz a vaccine needed 88555255880 06 Completed 201204/30/2019 Samuel Love MD [address] [facility] [address], [place], [address] , [facility] 9 13:49:52 Cellulit is 885235791 Completed 201204/30/2019 DARRYL Enriquez, [facility] 0 16:32:09 Cellulit is 483667088 Completed 201204/02/2020 DARRYL Enriquez, [facility] 0 16:32:09 Type 2 diabetes mellitus without complica tion 681055316 Active 2012 Not Available [facility] 0 12:03:49 Type 2 diabetes mellitus without complica tion 777939485 Completed 201201/01/2014 RECORDED 03/28/20 13 3:33PM BY DUSTIN SOTO MA, ANNOTATI ON/ADDEN DUM Not Available [facility] 4 13:33:40 Abdomina l pain 28774513 Completed 201301/01/2014 IMPRESSI ON: SPOKE TO PT WHO HAD A HARD TIME DESCRIBI NG HER SYMPTOMS . STATES THAT SHE WAS HAVING A KNOTTED FEELING IN HER UPPER ABDOMEN LIKE BOBBY Mathis WAS TWISTING . FOOD HAD NO AFFECT. DENIES N/V. DENIED CP. NO PRIOR ABDOMINA L SURGERY. I TOLD HER TO GO TO THE ER IF IT RETURNED OR TO COME IN TO BE EVALUATE D.; RECORDED 09/26/19 14 4:14PM BY DUSTIN SOTO MA, ANNOTATI ON/ADDEN DUM DARRYL Enriquez, [facility] 0 16:32:19 Follow-u p encounte r Completed 201301/01/2014 RECORDED 09/26/19 14 4:14PM BY DUSTIN SOTO MA, ONURATI ON/ADDEN DUM Samuel Love MD [address] [facility] [address], [place], [address] , [facility] 9 13:51:09 Laborato ry procedur e performe d 061040203 Completed 201301/01/2014 RECORDED 09/26/19 14 4:14PM BY DUSTIN SOTO MA, ANNOTATI ON/ADDEN DUM Samuel Love MD [address] [facility] [address], [place], [address] , [facility] 9 13:49:58 Renewal of prescrip tion Completed 201301/01/2014 RECORDED 09/26/19 14 4:15PM BY DUSTIN SOTO MA, ANNOTATI ON/ADDEN DUM Dustin eden MA null, [facility] 0 16:32:04 Head and neck swelling Completed 201304/18/2014 RECORDED 09/26/19 14 4:16PM BY DUSTIN SOTO MA, OFFICE VISIT Samuel Love MD [address] [facility] [address], [place], [address] , [facility] 4 13:23:03 Palpitat ions 03460047 Completed 201301/01/2014 IMPRESSI ON: HOLTER MONITOR SHOWING MODERATE VENTRICU LAR/SUPR AVENTRIC ULAR ECTOPY TIMING CONSISTE NT WITH HER SYMPTOMS . JUST STOPPED DRINKING TEA. ADVISED TO D/C OTHER POTENTIA LLY AGGRAVAT ING FACTORS (NICOTIN E/ETOH). BETA YANCY TRIAL DISCUSSE D BUT DEFERRED FOR NOW. IF SYMPTOMS BECOME MORE FREQUENT OR EXERTION AL ADDITION AL EVALUATI ON WILL BE NEEDED (CARDS CONSULT/ STRESS TEST). POSSIBLE THAT ANXIETY MAY BE CONTRIBU TING WELL. ADVISED TO CALL IF SYMPTOMS PERSIST/ WORSEN.; RECORDED 09/26/19 14 4:14PM BY DUSTIN SOTO MA, LUIS E ON/ILIR Acosta MD [address] [facility] [address], [place], [address] , [facility] 3 07:50:05 Abdomina l pain 87328756 Completed 201301/24/2014 IMPRESSI ON: SPOKE TO PT WHO HAD A HARD TIME DESCRIBI NG HER SYMPTOMS . STATES THAT SHE WAS HAVING A KNOTTED FEELING IN HER UPPER ABDOMEN LIKE SOMETHIN G WAS TWISTING . FOOD HAD NO AFFECT. DENIES N/V. DENIED CP. NO PRIOR ABDOMINA L SURGERY. I TOLD HER TO GO TO THE ER IF IT RETURNED OR TO COME IN TO BE EVALUATE D.; RECORDED 09/26/19 14 4:14PM BY DUSTIN SOTO MA, LUIS E ON/ILIR eden MA null, [facility] 0 16:32:19 Asthma 114401352 Completed 201301/24/2014 RECORDED 09/26/19 14 4:16PM BY DUSTIN SOTO MA, OFFICE VISIT Araceli Andrews PA-C [address] [facility] [address], [place], [address] , [facility] 0 13:56:54 Follow-u p encounte r Completed 201301/24/2014 RECORDED 09/26/19 14 4:14PM BY DUSTIN SOTO MA, ANNOTATI ON/ADDEN DUM Samuel Love MD [address] [facility] [address], [place], [address] , [facility] 9 13:51:09 Laborato ry procedur e performe d 699808947 Completed 201301/24/2014 RECORDED 09/26/19 14 4:14PM BY DUSTIN SOTO MA, ANNOTATI ON/ADDEN DUM Samuel Love MD [address] [facility] [address], [place], [address] , [facility] 9 13:49:58 Renewal of prescrip tion Completed 201301/24/2014 RECORDED 09/26/19 14 4:15PM BY DUSTIN SOTO MA ANNOTATI ON/ADDEN DUM Dustin eden MA [facility] 0 16:32:04 Palpitat ions 05655326 Completed 201301/24/2014 IMPRESSI ON: HOLTER MONITOR SHOWING MODERATE VENTRICU LAR/SUPR AVENTRIC ULAR ECTOPY TIMING CONSISTE NT WITH HER SYMPTOMS . JUST STOPPED DRINKING TEA. ADVISED TO D/C OTHER POTENTIA LLY AGGRAVAT ING FACTORS (NICOTIN E/ETOH). BETA YANCY TRIAL DISCUSSE D BUT DEFERRED FOR NOW. IF SYMPTOMS BECOME MORE FREQUENT OR EXERTION AL ADDITION AL EVALUATI ON WILL BE NEEDED (CARDS CONSULT/ STRESS TEST). POSSIBLE THAT ANXIETY MAY BE CONTRIBU TING WELL. ADVISED TO CALL IF SYMPTOMS PERSIST/ WORSEN.; RECORDED 09/26/19 14 4:14PM BY DUSTIN SOTO MA, ANNOTATI ON/ADDEN DUM Anca Acosta MD [address] [facility] [address], [place], [address] , [facility] 3 07:50:05 Abdomina l pain 38947224 Completed 201301/25/2014 IMPRESSI ON: SPOKE TO PT WHO HAD A HARD TIME DESCRIBI NG HER SYMPTOMS . STATES THAT SHE WAS HAVING A KNOTTED FEELING IN HER UPPER ABDOMEN LIKE BOBBY Mathis WAS TWISTING . FOOD HAD NO AFFECT. DENIES N/V. DENIED CP. NO PRIOR ABDOMINA L SURGERY. I TOLD HER TO GO TO THE ER IF IT RETURNED OR TO COME IN TO BE EVALUATE D.; RECORDED 09/26/19 14 4:14PM BY DUSTIN SOTO MA, ANNOTATI ON/ADDEN DUM DARRYL Enriquez, [facility] 0 16:32:19 Asthma 210019341 Completed 201301/25/2014 RECORDED 09/26/19 14 4:16PM BY DUSTIN SOTO MA, OFFICE VISIT Araceli Andrews PA-C [address] [facility] [address], [place], [address] , [facility] 0 13:56:54 Follow-u p encounte r Completed 201301/25/2014 RECORDED 09/26/19 14 4:14PM BY DUSTIN SOTO MA, ANNOTATI ON/ADDEN DUM Samuel Love MD [address] [facility] [address], [place], [address] , [facility] 9 13:51:09 Laborato ry procedur e performe d 886150266 Completed 201301/25/2014 RECORDED 09/26/19 14 4:14PM BY DUSTIN SOTO MA, ONURATI ON/ADDEN DUM Samuel Love MD [address] [facility] [address], [place], [address] , [facility] 9 13:49:58 Renewal of prescrip tion Completed 201301/25/2014 RECORDED 09/26/19 14 4:15PM BY DUSTIN SOTO MA, ANNOTATI ON/ADDEN DUM DARRYL Enriquez, [facility] 0 16:32:04 Palpitat ions 48377236 Completed 201301/25/2014 IMPRESSI ON: HOLTER MONITOR SHOWING MODERATE VENTRICU LAR/SUPR AVENTRIC ULAR ECTOPY TIMING CONSISTE NT WITH HER SYMPTOMS . JUST STOPPED DRINKING TEA. ADVISED TO D/C OTHER POTENTIA LLY AGGRAVAT ING FACTORS (NICOTIN E/ETOH). BETA YANCY TRIAL DISCUSSE D BUT DEFERRED FOR NOW. IF SYMPTOMS BECOME MORE FREQUENT OR EXERTION AL ADDITION AL EVALUATI ON WILL BE NEEDED (CARDS CONSULT/ STRESS TEST). POSSIBLE THAT ANXIETY MAY BE CONTRIBU TING WELL. ADVISED TO CALL IF SYMPTOMS PERSIST/ WORSEN.; RECORDED 09/26/19 14 4:14PM BY DUSTIN SOTO MA, ANNOTATI ON/ADDEN DUM Anca Acosta MD [address] [address], [place], [address] , [facility] 3 07:50:05 Follow-u p encounte r Completed 201304/30/2019 Samuel Love MD [address] [address], [place], [address] , [facility] 9 13:51:09 Renewal of prescrip tion Completed 201304/30/2019 DARRYL Enriquez, [facility] 0 16:32:04 Laborato ry procedur e performe d 094190461 Completed 201304/30/2019 Samuel Love MD [address] [address], [place], [address] , [facility] 9 13:49:58 Palpitat ions 50180489 Completed 201304/30/2019 Anca Acosta MD [address] [address], [place], [address] , [facility] 3 07:50:05 Abdomina l pain 89724271 Completed 201304/30/2019 DARRYL Enriquez, [facility] 0 16:32:19 Renewal of prescrip tion Completed 201304/02/2020 DARRYL Enriquez, [facility] 0 16:32:04 Palpitat ions 27608616 Completed 201311/23/2022 Anca Acosta MD [address] [facility] [address], [facility] [place], [address] , [facility] 3 07:50:05 Abdomina l pain 58026287 Completed 201304/02/2020 DARRYL Enriquez, [facility] 0 16:32:19 ECG: prematur e ventricu lar contract ions 188059637 Active 2014 Not Available [facility] 0 12:03:49 Astigmat ism 68009065 Active 2016 Not Available [facility] 0 12:03:48 Primary fibromya lgia syndrome 49987497 Active 2016 Not Available [facility] 0 12:03:49 Chronic neck pain 06669834142 07 Active 2016 Not Available [facility] 0 12:03:48 Paroxysm al atrial fibrilla tion 693016240 Active 2017 DARRYL Chao, [facility] 5 13:37:33 Eosinoph ilic esophagi tis 477850264 Active 2017 Not Available [facility] 0 12:03:48 Rib pain 062722877 Completed 201904/02/2020 DARRYL Enriquez [facility] 0 16:32:30 Exposure to SARS-CoV -2 Completed 201911/07/2020 Removal Reason: Problem marked historic al by user [email or web address] from the COVID-19 watch flag Anikamichael soto [facility] 1 11:52:06 Mild intermit tent asthma 812867186 Completed 201907/20/2020 Samuel Love MD [address] [facility] [address], [place], [address] , [facility] 1 19:21:02 Serum creatini ne above referenc e range 014617251 Completed 202007/25/2022 Anca Acosta MD [address] [facility] [address], [place], [address] , [facility] 3 22:54:35 Body mass index 30+ - obesity 120497833 Active 2022 Anca Acosta MD [address] [facility] [address], [place], [address] , [facility] 3 22:55:00 Ex-smoke r 2737650 Active 2022 Anca Acosta MD [address] [facility] [address], [place], [address] , [facility] 3 13:28:56 Pain in lumbar spine 694682185 Completed 202210/10/2023 Anca Acosta MD [address], [place], [address] , [facility] 4 15:06:16 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 Anca Acosta MD [address], [place], [address] , [facility] 3 07:59:10 Chronic insomnia 094764827 Active 2023 Araceli Andrews PA-C [address], [place], [address] , [facility] 4 14:14:17 Leukonyc hia punctata 69179698 Active 2023 Jim Andrews PA-C [address], [place], [address] , [facility] 4 15:47:07 Migraine 68312406 Active 2023 Anca Acosta MD [address], [place], [address] , [facility] 4 13:16:41 Chronic back pain 997602861 Active 2023 Anca Acosta MD [address], [place], [address] , [facility] 4 13:17:38 Osteoart hritis 831290074 Active 2023 Anca Acosta MD [address], [place], [address] , [facility] 4 15:07:09 Monoclon al gammopat hy of uncertai n signific ance 203105319 Active 2023 Anca Acosta MD [address], [place], [address] , [facility] 4 13:37:38 Neuropat hy 415919962 Active 2023 Anca Acosta MD [address], [place], [address] , [facility] 4 13:37:55 Overweig ht 031257340 Active 2023 Araceli Andrews PA-C [address], [place], [address] , [facility] 4 11:01:54 Urinary tract infectio n caused by Streptoc occus agalacti ae 08139287499 830459 Completed 202411/23/2024 Anca Acosta MD [address], [place], [address] , [facility] 5 15:25:29 Problem Notes None recorded. Procedures Surgical History Date Name Laterality Status Provider Name and Address Organization Details Recorded Time 02/05 Most Recent Mammogram completed Lina Gandhi [facility] 5 14:08:25 02/04 Mammogram screening completed Lina Gandhi [facility] 5 14:08:12 11/23 Advanced Care Planning completed Anca Acosta MD [address] [address], [place], [address], [facility] 5 18:47:01 01/08 esophagogastroduodenoscopy completed Lenora Baugh [facility] 4 16:21:05 10/09 Advanced Care Planning completed Anca Acosta MD [address], [address], [facility] 4 13:21:53 12/27 diabetic retinopathy screening completed Sole iNno [facility] 3 14:58:09 12/20 Diabetic Foot Exam (Monofilament) completed Anca Acosta MD [address], [address], [facility] 3 15:34:08 07/26 Advanced Care Planning completed Anca Acosta MD [address], [address], [facility] 3 22:46:32 07/22 Advanced Care Planning completed Anca Acosta MD [address], [address], [facility] 2 08:52:26 04/17 Date of Last Colonoscopy completed Heather Mg [facility] 1 14:59:52 04/17 Colonoscopy completed Heather Mg [facility] 1 14:59:41 04/17 lobectomy of lung completed Davina Noel [facility] 9 13:59:32 04/16 Ultrasound breast limited completed Jerod Noel [facility] 9 09:12:11 07/21 Diabetic Foot Exam (Monofilament) completed Samuel Love MD [address] [facility] [address], [place], [address], [facility] 9 14:43:30 06/02 Endoscopic us exam esoph completed Charity Campbell [facility] 8 11:42:42 03/13 Diabetic Foot Exam (Monofilament) completed Dustin ortiz MA [facility] 8 11:20:14 08/31 Date of Last Pap Smear completed Dustin ortiz MA [facility] 6 15:50:49 12/23 Physician/Ophthalmologist Surgery completed Dustin ortiz MA [facility] 2 13:01:30 11/22 Appendectomy completed Dustin ortiz MA [facility] 2 13:01:30 10/27 Hysterectomy completed Dustin ortiz MA [facility] 5 14:49:31 01/27 Tubal Ligation completed Felicia Vidal MA [facility] 1 10:09:54 Breast Biopsy completed Dustin ortiz MA [facility] 2 13:01:30 Imaging Results None recorded. Procedure Notes None recorded. Medical Equipment None Reported. Allergies Allergen ID Allergen Name Allergen Category Reaction Reaction Severity Criticality Documentation Date Start Date Code Code System Note Provider Name and Address Organization Details Recorded Time 86451 Substance with sulfonami de structure and antibacte rial mechanism of action (substanc e) medicatio n vomiting Not available Not available 03/21/2014 70749 8003 [facility]ED [facility] 4 11:53:31 24641 Iodinated contrast media (substanc e) medicatio n hives Not available Not available 12/18/2015 43323 2003 SNOMED [facility] 6 14:55:59 02770 Diflucan medicatio n Not available Not available Not available 05/11/2019 3 RxNorm pt canno t recal l react ion, but does not anne ate medic ation well Queenie Lockhart LPN [facility] 9 15:52:01 330 Levaquin medicatio n hives Not available Not available 01/01/20142007 33046 2 RxNorm [facility] 4 11:53:31 331 Product containin g penicilli n (product) medicatio n respirato ry distress Not available Not available 01/01/20142013 08779 8001 SNOMED SHORT NESS OF BREAT H [facility] 4 11:53:31 Medications Name Sig Start Date Stop Date Status Note LastModified by Organization Details LastModified Time Prescript ion - Prior Authoriza tion Request 03/11 completed Not Available Not Available Not Available celecoxib 200 mg capsule Take 1 capsule every day by oral route as needed for 5 days. 12/10 completed Not Available Not Available Not Available cyclobenz aprine 10 mg tablet QHS PRN SPASM 11/18 completed RECORDED 11/19/19 11 1:38PM BY LATRICE Do MD, MEDICATI ON AUTO-MEET CTIVATIO N; Not Available Not Available Not Available clotrimaz ole 10 mg sachin DISSOLVE 1 LOZENGE ON THE TONGUE BID TO TID 01/17 completed Not Available Not Available Not Available neomycin- polymyxin -hydrocor t 3.5 mg/mL-10, 000 unit/mL-1 % ear solution INSTILL 4 DROPS TO AFFECTED EAR THREE TIMES DAILY FOR 5 DAYS 07/20 completed Not Available Not Available Not Available nystatin 100,000 unit/mL oral suspensio n SWISH AND HOLD 5 MLS IN MOUTH FOR 2 MINUTES THEN SWALLOW OR SPIT 5 TIMES D 01/17 completed Not Available Not Available Not Available prednison e 10 mg tablet TAPER BELOW:Da y 1: 60mgDay 2: 60mg 3: 50mg 4: 50mg 5: 40mg 6: 40mg 7: 30mg 8: 30mg 9: 20mg 10: 20mg 11: 10mg 12: 10 mgTHEN STOP 2014 active Not Available Not Available Not Avai lable Dilaudid 2 mg tablet Take 1 tablet every 4 hours by oral route. 04/30 completed Not Available Not Available Not Available doxycycli ne hyclate 100 mg capsule Take 1 capsule twice a day by oral route for 21 days. 07/20 completed Not Available Not Available Not Available nicotine 14 mg/24 hr daily transderm al patch Apply 1 patch every day by transder mal route for 14 days. 2013 active Not Available Not Available Not Avai lable clindamyc in HCl 300 mg capsule TK ONE C PO Q 6 HOURS UNTIL GONE 01/17 completed Not Available Not Available Not Available ammonium lactate 12 % lotion APPLY TO SOLE OF FEET DAILY. AT NIGHT WEAR SOCKS TO BEDTIME 03/11 completed Not Available Not Available Not Available polyethyl bonny glycol 3350 17 gram oral powder packet DISSOLVE 1 PACKET IN WATER AND TAKE BY MOUTH ONCE A DAY 06/22 completed Not Available Not Available Not Available triamcino lone acetonide 0.5 % topical cream TWO TIMES DAILY 09/04 completed RECORDED 09/05/19 13 1:29PM BY LUIS E MARTINEZ ON/ILIR BENITEZ; Not Available Not Available Not Available cetirizin e 10 mg tablet TAKE 1 TABLET BY MOUTH [address] SCAN 07/20 completed Not Available Not Available Not Available atorvasta tin 10 mg tablet Take 1 tablet every day by oral route for 90 days. 11/28 completed Not Available Not Available Not Available oxybutyni n chloride ER 10 mg tablet,ex tended release 24 hr every 24 hours by oral route. 08/11 completed Not Available Not Available Not Available azithromy olc 250 mg tablet TAKE DIRECTED ON PACKAGE 07/20 completed Not Available Not Available Not Available ibuprofen 800 mg tablet TK 1 T PO Q 8 H PRN FOR PAIN 02/27 completed Not Available Not Available Not Available alprazola m 1 mg tablet one tablet at bedtime 2013 active Not Available Not Available Not Avai lable ofloxacin 0.3 % eye drops INSTILL 1 DROP INTO THE RIGHT EYE TID FOR 10 DAYS 04/24 completed Not Available Not Available Not Available tizanidin e 4 mg tablet TAKE 1 TABLET BY MOUTH EVERY DAY AT BEDTIME FOR 7 DAYS 01/01 completed Not Available Not Available Not Available fluconazo le 150 mg tablet Take 1 tablet every 72 hours by oral route. 05/11 completed pt reports hx of intolera nce Not Available Not Available Not Available clarithro mycin 500 mg tablet Take 1 tablet twice a day by oral route for 10 days. 2014 active RECORDED 12/15/19 13 10:25AM BY DUSTIN SOTO MA, OFFICE VISIT; Not Available Not Available Not Available albuterol sulfate 1.25 mg/3 mL solution for nebulizat ion INHALE 1 VIAL VIA NEBULIZE R EVERY 4 HOURS NEEDED 01/01 completed Not Available Not Available Not Available hydrocodo ne 5 mg-acetam inophen 325 mg tablet FOUR TIMES DAILY 2013 active RECORDED 09/26/19 14 4:31PM BY SAMUEL LOVE MD, OFFICE VISIT;HI ESCRIPTI ON 3 OF 3. DO NOT FILL BEFORE 11/23/2013 . DURATION OF TREATMEN T: INDEFINI TE. LAST OFFICE VISIT IS DATE OF PRESCRIP TION. Not Available Not Available Not Available tretinoin 0.025 % topical cream APPLY A PEA SIZED AMOUNT TO DRY FACE AT BEDTIME EVERY OTHER NIGHT AND WORK UP TO APPLYING NIGHTLY TOLERATE D. MOISTURI ZE AFTER 10 MINUTES 12/02 completed Not Available Not Available Not Available sucralfat e 100 mg/mL oral suspensio n 02/22 completed 01/16/21 *ON HOLD; has not started this* Not Available Not Available Not Available ondansetr on HCl 8 mg tablet TAKE 1 TABLET BY MOUTH THREE TIMES DAILY NEEDED 10/13 completed Not Available Not Available Not Available meloxicam 15 mg tablet TAKE 1 TABLET BY MOUTH EVERY DAY 01/26 completed Not Available Not Available Not Available sucralfat e 1 gram tablet TK 1 T PO TID 01/17 completed Not Available Not Available Not Available FreeStyle Lancets 28 gauge TEST BLOOD SUGAR ONCE DAILY 06/22 completed Not Available Not Available Not Available ondansetr on HCl 4 mg tablet TAKE 1 TABLET BY MOUTH EVERY 8 HOURS IF NEEDED FOR NAUSEA OR VOMITING active Not Available Not Available No t Available methylpre dnisolone 32 mg tablet TAKE 1 TABLET BY MOUTH [address] SCAN REPEAT DOSE 2 HOURS PRIOR TO SCAN 07/20 completed Not Available Not Available Not Available Medrol ([place]) 4 mg tablets in a dose pack Take 1 package by oral route for 6 days. 2014 active Not Available Not Available Not Avai lable fluoroura cil 5 % topical cream 07/20 completed Not Available Not Available Not Available simvastat in 10 mg tablet Take 1 tablet every day by oral route for 30 days. 2014 active Not Available Not Available Not Avai lable Pyridium 200 mg tablet Take 1 tablet 3 times a day by oral route as needed for 2 days. 06/22 completed Not Available Not Available Not Available clindamyc in HCl 150 mg capsule TK 1 C PO Q 6 H FOR 7 DAYS 01/17 completed Not Available Not Available Not Available cyanocoba krysta (vit B-12) 1,000 mcg tablet TAKE 1 TABLET DAILY ON AN EMPTY STOMACH 11/23 completed Not Available Not Available Not Available Accu-Chek Softclix Lancets USE TO TEST BLOOD SUGAR TWICE DAILY active Not Available Not Available No t Available Advair Diskus 100 mcg-50 mcg/dose powder for inhalatio n EVERY 12 HOURS 01/18 completed RECORDED 01/19/20 09 10:51AM BY KULWINDER EL MD, MEDICATI ON AUTO-MEET CTIVATIO N; Not Available Not Available Not Available meclizine 12.5 mg tablet THREE TIMES DAILY, NEEDED 07/26 completed RECORDED 07/28/19 11 3:17PM BY MOOK BARTH, MEDICATI ON AUTO-MEET CTIVATIO N;MAY CAUSE DROWSINE SS. Not Available Not Available Not Available lidocaine HCl 2 % mucosal jelly APPLY THREE TIMES DAILY NEEDED FOR PAIN 02/22 completed Not Available Not Available Not Available acetamino phen 300 mg-codein e 30 mg tablet TK 1 T PO Q 6 H PRN P 01/17 completed Not Available Not Available Not Available Cardizem CD 180 mg capsule,e xtended release Take 1 capsule every day by oral route. 2014 active Not Available Not Available Not Avai lable omeprazol e 40 mg capsule,d elayed release Take 1 capsule every day by oral route. 03/31 completed Not Available Not Available Not Available doxycycli ne monohydra te 100 mg tablet TAKE 1 TABLET BY MOUTH TWICE DAILY FOR 10 DAYS 10/14 completed Not Available Not Available Not Available tramadol 50 mg tablet TAKE 1 TABLET BY MOUTH EVERY 8 TO 10 HOURS NEEDED FOR PAIN 04/25 completed Not Available Not Available Not Available acetamino phen 500 mg tablet Take 2 tablets 3 times a day by oral route as needed for 14 days. 11/29 completed Not Available Not Available Not Available triamtere ne 37.5 mg-hydroc hlorothia zide 25 mg capsule QD 12/12 completed RECORDED 12/19/19 09 12:51PM BY SAMUEL LOVE MD, MEDICATI ON AUTO-MEET CTIVATIO N; Not Available Not Available Not Available triamcino lone acetonide 0.1 % topical cream APPLY THIN LAYER TOPICALL Y TO THE AFFECTED AREA TWICE DAILY. NO MORE THAN 2 WEEKS 03/11 completed Not Available Not Available Not Available Miconazol e-7 2 % vaginal cream Insert 1 applicat orful every day by vaginal route for 7 days. 06/15 completed Not Available Not Available Not Available meloxicam 7.5 mg tablet TAKE 1 TABLET BY MOUTH TWICE DAILY WITH MEALS 07/20 completed as needed Not Available Not Available Not Available oxycodone -acetamin ophen 5 mg-325 mg tablet TK 1 T PO Q 4 H PRN FOR PAIN. DO NOT OPERATE HEAVY MACHINER Y UNDER THE INFLUENC E. 01/17 completed Not Available Not Available Not Available Fluticaso ne Propionat e (Inhal) 50 mcg/BLIST inhl powd ONCE DAILY 12/14 completed RECORDED 12/15/19 13 10:25AM BY DUSTIN SOTO MA, OFFICE VISIT; Not Available Not Available Not Available citalopra m 20 mg tablet QD 10/06 completed RECORDED 10/07/19 10 11:47AM BY LUIS E MARTINEZ ON/ILIR DUM; Not Available Not Available Not Available Deep Sea Nasal 0.65 % spray aerosol USE 1 SPRAY IN EACH NOSTRIL EVERY MORNING active Not Available Not Available No t Available famotidin e 20 mg tablet TAKE 1 TABLET BY MOUTH TWICE DAILY NEEDED FOR STOMACH PAIN active Not Available Not Available No t Available magnesium oxide 400 mg (241.3 mg magnesium ) tablet Take 1 tablet every day by oral route. 12/17 completed PER CARDIO Not Available Not Available Not Available lorazepam 0.5 mg tablet TAKE 1 TABLET BY MOUTH TWICE DAILY active Not Available Not Available No t Available methocarb damaris 750 mg tablet Take 1 tablet 3 times a day by oral route as directed for 10 days. 03/13 completed Not Available Not Available Not Available hydrocort isone-joana tic acid 1 %-2 % ear drops Instill 2 drops 4 times a day by otic route. 04/30 completed Not Available Not Available Not Available ciproflox acin 0.3 % eye drops INSTILL 1 DROP INTO AFFECTED EYE(S) BY OPHTHALM IC ROUTE EVERY 2 HOURSWHI LE AWAKE FOR 2 DAYS THEN 1 DROP EVERY 4 HRS WHILE AWAKE FOR 5 DAYS 04/24 completed Not Available Not Available Not Available amitripty line 10 mg tablet TAKE 1 TABLET BY MOUTH EVERY NIGHT 07/20 completed Not Available Not Available Not Available meclizine 25 mg tablet Take 1 tablet 3 times a day by oral route for 5 days. 03/12 completed Not Available Not Available Not Available benzonata te 100 mg capsule Take 1 capsule 3 times a day by oral route for 7 days. 12/02 completed Not Available Not Available Not Available hydrocort isone 1 % topical cream APPLY TOPICALL Y TO RASH THREE TIMES DAILY NEEDED FOR ITCHING 03/11 completed Not Available Not Available Not Available cephalexi n 500 mg capsule Take 1 capsule every 8 hours by oral route for 3 days. 11/23 completed for strep B Not Available Not Available Not Available pantopraz ole 40 mg tablet,de layed release TAKE 1 TABLET BY MOUTH EVERY DAY NEEDED FOR HEARTBUR N 12/02 completed Not Available Not Available Not Available ropinirol e 0.5 mg tablet 06/29 completed Not Available Not Available Not Available clotrimaz ole-betam ethasone 1 %-0.05 % topical cream APPLY TOPICALL Y TO THE AFFECTED AND SURROUND ING AREAS TWICE DAILY IN THE MORNING AND IN THE EVENING FOR 2 WEEKS 03/11 completed Not Available Not Available Not Available Tums Ultra 400 mg (as calcium carbonate 1,000 mg) chewable tablet Take 1 tablet 3 times a day by oral route as needed. active Not Available Not Available No t Available Biaxin XL 500 mg tablet,ex tended release DAILY 01/07 completed RECORDED 01/19/20 09 10:51AM BY KULWINDER EL MD, MEDICATI ON AUTO-MEET CTIVATIO N; Not Available Not Available Not Available naproxen 500 mg tablet,de layed release Take 1 tablet twice a day by oral route as directed for 30 days. 03/13 completed Not Available Not Available Not Available polymyxin B sulfate 10,000 unit-trim ethoprim 1 mg/mL eye drops INSTILL 1 DROP INTO AFFECTED EYE(S) BY OPHTHALM IC ROUTE EVERY 6 HOURS 04/24 completed Not Available Not Available Not Available flecainid e 50 mg tablet TK 1 T PO Q 12 H 01/17 completed Not Available Not Available Not Available Qvar 40 mcg/actua tion Metered Aerosol oral inhaler TWO TIMES DAILY 06/15 completed RECORDED 06/15/20 12 4:04PM BY DUSTIN SOTO MA, OFFICE VISIT; Not Available Not Available Not Available Advair Diskus 250 mcg-50 mcg/dose powder for inhalatio n BID 12/18 completed RECORDED 12/20/19 09 12:08PM BY DUSTIN SOTO MA, OFFICE VISIT; Not Available Not Available Not Available nicotine 21 mg/24 hr daily transderm al patch APPLY 1 PATCH TO THE SKIN D 01/17 completed Not Available Not Available Not Available fluoxetin e 10 mg capsule Take 1 capsule every day by oral route for 30 days. 07/14 completed had not started yet, still talking to psych, Not Available Not Available Not Available betametha sone dipropion ate 0.05 % topical cream TWO TIMES DAILY 12/27 completed RECORDED 12/28/19 12 7:29AM BY SAMUEL LOVE MD, PRESCRIP TION REFILL; Not Available Not Available Not Available docusate sodium 100 mg capsule Take 1 capsule twice a day by oral route. 09/09 completed Not Available Not Available Not Available gabapenti n 300 mg capsule TAKE 1 CAPSULE BY MOUTH THREE TIMES DAILY FOR 14 DAYS 01/01 completed Not Available Not Available Not Available omeprazol e 20 mg capsule,d elayed release TAKE 1 CAPSULE BY MOUTH EVERY DAY BEFORE MEALS 04/25 completed NEEDED Not Available Not Available Not Available budesonid e 0.5 mg/2 mL suspensio n for nebulizat ion MIX 1 VIAL WITH 5 PACKETS OF SPLENDA AND SWALLOW BID 04/24 completed Not Available Not Available Not Available vitamin B complex tablet Take 1 tablet every day by oral route for 100 days. 11/28 completed Not Available Not Available Not Available folic acid 1 mg tablet TAKE 1 TABLET BY MOUTH DAILY 04/25 completed Not Available Not Available Not Available hydrocodo ne 5 mg-acetam inophen 500 mg tablet FOUR TIMES DAILY 08/29 completed RECORDED 08/30/19 14 11:50AM BY SAMUEL LOVE MD, PHONE ENCOUNTE R;PRESCR IPTION 3 OF 3. DO NOT FILL BEFORE 08/23/2013 . DURATION OF TREATMEN T: INDEFINI TE. LAST OFFICE VISIT IS DATE OF PRESCRIP TION. Not Available Not Available Not Available gabapenti n 100 mg capsule Take by oral route for 60 days. 03/11 completed Not Available Not Available Not Available metoprolo l succinate ER 25 mg tablet,ex tended release 24 hr TK / T PO QD 01/17 completed Not Available Not Available Not Available ergocalci ferol (vitamin D2) 1,250 mcg (50,000 unit) capsule WEEKLY 04/21 completed RECORDED 04/21/20 10 5:11PM BY DUSTIN SOTO MA, OFFICE VISIT; Not Available Not Available Not Available clobetaso l 0.05 % topical ointment APPLY THIN LAYER TOPICALL Y TO THE AFFECTED AREA DAILY 10/09 completed Not Available Not Available Not Available lorazepam 1 mg tablet Take 1 tablet 3 times a day by oral route for 15 days. 2015 active Not Available Not Available Not Avai lable ibuprofen 600 mg tablet Take 1 tablet every 8 hours by oral route as directed . 2024 active Not Available Not Available Not Avai lable cefuroxim e axetil 500 mg tablet BID 11/21 completed RECORDED 12/06/19 07 1:40PM BY SAMUEL LOVE MD, MEDICATI ON AUTO-MEET CTIVATIO N; Not Available Not Available Not Available polyethyl bonny glycol 3350 17 gram/dose oral powder TAKE 17G BY MOUTH EVERY DAY active Not Available Not Available No t Available albuterol sulfate HFA 90 mcg/actua tion aerosol inhaler INHALE 2 PUFFS BY MOUTH EVERY 4 HOURS FOR 14 DAYS NEEDED FOR ASTHMA EXACERBA TION active Not Available Not Available No t Available Terazol 7 0.4 % vaginal cream Insert 1 applicat orful every day by vaginal route for 7 days. 03/16 completed Not Available Not Available Not Available hydroxyzi ne HCl 10 mg tablet Take by oral route for 10 days. 03/11 completed Not Available Not Available Not Available ondansetr on 4 mg disintegr ating tablet Place 1 tablet every 8 hours by translin gual route as needed. 2024 active Not Available Not Available Not Avai lable fluticaso ne propionat e 50 mcg/actua tion nasal spray,rozina pension SHAKE LIQUID AND USE 2 SPRAYS IN EACH NOSTRIL EVERY DAY active as needed Not Available Not Available Not Available metformin ER 500 mg tablet,ex tended release 24 hr TAKE 1 TABLET BY MOUTH EVERY DAY 07/20 completed Not Available Not Available Not Available acetamino phen 500 mg capsule Take 2 capsules every 8 hours by oral route as directed . 2024 active Not Available Not Available Not Avai lable doxycycli ne hyclate 100 mg tablet Take 1 tablet twice a day by oral route for 10 days. 2014 active Not Available Not Available Not Avai lable dicyclomi ne 10 mg capsule 11/23 completed Not Available Not Available Not Available loratadin e 10 mg tablet QD 03/01 completed RECORDED 03/28/20 07 4:11PM BY KULWINDER EL MD, MEDICATI ON AUTO-MEET CTIVATIO N; Not Available Not Available Not Available naproxen 500 mg tablet Take 1 tablet twice a day by oral route as directed for 30 days. 03/13 completed Not Available Not Available Not Available diazepam 5 mg tablet Take 1 tablet twice a day by oral route as directed . 12/02 completed Not Available Not Available Not Available nabumeton e 500 mg tablet TAKE 1 TABLET BY MOUTH TWICE DAILY WITH MEALS FOR 14 DAYS 01/01 completed Not Available Not Available Not Available nicotine 7 mg/24 hr daily transderm al patch Apply 1 patch every day by transder mal route for 30 days. 2013 active Not Available Not Available Not Avai lable simethico ne 80 mg chewable tablet CHEW 1 TABLET BY MOUTH EVERY 4 TO 6 HOURS NEEDED active Not Available Not Available No t Available neomycin 3.5 mg/g-poly myxin B 10,000 unit/g-de xameth 0.1 % eye oint APPLY A SMALL STRIP TO BOTH EYES [facility] 04/24 completed Not Available Not Available Not Available neomycin- polymyxin -hydrocor t 3.5 mg-10,000 unit/mL-1 % ear drops,rozina p INSTILL 4 DROPS INTO AFFECTED EAR(S) BY OTIC ROUTE 3 TIMES PER DAY as needed for 7 days 10/14/ 2019 11/11 /2019 completed Not Available Not Available Not Available Vitamin D 50,000 unit capsule ONCE A WEEK 11/05 completed RECORDED 11/06/19 10 3:43PM BY SAMUEL LOVE MD, ANNOTATI ON/ADDEN DUM;THIS ORDER DISCONTI NUED PER [facility] N. Not Available Not Available Not Available albuterol (refill) 90 mcg/actua tion aerosol inhaler Inhale 2 puffs every 4 hours by inhalati on route as needed for 30 days. 04/19 completed Not Available Not Available Not Available nebulizer and compresso r 10/06 completed Not Available Not Available Not Available escitalop gael 10 mg tablet every 24 hours by oral route. 05/21 completed Not Available Not Available Not Available Vitamin D3 25 mcg (1,000 unit) capsule Take 1 capsule every day by oral route. 09/09 completed Not Available Not Available Not Available rosuvasta tin 10 mg tablet TAKE 1 TABLET BY MOUTH DAILY active Not Available Not Available No t Available Lexapro 5 mg tablet every 24 hours by oral route. 02/23 completed Not Available Not Available Not Available metoprolo l tartrate 25 mg tablet TAKE 1/2 TABLET BY MOUTH TWICE DAILY NEEDED FOR PALPITAT IONS active Not Available Not Available No t Available nitrofura ntoin monohydra te/macroc rystals 100 mg capsule TAKE 1 CAPSULE BY MOUTH TWICE DAILY FOR 7 DAYS 06/22 completed Not Available Not Available Not Available duloxetin e 20 mg capsule,d elayed release Take 1 capsule every day by oral route at bedtime for 60 days. 07/20 completed Not Available Not Available Not Available Vesicare 5 mg tablet every 24 hours by oral route. 05/21 completed Not Available Not Available Not Available Flovent HFA 220 mcg/actua tion aerosol inhaler INHALE 4 PUFFS PO BID 04/24 completed Not Available Not Available Not Available Asmanex Twisthale r 220 mcg/actua tion(60 doses) breath activated inhalr QAM 12/18 completed RECORDED 12/20/19 09 12:08PM BY DUSTIN SOTO MA, OFFICE VISIT; Not Available Not Available Not Available chlorhexi dine gluconate 0.12 % mouthwash SWISH AND HOLD FOR 2 MINUTES THEN SPIT TID PC 10/09 completed Not Available Not Available Not Available Vicodin FOUR TIMES DAILY 09/08 completed RECORDED 09/09/19 13 4:26PM BY SAMUEL LOVE MD, OFFICE VISIT;TH IS ORDER DISCONTI NUED PER [facility] N. Not Available Not Available Not Available Eucerin DAILY, NEEDED 06/01 completed RECORDED 06/01/20 11 8:11PM BY LUIS E MARTINEZ ON/ILIR DUM; Not Available Not Available Not Available omeprazol e 20 mg once a day 11/22 completed Not Available Not Available Not Available naproxen TWO TIMES DAILY 04/21 completed RECORDED 04/21/20 10 5:11PM BY DUSTIN SOTO MA, OFFICE VISIT; Not Available Not Available Not Available amitripty line QHS 04/21 completed RECORDED 04/21/20 10 5:10PM BY DUSTIN SOTO MA, OFFICE VISIT; Not Available Not Available Not Available azelastin e 0.1 % [place] 0.1%-inh jonn 2 sprays each nostril twice daily 10/11 completed Not Available Not Available Not Available Accu-Chek Softclix Lancets Test BS twice daily 09/09 completed Not Available Not Available Not Available Accu-Chek Softclix Lancet Dev NA 11/06 completed RECORDED 12/03/19 10 10:55AM BY SAMUEL LOVE MD, MEDICATI ON AUTO-MEET CTIVATIO N; Not Available Not Available Not Available Prilosec 05/21 completed Not Available Not Available Not Available nebulizer s USE FOR ASTHMA 493.10 04/20 completed RECORDED 04/26/20 12 2:07PM BY SAMUEL LOVE MD, MEDICATI ON AUTO-MEET CTIVATIO N; Not Available Not Available Not Available Aerochamb er MV USE WITH MDI FOR ASTHMA (493.10) 04/20 completed RECORDED 04/26/20 12 2:07PM BY SAMUEL LOVE MD, MEDICATI ON AUTO-MEET CTIVATIO N; Not Available Not Available Not Available Calcium 500 1 po three times daily active Not Available Not Available No t Available Freestyle System N/A, FOR DIABETES (250.00) 10/31 completed RECORDED 11/19/19 11 1:38PM BY LATRICE Do MD, MEDICATI ON AUTO-MEET CTIVATIO N; Not Available Not Available Not Available FreeStyle Test TWO TIMES DAILY 2011 active Not Available Not Available Not Avai lable varenicli ne tartrate 1 mg tablet BID 10/06 completed RECORDED 10/07/19 10 11:47AM BY MIREYA GREY, ANNOTATI ON/ILIR DUM; Not Available Not Available Not Available Chantix Starting Month [place] 0.5 mg (11)-1 mg (42) tablets in dose pack BID 12/10 completed RECORDED 12/19/19 09 12:51PM BY SAMUEL LOVE MD, MEDICATI ON AUTO-MEET CTIVATIO N; Not Available Not Available Not Available fluocinol one acetonide oil 0.01 % ear drops DROP 3 TO 4 DROPS INTO EACH EAR CANAL DAILY FOR 5 TO 7 DAYS OR NEEDED TO CONTROL SYMPTOMS 03/11 completed Not Available Not Available Not Available Senna with Docusate Sodium 8.6 mg-50 mg tablet Take 1-2 tablet as needed at bed time for constipa tion. 04/19 completed Not Available Not Available Not Available Pulmicort Flexhaler 180 mcg/actua tion breath activated Inhale 1 puff twice a day by inhalati on route for 30 days. 2014 active Not Available Not Available Not Avai lable Symbicort 80 mcg-4.5 mcg/actua tion HFA aerosol inhaler INL 2 PFS PO BID 02/27 completed Not Available Not Available Not Available FreeStyle Lite Strips USE TO TEST BLOOD SUGAR ONCE DAILY 2024 active Not Available Not Available Not Avai lable cholecalc iferol (vitamin D3) 1,250 mcg (50,000 unit) capsule Take 1 capsule every week by oral route for 56 days. 05/28 completed Not Available Not Available Not Available FreeStyle [place] Lite kit Take by miscell. route. active Not Available Not Available No t Available diclofena c 1 % topical gel APPLY 4 GRAMS TOPICALL Y TO THE AFFECTED AREA TWICE DAILY 03/11 completed Not Available Not Available Not Available cholecalc iferol (vitamin D3) 50 mcg (2,000 unit) tablet DAILY 12/14 completed RECORDED 12/15/19 13 10:25AM BY DUSTIN SOTO MA, OFFICE VISIT; Not Available Not Available Not Available GaviLyte- G 236 gram-22.7 4 gram-6.74 gram-5.86 gram oral solution MIX AND DRINK DIRECTED 04/25 completed Not Available Not Available Not Available ProChambe r USE WITH INHALERS 06/17 completed Not Available Not Available Not Available mometason e 110 mcg/actua tion (7 doses) breath activated powder inhaler DAILY 2013 active RECORDED 07/10/19 14 11:33AM BY DUSTIN SOTO MA, ANNOTATI ON/ILIR BENITEZ;DELANEY GED TO FLOVENT DISKUS Not Available Not Available Not Available Vitamin D3 50 mcg (2,000 unit) capsule Take 1 capsule every day by oral route for 90 days. 06/27 completed Not Available Not Available Not Available lidocaine 5 % topical ointment APPLY A THIN LAYER EXTERNAL LY TO ITCHY BACK UP TO 6 TIMES DAILY active Not Available Not Available No t Available Vicodin 5 mg-300 mg tablet FOUR TIMES DAILY 08/29 completed RECORDED 08/30/19 14 4:01PM BY SAMUEL LOVE MD, PHONE ENCOUNTE R;PRESCR IPTION 1 OF 1. DURATION OF TREATMEN T: INDEFINI TE. LAST OFFICE VISIT IS DATE OF PRESCRIP TION. Not Available Not Available Not Available TENS unit and electrode s use as needed active Not Available Not Available No t Available B-Complex With B-12 2.5 mg-2.5 mg-5 mg-100 mcg tablet TK 1 T PO QD 02/27 completed Not Available Not Available Not Available Saline Nasal (aloe vera) gel Take 1 applicat ion every day by nasal route for 30 days. 04/19 completed Not Available Not Available Not Available albuterol sulfate 90 mcg/actua tion breath activated powder inhaler 2 puffs by inhalati on route. 01/01 completed Not Available Not Available Not Available Flonase Sensimist 27.5 mcg/actua tion nasal spray,rozina pension Take 1 spray every day by nasal route at bedtime for 30 days. 07/26 completed Not Available Not Available Not Available Flucelvax Quad (PF) 60 mcg (15 mcg x 4)/0.5 mL IM syringe ADM 0.5ML IM UTD 06/09 completed Not Available Not Available Not Available BinaxNOW COVID-19 Ag Self Test kit TEST DIRECTED TODAY 11/23 completed Not Available Not Available Not Available Paxlovid 300 mg (150 mg x 2)-100 mg tablets in a dose pack TAKE 3 TABLETS BY MOUTH TWICE DAILY FOR 5 DAYS 12/02 completed Not Available Not Available Not Available Miebo (PF) 100 % eye drops active HAS NOT STARTED YET Not Available Not Available Not Available Vitals Date Recorded Body height Body mass index (BMI) Body weight Heart rate Oxygen saturation Oxygen saturation in Arterial blood by Pulse oximetry Body temperature Systolic And Diastolic Provider Name and Address Organization Details Last Updated DateTime 5 159.39 cm 29.6 kg/m2 99454.3 3 g 66 /min 98 % 98 % 98.3 [degF] 114/72 mm[Hg] Dustin kumar MA [facility] [place] 5 13:44:47 Date Recorded Body height Body mass index (BMI) Body weight Heart rate Oxygen saturation Oxygen saturation in Arterial blood by Pulse oximetry Body temperature Systolic And Diastolic Provider Name and Address Organization Details Last Updated DateTime 5 159.39 cm 29.8 kg/m2 09333.9 3 g 60 /min 97 % 97 % 98.1 [degF] 114/68 mm[Hg] Dustin kumar MA [facility] [place] 5 14:41:39 Date Recorded Body height Body mass index (BMI) Body weight Heart rate Oxygen saturation Oxygen saturation in Arterial blood by Pulse oximetry Body temperature Systolic And Diastolic Provider Name and Address Organization Details Last Updated DateTime 5 159.39 cm 30 kg/m2 45048.5 2 g 61 /min 97 % 97 % 98.4 [degF] 108/69 mm[Hg] Mariia Michelle MA [facility] 5 14:39:36 Date Recorded Systolic And Diastolic Provider Name and Address Organization Details Last Updated DateTime 05/29/2024 150/82 mm[Hg] Joslyn Wilson LPN [facility] 05/29/2024 15:19:33 Date Recorded Body height Body mass index (BMI) Body weight Heart rate Oxygen saturation Oxygen saturation in Arterial blood by Pulse oximetry Body temperature Systolic And Diastolic Provider Name and Address Organization Details Last Updated DateTime 4 159.39 cm 29.6 kg/m2 52576.3 3 g 73 /min 98 % 98 % 98.4 [degF] 152/81 mm[Hg] Dustin kumar MA [facility] 4 14:43:08 Social History Question Answer Notes LastModified by Organizat ion Details LastModified Time Tobacco Smoking Status Former Smoker 1988 [facility] 12/01/2024 20:29:43 Do You Have An Advance Directive? No HCP Declined [email or web address] Information not available 01/20/2022 Is Blood Transfusion Acceptable In An Emergency? Yes Information not available 04/29/2015 What Is Your Level Of Caffeine Consumption? None Information not available 04/15/2014 How Much Tobacco Do You Chew? None Information not available 01/09/2015 What Type Of Diet Are You Following? DIABETIC Lots Of Fruits And Veggies, Lean Meats Information not available 10/10/2023 Which Illicit Or Recreational Drugs Have You Used? None Information not available 04/29/2015 When Did You Quit Smoking? 16+yearssin george [email or web address] Information not available 12/01/2024 Live Alone Or With Others? With Others Grandson (Arie) [email or web address] Information not available 01/20/2022 Do You Take Precautions To Prevent Distracted Driving? Yes Information not available 04/29/2015 How Often Do You Need To Have Someone Help You When You Read Instructions, Pamphlets, Or Other Written Material From Your Doctor Or Pharmacy? Never Information not available 04/29/2015 Have You Served In The ? No Information not available 03/18/2016 Have You Or Anyone In Your Household Had Any Of The Following Symptoms In The Last 14 Days: Sore Throat, Cough, Chills, Body Aches For Unknown Reasons, Shortness Of Breath For Unknown Reasons, Loss Of Smell, Loss Of Taste, Fever At Or Greater Than 100 Degrees Fahrenheit? No Information not available 07/21/2020 Are You Or Anyone In Your Household A Health Care Provider Or Emergency Responder? No [email or web address] Information not available 03/24/2020 To The Best Of Your Knowledge Have You Been In Close Proximity To Any Individual Who Tested Positive For COVID-19? No Information not available 07/21/2020 *AWV ONLY* Are You Presently Prescribed Opioid Medication By PCP Or Specialist? If YES -Provider Assess The Benefit For Other, Non-opioid Pain Therapies Instead, Even If The Patient Does Not Have OUD But Is Possibly At Risk. No Information not available 07/21/2020 Have You Recently Traveled To A COVID-19 High Risk Area Or Gathering In The Last 10 Days? No Information not available 07/21/2020 What Was The Date Of Your Most Recent Tobacco Screening? 11/28/2024 Information not available 12/01/2024 How Many Children Do You Have? 3 Lee Flores And Kulwinder Information not available 10/10/2023 What Is Your Current Pack Years? [email or web address] gomez [email or web address] Information not available 01/20/2022 Do You Use Protection During Sex? No Information not available 07/22/2021 Do You Use Your Seat Belt Or Car Seat Routinely? Yes [email or web address] Information not available 06/03/2021 Seat Belts Used Routinely Yes [email or web address] Information not available 01/20/2022 Are You Sexually Active? No Information not available 04/29/2015 Smoke Alarm In Home No [email or web address] Information not available 01/20/2022 Do You Have Smoke And Carbon Monoxide Detectors In Your Home? Yes Information not available 07/22/2021 At What Age Did You Start Smoking Tobacco? 15 1971 Information not available 12/01/2024 Are You Passively Exposed To Smoke? No Information not available 07/22/2021 How Much Tobacco Do You Smoke? 2 PPD Information not available 12/20/2022 Do You Use Sunscreen Routinely? Yes Information not available 07/22/2021 How Many Years Have You Smoked Tobacco? 18 Information not available 12/20/2022 Sex: Unknown Functional Status Question Answer Note LastModified by Organizat ion Details LastModified Time Do you use any illicit or recreational drugs? No Information not available 10/10/2023 Do you or have you ever used any other forms of tobacco or nicotine? No [email or web address] Information not available 01/20/2022 What is your level of alcohol consumption? None Information not available 04/29/2015 Do you or have you ever used smokeless tobacco? Never used smokeless tobacco Information not available 06/15/2019 Are you currently employed? No disabled due to anxiety Information not available 10/11/2014 Are you able to walk independently without assistance or assistive devices? YESWOREST [email or web address] Information not available 01/20/2022 Are you able to care for yourself independently? 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 Never used electronic cigarettes [email or web address] Information not available 01/20/2022 What is your exercise level? Moderate treadmill 30 minutes; 4-5 x week Information not available 10/10/2023 Mental Status None recorded. Family History Relationship Description Onset Age of this Age Resolved Age Notes LastModified by Organization Details LastModified Time Mother Diabetes mellitus [email or web address] Not available 2015 14:59:24 Mother Essential hypertension [email or web address] Not available 13:02:26 Mother Anxiety disorder [email or web address] Not available 2020 10:09:50 Mother Cerebrovascu lar accident [email or web address] s Not available 07/22/2021 13:01:27 Mother Hypertensive disorder [email or web address] s Not available 07/22/2021 13:01:27 Mother Obesity [email or web address] s Not available 07/22/2021 13:01:27 Mother Heart disease [email or web address] s Not available 07/22/2021 13:01:27 Mother Hypercholest erolemia [email or web address] s Not available 07/22/2021 13:01:27 Father Diabetes mellitus [email or web address] s Not available 07/22/2021 13:01:27 Father Disease of liver [email or web address] s Not available 07/22/2021 13:01:27 Father Arthritis [email or web address] s Not available 07/22/2021 13:01:27 Father Obesity [email or web address] s Not available 07/22/2021 13:01:27 Father Liver problem [email or web address] s Not available 07/22/2021 13:01:27 Father Sleep disorder [email or web address] s Not available 07/22/2021 13:01:27 Father Harmful pattern of use of alcohol [email or web address] s Not available 07/22/2021 13:01:27 Father Malignant neoplasm of skin [email or web address] Not available 01/20 13:02:26 Sister Heart disease [email or web address] s Not available 07/22/2021 13:01:27 Sister Osteoporosis bsolivanmat to s Not available 07/22/2021 13:01:27 Unspecified Relation Heart disease [email or web address] s Not available 07/22/2021 13:01:27 Unspecified Relation Depressive disorder [email or web address] s Not available 07/22/2021 13:01:27 Paternal Grandfather Asthma [email or web address] s Not available 07/22/2021 13:01:27 Brother Allergy [email or web address] s Not available 07/22/2021 13:01:27 Medical History Condition Response Heart Problems Y Other Y Ear or Hearing Problems Y Hospitalizations Y GI Problems Y Depression Y Skin Problems Y Eating Disorder Y Anemia Y Constipation Y Headaches/Migraines Y Bladder Problems Y Mental Illness Y Anxiety Disorder Y Varicose Veins Y Diabetes Y Obesity Y Vision or Eye Problems Y Arthritis Y Head Injury/Concussion Y Polyps Y Acid Reflux (GERD) Y Cancer Y Diverticulitis Y Asthma Y Allergies Y Reflux/GERD Y High Cholesterol Y Fibromyalgia Y Hypertension Y Gynecological History Statement/Question Response Date of Last Pap Smear 09/01/2015 Date of Last Colonoscopy 04/17/2021 Most Recent Mammogram 02/05/2025 Obstetrics History GPAL:G 0 P 0 0 0 0 Immunizations Vaccine Type Date Status Note Provider Name and Address Organization Details Recorded Time Influenza, split virus, trivalent, preservative 019 completed DARRYL Jain [facility] 02/16/2022 08:56:00 pneumococcal polysaccharide PPV23 019 completed DARRYL Jain [facility] 02/16/2022 08:56:00 Influenza, MDCK, quadrivalent, PF 020 completed DARRYL Jain [facility] 02/16/2022 08:56:00 COVID-19, mRNA, LNP-S, PF, 30 mcg/0.3 mL dose 021 completed DARRYL Jain [facility] 02/25/2021 14:19:58 COVID-19, mRNA, LNP-S, PF, 30 mcg/0.3 mL dose 021 completed DARRYL Jain [facility] 02/25/2021 14:20:41 Influenza, split virus, quadrivalent, PF 017 completed DARRYL Jain [facility] 02/16/2022 08:56:00 Influenza, split virus, quadrivalent, PF 018 completed Lotus Herndon, MA null, [facility] 02/16/2022 08:56:00 Influenza, split virus, quadrivalent, PF 021 completed Lotus Herndon, MA null, [facility] 02/16/2022 08:56:00 Influenza, split virus, quadrivalent, PF 015 completed Lotus Herndon, MA null, [facility] 02/16/2022 08:56:01 Influenza, split virus, quadrivalent, PF 016 completed Lotus Herndon, MA null, [facility] 02/16/2022 08:56:01 Influenza, split virus, quadrivalent, PF 014 completed Lotus Herndon MA null, [facility] 02/16/2022 08:56:01 Influenza, MDCK, quadrivalent, PF 022 completed Dustin dumont MA null, [facility] 07/26/2022 13:06:24 Influenza, split virus, quadrivalent, PF 024 completed Joslyn Wilson LPN null, [facility] 05/08/2024 13:01:42 zoster live 017 cancelled patient objection Not Available [facility] 07/07/2019 02:21:33 Influenza, split virus, trivalent, preservative 006 completed Ann Baugh null, [facility] 05/19/2020 10:24:10 Influenza, split virus, trivalent, preservative 007 completed Ann Baugh null, [facility] 05/19/2020 10:24:10 Influenza, split virus, trivalent, preservative 008 completed Ann Baugh null, [facility] 05/19/2020 10:24:10 Influenza, split virus, trivalent, preservative 009 completed Ann Baugh null, [facility] 05/19/2020 10:24:10 Influenza, split virus, trivalent, preservative 010 completed Ann Baugh null, [facility] 05/19/2020 10:24:10 Influenza, split virus, trivalent, preservative 011 completed Ann Baugh null, [facility] 05/19/2020 10:24:10 influenza, seasonal, intradermal, preservative free 012 completed Ann Baugh null, [facility] 05/19/2020 10:24:10 influenza, seasonal, intradermal, preservative free 013 completed Ann Baugh null, [facility] 05/19/2020 10:24:10 pneumococcal polysaccharide PPV23 018 cancelled patient objection Not Available [facility] 07/07/2019 02:21:28 Tdap 019 cancelled patient objection Not Available [facility] 07/07/2019 02:21:49 Td (adult), 5 Lf tetanus toxoid, preservative free, adsorbed 019 cancelled patient objection Not Available [facility] 07/07/2019 02:21:35 Influenza, high-dose, trivalent, PF 024 completed Araceli Andrews PA-C [address], [address] [facility] [place] 14:44:21 Past Encounters Encounter ID Performer Location Encounter Start Date Encounter Closed Date Diagnosis/Indication Diagnosis SNOMED-CT Code Diagnosis ICD10 Code Diagnosis IMO Codes Diagnosis Note [id number] autoEComm erce [address] [facility] [place] [address] 05/16/2006 00:00:00 7853 autoEComm erce [address] [facility] [place] [address] 03/21/2006 00:00:00 7854 autoEComm erce [address] [facility] [place] [address] 09/06/2006 00:00:00 7855 autoEComm erce [address] [facility],[address] [place] [address] 11/11/2006 00:00:00 [address] [place] [address] 01/16/2007 00:00:00 7857 autoEComm erce [address] [facility] [address] [place] [address] 01/30/2007 00:00:00 7858 autoEComm erce [address] [facility] [place] [address] 02/15/2007 00:00:00 7859 autoEComm erce [address] [facility] [address] [place] [address] 03/31/2007 00:00:00 7860 autoEComm erce [address] [facility] [place] [address] 04/03/2007 00:00:00 7861 autoEComm erce [address] [facility] [place] [address] 04/14/2007 00:00:00 7862 autoEComm erce [address] [facility],[address] [place] [address] 04/22/2007 00:00:00 7863 autoEComm erce [address] [facility],[address] [place] [address] 04/26/2007 00:00:00 7864 autoEComm erce [address] [facility] [place] [address] 05/09/2007 00:00:00 7865 autoEComm erce [address] [facility],[address] [place] [address] 06/07/2007 00:00:00 7866 autoEComm erce [address] [facility],[address] [place] [address] 08/17/2007 00:00:00 7867 autoEComm erce [address] [facility] [place] [address] 03/25/2008 00:00:00 7868 [address] [place] [address] 05/31/2008 00:00:00 7869 [address]Comm erce [address] [place] [address] 11/12/2008 00:00:00 7870 [address] [place] [address] 12/18/2008 00:00:00 7871 autoEComm erce [address] [facility] [address] [place] [address] 12/28/2008 00:00:00 7872 autoEComm erce [address] [facility] [address] [place] [address] 03/12/2009 00:00:00 7873 autoEComm erce [address] [facility] [place] [address] 08/19/2009 00:00:00 7874 autoEComm erce [address] [facility] [place] [address] 12/03/2009 00:00:00 7875 autoEComm erce [address] [facility] [place] [address] 01/06/2010 00:00:00 7876 autoEComm erce [address] [facility] [place] [address] 03/09/2010 00:00:00 7877 autoEComm erce [address] [facility] [place] [address] 04/21/2010 00:00:00 7878 autoEComm erce [address] [facility] [address] [place] [address] 06/30/2010 00:00:00 7879 autoEComm erce [address] [facility] [place] [address] 07/16/2010 00:00:00 7880 [address]EComm erce [address] [place] [address] 10/19/2010 00:00:00 7881 [address]Comm [address] [place] [address] 11/30/2010 00:00:00 [address] [place] [address] 03/10/2011 00:00:00 7883 [address] [place] [address] 06/16/2011 00:00:00 7884 autoEComm erce [address] [facility] [address] [place] [address] 08/20/2011 00:00:00 7885 autoEComm erce [address] [facility] [address] [place] [address] 09/21/2011 00:00:00 7886 autoEComm erce [address] [facility] [place] [address] 11/24/2011 00:00:00 7887 autoEComm erce [address] [facility] [place] [address] 12/20/2011 00:00:00 7888 autoEComm erce [address] [facility] [place] [address] 03/21/2012 00:00:00 7889 autoEComm erce [address] [facility] [place] [address] 05/17/2012 00:00:00 7890 autoEComm erce [address] [facility] [place] [address] 06/15/2012 00:00:00 7891 autoEComm erce [address] [facility] [address] [place] [address] 07/21/2012 00:00:00 7892 autoEComm erce [address] [facility] [place] [address] 08/08/2012 00:00:00 7893 autoEComm erce [address] [facility] [place], [place] [address] 08/18/2012 00:00:00 7894 autoEComm erce [address] [facility] [place], [place] [address] 09/08/2012 00:00:00 7895 autoEComm erce [address] [facility] [place], [place] [address] 12/14/2012 00:00:00 7896 autoEComm erce [address] [facility] [place], [place] [address] 03/13/2013 00:00:00 7897 autoEComm erce [address] [facility] [place], [place] [address] 04/05/2013 00:00:00 7898 autoEComm erce [address] [facility],[address] [place], [place] [address] 06/27/2013 00:00:00 7899 autoEComm erce [address] [facility] [place], [place] [address] 09/25/2013 00:00:00 [id number] ISA Hopper Main Office [address] [facility] [address] [place] [address] 03/07/2014 11:14:36 03/07/2014 12:24:40 Benign paroxysmal positional vertigo 837095117 If not resolving over the next few days will refer to PT for vestibular rehab Generalize d anxiety disorder 95395844 Heel pain 7655211 Needs infl uenza immunization 188177348 [id number] ISA Hopper Main Office [address] [facility] [address] [place], [place] [address] 03/21/2014 11:47:46 03/21/2014 12:25:35 Epigastric pain 20346136 non-acute abdomen, VSS, continue PPI, check labs and ultrasound Breast lump 90312353 [id number] Samuel Love MD Main Office [address] [facility] [address] [place] [address] 04/15/2014 13:50:45 04/15/2014 15:21:56 Type 2 diabetes mellitus without complication 729468562 Gastroesop hageal reflux disease 429646599 Tobacco de pendence syndrome 62490515 [id number] Samuel Love MD Main Office [address] [place] [address] 07/15/2014 15:34:05 07/15/2014 16:51:13 Type 2 diabetes mellitus without complication 449732912 Hyperlipidemia 31788964 Neck pain 70656044 [id number] ISA Cole Main Office [address] [place] [address] 08/01/2014 14:50:30 08/01/2014 15:39:00 Ventricular premature complex 651597209 HX PVCs seen in ED last week with palpitatio ns, chest pain- had negative work-up but she would like cardiology follow-up. Headache 72466571 Pressure to top of head, recently treated herself with z-monroe for sinus infection. Neuro exam intact. Case discussed with Dr. Love, will try prednisone taper and hold off on any imaging. If develop worsening headache, N/V, vision changes, weakness, slurred speech, facial droop, other concerning sx please return or go to ED. Chiari mal formation type I 118040826 [id number] Samuel Love MD Main Office [address] [place] [address] 10/11/2014 15:15:13 10/11/2014 16:22:36 Type 2 diabetes mellitus without complication 531558875 Anxiety 09066842 [id number] Samuel Love MD Main Office [address] [place] [address] 11/29/2014 12:40:49 11/29/2014 14:16:38 Atrial fibrillation 20586428 Anxiety 37566405 [id number] Samuel Love MD Main Office [address] [place] [address] 01/09/2015 15:35:49 01/09/2015 16:19:21 Type 2 diabetes mellitus without complication 760782494 Anxiety 90838201 [id number] Samuel Love MD Main Office [address] [place] [address] 02/06/2015 16:04:08 02/06/2015 16:26:49 Screening for malignant neoplasm of colon 776447761 [id number] Samuel Love MD Main Office [address] [address] [place] [address] 02/27/2015 12:40:18 02/27/2015 13:47:39 Anxiety 60377281 Type 2 vince betes mellitus without complication 294561837 Needs infl uenza immunization 573346177 Insomnia 198776192 Tobacco de pendence syndrome 02306223 [id number] Samuel Love MD Main Office [address] [address] [place] [address] 03/18/2015 15:51:32 05/03/2015 03:49:20 [id number] Gabo Forde MD Main Office [address] [address] [place] [address] 03/21/2015 14:14:22 03/21/2015 15:05:07 Acute pharyngitis 745999679 J02.9 this may not represent an infection but may instead be related to PND from seasonal allergies. Cough 86868540 R05 Allergic rhinitis 554825 04 J30.9 this may be causing her symptoms of scratchy throat and cough from PND. Smoking may be adding to her symptoms. Pharyngitis 702262328 J0 2.9 [id number] Araceli Andrews PA-C Main Office [address] [address] [place] [address] 04/01/2015 10:35:52 04/01/2015 11:21:29 Acute sinusitis 46291067 J01.90 Acute sinusitis. Start Doxycyclin e 100 mg BID for 10 days. Medrol dose pack as dir. for 5 days. Flonase spray qd. Nasal saline rinse once per day. Acute asthma 486801994 J 45.901 Asthma exacerbati on. Medrol dose pack. Albuterol by nebulizer q 4-6 hrs. Pulmicort inhaler 180 mcg BID. Return in 4 weks for recheck plus spirometry . [id number] Samuel Love MD Main Office [address] [address] [place] [address] 04/29/2015 12:56:43 04/29/2015 14:14:05 Anxiety 91424062 F41.9 Gastroesop hageal reflux disease 832544474 K21.9 Chronic sinusitis 296242 00 J32.9 Headache 04125997 R51 [id number] Samuel Love MD Main Office [address] [address] [place] [address] 05/30/2015 12:57:55 05/30/2015 13:56:31 Type 2 diabetes mellitus without complication 271387858 E11.9 Vitamin D deficiency 347 55179 E55.9 Major depr essive disorder 010591791 F32.9 Intrinsic asthma 9533211 08 J45.40 [id number] Samuel Love MD Main Office [address] [address] [place] [address] 08/29/2015 13:44:27 08/29/2015 14:42:24 Type 2 diabetes mellitus without complication 451194214 E11.9 Major depr essive disorder 070375005 F32.9 Generalize d anxiety disorder 19072412 F41.1 Atrial fibrillation 4943 6004 I48.0 Followed by cardiology [id number] Samuel Love MD Main Office [address] [address] [place] [address] 09/12/2015 14:50:42 09/12/2015 15:40:03 Atrial fibrillation 41682487 I48.0 Followed by cardiology Anxiety 99670890 F41.9 [id number] Samuel Love MD Main Office [address] [address] [place] [address] 11/19/2015 14:48:40 11/19/2015 16:03:55 Left lower quadrant pain 295773120 R10.32 chronic constipati on versus diverticul itis (diverticu losis noted on CT abd) Constipation 83769190 K5 9.00 [id number] Samuel Love MD Main Office [address] [address] [place] [address] 12/18/2015 14:25:17 12/18/2015 15:30:42 Type 2 diabetes mellitus without complication 814037456 E11.9 Gastroesop hageal reflux disease 455586727 K21.9 Moderate p ersistent asthma 019797061 J45.40 Major depr essive disorder 495057262 F32.9 [id number] Samuel Love MD Main Office [address] [place] [address] 03/18/2016 15:46:12 03/18/2016 16:27:07 Type 2 diabetes mellitus without complication 918467170 E11.9 Needs infl uenza immunization 326531961 Z23 Vitamin D deficiency 347 25203 E55.9 Body mass index 30+ - obesity 889809941 Z68.31 [id number] Samuel Love MD Main Office [address] [address] [place] [address] 06/17/2016 14:12:40 06/17/2016 15:12:17 Type 2 diabetes mellitus without complication 470057492 E11.9 Acute exac erbation of chronic bronchitis 834661164 J44.1 [id number] Samuel Love MD Main Office [address] [address] [place] [address] 08/25/2016 10:05:45 08/25/2016 11:01:10 Low back pain 898440558 M54.5 [id number] Samuel Love MD Main Office [address] [address] [place] [address] 09/09/2016 14:23:37 09/09/2016 15:53:43 Adult health examination 488474320 Z00.00 Major depr essive disorder 025191861 F32.9 Atrial fibrillation 4943 6004 I48.0 Followed by cardiology Moderate p ersistent asthma 262874110 J45.40 Tobacco de pendence syndrome 21891048 F17.290 Varicella vaccination 68 628320 Z23 Type 2 vince betes mellitus without complication 000933102 E11.9 Screening for malignant neoplasm of lung 138483767 Z12.2 [id number] Samuel Love MD Main Office [address] [address] [place] [address] 12/09/2016 14:20:21 12/09/2016 14:59:49 Migraine with aura 5444958 G43.109 Hereditary essential tremor 710123669 G25.0 [id number] Samuel Love MD Main Office [address] [address] [place] [address] 12/27/2016 11:34:15 12/27/2016 12:22:06 Type 2 diabetes mellitus without complication 016360483 E11.9 Benign par oxysmal positional vertigo 195260225 H81.10 Primary fi bromyalgia syndrome 39139321 M79.7 [id number] Samuel Love MD Main Office [address] [facility] [address] [place] [address] 01/28/2017 15:59:28 01/28/2017 16:34:46 Primary fibromyalgia syndrome 09408364 M79.7 [id number] Araceli Andrews PA-C Main Office [address] [address] [place] [address] 02/16/2017 13:52:30 02/16/2017 14:27:43 Pain in lower limb 05321353 M79.605 L. popliteal pain and swelling. ? Henao's cyst. SChedule leg u/s. Start Ibuprofen 600 mg TID with food and take Prilosec 20 mg to protect stomach. [id number] Samuel Love MD Main Office [address] [address] [place] [address] 03/16/2017 13:02:51 03/16/2017 13:55:17 Type 2 diabetes mellitus without complication 575431196 E11.9 Chronic neck pain 980084 8564 107 M54.2 Primary fi bromyalgia syndrome 90129258 M79.7 Atrial fibrillation 4943 6004 I48.0 Followed by cardiology Tobacco de pendence syndrome 98747893 F17.290 Needs infl uenza immunization 916661115 Z23 [id number] Samuel Love MD Main Office [address] [address] [place] [address] 06/24/2017 12:52:58 06/24/2017 13:51:04 Type 2 diabetes mellitus without complication 142655424 E11.9 Chronic neck pain 359507 5714 107 M54.2 Primary fi bromyalgia syndrome 42623926 M79.7 Atrial fibrillation 4943 6004 I48.0 Followed by cardiology Tobacco de pendence syndrome 16388719 F17.290 [id number] Araceli Andrews PA-C Main Office [address] [address] [place] [address] 09/07/2017 13:07:24 09/07/2017 14:15:27 Pre-surgery evaluation 328935222 Z01.818 Mrs. Saini has mild to moder. cardio pulm. risk for the planned laparoscop ic cholecyste ctomy scheduled in september. She was asked to have pre-op labs done w/i 1 month of the surgery. Type 2 vince betes mellitus without complication 598876524 E11.9 stable. Moderate p ersistent asthma 294066890 J45.40 stable on meds. Calculus o f gallbladder with cholecystitis 00412320 K80.10 Ventricula r premature complex 914081494 I49.3 Paroxysmal atrial fibrillation 782131389 I48.0 [id number] Tom Danielle [facility] Main Office [address] [facility] 207 [place] [address] 01/31/2018 10:38:50 01/31/2018 11:17:24 Low back pain 223084739 M54.5 heat x 20 mins at a time 4-5 times daily, naproxen BID with food x 5-7 days, robaxin TID x 5-7 days, gentle stretching as tolerated, Call for PT. XR today. [id number] Samuel Love MD Main Office [address] [place] [address] 03/13/2018 11:06:50 03/13/2018 12:30:16 Administration of pneumococcal vaccine 46247631 Z23 Hepatitis C screening 41 1090928 Z11.59 Adult heal th examination 568944269 Z00.00 Type 2 vince betes mellitus without complication 958061707 E11.9 Needs infl uenza immunization 842782765 Z23 Mixed hyperlipidemia 267 609470 E78.2 not on statin Chronic neck pain 812690 9244 107 M54.2 Menopause present 136836 006 Z78.0 Disorder o f lumbar disc 428970745 M51.9 Paroxysmal atrial fibrillation 383691124 I48.0 Biliary calculus 0487645 03 K80.20 Tobacco de pendence syndrome 48183958 F17.290 Atrial fibrillation 4943 6004 I48.0 Followed by cardiology Moderate p ersistent asthma 682756509 J45.40 Major depr essive disorder 857466381 F32.9 Followed by psychiatry Bursitis of shoulder 239 124998 M75.50 [id number] ISA Cole Main Office [address] [facility] [address] [facility] [address] 03/21/2018 10:24:32 03/21/2018 10:55:55 Knee pain 85578456 M25.561 right knee pain, s/p injury 2 weeks ago. sx treatment, call for PT if needed in 2 weeks. meloxicam bid X 14 DAYS, with food, ice 3-4 times daily, use support as needed. call/ return for worsening [id number] Samuel Love MD Main Office [address] [place] [address] 07/21/2018 13:13:23 07/21/2018 14:22:58 Hepatitis C screening 404697429 Z11.59 Type 2 vince betes mellitus without complication 384544610 E11.9 Immunization refused 275 777291 Z28.21 Generalize d anxiety disorder 61824692 F41.1 Eosinophil ic esophagitis 946616187 K20.0 History of gynecological disorder 762010141 Z87.42 Paroxysmal atrial fibrillation 098914651 I48.0 [id number] Zelalem Richey MD Main Office [address] [place] [address] 10/11/2018 15:00:16 10/11/2018 16:02:02 Type 2 diabetes mellitus without complication 113772814 E11.9 Pt reports BS always runs good, seeing Dr Love in October, will do labs at that ov, not quite due yet. Low back pain 373739089 M54.5 will use heat or alternatin g ice and heat. Pt declines lidoderm patch. Urine dip negative for blood, will no send for UA. Pt agrees to continue PT, appt with physiatry will be made. Continue tens unit as needed. Pain on right side likely spasm of muscle. [id number] Samuel Love MD Main Office [address] [place] [address] 10/20/2018 14:27:10 10/20/2018 15:23:51 Type 2 diabetes mellitus without complication 980971304 E11.9 Chronic tremor 722376721 R25.1 Atrial fibrillation 4943 6004 I48.0 Followed by cardiology Hyperlipidemia 09752167 E78.5 Tobacco de pendence syndrome 55328435 F17.290 Gastroesop hageal reflux disease 655429394 K21.9 Generalize d anxiety disorder 10941190 F41.1 Eosinophil ic esophagitis 597420191 K20.0 Followed by GI at [facility] [id number] Zelalem Richey MD Main Office [address] [facility] [address] [place] [address] 11/02/2018 13:56:29 11/02/2018 15:22:29 Costal chondritis 39384186 M94.0 otc pain reliver as needed, local heat altenating with ice, avoid heavy lifting, call if not improving Epigastric pain 35039435 R10.13 seems more muscular from muscle spasm with coughing. NO new GI sx. Call if not resolving, continue PPI Multiple n odules of lung 431252613 R91.[address] from ED to baseline CT done for screening, note to triage to set up comparison . [id number] Zelalem Richey MD Main Office [address] [facility] [address] [place] [address] 11/22/2018 12:50:08 11/22/2018 14:14:36 Eosinophilic esophagitis 111250031 K20.0 pt appears to have tolerated omeprazole 20mg qd in past, she was changed to pantoprazo le 40mg by [facility] which she did not tolerate, then changed to 40mg of omeprazole - which is even worse. never tolerated carafate either will change back to 20mg of omeprazole at pt request - she appears to tolerate the lower dose better also encouraged pt to f/u c local gi to consider flovent topically she is pending return to [facility] in 02.05 *will fwd copy of this note to Dr. Varner* Chronic low back pain 27 8351963 M54.5 cont PT as dir, will refill her ibu (but at slightly lower strength) - cont to take c food, cont hep, she has m relaxer at home but afraid to take - encouraged her to take 5mg of flexeril 1-2 hrs ac hs as dir, also encouraged her to call pmr to see if can get on cx list - pending 02.13 [id number] Gabo Forde MD Main Office [address] [facility] [address] [place] [address] 03/31/2019 10:27:57 03/31/2019 11:11:58 Anxiety 04355644 F41.9 She will increase her dose of lorazepam from 0.5 to 1.0 mg and will call her psych provider (who does her scripts) to discuss her increased anxiety with her. Lightheadedness 71274333 8 R42 This may be secondary to anxiety secondary to her new cancer dx. Itching of ear 038692973 L29.8 [id number] Samuel Love MD Main Office [address] [place] [address] 04/30/2019 14:42:00 04/30/2019 16:04:49 Adult health examination 667481750 Z00.00 Type 2 vince betes mellitus 20598763 E11.9 Neck pain 94211295 M54.2 Anxiety 02906412 F41.9 patient has appt with psychiatrgiovanny bolanos tomorrowha s messaged counselor to set up appointmen t Malignant neoplasm of lung 394217798 C34.90 s/p resection on aw surgeon last Tuesday, has next appointmen t on 05/03surgi fabiola wounds appear to be healing welltaste in mouth - possible anesthesia effect. Patient will call for appointmen t or referral to ENT if persisting for more than 6 weeks post op Mild persi stent asthma 591305489 J45.30 discussed using MDI instead of nebulizerr eviewed history of ICS, not currently on any controller inhalerspa tient has follow up with Dr. Walter lagunas [id number] Zelalem Richey MD Main Office [address] [place] [address] 05/10/2019 15:06:57 05/10/2019 16:27:17 Increased frequency of urination 926044890 R35.0 dipstick neg, will check ua/cs, see below Candidiasis of mouth 797 24690 B37.0 cont nystatin s/s as per surgeon, but may not need if for much longer if adequately rx'd c below Candidiasis of vagina 72 033247 B37.3 has yeast infxn orally, wonder if also has vaginally - will rx c po diflucan [id number] Zelalem Richey MD Main Office [address] [place] [address] 05/18/2019 10:41:17 05/18/2019 11:59:52 Lesion of oral mucosa 7510855972 341834 K13.70 Pt to see dentist and get possible referral to oral surgeon if needed. ? lichen planus, ? underlying periodonta l parth, Pt will make appt, requests labs Malaise and fatigue 2717 61931 R53.83 labs today, possible depression /anxiety related to recent cancer diagnosis. Has upcoming appt with psychiatry , will discuss daily med such as SSRI, pt agrees. Time spent > 25 min with > 50% counseling and coordinati on. Vitamin D deficiency 347 39543 E55.9 check lab [id number] Samuel Love MD Main Office [address] [address] [place] [address] 06/15/2019 13:40:54 06/15/2019 14:37:00 Chronic recurrent sinusitis 474927030 J32.9 Glossitis 29476634 K14.0 Neck pain 18342719 M54.2 Benign par oxysmal positional vertigo 899917601 H81.10 [id number] Samuel Love MD Main Office [address] [address] [place] [address] 07/20/2019 10:32:45 07/20/2019 11:22:21 Type 2 diabetes mellitus without complication 983987028 E11.9 Vitamin D deficiency 347 14505 E55.9 Atrial fibrillation 4943 6004 I48.0 Followed by cardiology Body mass index 30+ - obesity 173903002 E66.9 Z68.30 [id number] Latrice iglesias MD Main Office [address] [address] [place] [address] 11/29/2019 09:41:04 11/29/2019 10:43:43 Chronic constipation 852479949 K59.09 continue raisin bran and prune juice add miralax prn, titrate dose. Enc exercise and adequate water intake. Refer back to GI Altered gary wel function 12202831 R19.4 new changes in GI status, will hav GI give an opinion, ? need repeat colon Heartburn 25036889 R12 PPI for 4 weeks, avoid acidic food, caffeine, alcohol, spicy foods, eating before bed, avoid nsaids. GI to eval , ? help with flovent swallowed for EE Fibromyositis 66339557 M 79.7 neuro evaluation , if not better consider rheum eval. Has generalize d sx at this time. [id number] Samuel Love MD [facility] [address] [address] 01/18/2020 07:12:47 01/18/2020 13:37:53 Type 2 diabetes mellitus 88424220 E11.9 Muscle pain 90295088 M79 .10 Primary fi bromyalgia syndrome 92684573 M79.7 Thoracic back pain 31789 8004 M54.6 Pain of mu ltiple joints 00303187 M25.50 [id number] Zelalem Richey MD [facility] [address] [address] 02/28/2020 13:16:21 02/29/2020 11:09:09 Atypical chest pain 961556965 R07.89 negative w/u in ER - see below Costal chondritis 690963 04 M94.0 rec warm compress, nsaids - re-eval in office in a few wks Gastroesop hageal reflux disease 516929698 K21.9 ? could be aggravatin g above - encouraged pt to cont ppi as dir, or consider pepcid [id number] Zelalem Richey MD Main Office [address] [address] 03/24/2020 15:44:16 03/24/2020 16:51:21 Atypical chest pain 974480951 R07.89 negative cardiac w/u in ER recently Costal chondritis 658436 04 M94.0 not the source of her pain - it starts in R rib and can radiate to sternum, no help c warm compresses to sternum Gastroesop hageal reflux disease 067202912 K21.9 ? could be aggravatin g above, see below - encouraged pt to cont ppi as dir, consider pepcid as well Rib pain 401492235 R07.8 1 r rib pain p lobectomy from Dr. Robles - has pending CT chest then f/u c her 04.03.20 uses tylenol occ, no use of ice not sleeping well - trial c gbn [id number] Latrice iglesias MD Main Office [address] [facility] [address] [place] [address] 04/24/2020 13:12:19 04/24/2020 14:15:16 Discharge from eye 158090687 H57.89 No answers with opthalmolo gy, will send to derm and rheum for evaluation , culture done Toothache 53961916 K08.8 9 needs referral for dental work [id number] Samuel Love MD [facility] [address] [address] [place] [address] 06/09/2020 11:41:29 06/09/2020 14:48:32 Exposure to SARS-CoV-2 111212067 Z20.828 schedule testing Exposure t o viral disease 1956342602 12434 Z03.818 Mild inter mittent asthma 296177786 J45.20 recommend to use nebulizer q 4-6 hrs PRN for wheezing . If cough worsens , pt. will need to have prednisone taper added. Advised to use otc mucolytic as well. [id number] Samuel Love MD [facility] [address] [place] [address] [place] [address] 06/27/2020 09:29:18 06/30/2020 10:52:46 Nausea and vomiting 51804174 R11.2 Chronic neck pain 555126 5229 107 M54.2 Eosinophil ic esophagitis 529392682 K20.0 Followed by GI at [facility] Fibromyositis 02958842 M 79.7 [id number] Samuel Love MD Main Office [address] [address] [place] [address] 07/21/2020 13:17:15 07/21/2020 14:25:55 Adult health examination 448690604 Z00.00 Body mass index 30+ - obesity 844474498 Z68.33 Anxiety disorder 9289736 06 F41.9 Atrial fibrillation 4943 6004 I48.0 Followed by cardiology Chiari mal formation type I 505105320 G93.5 Chronic neck pain 536588 4022 107 M54.2 Eosinophil ic esophagitis 791115368 K20.0 Followed by GI at [facility] Gastroesop hageal reflux disease 058275126 K21.9 Moderate p ersistent asthma 636077631 J45.40 Type 2 vince betes mellitus 19559281 E11.9 Greater tr ochanteric pain syndrome 5165671 M70.61 M70.62 Vitamin D deficiency 347 23231 E55.9 Fibromyositis 73164517 M 79.7 Trial of gabapentin seems to be helping with sleep and pain. Reviewed role for exercise. Obesity 115334531 E66.9 [id number] Anca Acosta MD Main Office [address] [place] [address] 10/14/2020 14:00:54 10/14/2020 14:53:45 Low back pain 246886048 M54.5 Patient's lower back pain is likely secondary to degenerati ve changes with radiculopa thy. Patient was recently started on PPIs for reflux and thus have gone ahead and prescribed nabumetone 500 mg twice daily as there is less GI side effects of this medication . In addition have also prescribed the patient tizanidine 4 mg 1 tablet at bedtime the risk of drowsiness was discussed with the patient and she is aware that she should not be operating any motor vehicle or machinery while on this medication . Given that she has had back pain will also assess degree of degenerati on with an x-ray, although I don't suspect this will change any of the management . I think the patient would greatly benefit from physical therapy for back pain. For the sciatica symptoms I think DC patient gabapentin 300 mg 3 times daily.Mayuri tan discussed Red flag symptoms such as but not limited to incontinen ce, loss of sensation, weakness was discussed with the patient. [id number] Samuel Love MD [facility] [address] [place] [address] 01/16/2021 08:37:37 01/16/2021 13:42:30 Type 2 diabetes mellitus 02378570 E11.9 Thoracic back pain 25440 8004 M54.6 [id number] Latrice iglesias MD Main Office [address] [place] [address] 02/25/2021 13:53:55 02/25/2021 14:46:23 History of malignant neoplasm of lung 672112597 Z85.118 pt was seen in ER for atypical chest/reji st pain. Pt had a CT of chest without contrast and recc is to repeat with contrast. some nodes with mild increase in size. Mastodynia of right breast 5913014509 8636892 N64.4 laterally, unclear cause but longstandi ng and pt interested in seeing breast specialist so will refer mammogram is utd Anterior c hest wall pain 847793655 R07.89 hx of lung resection 2019 pain since then, will start with CT and breast center. [id number] Latrice iglesias MD Main Office [address] [place] [address] 04/29/2021 13:11:12 04/29/2021 14:25:10 Mastodynia of right breast 7014261199 1730830 N64.4 had evalutatio n, no abnormal findings. Anterior c hest wall pain 604360150 R07.[address] of chest, ok per pt, hx of lung cancer, followed by surgeon Headache 92340047 R51.9 right sided vision changes with retro orbital pain, due to hx of cancer would do imaging to rule out mass or other abnormalit y. Pt states she cannot have contrast due to hives Chest pain 70569215 R07. 9 Will try to move up the appt with cardiology . If any acute sx to go to the ED Right uppe r quadrant pain 073612398 R10.[address] Rosado for gallbladde r at the end of the month, had had GI evaluation recently including EGD and colonoscop y, imaging Visual disturbance 09543 001 H53.9 pt following with opthamolog ist fore left sided sx, needs to call them and let report new right sided sx. If any change to go to ED immediatel y. [id number] Latrice iglesias MD Main Office [address] [place] [address] 06/03/2021 10:06:18 06/03/2021 11:40:38 Pre-surgery evaluation 765133714 Z01.818 Patient is at low to moderate risk for cardiopulm onary complicati ons with planned procedure based on comorbidit ies, good exertional tolerance and overall procedure risk. Hx paroxysmal afib in the past, will need to monitor for this. Patient advised to avoid aspirin and NSAIDS for 7 days prior. She is not on any anticoagul ation at baseline. May proceed to scheduled surgery as planned. She would like to make sure she has gallstones before proceeding with surgery. I reviewed CT from earlier this year and asked radiology to comment on presence of stones. If none noted, pt would like an ultrasound . If not stones she would like to hold off on surgery. Hanna 0.3% Labs today Atrial fibrillation 4943 6004 I48.0 Hx PAF, sees PVC, last in 2019. She has been on antiarryth keyona and beta yancy in the past but never had to be anticoagul ated. As of late, no episodes of afib. This would be something to monitor in the perioperat luz marina period. Moderate p ersistent asthma 702830429 J45.40 stable on proair prn only Tobacco de pendence syndrome 56736079 F17.290 pt is a smoker Type 2 vince betes mellitus without complication 331061061 E11.9 Pt reports BS running normal, hgba1c 6.0 Needs infl uenza immunization 272904266 Z23 Right uppe r quadrant pain 412141071 R10.11 [id number] Latrice iglesias MD Main Office [address] [facility] [place] [address] 06/22/2021 11:35:08 06/22/2021 12:28:13 Right upper quadrant pain 681753032 R10.11 Pt is hesitant to do the gallbladde r surgery, I have put a call in to Dr Rosado to discuss the surgery. She will make an appt with Dr Robles to discuss re evaluation of nerve vs muculoskel etal pain right lateral chest and lower ribs. ? need bone scan to check ribs. Time spent reviewiing records, discussion with surgeon > 30 min Atrial fibrillation 4943 6004 I48.0 Hx PAF, sees PVC, last in 2019. She has been on antiarryth keyona and beta yancy in the past but never had to be anticoagul ated. As of late, no episodes of afib. Pt seeing cardiology for this as a presurgery evaluation [id number] Latrice iglesias MD Main Office [address] [place] [address] 06/17/2021 14:23:13 06/17/2021 15:26:26 Right sided chest pain 546392928 R07.89 Most pain is at the lower edge of right ribs, recommende d she call thoracic surgeon as she had been seeing her for post op pain on the right from lung surgery in 2019. Pt agrees to reach out to her. Right uppe r quadrant pain 687635257 R10.11 will check labs and ultrasound . If anything acute to go to the ED. If no gallstones , pt wants to put off surgery. Will await results [id number] Anca Acosta MD Main Office [address] [facility] [address] [place] [address] 07/22/2021 12:58:10 07/22/2021 13:56:49 Adult health examination 175314273 Z00.00 Patient was counseled on healthy diet, exercise and nutrition due to Body mass index is 33 kg/m . Last Colonoscop y:Date: 04/17/21Re sult: no polypsPlan : Per GI repeat in 5yrs Last Mammogram: Date: 12/01/20Res ult: Birad-1Pla n: Last Pap smearDate: Result:Kalli n: s/p tvh Bone density scanDate: 03/23/18Res ult: wnlPlan: Vaccines:T dAP: DECLINESZo ster: DeclinePCV 13: not indicatedP PSV23: 04/18/19, due 2023 5 yrs from lastInflue nza:Covid: , 02/02/21 Routine labs today Immunizati on status reviewed. Will screen based on risk factors. Regular dental and ophtho care advised as well as seat belt and sunscreen use. Distracted driving discussed. Medication reconciled . Advance directives discussed. Advance di rective discussed with patient 223276286 Z71.89 MOLST and HCP discussed. 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 Hyperlipidemia 22343516 E78.5 Vitamin D deficiency 347 56761 E55.9 Obesity 925393511 E66.9 Chronic constipation 236 007636 K59.09 Menopause present 358634 006 Z78.0 Body mass index 30+ - obesity 045695110 Z68.33 - Diet and exercise discussed- Patient made aware of risks of obesity- Encouraged to loose weight.- Avoid starchy and fatty food- Encouraged use of green vegetables and fruits [id number] Anca Acosta MD [facility] [address] [facility] [address] [place] [address] 10/31/2021 12:05:07 11/02/2021 08:24:41 COVID-19 426897299 U07.1 Tylenol OTC, not to exceed package insert for pain or fever q6h advised prn.Throat Lozenges otc prn for sore throat - sugarsaltw ater gargle,tad quate hydration enforcedsa line sprayshumi difier use enforced.p axlovid sent, last available kidney function reviewed, advised eua and potential side affects, tessalon 100 tid prn sentalso advised can use teaspoon honey for cough advised to be mindful due to dm.isolati on precaution discussedp recaution advised if any difficulty breathing or tmax 103 > go to nearest ED [id number] Anca Acosta MD Main Office [address] [facility] [address] [place] [address] 12/02/2021 11:31:23 12/02/2021 12:19:30 Upper abdominal pain 58183661 R10.10 Ongoing sx, seem MSK but cannot prove, Will check for hpylori as not on PPI at present, refer back to GI for an opinion, lfts not done in hospital, will do today. Use tylenol prn, revisit surgeon if not better, has seen thoracici surgeon for this also. [id number] Anca Acosta MD Main Office [address] [facility] [address] [place] [address] 01/20/2022 13:02:04 01/20/2022 13:37:35 Tendinitis of right rotator cuff [id number] M67.813 Declines analgesic wants PT, script providedQu ite limited ROM and strength will get ortho eval possible rotator cuff injuryXR orderedexe rcises provided [id number] Anca Acosta MD Main Office [address] [place] [address] 02/16/2022 08:48:30 02/16/2022 09:26:03 Fatigue 35433543 R53.83 We discussed possible causes for her fatigue, she notes that she is in an unhealthy [facility] ip at this time which may contribute to her symptoms she does follow-up with a psychiatri st. She has been taking lorazepam 3 times daily 0.5 mg for multiple years now however given her age her metabolism could have slowed down which may affect the way she feels with the medication . In addition she tells her fluoxetine is on hold and she is working with a psychiatri st for medical management . I did discuss with her that given that she has a diagnosis of fibromyosi tis duloxetine may be a good option and she should discuss this with her psychiatri st to see what would be the best for her. Daily exercises which includes being in the pool is also important. We also talked about conflict resolution and pulling away herself from the situation and making sure that she has a safety location to go to as well. I will nonetheles s get some labs to rule out any sort of medical causes that can contribute to her fatigue. Finally she notes that she has been having cough since her surgery and she is seeing an ENT, given the sx with fatigue, I will get an x-ray and QuantiFERO N although I suspect it is unlikely the cause of her symptoms. She is a diabetic and I will also check an A1c to ensure that her fatigue is not due worsening glucose control.De nies thoughts of self harm or harming others. Type 2 vince betes mellitus without complication 447920572 E11.9 Will check a1c. Atrial fibrillation 4943 6004 I48.0 Denies palpitatio n, HR regular on auscultati on. Malaise and fatigue 2717 02434 R53.83 Cough 79581638 R05.9 Follow ENT, has apt coming up in feb.Cough happened after surgery in 2018.With fatigue will check quantifero n and XR [id number] Anca Acosta MD Main Office [address] [place] [address] 02/17/2022 13:47:04 02/17/2022 14:30:21 Eczema of external auditory canal 55777309 H60.543 Ear examinatio n shows no sign of infection or sign eczema at this time. Given her history of allergic rhinitis, this could be due to seasonal allergy. Recommend hydorcorti sone cream OTC with Q-tip bid and recommend Zyrtec or Claritin OTC to help with itchiness. Patient agrees to plan. [id number] Anca Acosta MD Main Office [address] [facility] [address] [facility] [place], [place] [address] 06/29/2022 10:01:17 06/29/2022 11:03:00 Metallic taste 11354587 R43.8 On examinatio n she had quite significan t erythema in her nasal cavity with mucosal edema. The blood she might be experienci ng could be dryness in the nasal cavity with postnasal drip. Thus we will start some Flonase, and saline nasal sprays. I also advised saline gel. Cont. to keep air humidified , follow up with dental Tuesday to r/o dental causes and ENT for oropharyng eal cause. She was told to stay off from NSAID. If ENT and dental r/o oropharyng eal causes will refer to gastro.Riky l also get labs although recent labs fairly wnl.-Aware if cough up blood, vomit blood, extensive bleeding then go to ED Increased frequency of urination 593043271 R35.0 Fatigue 15332983 R53.83 Extensive workup done, notes she gets up tired in am, admits that she gets up multiple time to urinate, was supposed to get a UA but did not, she will drop sample off today if wnl consider ONCOLOGY REGISTRAR exam with imaging and Uro/Physician/Ophthalmologist follow up as disruption maybe keeping her up at night.She notes her afib feels off she has cards, advised follw up but will have her return in 1-2 weeks to follow as ECG maybe warranted with addtional features.S he might likely need to start anticoag now as her JANET D S - VASc is likely now > 1. However with recent blood in mouth and metallic taste. [id number] Latrice iglesias MD Main Office [address] [facility] [address] [facility] [place] [address] 07/14/2022 14:58:18 07/14/2022 16:56:16 Palpitations 84138335 R00.2 EKG normal, labs done recently normal range, will have her see cardiology for possible holter. Call if having prolonged symptoms or if associated with any pain or dizziness Vitamin D deficiency 347 66865 E55.9 check lab Generalize d anxiety disorder 97124358 F41.1 Long discussion regarding anxiety, pt agrees this may be driving some of her symptoms. Discussed counseling , she will look into this and discuss further at upcoming visit. [id number] Anca Acosta MD Main Office [address] [facility] [address] [facility] [place], [place] [address] 07/26/2022 12:58:38 07/26/2022 13:43:40 Adult health examination 912311827 Z00.00 Patient was counseled on healthy diet, exercise and nutrition due to Body mass index is 32.9 kg/m . Last Colonoscop y:Date: 04/17/21Re sult: no polypsPlan : Per GI repeat in 5yrs Last Mammogram: Date: 12/01/20Res ult: Birad-1Pla n: ordered Last Pap smearDate: Result:Kalli n: s/p tvh Bone density scanDate: 03/23/18Res ult: wnlPlan: Vaccines:T dAP: script providedZo ster rec: script provided.P CV20: script provided.P PSV23: 04/18/19In fluenza:Covi d: , 02/02/21, bivalent advised Routine labs today Immunizati on status reviewed. Will screen based on risk factors. Regular dental and ophtho care advised as well as seat belt and sunscreen use. Distracted driving discussed. Medication reconciled . Advance directives discussed. Fatigue 08553662 R53.83 Hyperlipidemia 17084453 E78.5 Advance di rective discussed with patient 490370544 Z71.89 MOLST and HCP discussed and stands Atrial fibrillation 4943 6004 I48.0 Denies palpitatio n, HR regular on auscultati on.She might likely need to start anticoag now as her JANET D S - VASc is likely now > 1. However with recent blood in mouth and metallic taste. Type 2 vince betes mellitus without complication 627277713 E11.9 Will check a1c. Screening for malignant neoplasm of breast 124385247 Z12.39 Bone density finding 385 755400 M85.89 Administra tion of pneumococcal vaccine 08854687 Z23 Obesity 338222532 E66.9 Body mass index 30+ - obesity 462125810 Z68.30 E66.9 - Diet and exercise discussed- Patient made aware of risks of obesity- Encouraged to loose weight.- Avoid starchy and fatty food- Encouraged use of green vegetables and fruits Asthma 279180653 J45.90 9 Ex-smoker 6395047 Z87.89 1 Administra tion of viral vaccine 18361797 Z23 Varicella vaccination 68 454027 Z23 [id number] Anca Acosta MD Main Office [address] [place] [address] 11/23/2022 11:15:01 11/23/2022 12:06:44 Right upper quadrant pain 510388600 R10.11 Upon examinatio n, she experience d pain in the right upper quadrant. Although the CAT scan was normal, I proceeded to order an ultrasound to further evaluate potential gallbladde r or liver pathology. She also reported rib tenderness just above the right upper quadrant region. This discomfort could be attributab le to costochond ritis or pain stemming from previous thoracic manipulati ons due to her surgeries. While I offered medication , she declined. Instead, she opted to try warm compresses . I also obtained some blood work for further evaluation . Interestin gly, during the abdominal examinatio n, she exhibited significan t tenderness in the right lower quadrant. Given her history of appendecto my and the recent reassuring CAT scan, we will withhold further CT scans for now. However, I informed her that I cannot entirely rule out ovarian torsion urgently at an outpatient setting. If her symptoms worsen or she develops a fever, she was advised to immediatel y visit the nearest emergency room. Additional ly, a CRP test was performed attempts being made to see if lab can do LDH. I recommende d that she follow up with a gastroente rologist and a thoracic surgeon. She has previously consulted with a general surgeon, whom she may also revisit if she is interested in pursuing surgical management . I have also advised her to wear loose-fitt ing bras, as a tight bra strap could be exacerbati ng her symptoms. She denied any breast tenderness or the presence of a mass. As she is due for a mammogram, I reminded her to schedule this important examinatio n. Constipation 06959938 K5 9.00 We discussed the importance of a high-fiber diet and adequate hydration. She acknowledg ed that she doesn't currently drink enough water. I advised her to consume at least eight glasses of water a day. Over-the-c ounter Konsyl fiber was recommende d, but I emphasized the necessity of hydration for the fiber supplement s to function effectivel y. She can continue using MiraLAX as needed, and I will also provide her with some Senna Plus to assist if she feels that she hasn't fully evacuated her bowels. She has requested an x-ray, which I have ordered. Ovarian pain 014377196 N 94.89 he experience d significan t tenderness in the right lower quadrant. She recently underwent a CAT scan, which did not reveal any pathology. She has a history of appendecto my, so the only other possible cause for her symptoms could be ovarian-re lated. She informed me that she still has her ovaries. To further investigat e, I ordered a transvagin al ultrasound and tumor marker tests as part of her blood work. I advised her to follow up with her gynecologi st for further evaluation and management . [id number] Anca Acosta MD Main Office [address] [facility] [address] [facility] [place] [address] 12/20/2022 14:10:22 12/20/2022 15:05:42 Atrial fibrillation 71346881 I48.0 Denies palpitatio n, HR regular on auscultati on.She might likely need to start anticoag now as her JANET D S - VASc is likely now > 1. She will talk to card about danika mcconnell Type 2 vince betes mellitus without complication 242254758 E11.9 HBA1C z2iabicr orderedBp well controlled of joana.Follow s Podiatry consult, regular feet exam advised. feet examined today. 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 Topical steroid also given, advised to use no more than 2 weeks, aovid face, neck, armpit amd groin.Red flag discussed and when to go to ed Hyperlipidemia 51009409 E78.5 Agreed to start statin, side affect discussed aware to repeat lipids and LFT in 3mo. Insect bit e to hand - nonvenomous 172992427 S60.561A S60.562A [id number] MOOK DUEÑAS Main Office [address] [address] 03/11/2023 13:01:05 03/11/2023 13:46:42 Fibromyalgia 636345188 M79.7 Continue using TENs machine for relief. Osteoarthritis 822773492 M19.90 Continue using Tylenol for pain relief. May start meloxicam 7.5mg as instructed . Ordered walker for night time. 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 Can get 3-4 episodes a day or none a day.-Repor ts of visual disturbanc es- blurry vision or double vision. Pt does follow ophthalmol ogist . Has been following orders, applied gel and eye drops that have improved.- in office zonia hallpike was negative- no vertical or horizontal nystagmus was appreciate d during exam-pt had discussed with CK about seeing physical medicine- will put the referral in Bone pain 03243455 M89.8 X9 -vitamin d levels requested per pt Fibromyositis 39966274 M 79.7 -pt has not started the duloxetine 20mg-wants to hold off starting this medication at this time Pain in left arm 2397624 00 M79.602 -noticed swelling and pain for x1 week in the left upper arm/should er- with worsening symptoms for the past 3-4 days.-no edema or erythema appreciate d on PE- mild tenderness to palpation of the tricep with pain upon elevation of right arm-motor strength and tone 2+ bilaterall y-limited ROM of left shoulder due to pain-heat and hot showers help alleviate pain -hx of rotator cuff injury in right shoulder [id number] Anca Acosta MD Main Office [address] [place] [place] [address] [address] [place] [address] 04/19/2023 13:10:32 04/19/2023 13:48:03 Type 2 diabetes mellitus without complication 396243922 E11.9 A1c above target on no meds. recommend to begin metformin ER 500 mg at dinner and lower total calories and carbs. Repeat A1c and bmp in 6 weeks. F/u 3 m. Hyperlipidemia 67266172 E78.5 Begin taking rosuvastat in 10 mg due to ldl elevation of 142. Repeat lipids in 6 weeks. Follow low fat diet . [id number] Anca Acosta MD Main Office [address] [place] [address] 07/20/2023 13:05:35 07/20/2023 13:41:07 Type 2 diabetes mellitus without complication 181335683 E11.9 A1c is excellent , continue diet and exercise activity. Repeat microalbum in. F/u 4 m. [id number] Araceli Andrews PA-C Main Office [address] [place] [address] 08/16/2023 13:10:12 08/16/2023 14:21:30 Tension-type headache 791811215 G44.209 likely combinatio n of cervical spondylosi s, possible sleep cycle d/o/sleep apnea . Recom. to initiate sleep medicine referral and f/u with rheumatolo gist on neck pain. PT. might need cervical MRI going forward . For now , her headaches are helped with Tylenol. Pt. also had COVID during which time had significan t headaches and as a result of which might be having increase in frequency. Chronic insomnia 1031360 04 F51.04 recommend to see sleep medicine for insomnia and needs polysomnog gael to r/o sleep apnea causing pt's headaches. 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 this under her nails - is establishe d pt of [facility] - last annual ov late jun - urged pt to give them a callcheck labs to r/o nutritiona l deficiency - see below Fatigue 05719805 R53.83 Allergic urticaria 33630 009 L50.0 consider trial of zyrtec qhs Zinc deficiency 52775547 8 E60 Vitamin D deficiency 347 77431 E55.9 Gastroesop hageal reflux disease 471692885 K21.9 ? could be aggravatin g above, see below - encouraged pt to cont ppi as dir, consider pepcid as well 3.24 - ? c/o stress gastritis - has ppi at home - last used months - rec take qd 30-60min ac mealrev last ruq u/s - no evidence of gallstones Iron defic iency anemia 23735724 D50.9 [id number] Anca Acosta MD Main Office [address] [facility] [address] [place] [address] 10/10/2023 14:30:49 10/10/2023 15:31:35 Adult health examination 782107296 Z00.00 Patient was counseled on healthy diet, exercise and nutrition due to Body mass index is 30 kg/m . Last Colonoscop y:Date: 04/17/21Re sult: no polypsPlan : Per GI repeat in 5 yrs Last Mammogram: Date: 12/29/22Res ult: Birad-1Pla n: ordered Last Pap smearDate: Result:Kalli n: s/p tvh Bone density scanDate: 03/02/23Res ult: wnl Vaccines:T dAP: script providedZo ster rec: script provided.P CV20: script provided.P PSV23: 04/18/19In fluenza: 08/15/23Cov id: encouraged updated vaccineRSV : Discussed Routine labs today Immunizati on status reviewed. Will screen based on risk factors. Regular dental and ophtho care advised as well as seat belt and sunscreen use. Distracted driving discussed. Medication reconciled . Advance directives discussed. Hyperlipidemia 69770881 E78.5 Agreed to start statin, side affect discussed aware to repeat lipids and LFT in 3mo. Advance di rective discussed with patient 208931552 Z71.89 MOLST and HCP discussed and stands Atrial fibrillation 4943 6004 I48.0 Denies palpitatio n, HR regular on auscultati on.She might likely need to start anticoag now as her JANET D S - VASc is now > 1. Advised to follow up with cards. Screening for malignant neoplasm of breast 790277342 Z12.39 Administra tion of pneumococcal vaccine 42150682 Z23 Obesity 688409356 E66.9 Body mass index 30+ - obesity 657364530 Z68.30 E66.9 - Diet and exercise discussed- Patient made aware of risks of obesity- Encouraged to loose weight.- Avoid starchy and fatty food- Encouraged use of green vegetables and fruits Asthma 180578633 J45.90 9 Ex-smoker 6480206 Z87.89 1 Administra tion of viral vaccine 35095874 Z23 Varicella vaccination 68 738677 Z23 Type 2 vince betes mellitus without complication 890198664 E11.9 Squamous c ell carcinoma of right lung 5600521144 5843450 C34.91 [id number] Zelalem Richey MD Main Office [address] [facility] [address] [place] [address] 11/30/2023 14:55:27 11/30/2023 15:25:28 Type 2 diabetes mellitus without complication 571465570 E11.9 A1c is excellent , continue diet and exercise activity. Repeat microalbum in. F/u 4 m. Hyperlipidemia 06799120 E78.5 Pt. was prescribed statin but is not taking it . Needs repeat lipids. Have been trying to lose weight and maintain low fat diet. [id number] Gabo Forde MD Main Office [address] [facility] [address] [place] [address] 01/27/2024 15:03:33 01/27/2024 15:36:56 Lightheadedness 475776515 R42 x1 month of having light headedness -recently started rosuvastat in, folic, acid, and b12 supplement s all about 1 month ago-denies of any other new symptom onset-disc ussed the risks/bene fits of stopping rosuvastat in-likely an AE to a statin, pt plans to discuss with her neurologis t Low back pain 199445939 M54.50 -hx of chronic low back pain-has tens machines that provides relief-rec ent flare up over the past x1 week-follo ws with physical therapy and notes of having improvemen ts-does stretches/ exercises at home-discu ssed conservati ve measuremen ts and to continue with OTC pain medication s-declines muscle relaxants at this time; understand s risks [id number] Anca Acosta MD Main Office [address] [facility] [address] [facility] [place] [address] 04/25/2024 12:50:52 04/25/2024 13:51:58 Transition of care from emergency department to self-care 7344141171 00019 Z76.89 ED notes reviewed. Abdominal pain 52526615 R10.9 Patient establishe d with GI with ongoing workup, advised to follow gastro.Adv ised to hold tramadol as she has hx of constipati on.Care per GI recs. Muscle pain 71224995 M79 .10 She is concerned statin causing her sx will check CK. Liver cyst 36857018 K76. 89 Noted on cervical MRI will get MRI liver to better eval. Generalize d anxiety disorder 53317158 F41.[address] retired, looking for new provider. Chronic back pain 639934 002 G89.29 Open to seeing PT referral provided.N o red flag sx.No bony tenderness . Fibromyositis 75027874 M 79.7 Epigastric pain 82360134 R10.13 Likely GERD related, has not been taking pepcid, advised pepcid use. [id number] Zelalem Richey MD Main Office [address] [facility] [address] [facility] [place] [address] 05/08/2024 12:59:13 05/08/2024 13:34:45 Type 2 diabetes mellitus without complication 292893943 E11.9 A1c is excellent , continue diet and exercise activity. Repeat microalbum in. F/u 4 m. Influenza vaccine needed 5508220575 106 Z23 65 YEARS AND OLDER [id number] Anca Acosta MD Main Office [address] [place] [address] [place] [address] 05/29/2024 14:26:07 05/29/2024 15:25:47 Dyspnea 479306488 R06.00 Paroxysmal atrial fibrillation 672047131 I48.0 Ex-smoker 2034203 Z87.89 1 Moderate p ersistent asthma 275072165 J45.40 [id number] Zelalem Richey MD Telehealt h [address] [place] [address] [place] [address] 06/22/2024 13:03:12 06/22/2024 14:27:16 Dysuria 00070163 R30.0 Will defer further treatment until UTI is confirmed. If confirmed will need abx that she isn't intolerant to. If negative will need to return to urology or f/u with agriculture sales account manager. Increased frequency of urination 190847761 R35.0 [id number] Anca Acosta MD Main Office [address] [place] [address] [place] [address] 06/26/2024 13:31:39 06/26/2024 14:04:13 Elevated blood-pressure reading without diagnosis of hypertension 855420239 R03.0 bp controlled and at baseline today.Will continue to monitor.Fo llow up with cardiologi as scheduled for palpitatio ns and ongoing dyspnea workup. [id number] Anca Acosta MD Main Office [address] [place] [address] [place] [address] 11/23/2024 14:32:25 11/23/2024 15:46:20 Adult health examination 479731154 Z00.00 Patient was counseled on healthy diet, exercise and nutrition due to Body mass index is 29.8 kg/m . Last Colonoscop y:Date: 04/17/21Re sult: no polypsPlan : Per GI repeat in 5 yrs Last Mammogram: Date: 01/31/24Res ult: Birad-1Pla n: ordered Last Pap smearDate: Result:Kalli n: s/p tvh Bone density scanDate: 03/02/23Res ult: wnl Vaccines:T dAP: script providedZo ster rec: script provided.P CV20: script provided.P PSV23: 04/18/19In fluenza: 05/08/24Co vid: encouraged updated vaccineRSV : Discussed
--- OUTSIDE RECORDS SUMMARY | 2025-03-16 13:41 | XMS_ITS | Encounter Summary ---
Author Organization [facility] Address [address] [place] [address] Care Team Providers Care Airport Operations Supervisor Name Role Phone Samuel Love MD Primary Care Provider Praveen Casey MD Unavailable [phone] Margie Vasquez NP Unavailable [phone] Norbert Acosta MD Primary Care Provider Unavail able Encounter Details Date Type Department Care Team Description 04/10/2021 Sawing And Assembly Supervisor Report Medical Records [address] [place] [id number] Abstract, Provider Social History Tobacco Use Types [...] on filedocumented in this encounter Care Teams Airport Operations Supervisor Relationship Specialty Start Date End Date Samuel Love MD PCP - General 10/12/1997 12/28/21 Norbert Acosta MD [address] [address] PCP - General Family Practice 12/29/21 Praveen Mclean MD Specialist Cardiology 02/28/21 Margie Vasquez NP [address] [address] Cardiology 06/10/21 documented as of this encounter
--- OUTSIDE RECORDS SUMMARY | 2025-03-16 13:41 | XMS_ITS | Clinical Summary ---
Author Organization [employer] Address [address] [place] [address] 7 [place] [address] Care Team Providers Care Go Cart Mechanic Name Role Phone Unavailable Primary Care Provider Unavailabl e Allergies Active Allergy Reactions Criticality Noted Date Comments Iodine 04/30/2024 Levofloxacin Hives 08/17/2007 Penicillins Anaphylaxis,Nausea And Vomiting High 08/2016 Sulfa Antibiotics Vomiting 09/20/2016 Medications LORazepam (Ativan) 0.5 MG tablet TAKE 1 TABLET BY MOUTH 1 TIME PER DAY Active rosuvastatin (Crestor) 10 MG tablet Take 1 tablet by mouth Once per day. 07/26/2023 Active Social History Tobacco Use Types Packs/Day Years Used Date Smoking Tobacco: Never Assessed Comments Unknown Sex and Gender Information Value Date Recorded Sex Assigned at Female 10/15/2024 1:07 PM EDT Legal Sex Female 1:06 PM EDT Gender Identity Female 10/15/2024 1:07 PM EDT Sexual Orientation Straight 10/15/2024 1: 07 PM EDT Plan of Treatment Health Maintenance Due Date Last Done Comments CT Colonography 1955 Colonoscopy 1955 Dental Oral Exam 1955 Dental Prophylaxis 1955 Dental X-Ray: Bitewings 1955 Dental X-Ray: Full Mouth 1955 Depression Screening 1955 FIT DNA/Cologuard 1955 FOBT 1955 SDOH Screening 1955 Sigmoidoscopy 1955 Alcohol/Substance Use Screening 1967 Tobacco Screening 1967 Hepatitis C Screening 12/29/1973 DTaP/Tdap/Td Vaccines (1 - Tdap) 12/29/1974 Hepatitis A Vaccines (1 of 2 - Risk 2-dose series) 12/29/1974 Zoster Vaccines (1 of 2) 12/29/2005 Hepatitis B Vaccines (1 of 3 - Risk 3-dose series) 2015 RSV Patients and Patients Aged 60 years or older (1 - Risk 60-74 years 1-dose series) 2015 Colorectal Cancer Screening 02/07/2016 FIT 02/07/2016 02/06/2015 Pneumococcal Vaccine: 50+ Years (2 of 2 - PCV) 04/18/2020 04/18/2019 COVID-19 Vaccine (3 - season) 2025 02/02/2021, 01/09/2021 Influenza Vaccine (#1) 2025 , 08/15/2023, 06/06/2022, Additional history exists Mammogram 01/29/2026 01/30/2024 HIB Vaccines Aged Out No longer eligi ble based on patient's age to complete this topic HPV Vaccines Aged Out No longer eligi ble based on patient's age to complete this topic IPV Vaccines Aged Out No longer eligi ble based on patient's age to complete this topic Meningococcal B Vaccine Aged Out No l onger eligible based on patient's age to complete this topic Meningococcal Vaccine Aged Out No cara francisco eligible based on patient's age to complete this topic RSV under 20 months Aged Out No longe r eligible based on patient's age to complete this topic Rotavirus Vaccines Aged Out No longer eligible based on patient's age to complete this topic Insurance DENTAL - [facility] [place] [facility] [place] DDS ADULT DENTAL - [facility] FULL (MEDICAID)
--- OUTSIDE RECORDS SUMMARY | 2025-03-16 13:41 | XMS_ITS | Encounter Summary ---
Author Organization [employer] Address [address] [facility] 7[address] [place] [address] Care Team Providers Care Wire Spinner Name Role Phone Unavailable Primary Care Provider Unavailabl e Encounter Details Date Type Department Care Team (Late st Contact Info) Description 11/27/2024 Telephone [facility] [address] [place] [address] Zahira Gimenez [address] [place] [address] Social History Tobacco Use Types Packs/Day Years Used Date Smoking Tobacco: Never Assessed Comments Unknown Sex and Gender Information Value Date Recorded Sex Assigned at Female 10/15/2024 1:07 PM EDT Legal Sex Female 1:06 PM EDT Gender Identity Female 10/15/2024 1:07 PM EDT Sexual Orientation Straight 10/15/2024 1: 07 PM EDT documented as of this encounter Miscellaneous Notes * Telephone Encounter - Margot Anderson - 11/27/2024 3:57 PM EDT Pt would like to get a call to be seen in [place] [facility] documented in this encounter Plan of Treatment Not on file documented as of this encounter Visit Diagnoses Not on filedocumented in this encounter
[2025-03-16 13:42] VITALS: BP 140/76; PULSE 86; TEMP 36.8; O2SAT 96
--- OUTSIDE RECORDS SUMMARY | 2025-03-16 13:42 | XMS_ITS | Encounter Summary ---
Author Organization [facility] Address [address] [place] [address] Care Team Providers Care Barrel Roller Name Role Phone Samuel Love MD Primary Care Provider Praveen Casey MD Unavailable [phone] Margie Vasquez NP Unavailable [phone] Norbert Acosta MD Primary Care Provider Unavail able Encounter Details Date Type Department Care Team Description 04/27/2017 Gizzard Puller Report Medical Records [address] [place] [id number] Abstract, Provider Social History Tobacco Use Types Packs/Day Years Used Date Smoking Tobacco: Never Assessed Sex Assigned at Date Recorded Not on file Job Start Date Occupation Industry Not on file Not on file Not on file documented as of this encounter Plan of Treatment Not on file documented as of this encounter Visit Diagnoses Not on filedocumented in this encounter Care Teams Barrel Roller Relationship Specialty Start Date End Date Samuel Love MD PCP - General 10/12/1997 12/28/21 Norbert Acosta MD [address] [address] PCP - General Family Practice 12/29/21 Praveen Mclean MD Specialist Cardiology 02/28/21 Margie Vasquez NP [address] [address] Cardiology 06/10/21 documented as of this encounter
--- OUTSIDE RECORDS SUMMARY | 2025-03-16 13:42 | XMS_ITS | Encounter Summary ---
Author Organization [facility] Address [address] [place] [address] Care Team Providers Care Hand Glass Cutter Name Role Phone Samuel Love MD Primary Care Provider Praveen Casey MD Unavailable [phone] Margie Vasquez NP Unavailable Norbert Acosta MD Primary Care Provider Unavail able Encounter Details Date Type Department Care Team Description 04/12/2019 SCAN Medical Records [address] [place] [address] Abstract, Provider Social History Tobacco Use Types [...] Name Priority Date/Time Associated Diagnosis Comments OUTSIDE NUCLEAR STRESS TEST Routine 04/12/2019 documented in this encounter Results * OUTSIDE NUCLEAR STRESS TEST (04/12/2019) Provider Default CARDIOLOGY documented in this encounter Visit Diagnoses Not on filedocumented in this encounter Care Teams Hand Glass Cutter Relationship Specialty Start Date End Date Samuel Love MD PCP - General 10/12/1997 12/28/21 Norbert Acosta MD [address] [facility] [address] [place] [address] PCP - General Family Practice 12/29/21 Praveen Mclean MD Specialist Cardiology 02/28/21 Margie Vasquez NP [address] [address] Cardiology 06/10/21 documented as of this encounter
--- OUTSIDE RECORDS SUMMARY | 2025-03-16 13:42 | XMS_ITS | Encounter Summary ---
Author Organization [facility] Address [address] [place] [address] Care Team Providers Care Insulation Cupola Charger Name Role Phone Praveen Mclean MD Unavailable [phone] Margie Vasquez NP Unavailable [phone] Norbert Acosta MD Primary Care Provider Unavail able Encounter Details Date Type Department Care Team Description 03/14/2024 Orders Only Cardio PVC POC 154 [address] [facility] [address] [place] [address] Default, Provider Social History Tobacco Use Types Packs/Day [...] Date/Time Associated Diagnosis Comments OUTSIDE LAB Routine 03/02/2024 OUTSIDE LAB Routine 12/28/2023 OUTSIDE LAB Routine 12/12/2023 OUTSIDE LAB Routine 12/06/2023 OUTSIDE LAB Routine 08/30/2023 documented in this encounter Results * OUTSIDE LAB (03/02/2024) Provider Default LAB * OUTSIDE LAB (12/28/2023) Provider Default LAB * OUTSIDE LAB (12/12/2023) Provider Default LAB * OUTSIDE LAB (12/06/2023) Provider Default LAB * OUTSIDE LAB (08/30/2023) Provider Default LAB documented in this encounter Visit Diagnoses Not on filedocumented in this encounter Care Teams Insulation Cupola Charger Relationship Specialty Start Date End Date Norbert Acosta MD [address] [facility] [address] [place] [address] PCP - General Family Practice 12/29/21 Praveen Mclean MD Specialist Cardiology 02/28/21 Margie Vasquez NP [address] [place] [address] Cardiology 06/10/21 documented as of this encounter
--- OUTSIDE RECORDS SUMMARY | 2025-03-16 13:42 | XMS_ITS | Clinical Summary ---
Author Organization [facility] Address [address] [facility] [address] [place] [address] Phone Care Team Providers Care Ferry Terminal Agent Name Role Phone Norbert Acosta MD Primary Care Provider [phone] Norbert Acosta MD Unavailable [phone] Allergies Active Allergy Reactions Criticality Noted Date Comments Iodinated Contrast Media Lightheadedness High 2018 Penicillins Nausea and/or Vomiting High 10/06/2018 Sulfa (Sulfonamide Antibiotics) Cough High 10/06/2018 Medications LORazepam (ATIVAN) 0.5 MG tabletIndicatio ns:anxiety Take 0.5 mg by mouth 2 (two) times a day. Indications: anxious Active albuterol 90 mcg/actuation inhaler as needed. Active cyanocobalamin, vitamin B-12, 1000 MCG tablet Take 1,000 mcg by mouth. 08/29/2024 Active famotidine (PEPCID) 20 MG tablet TAKE 1 TABLET BY MOUTH TWICE DAILY NEEDED FOR STOMACH PAIN 07/16/2024 Active dicyclomine (BENTYL) 10 MG capsule Take 10 mg by mouth 2 (two) times a day as needed. 07/12/2024 Active polyethylene glycol (MIRALAX) 17 gram packet Take 17 g by mouth. 04/27/2024 Active metoprolol tartrate (LOPRESSOR) 25 MG tablet Take 0.5 Tablets by mouth 2 times daily as needed (Palpitation s). 03/13/2024 Active rosuvastatin (CRESTOR) 10 MG tablet Take 10 mg by mouth daily. Active Active Problems Problem Noted Date Diagnosed Date Osteoarthritis 09/04/2024 Benign paroxysmal positional vertigo 09/04/2024 Brachial radiculitis 09/04/2024 Chiari malformation type I 09/04/2024 Chronic pain disorder 09/04/2024 Assessment & Plan (09/04/2024 3:31 PM EDT): From [facility], and has been diagnosed with fibromyalgia. She has found cannabis to be helpful as needed. Tends to stick to gummies as she has a history of lung cancer, however, she does find inhaled therapy to be helpful for her symptoms. When using cannabis Gummies she likes the ratios of CBD to THC to be higher. 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 - Can increase to 2 capsules daily or 1 capsule twice daily Consider jungle drops -0.25 mL 2-3 times a day to start -Can increase up to 1 mL as needed. Try vaporized flower: https://www.Wikirin.8fit - Fitness for the rest of us/en-us/ Anxiety disorder 07/12/2024 Assessment & Plan (09/04/2024 3:15 PM EDT): Has struggled with anxiety for a long time. She recently started with a therapist and psychiatrist, who she likes a lot. Prescribed ativan for a long time which she takes twice a day. She is in discussion with her team to change medications. Plan: Continue to follow up with prescriber Cannabis as needed for anxiety and sleep support Consider further discussion around mediation and mindfulness Consider further discussion around lifestyle interventions for anxiety management Fibromyalgia 07/12/2024 Irritable bowel syndrome with constipation 07/12 Gastroesophageal reflux disease 07/12/2024 Diabetes mellitus 08/12/2020 Overview (09/04/2024): Diabetes mellitus Primary malignant neoplasm of right upper lobe o f lung 04/17/2019 Assessment & Plan (09/04/2024 3:32 PM EDT): Status post lobectomy in 2019. We discussed reducing inhaled cannabis therapy and eliminating if possible given her history. We reviewed potential for vaporized dry flower to avoid combustion of plant material. Would prefer edible form if possible. Continue to follow-up with oncology for surveillance. 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 SHE SEES ENT IN 2 WEEKS SO WILL GET RECHECKED THEN. THE FEELING OF WARMTH AND HEAD PRESSURE IS ALSO ANXIETY RELATED; RECORDED 09/08/2012 3:19PM BY STANLEY GOZNALES, ANNOTATION/ADDENDUM IMPRESSION: ANXIETY RELATED. SHE SEES ENT IN 2 WEEKS SO WILL GET RECHECKED THEN. THE FEELING OF WARMTH AND HEAD PRESSURE IS ALSO ANXIETY RELATED; RECORDED 09/08/2012 3:19PM BY STANLEY GONZALES, ANNOTATION/ADDENDUM Disorder of bursae of shoulder region 03/21/2012 Diverticulitis of colon 03/21/2012 Menopausal symptom 03/21/2012 Encounters Date Type Department Care Team Description 03/01/2025 12:30 PM EDT Telemedicine [facility] [address] [place] [address] Flavia Siddiqui, CASH MANAGEMENT SPECIALIST Generalized anxiety disorder (Primary Dx); Chronic pain disorder; Primary malignant neoplasm of right upper lobe of lung; Medical cannabis use from Last 3 Months Social History Tobacco Use Types Packs/Day Years Used Date Smoking Tobacco: Former Cigarettes Smokeless Tobacco: Never Tobacco Cessation:Counseling Given: Not Answered Alcohol Use Standard Drinks/Week Comments Not Currently 0 (1 standard drink = 0.6 oz pur e alcohol) Education Answer Date Recorded Are you interested in more education? Not on konrad e 10/15/2022 Are you concerned about learning? Not on file 10/15/2022 No 10/15/2022 No 10/15/2022 Digital Access Answer Date Recorded No 11/16/2022 No 11/16/2022 Reliable internet access at home? Not on file 11/16/2022 Device with a working camera? Not on file Comments Unknown Sex and Gender Information Value Date Recorded Sex Assigned at Female 08/02/2024 12:17 PM EST Legal Sex Female 11:41 AM EST Gender Identity Female 08/02/2024 12:17 PM EST Sexual Orientation Straight 08/02/2024 12 :17 PM EST Last Filed Vital Signs Vital Sign Reading Time Taken Comments Blood Pressure 122/79 10/06/2018 9:19 AM EDT Pulse 78 10/06/2018 9:19 AM EDT Temperature 36.4 C (97.5 F) 10/06/2018 9:19 AM EDT Respiratory Rate 16 10/06/2018 9:19 AM EDT Oxygen Saturation 96% 10/06/2018 9:19 AM EDT Inhaled Oxygen Concentration - - Weight 78.7 kg (173 lb 8 oz) 10/06/2018 9:19 AM EDT Height - - Body Mass Index - - Plan of Treatment Upcoming Encounters Date Type Department Care Team (Late st Contact Info) Description 08/22/2025 2:00 PM EST Telemedicine [facility] [address] [place] [address] Flavia Siddiqui NP [address] [place] [address] [email or web address] Health Maintenance Due Date Last Done Comments Adult Td,Tdap Booster 1955 BLOOD PRESSURE 1955 HEMOGLOBIN A1C 1955 DEPRESSION SCREENING 1967 SMOKING Hx and SMOKELESS TOBACCO SCREENING 12/29/1968 HEPATITIS C SCREENING 12/29/1973 PNEUMOCOCCAL VACCINES (50+ years) (1 of 2 - PCV) 12/29/1974 ZOSTER VACCINES (1 of 2) 12/29/1974 COLOGUARD 12/29/2000 COLONOSCOPY 12/29/2000 COLORECTAL CANCER SCREENING 12/29/2000 FIT TEST 12/29/2000 FOBT 12/29/2000 SIGMOIDOSCOPY 12/29/2000 VIRTUAL COLONOSCOPY 12/29/2000 RSV VACCINE (1 - Risk 60-74 years 1-dose series) 2015 OSTEOPOROSIS SCREENING INITIAL (ONE-TIME) 12/29/2020 DIABETIC EYE EXAM 09/04/2024 URINE MICROALBUMIN/CREATININE RATIO 09/04/2024 INFLUENZA VACCINE (#1) 2025 8, 03/16/2017, 03/18/2016, Additional history exists COVID-19 VACCINE ( season) 2025 MAMMOGRAM 02/04/2027 02/04/2025 HEPATITIS A VACCINES Aged Out No long er eligible based on patient's age to complete this topic HIB VACCINES Aged Out No longer eligi ble based on patient's age to complete this topic MENINGOCOCCAL VACCINES (ACWY) Aged Out No longer eligible based on patient's age to complete this topic MENINGOCOCCAL VACCINES (B) Aged Out N o longer eligible based on patient's age to complete this topic Medical Devices Not on file Insurance [facility] [address] [place] BL[place] [facility] MEDICARE [place]PO [place] [facility] MEDICARE [place]PO [place] RE[place] [facility] MEDICARE PPO BLUE REPLACEMENT [facility] MEDICARE PPO [place] RE[place] MEDICARE PART A & B Care Teams Ferry Terminal Agent Relationship Specialty Start Date End Date Norbert Acosta MD [address] [phone] PCP - General 09/04/24 Norbert Acosta MD [address] [phone] Family Medicine 09/04/24 Additional Source Comments The information contained in this document represents components of the legal health record. It is not the complete legal health record.[facility]
--- OUTSIDE RECORDS SUMMARY | 2025-03-16 13:42 | XMS_ITS | Clinical Summary ---
Author Organization [facility] Address [address] [place] [address] Care Team Providers Care Animal Behaviorist Name Role Phone Praveen Mclean MD Unavailable [phone] Margie Vasquez NP Unavailable Norbert Acosta MD Primary Care Provider Unavail able Allergies Active Allergy Reactions Severity Noted Date Comments Iodine Iv Contrast Dye 09/20/2016 Penicillin G 09/20/2016 Sulfa Drugs 09/20/2016 Medications Medication Sig Dispensed Refills Start Date End Date Status Calcium Carbonate Antacid (TUMS E-X OR) Take by mouth as needed. 0 Active lorazepam (ATIVAN) 0.5 MG tablet Take 1 Tablet by mouth 2 times daily. 0 Active ALBUTEROL SULFATE 108 (90 Base) MCG/ACT Aero Soln as needed. 0 Active Accu-Chek SOFTCLIX LANCETS Misc USE TO TEST BLOOD SUGAR TWICE DAILY 0 09/02/2021 Active Glucose Blood (FREESTYLE LITE) Strip USE TO TEST TWICE DAILY 0 09/01/2021 Active polyethylene glycol (GLYCOLAX) 17 g packet Take 17 g by mouth daily. 0 Active Diclofenac Sodium 1 % Gel Apply 4 g topically 2 times daily. 100 g 2 04/28/2022 Active Lidocaine 3 % Cream Apply 1 Applicator topically 3 times daily as needed (pain or discomfort). 100 g 0 05/10/2022 Active omeprazole (PRILOSEC) 20 MG capsule as needed. 0 Active rosuvastatin (CRESTOR) 10 MG tablet Take 1 Tablet by mouth daily. 0 07/26/2023 Active Cyanocobalamin (VITAMIN B-12 OR) Take by mouth daily. 0 Active metoprolol (LOPRESSOR) 25 MG tablet Take 0.5 Tablets by mouth 2 times daily as needed (Palpitations). 30 Tablet 2 03/13/2024 Active Active Problems Problem Noted Date SOB (shortness of breath) 08/04/2022 Paroxysmal atrial fibrillation 3 Chest pain 08/03/2022 Diabetes mellitus 08/12/2020 Overview: Diabetes mellitus Hyperlipidemia 08/12/2020 Overview: Hyperlipidemia Hyperlipidemia PVC (premature ventricular contraction) 08/12/2020 Overview: Ventricular premature beats Lung cancer 08/16/2019 Overview: Excised April 17, 2019, right upper lobe Arthritis 02/12/2019 History of basal cell carcinoma of skin 02/12/2019 Pulmonary eosinophilia 02/12/2019 Family History Medical History Relation Name Comments Melanoma Father CA Basal Cell Sister Melanoma Sister Relation Name Status Comments Father Sister Social History Tobacco Use Types Packs/Day Years Used Date Smoking Tobacco: Never Smokeless Tobacco: Never Tobacco Cessation:Counseling Given: Not Answered Alcohol Use Standard Drinks/Week Comments Never 0 (1 standard drink = 0.6 oz pur e alcohol) Sex Assigned at Date Recorded Not on file Job Start Date Occupation Industry Not on file Not on file Not on file Last Filed Vital Signs Vital Sign Reading Time Taken Comments Blood Pressure 140/68 03/13/2024 1:55 PM EDT Pulse 63 03/13/2024 1:55 PM EDT Temperature 36 C (96.8 F) 05/19/2021 9:29 AM EST Respiratory Rate 17 03/17/2022 1:44 PM EDT Oxygen Saturation 98% 03/13/2024 1:55 PM EDT Inhaled Oxygen Concentration - - Weight 75.7 kg (166 lb 12.8 oz) 03/13/2024 1:55 PM EDT Height 160 cm (5' 3 ) 03/13/2024 1:55 PM EDT Body Mass Index 29.55 03/13/2024 1:55 PM EDT Plan of Treatment Health Maintenance Due Date Last Done Comments DEPRESSION SCREEN 1967 DIABETES/HEART DISEASE: GAYLE LORENZO CHOLESTEROL (LDL) 12/29/1973 DIABETES: ANNUAL EYE EXAM 12/29/1973 DIABETES: ANNUAL FOOT EXAM 12/29/1973 DIABETES: ANNUAL URINE PROTE IN TEST (MICROALBUMIN) 12/29/1973 DIABETES: BLOOD SUGAR CONTRO L TEST (HGBA1C) 12/29/1973 HEPATITIS C SCREENING 12/29/1973 DTAP/TDAP/TD (1 - Tdap) 12/29/1974 MAMMOGRAM 1995 COLON CANCER SCREENING 12/29/2005 SHINGLES VACCINE (1 of 2) 12/29/2005 BONE DENSITY SCREENING 12/29/2020 FALL RISK ASSESSMENT 12/29/2020 PNEUMOCOCCAL VACCINE (2 - PCV) 12/29/2020 04/18/2019 BMI CHECK/ADVISE 06/20/2024 02/14/2024, , 11/29/2023, Additional history exists Covid-19 Vaccine (3 - 2022-2 4 season) 2025 02/02/2021, 01/09/2021 INFLUENZA (#1) 2025 05/16/2020 Care Teams Animal Behaviorist Relationship Specialty Start Date End Date Norbert Acosta MD [address] [facility] [address] [place] [address] PCP - General Family Practice 12/29/21 Praveen Mclean MD Specialist Cardiology 02/28/21 Margie Vasquez NP [address] [facility] [address] [place] [address] Cardiology 06/10/21
--- OUTSIDE RECORDS SUMMARY | 2025-03-16 13:42 | XMS_ITS | Clinical Summary ---
Author Organization [facility] Address [address] [place] [address] Phone Care Team Providers Care Journal Entry Audit Clerk Name Role Phone Norbert Acosta MD Primary Care Provider [phone] Allergies Active Allergy Reactions Criticality Noted Date Comments Iodinated Contrast Media 09/20/2016 Iodine 04/30/2024 Penicillin G 09/20/2016 Sulfa (Sulfonamide Antibiotics) 08/2016 Medications polyethylene glycol (MIRALAX) 17 gram packetIndications :Other constipation Take 17 g by mouth 1 (one) time each day. 510 g 11 024 2024 Active ACCU-CHEK SOFTCLIX LANCETS MISC USE TO TEST BLOOD SUGAR TWICE DAILY Active ANTACID, CALCIUM CARBONATE, ORAL Take by mouth as needed. Active blood sugar diagnostic (FreeStyle Lite Strips) test strip USE TO TEST TWICE DAILY Active albuterol HFA (PROAIR HFA ; PROVENTIL HFA ; VENTOLIN HFA) 90 mcg/actuation inhaler as needed. Active diclofenac (VOLTAREN) 1 % topical gel Active lidocaine 3 % cream Apply 1 Applicator topically 3 times daily as needed (pain or discomfort). Active LORazepam (ATIVAN) 0.5 mg tablet Take 1 Tablet by mouth 2 times daily. Active metoprolol tartrate (LOPRESSOR) 25 mg tablet Take 0.5 Tablets by mouth 2 times daily as needed (Palpitations). Active rosuvastatin (CRESTOR) 10 mg tablet Take 1 Tablet by mouth daily. Active linaCLOtide (Linzess) 72 mcg capsuleIndication s:Other constipation Take 1 capsule (72 mcg total) by mouth 1 (one) time each day before breakfast. 30 each 2025 Active Additional Information Patient not taking.Reported on 03/06/2025 ammonium lactate (AMLACTIN) 12 % cream Apply topically 1 (one) time each day. 560 g 2024 Active Miebo, PF, 100 % drops Active acetaminophen (TYLENOL) 500 mg tablet TAKE 2 TABLETS POQ 8 HOURS NEEDED FOR FEVER OR PAIN Active celecoxib (CeleBREX) 200 mg capsule TAKE 1 CAPSULE BY MOUTH EVERY DAY FOR 5 DAYS NEEDED Active BinaxNOW COVID-19 Ag Self Test kit TEST DIRECTED TODAY Active ondansetron ODT (ZOFRAN-ODT) [address] 1 tablet every 8 hours by translingual route as needed. Active ibuprofen (ADVIL,MOTRIN) 600 mg tablet TAKE 1 TABLET BY MOUTH EVERY 8 HOURS NEEDED FOR FEVER OR PAIN Active prazosin (MINIPRESS) 2 mg capsule Take 1 capsule (2 mg total) by mouth at bedtime. at bedtime Active cyanocobalamin (VITAMIN B-12) 1,000 mcg tablet Take 1 tablet (1,000 mcg total) by mouth 1 (one) time each day. 2024 Discontinued Active Problems Problem Noted Date Diagnosed Date Vitamin D deficiency 02/25/2025 Urinary incontinence 02/25/2025 Tremor, unspecified 02/25/2025 Paronychia of toe 02/25/2025 Class 1 obesity 02/25/2025 Major depressive disorder 02/25/2025 Lung nodule 02/25/2025 Left lower quadrant pain 02/25/2025 Epigastric pain 02/25/2025 Epigastric pain 02/25/2025 Heel pain 02/25/2025 Benign neoplasm of skin 02/25/2025 Breast lump 02/25/2025 Arnold-Chiari malformation, type I ([facility] V24, [facility] V28) 09/04/2024 Overview (02/25/2025): Removal Reason: repeat MRI does not show Chiari Malformation Moderate persistent asthma 09/04/2024 Benign paroxysmal positional vertigo 09/04/2024 Brachial radiculitis 09/04/2024 Digestive disorder due to psychological factors 09/04/2024 Anxiety disorder 07/12/2024 Gastroesophageal reflux disease 07/12/2024 Fibromyalgia 07/12/2024 Irritable bowel syndrome with constipation 07/12 Urinary tract infection due to Streptococcus aga lactiae 06/26/2024 Overweight 05/08/2024 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 SOB (shortness of breath) 08/04/2022 Chest pain 08/03/2022 Paroxysmal atrial fibrillation ([facility] V24, [facility] V28) 08/03/2022 Diabetes mellitus ([facility] V24, [facility] V28) Overview (04/30/2024): Diabetes mellitus Hyperlipidemia 08/12/2020 Overview (04/30/2024): Hyperlipidemia Hyperlipidemia PVC (premature ventricular contraction) 08/12/19 Overview (04/30/2024): Ventricular premature beats High serum creatinine 08/09/2020 Mild intermittent asthma 06/09/2020 Rib pain 03/24/2020 Lung cancer ([facility] V24, [facility] V28) 0 Overview (04/30/2024): Excised April 17, 2019, right upper lobe Postnasal drip 06/27/2019 Laryngopharyngeal reflux disease 06/27/2019 Hoarseness of voice 06/27/2019 Primary malignant neoplasm o f right upper lobe of lung ([facility] V24, [facility] V28) 04/17/2019 Arthritis 02/12/2019 Pulmonary eosinophilia ([facility] V24) 02/12/2019 Eosinophilic esophagitis 06/05/2018 Basal cell carcinoma of left nasal tip 7 Astigmatism 06/30/2016 Premature ventricular contraction on electrocard iography 11/29/2014 Palpitations 09/25/2013 Overview (02/25/2025): IMPRESSION: HOLTER MONITOR SHOWING MODERATE VENTRICULAR/SUPRAVENTRICULAR ECTOPY TIMING CONSISTENT WITH HER SYMPTOMS. JUST STOPPED DRINKING TEA. ADVISED TO D/C OTHER POTENTIALLY AGGRAVATING FACTORS (NICOTINE/ETOH). BETA NAVI TRIAL DISCUSSED BUT DEFERRED FOR NOW. IF SYMPTOMS BECOME MORE FREQUENT OR EXERTIONAL ADDITIONAL EVALUATION WILL BE NEEDED (CARDS CONSULT/STRESS TEST). POSSIBLE THAT ANXIETY MAY BE CONTRIBUTING WELL. ADVISED TO CALL IF SYMPTOMS PERSIST/WORSEN.; RECORDED 09/25/2013 4:14PM BY DUSTIN ENRIQUE MA, ANNOTATION/ADDENDUM Cellulitis 03/13/2013 Overview (02/25/2025): RECORDED 03/13/2013 1:04PM BY BRANDON SILVERIO MA, ANNOTATION/ADDENDUM Tobacco dependence syndrome 12/14/2012 Overview (02/25/2025): RECORDED 12/14/2012 10:20AM BY DUSTIN ENRIQUE MA, ANNOTATION/ADDENDUM Candidiasis of mouth 09/08/2012 Overview (02/25/2025): RECORDED 09/08/2012 3:19PM BY STANLEY GONZALES, ANNOTATION/ADDENDUM Onychia of toe 07/21/2012 Overview (02/25/2025): RECORDED 07/21/2012 3:13PM BY DUSTIN ENRIQUE MA, ANNOTATION/ADDENDUM Urinary urgency 06/15/2012 Overview (02/25/2025): IMPRESSION: UA NORMAL. LIKELY ANXIETY. WILL SEND FOR CULTURE. OFFICE WILL DO F/U CALL IN 1 WEEK TO SEE HOW HER SXS ARE. 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 EARLIER THIS YEAR HAD STRESS ECHO THAT WAS NORMAL.; RECORDED 06/15/2012 3:58PM BY DUSTIN ENRIQUE MA, ANNOTATION/ADDENDUM IMPRESSION: HAD A BOUT OF THIS A FEW MONTHS AGO ALSO. EARLIER THIS YEAR HAD STRESS ECHO THAT WAS NORMAL.; RECORDED 06/15/2012 3:58PM BY DUSTIN ENRIQUE MA, ANNOTATION/ADDENDUM Abnormal blood chemistry level 03/21/2012 Overview (02/25/2025): RECORDED 03/21/2012 8:18AM BY STANLEY GONZALES, MADINA/ADDENDUM Acute upper respiratory infection 03/21/2012 Overview (02/25/2025): IMPRESSION: START ABX AND INHALER; CXR TO R/O INFILTRATE GIVEN PE FINDINGS. [facility] SMOKING CESSATION. WILL PHONE PT TOMORROW WITH PLAIN FILM RESULTS. IN THE INTERIM, START ON MEDS AND REST, PUSH FLUIDS.; RECORDED 03/21/2012 8:18AM BY STANLEY GONZALES, ANNOTATION/ADDENDUM Pain in thoracic spine 03/21/2012 Overview (02/25/2025): RECORDED 03/21/2012 8:18AM BY STANLEY GONZALES, ANNOTATION/ADDENDUM Menopausal symptom 03/21/2012 Overview (02/25/2025): RECORDED 03/21/2012 8:18AM BY MADINA STEINBERG/ADDENDUM Disorder of bursae of shoulder region 03/21/2012 Overview (02/25/2025): RECORDED 03/21/2012 8:18AM BY MADINA STEINBERG/ADDENDUM Diverticular disease of colon 03/21/2012 Overview (02/25/2025): RECORDED 03/21/2012 8:18AM BY MADINA STEINBERG/ADDENDUM Diverticulitis of colon 03/21/2012 Overview (02/25/2025): RECORDED 03/21/2012 8:18AM BY STANLEY GONZALES, MADINA/ADDENDUM Dizziness and giddiness 03/21/2012 Overview (02/25/2025): RECORDED 03/21/2012 8:18AM BY MADINA STEINBERG/ADDENDUM Candidal vulvovaginitis 03/21/2012 Overview (02/25/2025): RECORDED 03/21/2012 8:18AM BY MADINA STEINBERG/ADDENDUM Contact dermatitis 03/21/2012 Overview (02/25/2025): RECORDED 03/21/2012 8:18AM BY STANLEY GONZALES ANNOTATION/ADDENDUM Asthma 04/21/2010 Overview (02/25/2025): RECORDED 04/21/2010 5:04PM BY DUSTIN ENRIQUE MA, ANNOTATION/ADDENDUM Asthma 04/21/2010 Overview (02/25/2025): RECORDED 09/25/2013 4:16PM BY DUSTIN ENRIQUE MA, OFFICE VISIT Malaise and fatigue 03/12/2009 Overview (02/25/2025): RECORDED 03/12/2009 3:08PM BY DUSTIN ENRIQUE MA, ANNOTATION/ADDENDUM Cough 03/12/2009 Overview (02/25/2025): Outside Source Comment: RECORDED 03/12/2009 3:08PM BY DUSTIN ENRIQUE MA, ANNOTATION/ADDENDUM Edema 12/18/2008 Overview (02/25/2025): RECORDED 12/18/2008 12:51PM BY DUSTIN ENRIQUE MA, ANNOTATION/ADDENDUM Allergic rhinitis 03/25/2008 Overview (02/25/2025): RECORDED 03/25/2008 1:45PM BY DARRYL GARCIA, ANNOTATION/ADDENDUM Urinary tract infectious disease 03/25/2008 Overview (02/25/2025): RECORDED 03/25/2008 1:45PM BY DARRYL GARCIA, ANNOTATION/ADDENDUM History of vaginal hysterectomy 06/20/1976 Encounters Date Type Department Care Team Description 03/11/2025 2:30 PM EDT Ancillary Procedure [facility] Cardiology [facility] [address] [place] [address] Bradycardia 03/06/2025 1:10 PM EDT Office Visit [facility] Cardiology [facility] [address] [place] [address] Margie Vasquez, LAB ANIMAL TECHNICIAN Paroxysmal atrial fibrillation (CMS/HCC V24, CMS/HCC V28) (Primary Dx); Bradycardia 02/26/2025 2:40 PM EDT Office Visit Gastroenterology - [address] [facility] [address] [place] [address] Reid Varner MD Right upper quadrant abdominal pain (Primary Dx) 02/04/2025 2:00 PM EDT Office Visit Orthopedic Surgery - [place] [address] [facility] [address] [place] [phone] Cb Lopez, DPM Acquired hammer toe of right foot (Primary Dx); Hammer toe of left foot; Ingrowing nail; Dermatofibroma of right lower leg; Primary osteoarthritis of both feet; Neuritis 02/04/2025 Telephone Gastroenterology - [address] [place] [phone] Reid Varner MD 12/18/2024 3:26 PM EDT - 12/18/2024 11:59 PM EDT Hospital Encounter [facility] Xray [address] [place] [phone] Other constipation Discharge Disposition: Home or Self Care 12/17/2024 Telephone Gastroenterology - [address] [place] [phone] Reid Varner MD from Last 3 Months Surgical History Surgery Date Site/Laterality Comments OTHER SURGICAL HISTORY 04/17/2019 PROCEDURE: HISTORY OTHER; COMMENT: Thoracoscopy, laparsocopy w/ lobectomy (single lobe) OTHER SURGICAL HISTORY 04/17/2019 PROCEDURE: HISTORY OTHER; COMMENT: Thoracoscopy, surgical; with mediastinal and regional lymphadenectomy OTHER SURGICAL HISTORY 1987 PROCEDURE: HISTORY OTHER; COMMENT: Laparoscopic lysis of adhesions APPENDECTOMY 1981 PROCEDURE: HISTORICAL APPENDECTOMY HYSTERECTOMY 1981 PROCEDURE: HISTORICAL VAGINAL HYSTERECTOMY W/O BSO TUBAL LIGATION 01/27/1977 PROCEDURE: HISTORICAL TUBAL LIGATION OTHER SURGICAL HISTORY PROCEDURE: BREAST MASS CORE BIOPSY SPCMN PATHOLGY EXAM COLONOSCOPY 04/17/2021 recall 5 yrs ESOPHAGOGASTRODUODENOSCOPY 01/09/2024 ESOPHAGOGASTRODUODENOSCOPY 04/17/2021 ESOPHAGOGASTRODUODENOSCOPY 04/08/2016 COLONOSCOPY 04/08/2016 ESOPHAGOGASTRODUODENOSCOPY 06/02/2018 Medical History Medical History Date Comments Malignant neoplasm of skin of face DX:Malignant neoplasm of skin of face Globus pharyngeus DX:Globus phar yngeus Laryngopharyngeal reflux disease DX:Laryngopharyngeal reflux disease Primary cancer of right uppe r lobe of lung (CMS/HCC V24, CMS/HCC V28) DX:Primary cancer of right upper lobe of lung (HCC) Arthritis DX:Arthritis Eosinophilic asthma DX:Eosinophi lic asthma Anxiety DX:Anxiety Diabetes mellitus ([facility] V 24, [facility] V28) DX:Diabetes mellitus ([facility]) Eosinophilic esophagitis DX:Eosi nophilic esophagitis Fibromyalgia DX:Fibromyalgia Class 1 obesity DX:Class 1 obesi ty Osteoarthritis DX:Osteoarthriti s Family History Medical History Relation Name Comments Melanoma Father Basal cell carcinoma Sister Melanoma Sister Relation Name Status Comments Father Sister Social History Tobacco Use Types Packs/Day Years Used Date Smoking Tobacco: Former Cigarettes Smokeless Tobacco: Former Tobacco Cessation:Counseling Given: Not Answered Alcohol Use Standard Drinks/Week Comments Never 0 (1 standard drink = 0.6 oz pur e alcohol) Comments Unknown Sex and Gender Information Value Date Recorded Sex Assigned at Female 06/18/2024 12:39 PM EST Legal Sex Female 2:15 PM EST Gender Identity Female 06/18/2024 12:39 PM EST Sexual Orientation Straight 06/18/2024 12 :39 PM EST Obstetrics History Last Filed Vital Signs Vital Sign Reading Time Taken Comments Blood Pressure 100/60 03/06/2025 1:11 PM EDT Pulse 52 03/06/2025 1:11 PM EDT Temperature - - Respiratory Rate - - Oxygen Saturation 99% 03/06/2025 1:11 PM EDT Inhaled Oxygen Concentration - - Weight 76.7 kg (169 lb) 03/06/2025 1:11 PM EDT Height 160 cm (5' 3 ) 03/06/2025 1:11 PM EDT Body Mass Index 29.94 03/06/2025 1:11 PM EDT Plan of Treatment Upcoming Encounters Date Type Department Care Team (Late st Contact Info) Description 03/26/2025 9:00 AM EDT Appointment [facility] Nuclear Medicine [address] [place] [phone] 04/02/2025 1:30 PM EDT Office Visit Orthopedic Surgery - [place] [address] [phone] Cb [place], [place] [address] [phone] Health Maintenance Due Date Last Done Comments Diabetes: Annual GFR (Glomerular Filtration Rate) 1955 Diabetes: Annual Foot Exam 12/29/1965 Diabetes: Annual Retina Eye Exam 12/29/1965 DTaP,Tdap,and Td Vaccines (1 - Tdap) 12/29/1974 Hepatitis A Vaccines (1 of 2 - Risk 2-dose series) 12/29/1974 Zoster Vaccines (1 of 2) 12/29/1974 Hepatitis B Vaccines (1 of 3 - Risk 3-dose series) 2015 RSV Immunization Adult Patients (1 - Risk 60-74 years 1-dose series) 2015 Pneumococcal Vaccine: 50+ Years (2 of 2 - PCV) 04/18/2020 04/18/2019 COVID-19 Vaccine (3 - Pfizer risk series) 03/02/2021 02/02/2021, 01/09/2021 Cholesterol Screening (Lipid Panel) 05/29/2022 Falls Risk Assessment 05/29/2022 Hepatitis C Screening 05/29/2022 Osteoporosis Screening (Bone Density Screening) 05/29/2022 Social Influencers of Health Screening 05/29/2022 Diabetes: Annual Urine Albumin-Creatinine Ratio (uACR) 06/04/2022 Diabetes: Blood Sugar Control Test (HGBA1C) 06/04/2022 Medicare Annual Wellness Visit 07/26/2023 07/26/2022 Depression Screening 06/20/2024 Influenza Vaccine (#1) 2025 , 08/15/2023, 06/06/2022, Additional history exists Breast Cancer Screening 02/04/2027 02/04/2025, 01/29 Colorectal Cancer Screening: Colonoscopy 07/16/2034 07/16/2024 HIB Vaccines Aged Out No longer eligi ble based on patient's age to complete this topic HPV Vaccines Aged Out No longer eligi ble based on patient's age to complete this topic IPV Vaccines Aged Out No longer eligi ble based on patient's age to complete this topic MMR Vaccines Aged Out No longer eligi ble based on patient's age to complete this topic Meningococcal ACWY Vaccine Aged Out N o longer eligible based on patient's age to complete this topic Meningococcal B Vaccine Aged Out No l onger eligible based on patient's age to complete this topic RSV Immunization Patients Under 20 months Aged Out No longer eligible based on patient's age to complete this topic Varicella Vaccines Aged Out No longer eligible based on patient's age to complete this topic Procedures Procedure Name Priority Date/Time Associated Diagnosis Comments CARDIAC HOLTER MONITOR (REPORT GENERATED IN HOUSE) Routine 03/11/2025 2:13 PM EDT Bradycardia ECG 12-LEAD Routine 03/06/2025 1:56 PM EDT Paroxysmal atrial fibrillation (CMS/HCC V24, CMS/HCC V28) US ABDOMEN LIMITED Routine 02/04/2025 2: 58 PM EDT XR ABDOMEN 1 VIEW Routine 12/18/2024 3:3 4 PM EDT Other constipation COLONOSCOPY Routine 07/16/2024 1:12 PM EST from Last 3 Months or Most Recently Relevant to Health Maintenance Results * CARDIAC HOLTER MONITOR (REPORT GENERATED IN HOUSE) (03/11/2025 2:13 PM EDT) Anatomical Region Laterality Modality Cardiac Diagnost ic Narrative 03/14/2025 12:41 PM EDT [facility] DIAGNOSTIC TESTING DEPARTMENT [address] [place] [address], [address] [address] TEL: FAX: Type of Test: 24 Hour Holter Monitor Date of Test: 03/11/2025 Ordering Provider: Margie Vasquez NP Reason for Test: Bradycardia PVCA Musical Instrument Maker Or Repairer Findings: 1: Normal Sinus Rhythm. 2: Frequent PACs and rare atrial pairs. Rare PVCs. 3: No significant pauses noted, longest R-R was 1.5 seconds at 5:47 PM. 4: Diary returned with no symptoms noted. Impression: Normal sinus rhythm with frequent premature atrial complexes. Otherwise normal monitor. Margie Vasquez NP CV CARDIAC SERVICES PROCEDUR ES Final Result * ECG 12 lead (03/06/2025 1:56 PM EDT) Ventricular Rate ECG 52 BPM GEMUSE Atrial Rate 52 BPM GEMUSE P-R Interval 136 ms GEMUSE QRS Duration 70 ms GEMUSE Q-T Interval 452 ms GEMUSE QTc 420 ms GEMUSE P Wave Tiller 72 degrees GEMUSE R Tiller 72 degrees GEMUSE T Tiller 66 degrees GEMUSE ECG Interpretation Sinus bradycardia When compared with ECG of 29-AUG-2024 13:07, No significant change was found Confirmed by MARVA MOLINA ([id number]) on 03/06/2025 4:42:35 PM GEMUSE 03/06/2025 1:17 PM EDT 03/06/2025 4:42 PM EDT Margie Vasquez LAB ANIMAL TECHNICIAN ECG ORDERABLES Edited Resul t - Final GEMUSE * US Abdomen Limited (02/04/2025 2:58 PM EDT) Anatomical Region Laterality Modality Body Ultrasound Historical Provider MD LAUREN US PROCEDURES Final R esult * XR Abdomen 1 View (12/18/2024 3:34 PM EDT) Anatomical Region Laterality Modality Body Radiographic Pratibha ging 12/18/2024 4:14 PM EDT Impressions 12/18/2024 4:16 PM EDT Impression: Nonobstructive bowel gas pattern. Telerad MOOK ([id number]) -------- FINAL REPORT -------- Dictated By: Alida Hanna Dictated Date: 12/18/2024 16:14 ET Assigned Physician: Alida Hanna Reviewed and Electronically Signed By: Alida Hanna Signed Date: 12/18/2024 16:16 ET Workstation ID: [id number] Transcribed By: Self Edit Transcribed Date: 12/18/2024 16:14 ET Narrative 12/18/2024 4:16 PM EDT History: Chronic constipation. Findings: AP supine views of the abdomen and pelvis. Comparison is made to 07/12/24. No bowel dilatation is identified. There is formed fecal material within the colon which does not appear to be excessive, overall improved since the previous study. Solid visceral outlines are unremarkable. There are degenerative changes in the lumbar spine. Procedure Note Alida Hanna MD - 12/18/2024 History: Chronic constipation. Findings: AP supine views of the abdomen and pelvis. Comparison is made to07/12/24. No bowel dilatation is identified. There is formed fecal material withinthe colon which does not appear to be excessive, overall improved sincethe previous study. Solid visceral outlines are unremarkable. There are degenerative changes in the lumbar spine. IMPRESSION: Impression: Nonobstructive bowel gas pattern. Telerad MOOK ([id number]) -------- FINAL REPORT -------- Dictated By: Alida Hanna Dictated Date: 12/18/2024 16:14 ET Assigned Physician: Alida Hanna Reviewed and Electronically Signed By: Alida Hanna Signed Date: 12/18/2024 16:16 ET Workstation ID: [id number] Transcribed By: Self Edit Transcribed Date: 12/18/2024 16:14 ET Angi DELVALLE IMG XR PROCEDURES Final Resu lt * COLONOSCOPY (07/16/2024 1:12 PM EST) Anatomical Region Laterality Modality Endoscopy Historical Provider GI~PROCEDURE ORDERABLES F inal Result from Last 3 Months or Most Recently Relevant to Health Maintenance Insurance [place] Care Teams Journal Entry Audit Clerk Relationship Specialty [place] [address] [place] [phone] PCP - General 12/29/21
--- OUTSIDE RECORDS SUMMARY | 2025-03-16 13:42 | XMS_ITS | Encounter Summary ---
Author Organization [facility] Address [address] [place] [address] Care Team Providers Care Tennis Coach Name Role Phone Samuel Love MD Primary Care Provider Praveen Casey MD Unavailable [phone] Margie Vasquez NP Unavailable [phone] Norbert Acosta MD Primary Care Provider Unavail able Encounter Details Date Type Department Care Team Description 05/21/2021 Release of Information Medical Records [address] [place] [id number] Abstract, Provider Social History Tobacco Use Types [...] on filedocumented in this encounter Care Teams Tennis Coach Relationship Specialty Start Date End Date Samuel Love MD PCP - General 10/12/1997 12/28/21 Norbert Acosta MD [address] [address] PCP - General Family Practice 12/29/21 Praveen Mclean MD Specialist Cardiology 02/28/21 Margie Vasquez NP [address] [phone] Cardiology 06/10/21 documented as of this encounter
--- OUTSIDE RECORDS SUMMARY | 2025-03-16 13:42 | XMS_ITS | Encounter Summary ---
Author Organization [facility] Address [address] [place] [address] Care Team Providers Care Special Investigator Name Role Phone Samuel Love MD Primary Care Provider Praveen Casey MD Unavailable [phone] Margie Vasquez NP Unavailable [phone] Norbert Acosta MD Primary Care Provider Unavail able Encounter Details Date Type Department Care Team Description 04/23/2019 SCAN Medical Records [address] [place] [address] Abstract, Provider Social History Tobacco Use Types [...] Name Priority Date/Time Associated Diagnosis Comments OUTSIDE VASCULAR STUDY Routine 04/23/2019 documented in this encounter Results * OUTSIDE VASCULAR STUDY (04/23/2019) Provider Default CARDIOLOGY documented in this encounter Visit Diagnoses Not on filedocumented in this encounter Care Teams Special Investigator Relationship Specialty Start Date End Date Samuel Love MD PCP - General 10/12/1997 12/28/21 Norbert Acosta MD [address] [address] PCP - General Family Practice 12/29/21 Praveen Mclean MD Specialist Cardiology 02/28/21 Margie Vasquez NP [address] [facility] [address] [place] [address] Cardiology 06/10/21 documented as of this encounter
--- OUTSIDE RECORDS SUMMARY | 2025-03-16 13:42 | XMS_ITS | Encounter Summary ---
Author Organization [facility] Address [address] [place] [address] Care Team Providers Care Smooth Plater Name Role Phone Samuel Love MD Primary Care Provider Praveen Casey MD Unavailable [phone] Margie Vasquez NP Unavailable [phone] Norbert Acosta MD Primary Care Provider Unavail able Encounter Details Date Type Department Care Team Description 08/12/2020 Telephone Cardio PVCA Diag Testing [address] [place] [address] Margie Vasquez NP [address] [place] [address] Social History Tobacco Use Types Packs/Day Years Used Date Smoking Tobacco: Never Smokeless Tobacco: Never Sex Assigned at Date Recorded Not on file Job Start Date Occupation Industry Not on file Not on file Not on file documented as of this encounter Miscellaneous Notes * Telephone Encounter - Margie Vasquez NP - 08/12/2020 1:21 PM EST Pt had labs [facility] last week [facility] - please retrieve - thank you documented in this encounter Plan of Treatment Not on file documented as of this encounter Visit Diagnoses Not on filedocumented in this encounter Care Teams Smooth Plater Relationship Specialty Start Date End Date Samuel Love MD PCP - General 10/12/1997 12/28/21 Norbert Acosta MD [address] [facility] [address] [place] [address] PCP - General Family Practice 12/29/21 Praveen Mclean MD Specialist Cardiology 02/28/21 Margie Vasquez NP [address] [facility] [address] [place] [address] Cardiology 06/10/21 documented as of this encounter
--- OUTSIDE RECORDS SUMMARY | 2025-03-16 13:42 | XMS_ITS | Encounter Summary ---
Author Organization [facility] Address [address] [place] [address] Care Team Providers Care Septic Tank Servicer Name Role Phone Samuel Love MD Primary Care Provider Praveen Casey MD Unavailable [phone] Margie Vasquez NP Unavailable [phone] Norbert Acosta MD Primary Care Provider Unavail able Encounter Details Date Type Department Care Team Description 11/14/2019 SCAN Medical Records [address] [place] [address] Margie Vasquez NP [address] [address] Social History Tobacco Use Types Packs/Day [...] on filedocumented in this encounter Care Teams Septic Tank Servicer Relationship Specialty Start Date End Date Samuel Love MD PCP - General 10/12/1997 12/28/21 Norbert Acosta MD [address] [address] PCP - General Family Practice 12/29/21 Praveen Mclean MD Specialist Cardiology 02/28/21 Margie Vasquez NP [address] [address] Cardiology 06/10/21 documented as of this encounter
--- OUTSIDE RECORDS SUMMARY | 2025-03-16 13:42 | XMS_ITS | Encounter Summary ---
Author Organization [facility] Address [address] [place] [address] Care Team Providers Care Executive Director Of Marketing Name Role Phone Samuel Love MD Primary Care Provider Praveen Casey MD Unavailable [phone] Margie Vasquez NP Unavailable [phone] Norbert Acosta MD Primary Care Provider Unavail able Encounter Details Date Type Department Care Team Description 11/14/2019 Sand Mill Operator Core Sand Report Medical Records [address] [place] [address] Margie Vasquez NP [address] [address] Social History Tobacco Use Types [...] on filedocumented in this encounter Care Teams Executive Director Of Marketing Relationship Specialty Start Date End Date Samuel Love MD PCP - General 10/12/1997 12/28/21 Norbert Acosta MD [address] [address] PCP - General Family Practice 12/29/21 Praveen Mclean MD Specialist Cardiology 02/28/21 Margie Vasquez NP [address] [phone] Cardiology 06/10/21 documented as of this encounter
--- OUTSIDE RECORDS SUMMARY | 2025-03-16 13:42 | XMS_ITS | Encounter Summary ---
Author Organization [facility] Address [address] [place] [address] Care Team Providers Care Psychological Aide Name Role Phone Praveen Mclean MD Unavailable [phone] Margie Vasquez NP Unavailable [phone] Norbert Acosta MD Primary Care Provider Unavail able Encounter Details Date Type Department Care Team Description 02/22/2023 SCAN Medical Records [address] [place] [address] Abstract, Provider Social History Tobacco Use Types [...] suspected to have Coronavirus/COVID-19? No / Unsure 02/23/2023 12:45 PM EDT documented as of this encounter Plan of Treatment Not on file documented as of this encounter Procedures Procedure Name Priority Date/Time Associated Diagnosis Comments OUTSIDE LAB Routine 02/22/2023 documented in this encounter Results * OUTSIDE LAB (02/22/2023) Provider Default LAB documented in this encounter Visit Diagnoses Not on filedocumented in this encounter Care Teams Psychological Aide Relationship Specialty Start Date End Date Norbert Acosta MD [address] [address] PCP - General Family Practice 12/29/21 Praveen Mclean MD Specialist Cardiology 02/28/21 Margie Vasquez NP [address] [place] [address] Cardiology 06/10/21 documented as of this encounter
--- OUTSIDE RECORDS SUMMARY | 2025-03-16 13:42 | XMS_ITS | Encounter Summary ---
Author Organization [facility] Address [address] [place] [address] Care Team Providers Care Shaker Out Name Role Phone Samuel Love MD Primary Care Provider Praveen Casey MD Unavailable [phone] Margie Vasquez NP Unavailable [phone] Norbert Acosta MD Primary Care Provider Unavail able Encounter Details Date Type Department Care Team Description 10/18/2017 Senior Consultant Report Medical Records [address] [place] [address] Abstract, Provider Social History Tobacco Use Types Packs/Day Years Used Date Smoking Tobacco: Never Assessed Sex Assigned at Date Recorded Not on file Job Start Date Occupation Industry Not on file Not on file Not on file documented as of this encounter Plan of Treatment Not on file documented as of this encounter Visit Diagnoses Not on filedocumented in this encounter Care Teams Shaker Out Relationship Specialty Start Date End Date Samuel Love MD PCP - General 10/12/1997 12/28/21 Norbert Acosta MD [address] [phone] PCP - General Family Practice 12/29/21 Praveen Mclean MD Specialist Cardiology 02/28/21 Margie Vasquez NP [address] [address] Cardiology 06/10/21 documented as of this encounter
--- OUTSIDE RECORDS SUMMARY | 2025-03-16 13:42 | XMS_ITS | Encounter Summary ---
Author Organization [facility] Address [address] [place] [address] Care Team Providers Care Show Host/Hostess Name Role Phone Praveen Mclean MD Unavailable [phone] Margie Vasquez NP Unavailable [phone] Norbert Acosta MD Primary Care Provider Unavail able Encounter Details Date Type Department Care Team Description 06/15/2023 Pt. Non Urgent Medical Question Cardio PVC POC [address] [facility] [address] [place] [address] Margie Vasquez NP [address] [place] [address] Social History Tobacco Use Types [...] encounter Miscellaneous Notes * Telephone Encounter - Shimon Quan RN - 06/16/2023 8:02 AM ESTFrom: Moriah Cloud To: Brady Vasquez Sent: 06/15/2023 7:47 PM EST Subject: I had a brain MRI 06/03/2023 Cristino Hanson, I am hoping you can shed some light on the findings to let me know if I should be worried. I was not feeling too good about it when I read the report, considering I have some symptoms I am trying to get help with. I have been lightheaded for 3 months or more and had to go to the ER on the because I have a bad spell the day. I also have issues with awful pain in the sides of my neck, tingling head and arm pain the has woken me at night with horrible pain along with other symptoms that gradually came. I am going to Physical Therapy starting. 06/06/2023. Thank you! documented in this encounter Plan of Treatment Not on file documented as of this encounter Visit Diagnoses Not on filedocumented in this encounter Care Teams Show Host/Hostess Relationship Specialty Start Date End Date Norbert Acosta MD [facility] [address] [place] [address] PCP - General Family Practice 12/29/21 Praveen Mclean MD Specialist Cardiology 02/28/21 Margie Vasquez NP [address] [facility] [address] [place] [address] Cardiology 06/10/21 documented as of this encounter
--- OUTSIDE RECORDS SUMMARY | 2025-03-16 13:42 | XMS_ITS | Encounter Summary ---
Author Organization [facility] Address [address] [place] [address] Care Team Providers Care Production Underwriter Name Role Phone Praveen Mclean MD Unavailable Margie Vasquez NP Unavailable [phone] Norbert Acosta MD Primary Care Provider Unavail able Encounter Details Date Type Department Care Team Description 01/13/2024 Video Games Mechanic Report Medical Records [address] [place] [address] Social History Tobacco Use Types Packs/Day Years [...] on filedocumented in this encounter Care Teams Production Underwriter Relationship Specialty Start Date End Date Norbert Acosta MD [address] [phone] PCP - General Family Practice 12/29/21 Praveen Mclean MD Specialist Cardiology 02/28/21 Margie Vasquez NP [address] [address] Cardiology 06/10/21 documented as of this encounter
--- OUTSIDE RECORDS SUMMARY | 2025-03-16 13:42 | XMS_ITS | Encounter Summary ---
Author Organization [facility] Address [address] [place] [address] Care Team Providers Care Manager Social Responsibility Name Role Phone Samuel Love MD Primary Care Provider Praveen Casey MD Unavailable [phone] Margie Vasquez NP Unavailable [phone] Norbert Acosta MD Primary Care Provider Unavail able Encounter Details Date Type Department Care Team Description 04/30/2021 SCAN Medical Records [address] [place] [address] Miguel Castro MD Social History Tobacco Use Types Packs/Day Years Used Date Smoking Tobacco: Never Smokeless Tobacco: Never Sex Assigned at Date Recorded Not on file Job Start Date Occupation Industry Not on file Not on file Not on file documented as of this encounter Plan of Treatment Not on file documented as of this encounter Procedures Procedure Name Priority Date/Time Associated Diagnosis Comments OUTSIDE MRI/MRA Routine 04/30/2021 documented in this encounter Results * OUTSIDE MRI/MRA (04/30/2021) Provider Abstract RADIOLOGY documented in this encounter Visit Diagnoses Not on filedocumented in this encounter Care Teams Manager Social Responsibility Relationship Specialty Start Date End Date Samuel Love MD PCP - General 10/12/1997 12/28/21 Norbert Acosta MD [address] [address] PCP - General Family Practice 12/29/21 Praveen Mclean MD Specialist Cardiology 02/28/21 Margie Vasquez NP [address] [address] Cardiology 06/10/21 documented as of this encounter
--- OUTSIDE RECORDS SUMMARY | 2025-03-16 13:42 | XMS_ITS | Encounter Summary ---
Author Organization [facility] Address [address] [place] [address] Care Team Providers Care Heavy Mobile Equipment Repairer Name Role Phone Samuel Love MD Primary Care Provider Praveen Casey MD Unavailable [phone] Margie Vasquez NP Unavailable [phone] Norbert Acosta MD Primary Care Provider Unavail able Encounter Details Date Type Department Care Team Description 12/03/2014 SCAN Medical Records [address] [place] [address] Glendy Sharma MD Social History Tobacco Use Types Packs/Day Years Used Date Smoking Tobacco: Never Assessed Sex Assigned at Date Recorded Not on file Job Start Date Occupation Industry Not on file Not on file Not on file documented as of this encounter Plan of Treatment Not on file documented as of this encounter Procedures Procedure Name Priority Date/Time Associated Diagnosis Comments OUTSIDE LOOP RECORDER Routine 12/03/2014 documented in this encounter Results * OUTSIDE LOOP RECORDER (12/03/2014) Provider Default CARDIOLOGY documented in this encounter Visit Diagnoses Not on filedocumented in this encounter Care Teams Heavy Mobile Equipment Repairer Relationship Specialty Start Date End Date Samuel Love MD PCP - General 10/12/1997 12/28/21 Norbert Acosta MD [address] [address] PCP - General Family Practice 12/29/21 Praveen Mclean MD Specialist Cardiology 02/28/21 Margie Vasquez NP [address] [address] Cardiology 06/10/21 documented as of this encounter
--- OUTSIDE RECORDS SUMMARY | 2025-03-16 13:42 | XMS_ITS | Encounter Summary ---
Author Organization [facility] Address [address] [facility] [address] [place] [address] Phone Care Team Providers Care Progress Clerk Name Role Phone Samuel Love MD Primary Care Provider [phone] Norbert Acosta MD Primary Care Provider [phone] Norbert Acosta MD Primary Care Provider Norbert Acosta MD Unavailable Encounter Details Date Type Department Care Team (Late st Contact Info) Description 02/20/2019 Procedure Pass [facility] 4 ENDO DEPT [address] [facility], 4th [place] [address] Social History Tobacco Use Types Packs/Day Years Used Date Smoking Tobacco: Every Day Smokeless Tobacco: Never Comments Unknown Sex and Gender Information Value Date Recorded Sex Assigned at Female 08/02/2024 12:17 PM EST Legal Sex Female 11:41 AM EST Gender Identity Female 08/02/2024 12:17 PM EST Sexual Orientation Straight 08/02/2024 12 :17 PM EST documented as of this encounter Plan of Treatment Upcoming Encounters Date Type Department Care Team (Late st Contact Info) Description 08/22/2025 2:00 PM EST Telemedicine [facility] [address] [place] [address] Flavia Siddiqui NP [address] [place] [address] [email or web address] documented as of this encounter Visit Diagnoses Not on filedocumented in this encounter Care Teams Progress Clerk Relationship Specialty Start Date End Date Samuel Love MD [address] [place] [phone] PCP - General Internal Medicine 07/31/18 08/01/24 Norbert Acosta MD [address] [place] [phone] PCP - General Family Medicine 08/02/24 09/03/24 Norbert Acosta MD [address] [place] [phone] PCP - General 09/04/24 Norbert Acosta MD [address] [place] [phone] Family Medicine 09/04/24 documented as of this encounter Additional Source Comments The information contained in this document represents components of the legal health record. It is not the complete legal health record.[facility]
--- OUTSIDE RECORDS SUMMARY | 2025-03-16 13:42 | XMS_ITS | Encounter Summary ---
Author Organization [facility] Address [address] [place] [address] Care Team Providers Care Cage Cashier Name Role Phone Samuel Love MD Primary Care Provider Praveen Casey MD Unavailable [phone] Margie Vasquez NP Unavailable [phone] Norbert Acosta MD Primary Care Provider Unavail able Encounter Details Date Type Department Care Team Description 02/18/2020 SCAN Medical Records [address] [place] [address] Ashley Pichardo NP Social History Tobacco Use Types Packs/Day Years Used Date Smoking Tobacco: Never Smokeless Tobacco: Never Sex Assigned at Date Recorded Not on file Job Start Date Occupation Industry Not on file Not on file Not on file documented as of this encounter Plan of Treatment Not on file documented as of this encounter Visit Diagnoses Not on filedocumented in this encounter Care Teams Cage Cashier Relationship Specialty Start Date End Date Samuel Love MD PCP - General 10/12/1997 12/28/21 Norbert Acosta MD [address] [phone] PCP - General Family Practice 12/29/21 Praveen Mclean MD Specialist Cardiology 02/28/21 Margie Vasquez NP [address] [address] Cardiology 06/10/21 documented as of this encounter
--- OUTSIDE RECORDS SUMMARY | 2025-03-16 13:42 | XMS_ITS | Encounter Summary ---
Author Organization [facility] Address [address] [place] [address] Care Team Providers Care Autocad Operator Name Role Phone Praveen Mclean MD Unavailable [phone] Margie Vasquez NP Unavailable [phone] Norbert Acosta MD Primary Care Provider Unavail able Encounter Details Date Type Department Care Team Description 11/23/2022 SCAN Medical Records [address] [place] [address] Abstract, Provider Social History Tobacco Use Types [...] Date/Time Associated Diagnosis Comments OUTSIDE LAB Routine 11/23/2022 documented in this encounter Results * OUTSIDE LAB (11/23/2022) Provider Abstract LAB documented in this encounter Visit Diagnoses Not on filedocumented in this encounter Care Teams Autocad Operator Relationship Specialty Start Date End Date Norbert Acosta MD [facility] [address] [place] [address] PCP - General Family Practice 12/29/21 Praveen Mclean MD Specialist Cardiology 02/28/21 Margie Vasquez NP [address] [facility] [address] [place] [address] Cardiology 06/10/21 documented as of this encounter
== END 2025-03-16 14:01 | disposition home or self-care (01) ==
PROVIDERS: PCP Family Medicine; Visit Provider Physician Assistant
DX: J98.8 Other specified respiratory disorders (principal); B97.89 Other viral agents as the cause of diseases classified elsewhere